=== PATIENT | female | born 1950 | race Caucasian/White ===

== ENCOUNTER 2016-09-16 13:07 | Emergency (ER) | payer MEDICARE, MEDICAID ==
--- NOTE | 2016-09-16 13:31 | EDM.PDOC ---
ED HISTORY OF PRESENT ILLNESS - General Chief Complaint: Respiratory Problem Stated Complaint: SOB Time Seen by Provider: 09/16/16 13:30 Source of Information: Reports: Patient History Limitations: Reports: No limitations - History of Present Illness INITIAL COMMENTS - FREE TEXT/NARRATIVE: Patient is a 66-year-old female with a extensive cardiac history. Patient states first myocardial infarction was silent with some similar symptoms as she is experiencing today. States she recently moved into a new place and has been experiencing shortness of breath with exertion, general malaise, fatigue, intermittent dizziness/nausea. She denies any chest pain, pre-/syncopal episodes, any upper respiratory infection symptoms or any additional complaints. States she has low energy and has gained approximately 20 pounds in the last 8 months 2nd to increased dietary intake. Denies chest pain, shortness of breath at rest, edema to lower extremities, orthopnea, PND, syncopal episode, sinus congestion, sore throat, coughing, diarrhea, or fever. Timing/Duration: Reports: Constant Location, General: Reports: generalized Improves with: Reports: Rest Worsens with: Reports: Other (Exertion) Context, General: Denies: Sick contact Associated Symptoms (General): Reports: loss of appetite, malaise, nausea/ vomiting (Nausea), shortness of breath (with exertion). Denies: chest pain, cough, cough w sputum, diaphoresis, fever/chills, syncope Treatments COUNSELING DEPARTMENT CHAIR: Reports: Other (see below) (None stated) - Related Data Allergies/ADRs: Allergies Allergy/AdvReac Type Severity Reaction Status Date / Time nitrofurantoin AdvReac Nausea and Verified 09/16/16 13:17 macrocrystalline Vomiting [From Macrodantin] Sulfa (Sulfonamide AdvReac Nausea and Verified 09/16/16 13:17 Antibiotics) Vomiting sulfamethoxazole AdvReac Nausea and Verified 09/16/16 13:17 [From Bactrim] Vomiting trimethoprim [From Bactrim] AdvReac Nausea and Verified 09/16/16 13:17 Vomiting Home Meds: Home Meds Isosorbide Mononitrate 60 mg PO DAILY 12/10/13 [History] Metoprolol Succinate 12.5 mg PO DAILY 12/10/13 [History] traMADol [Ultram] 50 mg PO Q6H PRN 12/10/13 [History] Aspirin [Gabriel Chewable Aspirin] 81 mg PO DAILY 12/19/13 [History] Glucagon,Human Recombinant [Glucagen] 1 mg .XX ONETIME PRN 12/19/13 [History] Nitroglycerin [Nitrostat] 0.4 mg SL ASDIRECTED PRN 12/19/13 [History] Clopidogrel Bisulfate [Plavix] 75 mg PO DAILY #10 tablet 09/03/15 [Rx] Esomeprazole [NexIUM] 1 tab PO DAILY 09/03/15 [History] rOPINIRole [Requip] 1 mg PO BEDTIME 02/21/16 [History] Cholecalciferol (Vitamin D3) [Vitamin D3] 400 units PO DAILY 02/22/16 [History] Lisinopril 10 mg PO DAILY 02/22/16 [History] Sodium Bicarbonate 325 mg PO BID 02/22/16 [History] Levothyroxine [Synthroid] 100 mcg PO DAILY@0700 #30 tablet 02/27/16 [Rx] Simvastatin [Zocor] 20 mg PO BEDTIME 30 Days 02/27/16 [Rx] Ciprofloxacin HCl [Cipro] 500 mg PO QAM #10 tablet 09/16/16 [Rx] HCTZ/Triamterene [Maxzide 25-37.5 MG] 12.5 mg PO DAILY 09/16/16 [History] Insulin Aspart [Novolog] unit SQ TID 09/16/16 [History] Insulin Detemir [Levemir] 26 unit SUBCUT DAILY 09/16/16 [History] Past Medical History HEENT History: Reports: Macular degeneration Other HEENT History: ears are constantly ringing Cardiovascular History: Reports: Hypertension, [place] Other Cardiovascular History: 2003 Respiratory History: Reports: Pneumonia, recurrent Gastrointestinal History: Reports: PUD, Other (see below) Other Gastrointestinal History: was told has "twisted colon." Genitourinary History: Reports: Pyelonephritis Other Genitourinary History: Stage two kidney disease [employer] History: Reports: Musculoskeletal History: Reports: Back pain, chronic, Fracture, Other (see below ) Other Musculoskeletal History: spinal stenosis, fx'd spine (back), L) arm surgery. Neurological History: Reports: Migraines Psychiatric History: Reports: Depression Endocrine/Metabolic History: Reports: Diabetes, type I, Hypothyroidism, IDDM Hematologic History: Reports: Blood transfusion(s) Immunologic History: Reports: None Oncologic (Cancer) History: Reports: None Dermatologic History: Reports: None - Infectious Disease History Infectious Disease History: Reports: Chicken pox - Past Surgical History Head Surgeries/Procedures: Reports: None HEENT Surgical History: Reports: Cataract surgery Cardiovascular Surgical History: Reports: Coronary artery bypass Other Cardiovascular Surgeries/Procedures: 2003, 4 vessels. GI Surgical History: Reports: Appendectomy Social & Family History - Family History Family Medical History: Noncontributory - Tobacco Use Smoking Status *Q: Former Smoker Years of Tobacco use: 50 Packs/Tins Daily: 1 Second Hand Smoke Exposure: No - Alcohol Use Days Per Week of Alcohol Use: 0 Number of Drinks Per Day: 0 Total Drinks Per Week: 0 - Recreational Drug Use Recreational Drug Use: No Drug Use in Last 12 Months: No ED ROS GENERAL - Review of Systems Review Of Systems: See Below Constitutional: Reports: malaise, fatigue, decreased appetite. Denies: fever, chills HEENT: Reports: No symptoms Respiratory: Reports: shortness of breath. Denies: cough, sputum Cardiovascular: Reports: Dyspnea on exertion, Lightheadedness (Intermittent). Denies: Chest pain, Edema, Orthopnea, Palpitations, PND, Syncope GI/Abdominal: Reports: Nausea (Intermittent). Denies: Abdominal pain, Black stool, Bloody stool, Diarrhea, Hematemesis, Vomiting : Denies: dysuria, frequency, hematuria, urgency Musculoskeletal: Denies: back pain Neurological: Reports: dizziness (Intermittent). Denies: confusion, headache, numbness, syncope, tingling, difficulty walking, weakness Psychiatric: Reports: Anxiety (History of) ED EXAM, GENERAL - Physical Exam Exam: See Below Exam Limited By: No limitations General Appearance: alert, WD/WN, no apparent distress Eye Exam: bilateral eye: EOMI, PERRL Ears: hearing grossly normal Nose: normal inspection Throat/Mouth: Normal voice, No airway compromise, Other (Dry oromucosa) Neck: normal inspection, supple, non-tender, full range of motion. No: carotid bruit, lymphadenopathy (L), lymphadenopathy (R) Respiratory/Chest: no respiratory distress, lungs clear, normal breath sounds, no accessory muscle use, chest non-tender Cardiovascular: normal peripheral pulses, regular rate, rhythm, no edema, no JVD , no murmur Peripheral Pulses: 3+: radial (L) GI/Abdominal: normal bowel sounds, soft, non tender, no organomegaly, no distention Back Exam: normal inspection Extremities: normal inspection, non-tender, no pedal edema, normal capillary refill Neurological: alert, oriented, CN II-XII intact, normal cognition, no motor/ sensory deficits Psychiatric: normal affect, normal mood Skin Exam: Warm, Dry, Intact, Normal color Course - Vital Signs Last Recorded V/S: Last Vital Signs Temp 97.1 F 09/16/16 13:35 Pulse 82 09/16/16 13:35 Resp 16 09/16/16 13:35 BP 133/66 09/16/16 13:35 Pulse Ox 97 09/16/16 13:35 - Orders/Labs/Meds Orders: Active Orders 24 hr Category Date Time Status EKG Documentation Completion [RC] STAT Care 09/16/16 13:43 Active Orthostatic Vital Signs [RC] ASDIRECTED Care 09/16/16 13:46 Active Peripheral IV Care [RC] . DIRECTED Care 09/16/16 13:44 Active CULTURE URINE [RM] Stat Lab 09/16/16 17:54 Ordered Peripheral IV Insertion Adult [OM.PC] Stat Oth 09/16/16 13:43 Ordered Labs: Laboratory Tests 09/16/16 09/16/16 09/16/16 Range/Units 13:50 13:50 13:50 WBC 6.14 (3.98-10.04) K/mm3 RBC 4.33 (3.98-5.22) M/mm3 Hgb 9.8 L (11.2-15.7) gm/L Hct 33.3 L (34.1-44.9) % MCV 76.9 L (79.4-94.8) fl MCH 22.6 L (25.6-32.2) pg MCHC 29.4 L (32.2-35.5) g/dl RDW Std Deviation 44.8 (36.4-46.3) fL Plt Count 316 (182-369) K/mm3 MPV 12.5 H (9.4-12.3) fl Neut % (Auto) 54.5 (34.0-71.1) % Lymph % (Auto) 29.3 (19.3-51.7) % [place] % (Auto) 8.5 (4.7-12.5) % Eos % (Auto) 6.5 H (0.7-5.8) Baso % (Auto) 1.0 (0.1-1.2) % Neut # 3.35 (1.56-6.13) K/mm3 Lymph # 1.80 (1.18-3.74) K/mm3 [place] # 0.52 H (0.24-0.36) K/mm3 Eos # 0.40 H (0.04-0.36) K/mm3 Baso # 0.06 (0.01-0.08) K/mm3 Manual Slide Review Abnormal smear PT 10.4 (8.0-13.0) SECONDS INR 0.96 APTT 24 (22-36) SECONDS Sodium 138 (136-145) mEq/L Potassium 4.3 (3.5-5.1) mEq/L Chloride 102 (98-107) mEq/L Carbon Dioxide 25 (21-32) mEq/L Anion Gap 15.3 H (5-15) BUN 38 H (7-18) mg/dL Creatinine 1.7 H (0.55-1.02) mg/dL Est Cr Clr Drug Dosing TNP Estimated GFR (MDRD) 30 (>60) mL/min BUN/Creatinine Ratio 22.4 H (14-18) Glucose 283 H (80-115) mg/dL Calcium 9.3 (8.5-10.1) mg/dL Total Bilirubin 0.2 (0.2-1.0) mg/dL AST 15 (15-37) U/L ALT 17 (14-59) U/L Alkaline Phosphatase 110 (46-116) U/L Troponin I < 0.017 (0.00-0.056) ng/mL C-Reactive Protein 3.6 H* (<1.0) mg/dL B-Natriuretic Peptide (0-100) pg/mL Total Protein 7.1 (6.4-8.2) g/dl Albumin 3.3 L (3.4-5.0) g/dl Globulin 3.8 gm/dL Albumin/Globulin Ratio 0.9 L (1-2) TSH 3rd Generation 1.153 (0.358-3.74) uIU/mL Urine Color (Yellow) Urine Appearance (Clear) Urine pH (5.0-8.0) Ur Specific [place] (1.005-1.030) Urine Protein (Negative) Urine Glucose (UA) (Negative) Urine Ketones (Negative) Urine Occult Blood (Negative) Urine Nitrite (Negative) Urine Bilirubin (Negative) Urine Urobilinogen (0.2-1.0) Ur Leukocyte Esterase (Negative) Urine RBC (0-5) /hpf Urine WBC (0-5) /hpf Ur Epithelial Cells (0-5) /hpf Urine Bacteria (FEW) /hpf Urine Mucus (FEW) /hpf 09/16/16 09/16/16 09/16/16 Range/Units 13:50 15:34 15:55 WBC (3.98-10.04) K/mm3 RBC (3.98-5.22) M/mm3 Hgb (11.2-15.7) gm/L Hct (34.1-44.9) % MCV (79.4-94.8) fl MCH (25.6-32.2) pg MCHC (32.2-35.5) g/dl RDW Std Deviation (36.4-46.3) fL Plt Count (182-369) K/mm3 MPV (9.4-12.3) fl Neut % (Auto) (34.0-71.1) % Lymph % (Auto) (19.3-51.7) % [place] % (Auto) (4.7-12.5) % Eos % (Auto) (0.7-5.8) Baso % (Auto) (0.1-1.2) % Neut # (1.56-6.13) K/mm3 Lymph # (1.18-3.74) K/mm3 [place] # (0.24-0.36) K/mm3 Eos # (0.04-0.36) K/mm3 Baso # (0.01-0.08) K/mm3 Manual Slide Review PT (8.0-13.0) SECONDS INR APTT (22-36) SECONDS Sodium (136-145) mEq/L Potassium (3.5-5.1) mEq/L Chloride (98-107) mEq/L Carbon Dioxide (21-32) mEq/L Anion Gap (5-15) BUN (7-18) mg/dL Creatinine (0.55-1.02) mg/dL Est Cr Clr Drug Dosing Estimated GFR (MDRD) (>60) mL/min BUN/Creatinine Ratio (14-18) Glucose (80-115) mg/dL Calcium (8.5-10.1) mg/dL Total Bilirubin (0.2-1.0) mg/dL AST (15-37) U/L ALT (14-59) U/L Alkaline Phosphatase (46-116) U/L Troponin I < 0.017 (0.00-0.056) ng/mL C-Reactive Protein (<1.0) mg/dL B-Natriuretic Peptide 68 (0-100) pg/mL Total Protein (6.4-8.2) g/dl Albumin (3.4-5.0) g/dl Globulin gm/dL Albumin/Globulin Ratio (1-2) TSH 3rd Generation (0.358-3.74) uIU/mL Urine Color Yellow (Yellow) Urine Appearance Clear (Clear) Urine pH 5.5 (5.0-8.0) Ur Specific [place] 1.020 (1.005-1.030) Urine Protein Negative (Negative) Urine Glucose (UA) 2+ H (Negative) Urine Ketones Negative (Negative) Urine Occult Blood Negative (Negative) Urine Nitrite Negative (Negative) Urine Bilirubin Negative (Negative) Urine Urobilinogen 0.2 (0.2-1.0) Ur Leukocyte Esterase 1+ H (Negative) Urine RBC 0-5 (0-5) /hpf Urine WBC 5-10 H (0-5) /hpf Ur Epithelial Cells 5-10 H (0-5) /hpf Urine Bacteria Moderate H (FEW) /hpf Urine Mucus Few (FEW) /hpf Meds: Medications Discontinued Medications Generic Name Dose Route Start Last Admin Trade Name Freq PRN Reason Stop Dose Admin Aspirin 243 mg 09/16/16 14:57 09/16/16 15:18 Aspirin PO 09/16/16 14:58 243 mg ONETIME ONE Administration Ceftriaxone Sodium 1 gm/ 0 gm 09/16/16 18:00 09/16/16 18:22 Lidocaine HCl 2.1 ml IM 2.1 inj Q24H LYLA Administration Sodium Chloride 1,000 mls @ 50 mls/hr 09/16/16 14:00 09/16/16 14:04 Normal Saline IV 50 mls/hr ASDIRECTED LYLA Administration Ondansetron HCl 4 mg 09/16/16 13:46 09/16/16 14:03 Zofran IVPUSH 09/16/16 13:47 4 mg ONETIME ONE Administration Sodium Chloride 10 ml 09/16/16 13:43 09/16/16 13:58 Saline Flush FLUSH 10 ml ASDIRECTED PRN Administration Keep Vein Open - Re-Assessments/Exams Free Text/Narrative Re-Assessment/Exam: Labs reviewed: White blood cell count 6.14, hemoglobin is 9.8, coags are within normal limits, sodium 138, creatinine 1.7 baseline of 0.8, glucose 283, troponin less than 0.017, CRP is elevated at 2.6, TSH 1.3, BMP is 58. Chest x-ray revealed nothing acute seen on 2 view chest. D-Dimer ordered in error. 2nd Troponin ordered to be obtained 2 hours after initial draw. Patient denies history of PE/DVT, unilateral lower leg swelling, hemoptysis, exogenous estrogen, recent surgery/trauma, or hospitalization. 09/16/16 17:09 Seconds troponin was negative. 1 liter of fluid has been administered. UA revealed UTI. Culture obtained. Ordered rocephin 1 gram IV. Discussed with Dr Jackson, suggests cipro 500 once a day dosing per renal status. Holding lisinopril and HCTZ tomorrow, restarting Tuesday and taking every other day after that until evaluated by PCP. Discussed patient with Dr. López, he does not believe patient meets admission status. Patient does not want to be admitted anyways. Will discharge the patient home with instructions to followup with primary care provider first part of next week. Additional instructions on discharge is documented. Departure - Departure Time of Disposition: 17:35 Disposition: Home, Self-Care 01 Condition: good Clinical Impression: Elevated serum creatinine, Malaise and fatigue UTI (urinary tract infection) Qualifiers: Urinary tract infection type: acute cystitis Hematuria presence: without hematuria Qualified Code(s): N30.00 - Acute cystitis without hematuria Prescriptions: Ciprofloxacin HCl [Cipro] 500 mg PO QAM #10 tablet Instructions: Urinary Tract Infection, Adult, Basic Metabolic Panel Referrals: Kike Henry MD [Primary Care Provider] - Forms: ED Department Discharge Additional Instructions: As discussed your creatinine was elevated in comparison to previous studies today. This is suggesting that you are dehydrated. Decreased in liquid intake with combination with diuretics and lisinopril can cause worsening kidney function. Increase fluid intake. UA was positive for UTI. Take cipro 500mg everyday for 10 days. Hold lisinopril and HCTZ tomorrow restarting Tuesday then taking on a every other day basis until evaluated by PCP first part of next week. Return to the E.D. as needed for any new or worsening symptoms as discussed. - My Orders Last 24 Hours: My Active Orders 09/16/16 13:43 EKG Documentation Completion [RC] STAT Peripheral IV Insertion Adult [OM.PC] Stat 09/16/16 13:44 Peripheral IV Care [RC] . DIRECTED 09/16/16 13:46 Orthostatic Vital Signs [RC] ASDIRECTED 09/16/16 17:54 CULTURE URINE [RM] Stat - Assessment/Plan Last 24 Hours: My Active Orders 09/16/16 13:43 EKG Documentation Completion [RC] STAT Peripheral IV Insertion Adult [OM.PC] Stat 09/16/16 13:44 Peripheral IV Care [RC] . DIRECTED 09/16/16 13:46 Orthostatic Vital Signs [RC] ASDIRECTED 09/16/16 17:54 CULTURE URINE [RM] Stat
[2016-09-16] MEDS ORDERED: Sodium Chloride 0.9% 10 ML Syringe FLUSH PRN (13:43)
[2016-09-16 13:44] VITALS: BP 133/66
[2016-09-16] MEDS ORDERED: Ondansetron 4 MG/2 ML SDV IVPUSH ONE (13:46)
[2016-09-16] MEDS ORDERED: Sodium Chloride 0.9% 1,000 ML IV SCH (14:00)
[2016-09-16] MEDS ORDERED: Aspirin 81 MG Tab.Chew PO ONE (14:57)
--- NOTE | 2016-09-16 15:12 | CR ---
Chest: Two views of the chest were obtained. Comparison: Previous chest x-ray of 02/25/16. Heart size at the upper limits of normal. Tortuous thoracic aorta is seen. Sternotomy for CABG is seen. Minimal apical pleural thickening is seen. Lungs are clear with no acute infiltrates. Bony structures appear within normal limits for the patient's age. Impression: 1. Incidental findings. Nothing acute is seen on two-view chest x-ray. Diagnostic code #2
[2016-09-16] MEDS ORDERED: cefTRIAXone 1 GM, Lidocaine 1% 2.1 ML IM SCH ×2 (18:00)
== END 2016-09-16 18:38 | disposition home or self-care (01) ==
LOC: JD.ED 13:07
DX: N39.0 Urinary tract infection, site not specified (principal); R79.89 Other specified abnormal findings of blood chemistry; R53.81 Other malaise; Z88.2 Allergy status to sulfonamides; Z88.8 Allergy status to other drugs, medicaments and biological substances; Z79.82 Long term (current) use of aspirin; Z79.4 Long term (current) use of insulin; Z79.899 Other long term (current) drug therapy; H35.30 Unspecified macular degeneration; I25.2 Old myocardial infarction; I10 Essential (primary) hypertension; G89.29 Other chronic pain; M54.9 Dorsalgia, unspecified; F32.9 Major depressive disorder, single episode, unspecified; E10.9 Type 1 diabetes mellitus without complications; E03.9 Hypothyroidism, unspecified; Z87.891 Personal history of nicotine dependence
CPT/HCPCS: 36415; 71020; 80053; 81001; 83880; 84443; 84484; 85025; 85610; 85730; 86140; 93005; 96361; 96372; 96374; 99285; A9270; J0696; J2405; J7040; J7050; 87086; 87088; 87186

== ENCOUNTER 2017-09-05 22:34 | Emergency (ER) | payer OTHER ==
--- NOTE | 2017-09-05 22:58 | EDM.PDOC ---
ED HPI GENERAL MEDICAL PROBLEM - General Chief Complaint: Respiratory Problem Stated Complaint: SOB Time Seen by Provider: 09/05/17 22:41 Source of Information: Reports: Patient, Family (Daughter) History Limitations: Reports: No Limitations - History of Present Illness INITIAL COMMENTS - FREE TEXT/NARRATIVE: The patient states "I can't breathe" since this morning, when she woke up. She states that she is able to lie down for at least a while. She believes that she has been wheezing. She reports that she has had a dry cough for a few months. No recent fever. She denies having chest pain or palpitations. She denies lower extremity edema. She denies prior similar symptoms. She does not have any underlying lung disease. Upon arrival to the ED, the patient's SpO2 was 68% on room air. She was placed on 2 L per nasal cannula, without improvement. She was placed on a nonrebreather mask, raising her SpO2 to 90%. The patient states that she saw her Channel Opener, Dr. Franks, today. She mentioned her shortness of breath, but states that he did not do anything about it. The patient states that he wants her to have an echocardiogram. The patient's PCP is Dr. Sofia, a [facility] doctor. - Related Data Allergies Allergy/AdvReac Type Severity Reaction Status Date / Time triazolam Allergy Cannot Verified 09/05/17 22:45 Remember zolpidem Allergy Cannot Verified 09/05/17 22:45 Remember nitrofurantoin AdvReac Nausea and Verified 09/05/17 22:37 macrocrystalline Vomiting [From Macrodantin] Sulfa (Sulfonamide AdvReac Nausea and Verified 09/05/17 22:37 Antibiotics) Vomiting sulfamethoxazole AdvReac Nausea and Verified 09/05/17 22:37 [From Bactrim] Vomiting trimethoprim [From Bactrim] AdvReac Nausea and Verified 09/05/17 22:37 Vomiting Home Meds: Home Meds Isosorbide Mononitrate 60 mg PO DAILY 12/10/13 [History] traMADol [Ultram] 50 mg PO Q6H 12/10/13 [History] Aspirin [Gabriel Chewable Aspirin] 81 mg PO DAILY 12/19/13 [History] Glucagon,Human Recombinant [Glucagen] 1 mg .XX ONETIME PRN 12/19/13 [History] Nitroglycerin [Nitrostat] 0.4 mg SL ASDIRECTED PRN 12/19/13 [History] Esomeprazole [NexIUM] 1 tab PO DAILY 09/03/15 [History] Lisinopril 2.5 mg PO DAILY 02/22/16 [History] Sodium Bicarbonate 325 mg PO BID 02/22/16 [History] Insulin Aspart [Novolog] 4 unit SQ ACLUNCH 09/16/16 [History] Ascorbic Acid [Vitamin C] 250 mg PO BID 09/05/17 [History] Bisoprolol [Zebeta] 2.5 mg PO DAILY 09/05/17 [History] Calcium Carbonate/Vitamin D3 [Calcium 600 + Vit D 400 Softgl] 1 tab PO BID 09/05 [History] Citalopram Hydrobromide [Celexa] 40 mg PO DAILY 09/05/17 [History] Dextrose [Glucose] 1 applic PO DAILY PRN 09/05/17 [History] Dextrose [Glucose] 4 gm PO DAILY PRN 09/05/17 [History] Ferrous Sulfate [Iron] 325 mg PO BID 09/05/17 [History] Gabapentin [Neurontin] 100 mg PO TID 09/05/17 [History] Insulin Aspart [Novolog Flexpen] 1 - 4 units SQ TID 09/05/17 [History] Insulin Aspart [Novolog Flexpen] 3 units SQ ACDINNER 09/05/17 [History] Insulin Aspart [Novolog Flexpen] 6 units SQ ACBREAKFAST 09/05/17 [History] Levothyroxine [Synthroid] 0.112 mg PO DAILY@1200 09/05/17 [History] Menthol/Colloidal Oatmeal [Eucerin Calm Itch-Relief] 1 applic TOP BID PRN [History] Rosuvastatin [Crestor] 10 mg PO BEDTIME 09/05/17 [History] Tresiba. 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: Musculoskeletal History: Reports: Back Pain, Chronic (spinal stenosis), Fracture Psychiatric History: Reports: Other (See Below) (Restless leg syndrome) Endocrine/Metabolic History: Reports: Diabetes, Type II, Hypothyroidism Hematologic History: Reports: Anemia, Blood Transfusion(s), Iron Deficiency - Infectious Disease History Infectious Disease History: Reports: Chicken Pox - Past Surgical History HEENT Surgical History: Reports: Cataract Surgery Cardiovascular Surgical History: Reports: Coronary Artery Bypass (x 4 vessel, 2003) GI Surgical History: Reports: Appendectomy Musculoskeletal Surgical History: Reports: ORIF (left wrist) Social & Family History - Family History Family Medical History: Noncontributory - Tobacco Use Smoking Status *Q: Current Every Day Smoker Years of Tobacco use: 52 Packs/Tins Daily: 0.1 Packs/Tins Daily Comment: Down from 1.5 ppd Used Tobacco, but Quit: No - Caffeine Use Caffeine Use: Reports: Coffee - Alcohol Use Alcohol Use History: No Days Per Week of Alcohol Use: 0 Number of Drinks Per Day: 0 Total Drinks Per Week: 0 - Recreational Drug Use Recreational Drug Use: No - Living Situation & Occupation Living situation: Reports: (), Alone Occupation: Retired ED ROS GENERAL - Review of Systems Review Of Systems: ROS reveals no pertinent complaints other than HPI. ED EXAM, GENERAL - Physical Exam Exam: See Below Exam Limited By: No Limitations General Appearance: Alert, WD/WN, Mild Distress (able to hold a conversation) Eye Exam: Bilateral Eye: Normal Inspection Ears: Normal External Exam, Hearing Grossly Normal Nose: Normal Inspection, No Blood Throat/Mouth: Normal Inspection, Normal Lips, Normal Voice, No Airway Compromise Head: Atraumatic, Normocephalic Neck: Normal Inspection, Full Range of Motion Respiratory/Chest: No Accessory Muscle Use, Respiratory Distress (mild), Decreased Breath Sounds (Bibasilar. No dullness to percussion.), Rhonchi (loud, Rt > Lt). No: Crackles, Wheezing Cardiovascular: Normal Peripheral Pulses, Regular Rate, Rhythm, No Edema, No Gallop, No JVD, No Murmur, No Rub Peripheral Pulses: 4+: Radial (L), Radial (R) GI/Abdominal: Normal Bowel Sounds, Soft, Non-Tender, No Organomegaly, No Distention, No Abnormal Bruit, No Mass (Female) Exam: Deferred Rectal (Female) Exam: Deferred Back Exam: Normal Inspection, Full Range of Motion, NT Extremities: Normal Inspection, Normal Range of Motion, No Pedal Edema, Normal Capillary Refill Neurological: Alert, Oriented, Normal Cognition, No Motor/Sensory Deficits Psychiatric: Normal Affect Skin Exam: Warm, Dry, Intact, Normal Color, No Rash ED RESPIRATORY PROCEDURES - Endotracheal Intubation Time of Intubation: 01:12 ET Intubation Indication: Respiratory Failure Preparation: Suction, Balloon Tested, BVM Set Up, Difficult Airway Equip Pre-Oxygenation: Assisted with BVM, 100% FiO2 Anesthesia Meds: Propofol Placement: Orotracheal, Cuffed, Uncomplicated Placement Cords Visualized: Yes, Grade 1 ETT Size In mm: 8.0 Number of Attempts: 1 Confirmed By: CO2 Indicator, Bilateral Breath Sounds, Chest Xray Tube Secured By: By RT EKG INTERPRETATION EKG Date: 09/05/17 Time: 23:08 Rhythm: NSR Rate (Beats/Min): 78 [place]: Normal P-Wave: Present QRS: RBBB (incompllete) ST-T: Normal QT: Prolonged (QTc 541 ms) Comparison: No Change (09/16/2016) Course - Vital Signs Last Recorded V/S: Last Vital Signs Temp 36.2 C 09/05/17 22:38 Pulse 71 09/06/17 03:36 Resp 17 09/06/17 03:36 BP 134/53 L 09/06/17 03:36 Pulse Ox 96 09/06/17 03:36 - Orders/Labs/Meds Orders: Active Orders 24 hr Category Date Time Status EKG Documentation Completion [RC] STAT Care 09/05/17 22:52 Active Ventilator Assessment, ED [RT Ventilator ED, Adult] [RC Care 09/06/17 02:04 Active ] ASDIRECTED Ventilator Assessment, ED [RT Ventilator ED, Adult] [ Care 09/06/17 02:42 Active ] ASDIRECTED Ang Chest [CT] Routine Exams 09/06/17 Ordered Chest 2V [CR] Stat Exams 09/05/17 22:52 Taken PICC Line Placement NC [CR] Stat Exams 09/06/17 01:53 Taken CULTURE BLOOD [BC] Stat Lab 09/05/17 22:35 Received CULTURE BLOOD [BC] Stat Lab 09/05/17 23:45 Received CULTURE SPUTUM + SMEAR [RM] Stat Lab 09/06/17 02:23 Results Norepinephrine [Levophed] 4 mg Med 09/06/17 02:15 Active Dextrose 5% in Water 246 ml IV TITRATE Propofol [Diprivan 100 ML] 100 ml Med 09/06/17 01:10 Active IV TITRATE Sodium Chloride 0.9% [Normal Saline] 1,000 ml Med 09/05/17 23:45 Active IV ASDIRECTED Vancomycin 1 gm Med 09/06/17 02:52 Active Sodium Chloride 0.9% [Normal Saline] 250 ml IV ONETIME Vancomycin [Vancocin] 1 gm Med 09/06/17 03:07 Active Sodium Chloride 0.9% [Normal Saline] 250 ml IV ONETIME Blood Culture x2 Reflex Set [OM.PC] Stat Oth 09/05/17 22:52 Ordered Desired Level of Sedation (RASS) [AST] Click To Edit Oth 09/06/17 02:29 Ordered Medication Orders Sodium Chloride (Normal Saline) 1,000 mls @ 100 mls/hr IV ASDIRECTED LYLA Last Admin: 09/05/17 23:59 Dose: 100 mls/hr Norepinephrine Bitartrate 4 mg (/ Dextrose/Water) 250 mls @ 18.75 mls/hr IV TITRATE LYLA; 5 MCG/MIN PRN Reason: Protocol Last Titration: 09/06/17 03:37 Dose: 3 mcg/min, 11.25 mls/hr Admin: 09/06/17 02:23 Dose: 5 mcg/min, 18.75 mls/hr Propofol (Diprivan 100 Ml) 100 mls @ 20.412 mls/hr IV TITRATE LYLA; 50 MCG/KG/ MIN PRN Reason: Protocol Last Titration: 09/06/17 02:15 Dose: 75 mcg/kg/min, 30.618 mls/hr Titration: 09/06/17 02:01 Dose: 50 mcg/kg/min, 20.412 mls/hr Titration: 09/06/17 01:20 Dose: 75 mcg/kg/min, 30.618 mls/hr Admin: 09/06/17 01:14 Dose: 50 mcg/kg/min, 20.412 mls/hr Vancomycin HCl 1 gm/ Sodium (Chloride) 250 mls @ 250 mls/hr IV ONETIME ONE Stop: 09/06/17 03:51 Last Admin: 09/06/17 03:15 Dose: Not Given Vancomycin HCl 1 gm/ Sodium (Chloride) 250 mls @ 250 mls/hr IV ONETIME ONE Stop: 09/06/17 04:06 Last Admin: 09/06/17 03:08 Dose: 250 mls/hr Labs: Laboratory Tests 09/05/17 09/05/17 09/05/17 Range/Units 22:35 22:48 22:48 WBC 20.32 H (3.98-10.04) K/mm3 RBC 4.86 (3.98-5.22) M/mm3 Hgb 12.2 (11.2-15.7) gm/L Hct 41.0 (34.1-44.9) % MCV 84.4 (79.4-94.8) fl MCH 25.1 L (25.6-32.2) pg MCHC 29.8 L (32.2-35.5) g/dl RDW Std Deviation 55.1 H (36.4-46.3) fL Plt Count 284 (182-369) K/mm3 MPV 12.8 H (9.4-12.3) fl Neutrophils % (Manual) 80 H (40-60) % Band Neutrophils % 4 (0-10) % Lymphocytes % (Manual) 11 L (20-40) % Atypical Lymphs % 0 % Monocytes % (Manual) 5 (2-10) % Eosinophils % (Manual) 0 L (0.7-5.8) % Basophils % (Manual) 0 L (0.1-1.2) Platelet Estimate Adequate Plt Morphology Comment Normal Anisocytosis 1+ slight RBC Morph Comment Abnormal PT 11.3 (8.0-13.0) SECONDS INR 1.06 APTT 27 (22-36) SECONDS D-Dimer, Quantitative 1.02 H (0.19-0.59) mg/L Puncture Site ABG pH (7.35-7.45) ABG pCO2 (35.0-45.0) mmHg ABG pO2 (80.0-100.0) mmHg ABG HCO3 (22.0-26.0) meq/L ABG O2 Saturation (96.0-97.0) % ABG Base Excess (-2-2.0) Will Test A-a Gradient mmHg O2 Delivery Device Oxygen Flow Rate FiO2 (21.00-100.00) % Tidal Volume cc PEEP cmH20 Sodium (136-145) mEq/L Potassium (3.5-5.1) mEq/L Chloride (98-107) mEq/L Carbon Dioxide (21-32) mEq/L Anion Gap (5-15) BUN (7-18) mg/dL Creatinine (0.55-1.02) mg/dL Est Cr Clr Drug Dosing mL/min Estimated GFR (MDRD) (>60) mL/min BUN/Creatinine Ratio (14-18) Glucose (80-115) mg/dL Lactic Acid 1.1 (0.4-2.0) mmol/L Calcium (8.5-10.1) mg/dL Total Bilirubin (0.2-1.0) mg/dL AST (15-37) U/L ALT (14-59) U/L Alkaline Phosphatase (46-116) U/L Troponin I (0.00-0.056) ng/mL NT-Pro-B Natriuret Pep (0-125) pg/mL Total Protein (6.4-8.2) g/dl Albumin (3.4-5.0) g/dl Globulin gm/dL Albumin/Globulin Ratio (1-2) 09/05/17 09/05/17 09/05/17 Range/Units 22:48 22:48 23:50 WBC (3.98-10.04) K/mm3 RBC (3.98-5.22) M/mm3 Hgb (11.2-15.7) gm/L Hct (34.1-44.9) % MCV (79.4-94.8) fl MCH (25.6-32.2) pg MCHC (32.2-35.5) g/dl RDW Std Deviation (36.4-46.3) fL Plt Count (182-369) K/mm3 MPV (9.4-12.3) fl Neutrophils % (Manual) (40-60) % Band Neutrophils % (0-10) % Lymphocytes % (Manual) (20-40) % Atypical Lymphs % % Monocytes % (Manual) (2-10) % Eosinophils % (Manual) (0.7-5.8) % Basophils % (Manual) (0.1-1.2) Platelet Estimate Plt Morphology Comment Anisocytosis RBC Morph Comment PT (8.0-13.0) SECONDS INR APTT (22-36) SECONDS D-Dimer, Quantitative (0.19-0.59) mg/L Puncture Site Lt radial ABG pH 7.33 L (7.35-7.45) ABG pCO2 53.5 H (35.0-45.0) mmHg ABG pO2 82.0 (80.0-100.0) mmHg ABG HCO3 27.1 H (22.0-26.0) meq/L ABG O2 Saturation 95.0 L (96.0-97.0) % ABG Base Excess 0.9 (-2-2.0) Will Test Positive A-a Gradient 491 mmHg O2 Delivery Device Nrb Oxygen Flow Rate 15.0 FiO2 0.00 L (21.00-100.00) % Tidal Volume cc PEEP cmH20 Sodium 139 (136-145) mEq/L Potassium 4.3 (3.5-5.1) mEq/L Chloride 99 (98-107) mEq/L Carbon Dioxide 27 (21-32) mEq/L Anion Gap 17.3 H (5-15) BUN 28 H (7-18) mg/dL Creatinine 1.1 H (0.55-1.02) mg/dL Est Cr Clr Drug Dosing 42.27 mL/min Estimated GFR (MDRD) 49 (>60) mL/min BUN/Creatinine Ratio 25.5 H (14-18) Glucose 199 H (80-115) mg/dL Lactic Acid (0.4-2.0) mmol/L Calcium 9.9 (8.5-10.1) mg/dL Total Bilirubin 0.3 (0.2-1.0) mg/dL AST 84 H (15-37) U/L ALT 97 H (14-59) U/L Alkaline Phosphatase 475 H (46-116) U/L Troponin I < 0.017 (0.00-0.056) ng/mL NT-Pro-B Natriuret Pep 4606 H (0-125) pg/mL Total Protein 8.0 (6.4-8.2) g/dl Albumin 3.2 L (3.4-5.0) g/dl Globulin 4.8 gm/dL Albumin/Globulin Ratio 0.7 L (1-2) 09/06/17 Range/Units 02:20 WBC (3.98-10.04) K/mm3 RBC (3.98-5.22) M/mm3 Hgb (11.2-15.7) gm/L Hct (34.1-44.9) % MCV (79.4-94.8) fl MCH (25.6-32.2) pg MCHC (32.2-35.5) g/dl RDW Std Deviation (36.4-46.3) fL Plt Count (182-369) K/mm3 MPV (9.4-12.3) fl Neutrophils % (Manual) (40-60) % Band Neutrophils % (0-10) % Lymphocytes % (Manual) (20-40) % Atypical Lymphs % % Monocytes % (Manual) (2-10) % Eosinophils % (Manual) (0.7-5.8) % Basophils % (Manual) (0.1-1.2) Platelet Estimate Plt Morphology Comment Anisocytosis RBC Morph Comment PT (8.0-13.0) SECONDS INR APTT (22-36) SECONDS D-Dimer, Quantitative (0.19-0.59) mg/L Puncture Site Rt radial ABG pH 7.29 L (7.35-7.45) ABG pCO2 53.2 H (35.0-45.0) mmHg ABG pO2 58.0 L (80.0-100.0) mmHg ABG HCO3 24.9 (22.0-26.0) meq/L ABG O2 Saturation 87.0 L (96.0-97.0) % ABG Base Excess -1.5 (-2-2.0) Will Test Positive A-a Gradient 195 mmHg O2 Delivery Device Ventilator Oxygen Flow Rate FiO2 0.50 L (21.00-100.00) % Tidal Volume 400.0 cc PEEP 8.0 cmH20 Sodium (136-145) mEq/L Potassium (3.5-5.1) mEq/L Chloride (98-107) mEq/L Carbon Dioxide (21-32) mEq/L Anion Gap (5-15) BUN (7-18) mg/dL Creatinine (0.55-1.02) mg/dL Est Cr Clr Drug Dosing mL/min Estimated GFR (MDRD) (>60) mL/min BUN/Creatinine Ratio (14-18) Glucose (80-115) mg/dL Lactic Acid (0.4-2.0) mmol/L Calcium (8.5-10.1) mg/dL Total Bilirubin (0.2-1.0) mg/dL AST (15-37) U/L ALT (14-59) U/L Alkaline Phosphatase (46-116) U/L Troponin I (0.00-0.056) ng/mL NT-Pro-B Natriuret Pep (0-125) pg/mL Total Protein (6.4-8.2) g/dl Albumin (3.4-5.0) g/dl Globulin gm/dL Albumin/Globulin Ratio (1-2) Meds: Medications Generic Name Dose Route Start Last Admin Trade Name Freq PRN Reason Stop Dose Admin Sodium Chloride 1,000 mls @ 100 mls/hr 09/05/17 23:45 09/05/17 23:59 Normal Saline IV 100 mls/hr ASDIRECTED LYLA Administration Norepinephrine Bitartrate 4 mg 250 mls @ 18.75 mls/hr 09/06/17 02:15 03:37 / Dextrose/Water IV 3 mcg/min TITRATE LYLA 11.25 mls/hr Protocol Titration 5 MCG/MIN Propofol 100 mls @ 20.412 mls/hr 09/06/17 01:10 09/06/17 02:15 Diprivan 100 Ml IV 75 mcg/kg/min TITRATE LYLA 30.618 mls/hr Protocol Titration 50 MCG/KG/MIN Vancomycin HCl 1 gm/ Sodium 250 mls @ 250 mls/hr 09/06/17 02:52 09/06/17 03: 15 Chloride IV 09/06/17 03:51 Not Given ONETIME ONE Vancomycin HCl 1 gm/ Sodium 250 mls @ 250 mls/hr 09/06/17 03:07 09/06/17 03: 08 Chloride IV 09/06/17 04:06 250 mls/hr ONETIME ONE Administration Discontinued Medications Generic Name Dose Route Start Last Admin Trade Name Freq PRN Reason Stop Dose Admin Acetaminophen 650 mg 09/06/17 00:43 09/06/17 01:56 Tylenol PO 09/06/17 00:44 Not Given ONETIME STA Propofol Confirm 09/06/17 01:12 09/06/17 02:38 Diprivan 100 Ml Administered 09/06/17 01:13 Not Given Dose 100 mls @ as directed .ROUTE .STK-MED ONE Ceftriaxone Sodium 1 gm/ 100 mls @ 200 mls/hr 09/06/17 01:38 09/06/17 01:56 Sodium Chloride IV 09/06/17 02:07 200 mls/hr ONETIME STA Administration Sodium Chloride Confirm 09/06/17 03:10 09/06/17 03:15 Normal Saline Administered 09/06/17 03:11 Not Given Dose 250 mls @ as directed .ROUTE .STK-MED ONE Metoclopramide HCl 10 mg 09/06/17 00:42 09/06/17 00:52 Reglan IVPUSH 09/06/17 00:43 10 mg ONETIME STA Administration Propofol 40 mg 09/06/17 01:10 09/06/17 01:12 Diprivan 20 Ml IVPUSH 09/06/17 01:11 40 mg ONETIME ONE Administration Propofol 40 mg 09/06/17 01:20 09/06/17 01:20 Diprivan 20 Ml IVPUSH 09/06/17 01:21 40 mg ONETIME ONE Administration Vancomycin HCl Confirm 09/06/17 03:09 09/06/17 03:15 Vancocin Administered 09/06/17 03:10 Not Given Dose 1 gm .ROUTE .STK-MED ONE - Re-Assessments/Exams Free Text/Narrative Re-Assessment/Exam: 09/05/17 23:44 Two-view chest radiograph appears to be grossly normal. Cardiac silhouette is within normal limits. No pulmonary vascular congestion. No pleural effusions. Likely infiltrate either middle lobe or right lower lobe. No pneumothorax. Formal read per the Radiologist pending. 09/06/17 00:43 Notified by Katie CASTELLANOS that the patient is feeling nauseated and has a headache. Because the patient's QTc on her ECG is significantly elevated at 541, Zofran is not a good choice as an antiemetic. I have ordered 10 mg Reglan, along with 650 mg oral Tylenol for the headache. 09/06/17 01:04 The patient has become agitated and somewhat confused. She does not want to keep her oxygen on. She will not be able to lie flat or still for the CT angiogram. After discussion with the patient and her daughter, the decision has been made to intubate the patient. 09/06/17 01:21 Following anesthesia with 40 mg propofol The patient was successfully intubated with one attempt by FRANCIS Christianson, with me standing at his side. The tube was secured at 22 cm at the lip. Initial vent settings was A/C 14/.400/5/0.60. An OG tube was placed. Post-intubation portal chest radiograph appears to demonstrate the tip of the ET tube approximately 3 cm above the augie. The NG tube tip is in the stomach, via the esophagus. The right lung field is now nearly completely opacified, significant change from the earlier chest radiograph. The patient's oxygen saturation was inadequate with an FiO2 of 0.60. Her FiO2 was increased to 0.90, however, it was still inadequate, therefore the respiratory therapist is bagging the patient with 100% oxygen. The patient will go to CT scan in this condition, and we will retry the vent when she returns. 09/06/17 01:40 While we do not have the CT results back yet, because of the significant opacity in the patient's right lung field, I will treat empirically for pneumonia. Because of the patient's prolonged QTc, Levaquin is not a good choice. I have ordered Rocephin 1 g. 09/06/17 02:12 The patient's blood pressure dropped immediately after intubation, as expected, however, it had risen to normal levels by the time the patient had returned from CT scan. It has again dropped to 97/54, with a heart rate of 78. I will start Levophed. 09/06/17 02:14 CT angiogram of the chest is read by [facility] as: No evidence for pulmonary emboli Large right lung infiltrate consistent with right lower lobe pneumonia 09/06/17 02:21 The respiratory therapist was able to suction some thick secretions via the ET tube under sterile conditions. I have ordered a sputum culture. The patient's oxygenation improved after suctioning. 09/06/17 02:36 ABG obtained about 30 minutes after the patient was returned to the ventilator with setting A/C 14/.400/8/.5 reads 7.29/53.2/58/24.9/87% I have asked the respiratory therapist to change the vent setting to A/C 16/.460 /5/.5 09/06/17 02:38 [facility] contacted at 02:28. We are informed that their ICU is full. [facility] Call contacted at 02:34. We are informed that their ICU is full, as well. 09/06/17 02:56 Because the patient's pneumonia is severe enough to require intubation, this increases the likelihood that she has MRSA, even though she does not have any identifiable risk factors for MRSA. Current guidelines recommend treatment not only with an anti-pneumococcal beta-lactam, but also an anti-MRSA antibiotic as well as a macrolide. I have added vancomycin, however, azithromycin also prolongs QT, therefore I will withhold that at this time. 09/06/17 03:05 Case discussed with [facility] Call at 02:47. Case discussed with Dr. Hughes, Electronics Lead [facility], at 03:01. He accepts the patient for transfer. We will transfer the patient I fixed wing. Departure - Departure Time of Disposition: 03:05 Disposition: DC/Tfer to [facility] 02 Condition: Serious Clinical Impression: Right lower lobe pneumonia, Respiratory failure - Discharge Information Referrals: PCP,Unknown [Primary Care Provider] - - My Orders Last 24 Hours: My Active Orders 09/05/17 22:35 CULTURE BLOOD [BC] Stat 09/05/17 22:52 EKG Documentation Completion [RC] STAT Chest 2V [CR] Stat Blood Culture x2 Reflex Set [OM.PC] Stat 09/05/17 23:45 CULTURE BLOOD [BC] Stat Sodium Chloride 0.9% [Normal Saline] 1,000 ml IV ASDIRECTED 09/06/17 Ang Chest [CT] Routine 09/06/17 01:10 Propofol [Diprivan 100 ML] 100 ml IV TITRATE 09/06/17 01:53 PICC Line Placement NC [CR] Stat 09/06/17 02:04 Ventilator Assessment, ED [RT Ventilator ED, Adult] [RC] ASDIRECTED 09/06/17 02:15 Norepinephrine [Levophed] 4 mg Dextrose 5% in Water 246 ml IV TITRATE 09/06/17 02:23 CULTURE SPUTUM + SMEAR [RM] Stat 09/06/17 02:29 Desired Level of Sedation (RASS) [AST] Click To Edit 09/06/17 02:42 Ventilator Assessment, ED [RT Ventilator ED, Adult] [RC] ASDIRECTED 09/06/17 02:52 Vancomycin 1 gm Sodium Chloride 0.9% [Normal Saline] 250 ml IV ONETIME 09/06/17 03:07 Vancomycin [Vancocin] 1 gm Sodium Chloride 0.9% [Normal Saline] 250 ml IV ONETIME - Assessment/Plan Last 24 Hours: My Active Orders 09/05/17 22:35 CULTURE BLOOD [BC] Stat 09/05/17 22:52 EKG Documentation Completion [RC] STAT Chest 2V [CR] Stat Blood Culture x2 Reflex Set [OM.PC] Stat 09/05/17 23:45 CULTURE BLOOD [BC] Stat Sodium Chloride 0.9% [Normal Saline] 1,000 ml IV ASDIRECTED 09/06/17 Ang Chest [CT] Routine 09/06/17 01:10 Propofol [Diprivan 100 ML] 100 ml IV TITRATE 09/06/17 01:53 PICC Line Placement NC [CR] Stat 09/06/17 02:04 Ventilator Assessment, ED [RT Ventilator ED, Adult] [RC] ASDIRECTED 09/06/17 02:15 Norepinephrine [Levophed] 4 mg Dextrose 5% in Water 246 ml IV TITRATE 09/06/17 02:23 CULTURE SPUTUM + SMEAR [RM] Stat 09/06/17 02:29 Desired Level of Sedation (RASS) [AST] Click To Edit 09/06/17 02:42 Ventilator Assessment, ED [RT Ventilator ED, Adult] [RC] ASDIRECTED 09/06/17 02:52 Vancomycin 1 gm Sodium Chloride 0.9% [Normal Saline] 250 ml IV ONETIME 09/06/17 03:07 Vancomycin [Vancocin] 1 gm Sodium Chloride 0.9% [Normal Saline] 250 ml IV ONETIME
[2017-09-05] MEDS ORDERED: Sodium Chloride 0.9% 1,000 ML IV SCH (23:45)
[2017-09-06] MEDS ORDERED: Metoclopramide 10 MG/2 ML SDV IVPUSH STA (00:42)
[2017-09-06] MEDS ORDERED: Acetaminophen Soln 650 MG/20.3 ML UD Cup PO STA (00:43)
[2017-09-06] MEDS ORDERED: Propofol 200 MG/20 ML SDV IVPUSH ONE ×2 (01:10→01:20)
[2017-09-06] MEDS ORDERED: cefTRIAXone 1 GM in Sodium Chloride 0.9% 100 ML IV STA (01:38)
[2017-09-06] MEDS ORDERED: Norepinephrine 4 MG in Dextrose 5% in Water 246 ML IV SCH ×2 (02:15)
[2017-09-06] MEDS ORDERED: Vancomycin 1 GM AdvVial ONE (03:09)
[2017-09-06] MEDS ORDERED: Sodium Chloride 0.9% 250 ML ONE (03:10)
[2017-09-06 04:45] VITALS: BP 129/55
--- NOTE | 2017-09-06 07:05 | CR ---
Chest: Two views of the chest were obtained. Comparison: Prior chest x-ray of 09/16/16. Minimal atelectasis is noted within the left base. More parenchymal density is noted within the right base. These findings are an interval change from prior study. Upper lungs are clear. Old healed upper right rib fracture is noted. 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 Heart size and mediastinum are normal. Impression: 1. Parenchymal density within the right lung base with differential including change from aspiration as well as pneumonia. 2. Mild atelectasis within the left lung base is seen. 3. Other incidental findings. Diagnostic code #3
--- NOTE | 2017-09-06 07:22 | CR ---
Chest: Portable view of the chest is obtained. Comparison: Prior chest x-ray of 09/05/17. Increasing density within the right chest is seen. Endotracheal tube is not identified. Tip lies at the lower level of the clavicles. Nasogastric tube is also seen with tip lying within the stomach. Slight atelectasis is noted off the left cardiac apex. 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 Impression: 1. Increasing density within the right chest from prior exam which may represent worsening pneumonia due to hydration versus more atelectasis. 2. Satisfactory position of endotracheal tube and nasogastric tube. 3. Other incidental findings. Diagnostic code #3
--- NOTE | 2017-09-06 12:39 | CT ---
CT chest Technique: Multiple axial sections through the chest were obtained. Intravenous contrast was utilized. Study was performed as a pulmonary angiogram protocol. Findings: Pulmonary arteries are well-opacified. No filling defects are seen to indicate pulmonary embolism. Increased density is noted within the right lung base and right middle lobe. Left lung shows minimal density within the lingula. Lungs otherwise are clear. Endotracheal tube is seen with tip lying above the augie. Nasogastric tube is seen with tip lying within the stomach. Small portion of the visualized upper abdominal structures are within normal limits. Mediastinum and hilar regions show no adenopathy or mass. Atherosclerotic calcification is seen within the thoracic aorta. Bone window settings were reviewed which show a compression deformity within the lower thoracic spine which is felt to be old. Impression: 1. No findings of pulmonary embolism. 2. Parenchymal density within the right lower lung and right middle lobe with findings most likely representing pneumonia. 3. Slight density within the lingula either due to additional infectious change or atelectasis. 4. Satisfactory position of nasogastric tube and endotracheal tube. Diagnostic code #3 Agree with preliminary report issued by [facility] ([facility] preliminary report dictated on 09/06/17, 3:11 AM Central Time) [facility]
== END 2017-09-06 05:00 ==
LOC: JD.ED 22:34
DX: J18.9 Pneumonia, unspecified organism (principal); J96.90 Respiratory failure, unspecified, unspecified whether with hypoxia or hypercapnia; E78.00 Pure hypercholesterolemia, unspecified; I25.2 Old myocardial infarction; E03.9 Hypothyroidism, unspecified; E11.22 Type 2 diabetes mellitus with diabetic chronic kidney disease; I12.9 Hypertensive chronic kidney disease with stage 1 through stage 4 chronic kidney disease, or unspecified chronic kidney disease; N18.9 Chronic kidney disease, unspecified; F17.210 Nicotine dependence, cigarettes, uncomplicated; Z88.8 Allergy status to other drugs, medicaments and biological substances; Z79.899 Other long term (current) drug therapy; Z79.82 Long term (current) use of aspirin; Z79.4 Long term (current) use of insulin; Z88.2 Allergy status to sulfonamides
CPT/HCPCS: 31500; 36415; 36600; 51702; 71046; 71275; 80053; 82803; 82962; 83605; 83880; 84484; 85025; 85379; 85610; 85730; 87040; 87070; 87205; 93005; 96365; 96366; 96368; 96375; 99285; J0696; J2765; J3370; J7030; J7040; J7050; J7060; 87077; 87181; 87184; 93010; J2704; J3490

== ENCOUNTER 2017-11-15 14:11 | Emergency (ER) | payer OTHER ==
[2017-11-15 14:29] VITALS: BP 155/81
--- NOTE | 2017-11-15 15:00 | EDM.PDOC ---
ED HPI GENERAL MEDICAL PROBLEM - General Chief Complaint: Tube Replacement Stated Complaint: SENT BY [facility] Time Seen by Provider: 11/15/17 14:31 Source of Information: Reports: Patient History Limitations: Reports: No Limitations - History of Present Illness INITIAL COMMENTS - FREE TEXT/NARRATIVE: 67 y/o F with chief complaint of dislodged PEG tube. She was at the group home and during a transfer this afternoon the tube fell out. She's had it for about 2 months. It was placed while she was hospitalized in [place] for a severe pneumonia. She was intubated and ultimately required tracheostomy and PEG tube. She recovered and has been at the group home for inpatient rehab. She takes liquids, solids, and pills by mouth with no difficulty. States she gets additional feeds through the PEG tube for nutrition. - Related Data Allergies Allergy/AdvReac Type Severity Reaction Status Date / Time triazolam Allergy Cannot Verified 11/15/17 14:30 Remember zolpidem Allergy Cannot Verified 11/15/17 14:30 Remember nitrofurantoin AdvReac Nausea and Verified 11/15/17 14:30 macrocrystalline Vomiting [From Macrodantin] Sulfa (Sulfonamide AdvReac Nausea and Verified 11/15/17 14:30 Antibiotics) Vomiting sulfamethoxazole AdvReac Nausea and Verified 11/15/17 14:30 [From Bactrim] Vomiting trimethoprim [From Bactrim] AdvReac Nausea and Verified 11/15/17 14:30 Vomiting Home Meds: Home Meds traMADol [Ultram] 50 mg PO Q6H 12/10/13 [History] Citalopram Hydrobromide [Celexa] 40 mg PO DAILY 09/05/17 [History] Ferrous Sulfate [Iron] 325 mg PO BID 09/05/17 [History] Insulin Aspart [Novolog Flexpen] 1 - 4 units SQ TID 09/05/17 [History] Levothyroxine [Synthroid] 50 mcg PO DAILY@1200 09/05/17 [History] Rosuvastatin [Crestor] 10 mg PO BEDTIME 09/05/17 [History] Acetaminophen 325 mg PO BID 11/15/17 [History] Bisacodyl 10 mg RC DAILY 11/15/17 [History] Budesonide [Pulmicort] 1 applic INH BID 11/15/17 [History] Ferrous Sulfate [Iron] 1 tab PO DAILY 11/15/17 [History] Insulin Detemir [Levemir Flextouch] 0 units SQ ASDIRECTED 11/15/17 [History] Ipratropium/Albuterol Sulfate [Iprat-Albut 0.5-3(2.5) mg/3 ml] 1 applic INH DAILY 11/15/17 [History] Melatonin 3 mg PO DAILY 11/15/17 [History] Metoclopramide [Reglan] 10 mg PO DAILY 11/15/17 [History] Multivitamin with Minerals [Multiple Vitamin] 1 tab PO DAILY 11/15/17 [History] Pantoprazole Sodium [Protonix] 40 mg PO DAILY 11/15/17 [History] Polyethylene Glycol 3350 [MiraLAX] 17 gm PO DAILY 11/15/17 [History] Sennosides [Senna] 1 tab PO DAILY 11/15/17 [History] Trolamine Salicylate/Aloe Vera [Aspercreme 10%] 1 appful TOP DAILY 11/15/17 [ History] busPIRone [Buspar] 10 mg PO DAILY 11/15/17 [History] hydrOXYzine HCl [Atarax] 25 mg PO DAILY 11/15/17 [History] rOPINIRole [Requip] 1 mg PO DAILY 11/15/17 [History] Past Medical History HEENT History: Reports: Macular Degeneration Other HEENT History: ears are constantly ringing Cardiovascular History: Reports: CAD, High Cholesterol, Hypertension, MS Other Cardiovascular History: 2003 Respiratory History: Reports: COPD, Sleep Apnea Gastrointestinal History: Reports: PUD, Other (See Below) Other Gastrointestinal History: was told has "twisted colon." Genitourinary History: Reports: Chronic Renal Insuffiency Other Genitourinary History: Stage two kidney disease [employer] History: Reports: Musculoskeletal History: Reports: Back Pain, Chronic, Fracture Other Musculoskeletal History: spinal stenosis, fx'd spine (back), L) arm surgery. Neurological History: Reports: Migraines Psychiatric History: Reports: Other (See Below) Endocrine/Metabolic History: Reports: Diabetes, Type II, Hypothyroidism Hematologic History: Reports: Anemia, Blood Transfusion(s), Iron Deficiency Immunologic History: Reports: None Oncologic (Cancer) History: Reports: None Dermatologic History: Reports: None - Infectious Disease History Infectious Disease History: Reports: Chicken Pox - Past Surgical History Head Surgeries/Procedures: Reports: None HEENT Surgical History: Reports: Cataract Surgery Cardiovascular Surgical History: Reports: Coronary Artery Bypass Respiratory Surgical History: Reports: Tracheostomy GI Surgical History: Reports: Appendectomy Other GI Surgeries/Procedures: peg tube Musculoskeletal Surgical History: Reports: ORIF Social & Family History - Family History Family Medical History: Noncontributory - Tobacco Use Smoking Status *Q: Former Smoker Used Tobacco, but Quit: No - Caffeine Use Caffeine Use: Reports: None - Recreational Drug Use Recreational Drug Use: No - Living Situation & Occupation Living situation: Reports: (), Alone Occupation: Retired ED ROS GENERAL - Review of Systems Review Of Systems: See Below Constitutional: Denies: Fever HEENT: Reports: No Symptoms Respiratory: Denies: Shortness of Breath Cardiovascular: Denies: Chest Pain GI/Abdominal: Denies: Abdominal Pain ED EXAM, GENERAL - Physical Exam Exam: See Below Exam Limited By: No Limitations General Appearance: Alert, WD/WN, No Apparent Distress Eye Exam: Bilateral Eye: Normal Inspection Ears: Normal External Exam Nose: Normal Inspection Throat/Mouth: Normal Inspection, Normal Oropharynx, Normal Voice Head: Atraumatic, Normocephalic Neck: Normal Inspection, Supple, Non-Tender, Full Range of Motion Respiratory/Chest: No Respiratory Distress, Lungs Clear, Normal Breath Sounds, Chest Non-Tender Cardiovascular: Normal Peripheral Pulses, Regular Rate, Rhythm, No Murmur GI/Abdominal: Soft, Non-Tender, No Distention, Other (PEG tube site wound in LUQ is clean and dry. ) Extremities: Normal Inspection Neurological: Alert, Oriented, Normal Cognition, No Motor/Sensory Deficits Psychiatric: Normal Affect, Normal Mood Skin Exam: Warm, Dry, Intact, Normal Color, No Rash Course - Vital Signs Last Recorded V/S: Last Vital Signs Temp 36.7 C 11/15/17 14:26 Pulse 89 11/15/17 14:26 Resp 18 11/15/17 14:26 BP 155/81 H 11/15/17 14:26 Pulse Ox 91 L 11/15/17 14:26 - Re-Assessments/Exams Free Text/Narrative Re-Assessment/Exam: 11/16/17 07:[address] Henry. He states patient may no longer need tube, but it's unclear and they would like to monitor calorie counts for a few days. We placed a bolton catheter in the feeding tube tract to stent it open until a decision re : necessity is made. Departure - Departure Time of Disposition: 15:27 Disposition: Home, Self-Care 01 Clinical Impression: PEG tube malfunction - Discharge Information Instructions: How to Care for a Feeding Tube, [id number] Referrals: Kike Henry MD [Primary Care Provider] - Forms: ED Department Discharge Additional Instructions: 1. Keep feeding tube site clean and dry. A bolton catheter was inserted into the feeding tube site to keep the tract open in case a replacement feeding tube is needed. 2. All nutrition should be by mouth for now. 3. Keep calorie counts for the next few days. Follow up with Dr. Henry to decide whether replacement tube is needed or not. 4. Return to the ED for any new concerning problems.
== END 2017-11-15 16:07 | disposition home or self-care (01) ==
LOC: JD.ED 14:11
DX: K94.23 Gastrostomy malfunction (principal); I25.810 Atherosclerosis of coronary artery bypass graft(s) without angina pectoris; E11.9 Type 2 diabetes mellitus without complications; E03.9 Hypothyroidism, unspecified; E78.00 Pure hypercholesterolemia, unspecified; I12.9 Hypertensive chronic kidney disease with stage 1 through stage 4 chronic kidney disease, or unspecified chronic kidney disease; I25.2 Old myocardial infarction; J44.9 Chronic obstructive pulmonary disease, unspecified; Z87.891 Personal history of nicotine dependence; Z79.899 Other long term (current) drug therapy; Z79.4 Long term (current) use of insulin; N18.2 Chronic kidney disease, stage 2 (mild)
CPT/HCPCS: 43760; 99283; 99283-25

== ENCOUNTER 2017-12-03 07:19 | Inpatient (IN) | payer OTHER, MEDICARE, MEDICAID ==
[2017-12-03] MEDS ORDERED: Sodium Chloride 0.9% 10 ML Syringe FLUSH PRN (07:29)
[2017-12-03] MEDS ORDERED: Furosemide 40 MG/4 ML VIAL IVPUSH ONE (07:30)
--- NOTE | 2017-12-03 08:36 | EDM.PDOC ---
ED HPI GENERAL MEDICAL PROBLEM - General Chief Complaint: Respiratory Problem Stated Complaint: [facility] Time Seen by Provider: 12/03/17 07:24 Source of Information: Reports: Patient, EMS, Correction Records History Limitations: Reports: Altered Mental Status - History of Present Illness INITIAL COMMENTS - FREE TEXT/NARRATIVE: The patient presents by [facility] for shortness of breath. The has a history of COPD. [facility]. Her they had to turn her oxygen up because her oxygen saturations were in the mid 80s on 2Ls. EMS gave her a treatment of albuterol on the way in and put her on a simple mask. She denies coughing and she has no documented fever. She has no chest pain, abdominal pain, nausea or vomiting. She was intubated over a month ago and sent to [place]. According to [facility] records. She is DNR/DNI. Onset: Gradual Duration: Day(s): Severity: Moderate Improves with: Reports: None Worsens with: Reports: None Associated Symptoms: Reports: Shortness of Breath. Denies: Chest Pain, Cough, Fever/Chills, Headaches, Nausea/Vomiting - Related Data Allergies Allergy/AdvReac Type Severity Reaction Status Date / Time triazolam Allergy Cannot Verified 12/03/17 07:31 Remember zolpidem Allergy Cannot Verified 12/03/17 07:31 Remember nitrofurantoin AdvReac Nausea and Verified 12/03/17 07:31 macrocrystalline Vomiting [From Macrodantin] Sulfa (Sulfonamide AdvReac Nausea and Verified 12/03/17 07:31 Antibiotics) Vomiting sulfamethoxazole AdvReac Nausea and Verified 12/03/17 07:31 [From Bactrim] Vomiting trimethoprim [From Bactrim] AdvReac Nausea and Verified 12/03/17 07:31 Vomiting Home Meds: Home Meds traMADol [Ultram] 50 mg PO Q6H 12/10/13 [History] Citalopram Hydrobromide [Celexa] 40 mg PO DAILY 09/05/17 [History] Ferrous Sulfate [Iron] 325 mg PO BID 09/05/17 [History] Insulin Aspart [Novolog Flexpen] 1 - 4 units SQ TID 09/05/17 [History] Levothyroxine [Synthroid] 50 mcg PO DAILY@1200 09/05/17 [History] Rosuvastatin [Crestor] 10 mg PO BEDTIME 09/05/17 [History] Acetaminophen 325 mg PO BID 11/15/17 [History] Bisacodyl 10 mg RC DAILY 11/15/17 [History] Budesonide [Pulmicort] 1 applic INH BID 11/15/17 [History] Ferrous Sulfate [Iron] 1 tab PO DAILY 11/15/17 [History] Insulin Detemir [Levemir Flextouch] 0 units SQ ASDIRECTED 11/15/17 [History] Ipratropium/Albuterol Sulfate [Iprat-Albut 0.5-3(2.5) mg/3 ml] 1 applic INH DAILY 11/15/17 [History] Melatonin 3 mg PO DAILY 11/15/17 [History] Metoclopramide [Reglan] 10 mg PO DAILY 11/15/17 [History] Multivitamin with Minerals [Multiple Vitamin] 1 tab PO DAILY 11/15/17 [History] Pantoprazole Sodium [Protonix] 40 mg PO DAILY 11/15/17 [History] Polyethylene Glycol 3350 [MiraLAX] 17 gm PO DAILY 11/15/17 [History] Sennosides [Senna] 1 tab PO DAILY 11/15/17 [History] Trolamine Salicylate/Aloe Vera [Aspercreme 10%] 1 appful TOP DAILY 11/15/17 [ History] busPIRone [Buspar] 10 mg PO DAILY 11/15/17 [History] hydrOXYzine HCl [Atarax] 25 mg PO DAILY 11/15/17 [History] rOPINIRole [Requip] 1 mg PO DAILY 11/15/17 [History] Past Medical History HEENT History: Reports: Macular Degeneration Other HEENT History: ears are constantly ringing Cardiovascular History: Reports: CAD, High Cholesterol, Hypertension, [place] Other Cardiovascular History: 2003 Respiratory History: Reports: COPD, Sleep Apnea Gastrointestinal History: Reports: PUD, Other (See Below) Other Gastrointestinal History: was told has "twisted colon." Genitourinary History: Reports: Chronic Renal Insuffiency Other Genitourinary History: Stage two kidney disease 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 Neurological History: Reports: Migraines Psychiatric History: Reports: Depression Endocrine/Metabolic History: Reports: Diabetes, Type II, Hypothyroidism Hematologic History: Reports: Anemia, Blood Transfusion(s), Iron Deficiency Immunologic History: Reports: None Oncologic (Cancer) History: Reports: None Dermatologic History: Reports: None - Infectious Disease History Infectious Disease History: Reports: Chicken Pox - Past Surgical History Head Surgeries/Procedures: Reports: None HEENT Surgical History: Reports: Cataract Surgery Cardiovascular Surgical History: Reports: Coronary Artery Bypass Respiratory Surgical History: Reports: Tracheostomy GI Surgical History: Reports: Appendectomy Other GI Surgeries/Procedures: peg tube Musculoskeletal Surgical History: Reports: ORIF Social & Family History - Family History Family Medical History: Noncontributory - Tobacco Use Smoking Status *Q: Former Smoker Used Tobacco, but Quit: Yes Month/Year Tobacco Last Used: 2016 - Caffeine Use Caffeine Use: Reports: None - Recreational Drug Use Recreational Drug Use: No - Living Situation & Occupation Living situation: Reports: (), Alone Occupation: Retired ED ROS GENERAL - Review of Systems Review Of Systems: See Below Constitutional: Reports: No Symptoms HEENT: Reports: No Symptoms Respiratory: Reports: Shortness of Breath. Denies: Cough Cardiovascular: Reports: Edema. Denies: Chest Pain Endocrine: Reports: No Symptoms GI/Abdominal: Reports: No Symptoms : Reports: No Symptoms Musculoskeletal: Reports: Other (Edema in her legs) Skin: Reports: No Symptoms ED EXAM, GENERAL - Physical Exam Exam: See Below Exam Limited By: Altered Mental Status (She seems slightly confused) General Appearance: Alert, Moderate Distress Ears: Normal External Exam Nose: Normal Inspection Head: Atraumatic, Normocephalic Neck: Normal Inspection Respiratory/Chest: Respiratory Distress (Moderate), Rales Cardiovascular: Regular Rate, Rhythm, No Murmur, Other (Moderate edema to both legs) GI/Abdominal: Soft, Non-Tender, No Organomegaly, No Mass Back Exam: Normal Inspection Extremities: Other (Bilateral leg edema) Neurological: Alert, No Motor/Sensory Deficits, Other (confused) EKG INTERPRETATION EKG Date: 12/03/17 Time: 07:50 Rhythm: NSR Rate (Beats/Min): 119 Armour: LAD-Left Armour Deviation P-Wave: Present QRS: Normal ST-T: Normal QT: Normal EKG Interpretation Comments: LVH with anterior Q waves Course - Vital Signs Last Recorded V/S: Last Vital Signs Temp 98.5 F 12/03/17 07:26 Pulse 100 12/03/17 07:26 Resp 22 H 12/03/17 07:26 BP 160/78 H 12/03/17 07:26 Pulse Ox 88 L 12/03/17 07:26 - Orders/Labs/Meds Orders: Active Orders 24 hr Category Date Time Status Cardiac Monitoring [RC] . DIRECTED Care 12/03/17 07:29 Active EKG Documentation Completion [RC] STAT Care 12/03/17 07:29 Active Oxygen Therapy [RC] PRN Care 12/03/17 07:29 Active Peripheral IV Care [RC] . DIRECTED Care 12/03/17 07:29 Active Chest 1V Frontal [CR] Stat Exams 12/03/17 07:30 Taken INFLUENZA A+B AG SCREEN [RM] Stat Lab 12/03/17 09:50 Ordered RESPIRATORY PANEL BY PCR [MREF] Stat Lab 12/03/17 09:50 Ordered UA W/MICROSCOPIC [URIN] Stat Lab 12/03/17 08:30 Ordered Sodium Chloride 0.9% [Saline Flush] Med 12/03/17 07:29 Active 10 ml FLUSH ASDIRECTED PRN BiPAP [RESPCARE] Routine Oth 12/03/17 08:26 Active Peripheral IV Insertion Adult [OM.PC] Stat Oth 12/03/17 07:29 Ordered Medication Orders Sodium Chloride (Saline Flush) 10 ml FLUSH ASDIRECTED PRN PRN Reason: Keep Vein Open Last Admin: 12/03/17 07:55 Dose: 10 ml Labs: Laboratory Tests 12/03/17 12/03/17 12/03/17 Range/Units 07:47 07:47 07:47 WBC 10.91 H (3.98-10.04) K/mm3 RBC 4.01 (3.98-5.22) M/mm3 Hgb 11.9 (11.2-15.7) gm/L Hct 39.2 (34.1-44.9) % MCV 97.8 H (79.4-94.8) fl MCH 29.7 (25.6-32.2) pg MCHC 30.4 L (32.2-35.5) g/dl RDW Std Deviation 54.0 H (36.4-46.3) fL Plt Count 288 (182-369) K/mm3 MPV 11.0 (9.4-12.3) fl Neut % (Auto) 89.8 H (34.0-71.1) % Lymph % (Auto) 4.8 L (19.3-51.7) % Wilkin % (Auto) 4.2 L (4.7-12.5) % Eos % (Auto) 0.7 (0.7-5.8) Baso % (Auto) 0.2 (0.1-1.2) % Neut # (Auto) 9.80 H (1.56-6.13) K/mm3 Lymph # (Auto) 0.52 L (1.18-3.74) K/mm3 Wilkin # (Auto) 0.46 H (0.24-0.36) K/mm3 Eos # (Auto) 0.08 (0.04-0.36) K/mm3 Baso # (Auto) 0.02 (0.01-0.08) K/mm3 Manual Slide Review Abnormal smear Puncture Site ABG pH (7.35-7.45) ABG pCO2 (35.0-45.0) mmHg ABG pO2 (80.0-100.0) mmHg ABG HCO3 (22.0-26.0) meq/L ABG O2 Saturation (96.0-97.0) % ABG Base Excess (-2-2.0) Will Test A-a Gradient mmHg O2 Delivery Device FiO2 (21.00-100.00) % PEEP cmH20 Sodium 129 L (136-145) mEq/L Potassium 5.9 H (3.5-5.1) mEq/L Chloride 90 L (98-107) mEq/L Carbon Dioxide 37 H (21-32) mEq/L Anion Gap 7.9 (5-15) BUN 37 H (7-18) mg/dL Creatinine 1.0 (0.55-1.02) mg/dL Est Cr Clr Drug Dosing 42.59 mL/min Estimated GFR (MDRD) 55 (>60) mL/min BUN/Creatinine Ratio 37.0 H (14-18) Glucose 511 H (80-115) mg/dL Calcium 9.9 (8.5-10.1) mg/dL Total Bilirubin 0.2 (0.2-1.0) mg/dL AST 25 (15-37) U/L ALT 28 (14-59) U/L Alkaline Phosphatase 170 H (46-116) U/L Troponin I 0.032 (0.00-0.056) ng/mL NT-Pro-B Natriuret Pep 517 H (0-125) pg/mL Total Protein 7.4 (6.4-8.2) g/dl Albumin 2.9 L (3.4-5.0) g/dl Globulin 4.5 gm/dL Albumin/Globulin Ratio 0.6 L (1-2) Urine Color (Yellow) Urine Appearance (Clear) Urine pH (5.0-8.0) Ur Specific [place] (1.005-1.030) Urine Protein (Negative) Urine Glucose (UA) (Negative) Urine Ketones (Negative) Urine Occult Blood (Negative) Urine Nitrite (Negative) Urine Bilirubin (Negative) Urine Urobilinogen (0.2-1.0) Ur Leukocyte Esterase (Negative) Urine RBC (0-5) /hpf Urine WBC (0-5) /hpf Ur Epithelial Cells (0-5) /hpf Urine Bacteria (FEW) /hpf Urine Mucus (FEW) /hpf Mycoplasma pneumon IgM (NEGATIVE) 12/03/17 12/03/17 12/03/17 Range/Units 07:47 08:30 09:46 WBC (3.98-10.04) K/mm3 RBC (3.98-5.22) M/mm3 Hgb (11.2-15.7) gm/L Hct (34.1-44.9) % MCV (79.4-94.8) fl MCH (25.6-32.2) pg MCHC (32.2-35.5) g/dl RDW Std Deviation (36.4-46.3) fL Plt Count (182-369) K/mm3 MPV (9.4-12.3) fl Neut % (Auto) (34.0-71.1) % Lymph % (Auto) (19.3-51.7) % Wilkin % (Auto) (4.7-12.5) % Eos % (Auto) (0.7-5.8) Baso % (Auto) (0.1-1.2) % Neut # (Auto) (1.56-6.13) K/mm3 Lymph # (Auto) (1.18-3.74) K/mm3 Wilkin # (Auto) (0.24-0.36) K/mm3 Eos # (Auto) (0.04-0.36) K/mm3 Baso # (Auto) (0.01-0.08) K/mm3 Manual Slide Review Puncture Site Rt radial ABG pH 7.33 L (7.35-7.45) ABG pCO2 80.8 H* (35.0-45.0) mmHg ABG pO2 189.0 H* (80.0-100.0) mmHg ABG HCO3 41.2 H (22.0-26.0) meq/L ABG O2 Saturation 99.3 H (96.0-97.0) % ABG Base Excess 12.5 H (-2-2.0) Will Test Positive A-a Gradient 350 mmHg O2 Delivery Device Bipap FiO2 0.00 L (21.00-100.00) % PEEP 5.0 cmH20 Sodium (136-145) mEq/L Potassium (3.5-5.1) mEq/L Chloride (98-107) mEq/L Carbon Dioxide (21-32) mEq/L Anion Gap (5-15) BUN (7-18) mg/dL Creatinine (0.55-1.02) mg/dL Est Cr Clr Drug Dosing mL/min Estimated GFR (MDRD) (>60) mL/min BUN/Creatinine Ratio (14-18) Glucose (80-115) mg/dL Calcium (8.5-10.1) mg/dL Total Bilirubin (0.2-1.0) mg/dL AST (15-37) U/L ALT (14-59) U/L Alkaline Phosphatase (46-116) U/L Troponin I (0.00-0.056) ng/mL NT-Pro-B Natriuret Pep (0-125) pg/mL Total Protein (6.4-8.2) g/dl Albumin (3.4-5.0) g/dl Globulin gm/dL Albumin/Globulin Ratio (1-2) Urine Color Light yellow (Yellow) Urine Appearance Clear (Clear) Urine pH 7.0 (5.0-8.0) Ur Specific [place] 1.020 (1.005-1.030) Urine Protein Negative (Negative) Urine Glucose (UA) 2+ H (Negative) Urine Ketones Negative (Negative) Urine Occult Blood Negative (Negative) Urine Nitrite Negative (Negative) Urine Bilirubin Negative (Negative) Urine Urobilinogen 0.2 (0.2-1.0) Ur Leukocyte Esterase Negative (Negative) Urine RBC 0-5 (0-5) /hpf Urine WBC 0-5 (0-5) /hpf Ur Epithelial Cells 0-5 (0-5) /hpf Urine Bacteria Few (FEW) /hpf Urine Mucus Few (FEW) /hpf Mycoplasma pneumon IgM Negative (NEGATIVE) 12/03/17 Range/Units 11:31 WBC (3.98-10.04) K/mm3 RBC (3.98-5.22) M/mm3 Hgb (11.2-15.7) gm/L Hct (34.1-44.9) % MCV (79.4-94.8) fl MCH (25.6-32.2) pg MCHC (32.2-35.5) g/dl RDW Std Deviation (36.4-46.3) fL Plt Count (182-369) K/mm3 MPV (9.4-12.3) fl Neut % (Auto) (34.0-71.1) % Lymph % (Auto) (19.3-51.7) % Wilkin % (Auto) (4.7-12.5) % Eos % (Auto) (0.7-5.8) Baso % (Auto) (0.1-1.2) % Neut # (Auto) (1.56-6.13) K/mm3 Lymph # (Auto) (1.18-3.74) K/mm3 Wilkin # (Auto) (0.24-0.36) K/mm3 Eos # (Auto) (0.04-0.36) K/mm3 Baso # (Auto) (0.01-0.08) K/mm3 Manual Slide Review Puncture Site Rt radial ABG pH 7.34 L (7.35-7.45) ABG pCO2 78.1 H* (35.0-45.0) mmHg ABG pO2 83.0 (80.0-100.0) mmHg ABG HCO3 41.3 H (22.0-26.0) meq/L ABG O2 Saturation 95.8 L (96.0-97.0) % ABG Base Excess 12.9 H (-2-2.0) Will Test Positive A-a Gradient 139 mmHg O2 Delivery Device Bipap FiO2 0.00 L (21.00-100.00) % PEEP 5.0 cmH20 Sodium (136-145) mEq/L Potassium (3.5-5.1) mEq/L Chloride (98-107) mEq/L Carbon Dioxide (21-32) mEq/L Anion Gap (5-15) BUN (7-18) mg/dL Creatinine (0.55-1.02) mg/dL Est Cr Clr Drug Dosing mL/min Estimated GFR (MDRD) (>60) mL/min BUN/Creatinine Ratio (14-18) Glucose (80-115) mg/dL Calcium (8.5-10.1) mg/dL Total Bilirubin (0.2-1.0) mg/dL AST (15-37) U/L ALT (14-59) U/L Alkaline Phosphatase (46-116) U/L Troponin I (0.00-0.056) ng/mL NT-Pro-B Natriuret Pep (0-125) pg/mL Total Protein (6.4-8.2) g/dl Albumin (3.4-5.0) g/dl Globulin gm/dL Albumin/Globulin Ratio (1-2) Urine Color (Yellow) Urine Appearance (Clear) Urine pH (5.0-8.0) Ur Specific [place] (1.005-1.030) Urine Protein (Negative) Urine Glucose (UA) (Negative) Urine Ketones (Negative) Urine Occult Blood (Negative) Urine Nitrite (Negative) Urine Bilirubin (Negative) Urine Urobilinogen (0.2-1.0) Ur Leukocyte Esterase (Negative) Urine RBC (0-5) /hpf Urine WBC (0-5) /hpf Ur Epithelial Cells (0-5) /hpf Urine Bacteria (FEW) /hpf Urine Mucus (FEW) /hpf Mycoplasma pneumon IgM (NEGATIVE) Meds: Medications Generic Name Dose Route Start Last Admin Trade Name Freq PRN Reason Stop Dose Admin Sodium Chloride 10 ml 12/03/17 07:29 12/03/17 07:55 Saline Flush FLUSH 10 ml ASDIRECTED PRN Administration Keep Vein Open Discontinued Medications Generic Name Dose Route Start Last Admin Trade Name Angel Luis PRN Reason Stop Dose Admin Furosemide 40 mg 12/03/17 07:30 12/03/17 07:47 Lasix IVPUSH 12/03/17 07:31 40 mg NOW ONE Administration - Re-Assessments/Exams Free Text/Narrative Re-Assessment/Exam: 12/03/17 08:39 I ordered oxygen, IV saline lock, lasix 40mg IV, labs, EKG, and CXR. Her EKG shows a NSR with no acute changes. We were able to get her on a nasal cannula and she was maintaining her oxygen saturations for awhile. They went down in to the 70s and I ordered BiPAP. Her saturations quickly came up. Her CXR shows cardiomegaly with congestive changes. 12/03/17 11:03 Her WBC was elevated at 10.91. Her pH was low at 7.33. Her pCO2 was elevated at 80.8. Her pO2 was 189. I had our RT make some changes to the BiPAP machine. Her Na was low at 129. Her K was elevated at 5.9. Her CO2 was elevated at 37. Her glucose was 511. Her Alk Phos was elevated at 170. Her troponin was negative. Her BNP was elevated at 517. Her UA shows no UTI. Her mycoplasma and influenza are negative. 12/03/17 11:[address] Peter about admitting her and she is checking with the floor to see if she can be admitted with the BiPAP. Departure - Departure Time of Disposition: 12:00 Disposition: Admitted As Inpatient 65 Condition: Serious Clinical Impression: Hyperglycemia, Hypoxia, COPD exacerbation Diabetes mellitus Qualifiers: Diabetes mellitus type: type 2 Diabetes mellitus shelter insulin use: with terminal operator use Diabetes mellitus complication status: without complication Qualified Code(s): E11.9 - Type 2 diabetes mellitus without complications; Z79.4 - intermediate (current) use of insulin CHF (congestive heart failure) Qualifiers: Heart failure type: diastolic Heart failure chronicity: acute Qualified Code(s) : I50.31 - Acute diastolic (congestive) heart failure - Discharge Information Referrals: Kike Henry MD [Primary Care Provider] - Forms: ED Department Discharge - My Orders Last 24 Hours: My Active Orders 12/03/17 07:29 Cardiac Monitoring [RC] . DIRECTED EKG Documentation Completion [RC] STAT Oxygen Therapy [RC] PRN Peripheral IV Care [RC] . DIRECTED Sodium Chloride 0.9% [Saline Flush] 10 ml FLUSH ASDIRECTED PRN Peripheral IV Insertion Adult [OM.PC] Stat 12/03/17 07:30 Chest 1V Frontal [CR] Stat 12/03/17 08:26 BiPAP [RESPCARE] Routine 12/03/17 08:30 UA W/MICROSCOPIC [URIN] Stat 12/03/17 09:50 INFLUENZA A+B AG SCREEN [RM] Stat RESPIRATORY PANEL BY PCR [MREF] Stat - Assessment/Plan Last 24 Hours: My Active Orders 12/03/17 07:29 Cardiac Monitoring [RC] . DIRECTED EKG Documentation Completion [RC] STAT Oxygen Therapy [RC] PRN Peripheral IV Care [RC] . DIRECTED Sodium Chloride 0.9% [Saline Flush] 10 ml FLUSH ASDIRECTED PRN Peripheral IV Insertion Adult [OM.PC] Stat 12/03/17 07:30 Chest 1V Frontal [CR] Stat 12/03/17 08:26 BiPAP [RESPCARE] Routine 12/03/17 08:30 UA W/MICROSCOPIC [URIN] Stat 12/03/17 09:50 INFLUENZA A+B AG SCREEN [RM] Stat RESPIRATORY PANEL BY PCR [MREF] Stat
[2017-12-03] MEDS ORDERED: 50% Dextrose in Water 50 ML Syringe IVPUSH PRN (15:00)
[2017-12-03] MEDS ORDERED: Ondansetron 4 MG/2 ML SDV IVPUSH PRN (15:01)
--- NOTE | 2017-12-03 15:04 | PCM.HP ---
H&P History of Present Illness - General Date of Service: 12/03/17 Admit Problem/Dx: Admission Diagnosis/Problem Admission Diagnosis/Problem Hypoxia Source of Information: Family, Provider History Limitations: Reports: No Limitations - History of Present Illness Initial Comments - Free Text/Narative: 67 year old female recently discharged from [place], [place] where she had a prolonged intubation for pneumonia. The patient had a tracheostomy and PEG tube placement. At discharge, she went to [facility] and subsequently went to a SNF in [place]. On the day of admission, the patient had been having episodes of SOB. She has required home O2 since her discharge. The patient was hypoxic, and could not maintain her saturation on her baseline of 2/min. EMS treatment of neb albuterol improved her oxygenation, she arrived in the ED on a simple mask. The patient has required BIPAP for improved air exchange, she will be admitted to [facility] with a presumptive diagnosis of PNA. Code status has been clarified, she is DNR/DNI. The patient had been seen earlier in the month for dislodgement of her PEG tube, clarification on its use will be made during her hospitalization. Onset of Symptoms: Reports: Sudden Symptom Onset Date: 12/03/17 Duration of Symptoms: Reports: Hour(s):, Getting Worse Location: Reports: Chest Quality: Reports: Same as Previous Episode Severity: Moderate Improves with: Reports: Medication Worsens with: Reports: None Associated Symptoms: Reports: Confusion, Malaise, Shortness of Breath, Weakness Back Pain Score (Numeric/FACES): 6 - Related Data Allergies/Adverse Reactions: Allergies Allergy/AdvReac Type Severity Reaction Status Date / Time triazolam Allergy Cannot Verified 12/03/17 16:58 Remember zolpidem Allergy Cannot Verified 12/03/17 16:58 Remember nitrofurantoin AdvReac Nausea and Verified 12/03/17 16:58 macrocrystalline Vomiting [From Macrodantin] Sulfa (Sulfonamide AdvReac Nausea and Verified 12/03/17 16:58 Antibiotics) Vomiting sulfamethoxazole AdvReac Nausea and Verified 12/03/17 16:58 [From Bactrim] Vomiting trimethoprim [From Bactrim] AdvReac Nausea and Verified 12/03/17 16:58 Vomiting Home Medications: Home Meds traMADol [Ultram] 50 mg PO TID PRN 12/10/13 [History] Citalopram Hydrobromide [Celexa] 40 mg PO DAILY 09/05/17 [History] Ferrous Sulfate [Iron] 325 mg PO DAILY 09/05/17 [History] Insulin Aspart [Novolog Flexpen] 3 - 18 units SQ QIDACANDBED 09/05/17 [History] Levothyroxine [Synthroid] 50 mcg PO ACBREAKFAST 09/05/17 [History] Rosuvastatin [Crestor] 10 mg PO BEDTIME 09/05/17 [History] Acetaminophen 650 mg PO Q6HR PRN 11/15/17 [History] Bisacodyl 10 mg RECTAL DAILY PRN 11/15/17 [History] Budesonide [Pulmicort] 1 vial INH BID 11/15/17 [History] Insulin Detemir [Levemir Flextouch] 25 units SQ DAILY 11/15/17 [History] Ipratropium/Albuterol Sulfate [Iprat-Albut 0.5-3(2.5) mg/3 ml] 1 applic INH BID PRN 11/15/17 [History] Melatonin 3 mg PO BEDTIME 11/15/17 [History] Multivitamin with Minerals [Multiple Vitamin] 1 tab PO DAILY 11/15/17 [History] Pantoprazole Sodium [Protonix] 40 mg PO DAILY 11/15/17 [History] rOPINIRole [Requip] 1 mg PO BID 11/15/17 [History] Acetaminophen [Tylenol] 650 mg PO TID 12/03/17 [History] Aspirin [Gabriel Chewable Aspirin] 81 mg PO DAILY 12/03/17 [History] Furosemide 20 mg PO DAILY 12/03/17 [History] Insulin Detemir [Levemir Flextouch] 10 units SQ BEDTIME 12/03/17 [History] Magnesium Citrate [Citrate of Magnesia] 1 bottle PO Q5D PRN 12/03/17 [History] Methyl Salicylate/Menthol [Salonpas Patch] 1 patch TOP DAILY 12/03/17 [History] Metoclopramide HCl 10 mg PO QID 12/03/17 [History] Polyethylene Glycol 3350 [MiraLAX] 17 gram PO DAILY 12/03/17 [History] Sennosides/Docusate Sodium [Senna Plus Tablet] 2 tab PO BID 12/03/17 [History] buPROPion HCl [Wellbutrin Xl] 150 mg PO DAILY 12/03/17 [History] Past Medical History HEENT History: Reports: Macular Degeneration Other HEENT History: ears are constantly ringing Cardiovascular History: Reports: CAD, High Cholesterol, Hypertension, MD Other Cardiovascular History: 2003 Respiratory History: Reports: COPD, Sleep Apnea Gastrointestinal History: Reports: PUD, Other (See Below) Other Gastrointestinal History: was told has "twisted colon." Genitourinary History: Reports: Chronic Renal Insuffiency Other Genitourinary History: Stage two kidney disease [employer]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 Neurological History: Reports: Migraines Psychiatric History: Reports: Depression Endocrine/Metabolic History: Reports: Diabetes, Type II, Hypothyroidism Hematologic History: Reports: Anemia, Blood Transfusion(s), Iron Deficiency Immunologic History: Reports: None Oncologic (Cancer) History: Reports: None Dermatologic History: Reports: None - Infectious Disease History Infectious Disease History: Reports: Chicken Pox - Past Surgical History Head Surgeries/Procedures: Reports: None HEENT Surgical History: Reports: Cataract Surgery Cardiovascular Surgical History: Reports: Coronary Artery Bypass Respiratory Surgical History: Reports: Tracheostomy GI Surgical History: Reports: Appendectomy Other GI Surgeries/Procedures: peg tube Musculoskeletal Surgical History: Reports: ORIF Social & Family History - Family History Family Medical History: Noncontributory - Tobacco Use Smoking Status *Q: Former Smoker Used Tobacco, but Quit: Yes Month/Year Tobacco Last Used: 2016 - Caffeine Use Caffeine Use: Reports: None - Recreational Drug Use Recreational Drug Use: No - Living Situation & Occupation Living situation: Reports: (), Alone Occupation: Retired H&P Review of Systems - Review of Systems: Review Of Systems: See Below General: Reports: Weakness, Fatigue HEENT: Reports: No Symptoms Pulmonary: Reports: Shortness of Breath Cardiovascular: Reports: No Symptoms Gastrointestinal: Reports: No Symptoms Genitourinary: Reports: No Symptoms Musculoskeletal: Reports: No Symptoms Skin: Reports: No Symptoms Psychiatric: Reports: No Symptoms Neurological: Reports: No Symptoms Hematologic/Lymphatic: Reports: No Symptoms Immunologic: Reports: No Symptoms Exam - Exam Exam: See Below - Vital Signs Vital Signs: Last Vital Signs Temp 36.9 C 12/03/17 07:26 Pulse 100 12/03/17 07:26 Resp 22 H 12/03/17 07:26 BP 160/78 H 12/03/17 07:26 Pulse Ox 88 L 12/03/17 07:26 Weight: 68.946 kg - Exam Quality Assessment: Supplemental Oxygen, DVT Prophylaxis General: Alert, Oriented, Mild Distress HEENT: Nares Patent, Pupils Equal, Pupils Reactive, PERRLA Neck: Trachea Midline Lungs: Normal Respiratory Effort, Decreased Breath Sounds, Rales, Rhonchi Cardiovascular: Regular Rate, Regular Rhythm GI/Abdominal Exam: Normal Bowel Sounds, Soft, Non-Tender, No Organomegaly, No Distention (Female) Exam: Deferred Rectal (Female) Exam: Deferred Back Exam: Normal Inspection Extremities: Non-Tender, Pedal Edema, Slow Capillary Refill Skin: Warm Neurological: Cranial Nerves Intact, Normal Speech Neuro Extensive - Mental Status: Alert, Oriented x3 (2-3) Neuro Extensive - Motor, Sensory, Reflexes: CN II-XII Intact Psychiatric: Alert - Patient Data Lab Results Last 24 hrs: Laboratory Results - last 24 hr 12/03/17 12/03/17 12/03/17 Range/Units 07:47 07:47 07:47 WBC 10.91 H (3.98-10.04) K/mm3 RBC 4.01 (3.98-5.22) M/mm3 Hgb 11.9 (11.2-15.7) gm/L Hct 39.2 (34.1-44.9) % MCV 97.8 H (79.4-94.8) fl MCH 29.7 (25.6-32.2) pg MCHC 30.4 L (32.2-35.5) g/dl RDW Std Deviation 54.0 H (36.4-46.3) fL Plt Count 288 (182-369) K/mm3 MPV 11.0 (9.4-12.3) fl Neut % (Auto) 89.8 H (34.0-71.1) % Lymph % (Auto) 4.8 L (19.3-51.7) % Swain % (Auto) 4.2 L (4.7-12.5) % Eos % (Auto) 0.7 (0.7-5.8) Baso % (Auto) 0.2 (0.1-1.2) % Neut # (Auto) 9.80 H (1.56-6.13) K/mm3 Lymph # (Auto) 0.52 L (1.18-3.74) K/mm3 Swain # (Auto) 0.46 H (0.24-0.36) K/mm3 Eos # (Auto) 0.08 (0.04-0.36) K/mm3 Baso # (Auto) 0.02 (0.01-0.08) K/mm3 Manual Slide Review Abnormal smear Puncture Site ABG pH (7.35-7.45) ABG pCO2 (35.0-45.0) mmHg ABG pO2 (80.0-100.0) mmHg ABG HCO3 (22.0-26.0) meq/L ABG O2 Saturation (96.0-97.0) % ABG Base Excess (-2-2.0) Will Test A-a Gradient mmHg O2 Delivery Device FiO2 (21.00-100.00) % PEEP cmH20 Sodium 129 L (136-145) mEq/L Potassium 5.9 H (3.5-5.1) mEq/L Chloride 90 L (98-107) mEq/L Carbon Dioxide 37 H (21-32) mEq/L Anion Gap 7.9 (5-15) BUN 37 H (7-18) mg/dL Creatinine 1.0 (0.55-1.02) mg/dL Est Cr Clr Drug Dosing 42.59 mL/min Estimated GFR (MDRD) 55 (>60) mL/min BUN/Creatinine Ratio 37.0 H (14-18) Glucose 511 H (80-115) mg/dL Calcium 9.9 (8.5-10.1) mg/dL Total Bilirubin 0.2 (0.2-1.0) mg/dL AST 25 (15-37) U/L ALT 28 (14-59) U/L Alkaline Phosphatase 170 H (46-116) U/L Troponin I 0.032 (0.00-0.056) ng/mL NT-Pro-B Natriuret Pep 517 H (0-125) pg/mL Total Protein 7.4 (6.4-8.2) g/dl Albumin 2.9 L (3.4-5.0) g/dl Globulin 4.5 gm/dL Albumin/Globulin Ratio 0.6 L (1-2) Urine Color (Yellow) Urine Appearance (Clear) Urine pH (5.0-8.0) Ur Specific [place] (1.005-1.030) Urine Protein (Negative) Urine Glucose (UA) (Negative) Urine Ketones (Negative) Urine Occult Blood (Negative) Urine Nitrite (Negative) Urine Bilirubin (Negative) Urine Urobilinogen (0.2-1.0) Ur Leukocyte Esterase (Negative) Urine RBC (0-5) /hpf Urine WBC (0-5) /hpf Ur Epithelial Cells (0-5) /hpf Urine Bacteria (FEW) /hpf Urine Mucus (FEW) /hpf Mycoplasma pneumon IgM (NEGATIVE) 12/03/17 12/03/17 12/03/17 Range/Units 07:47 08:30 09:46 WBC (3.98-10.04) K/mm3 RBC (3.98-5.22) M/mm3 Hgb (11.2-15.7) gm/L Hct (34.1-44.9) % MCV (79.4-94.8) fl MCH (25.6-32.2) pg MCHC (32.2-35.5) g/dl RDW Std Deviation (36.4-46.3) fL Plt Count (182-369) K/mm3 MPV (9.4-12.3) fl Neut % (Auto) (34.0-71.1) % Lymph % (Auto) (19.3-51.7) % Swain % (Auto) (4.7-12.5) % Eos % (Auto) (0.7-5.8) Baso % (Auto) (0.1-1.2) % Neut # (Auto) (1.56-6.13) K/mm3 Lymph # (Auto) (1.18-3.74) K/mm3 Swain # (Auto) (0.24-0.36) K/mm3 Eos # (Auto) (0.04-0.36) K/mm3 Baso # (Auto) (0.01-0.08) K/mm3 Manual Slide Review Puncture Site Rt radial ABG pH 7.33 L (7.35-7.45) ABG pCO2 80.8 H* (35.0-45.0) mmHg ABG pO2 189.0 H* (80.0-100.0) mmHg ABG HCO3 41.2 H (22.0-26.0) meq/L ABG O2 Saturation 99.3 H (96.0-97.0) % ABG Base Excess 12.5 H (-2-2.0) Will Test Positive A-a Gradient 350 mmHg O2 Delivery Device Bipap FiO2 0.00 L (21.00-100.00) % PEEP 5.0 cmH20 Sodium (136-145) mEq/L Potassium (3.5-5.1) mEq/L Chloride (98-107) mEq/L Carbon Dioxide (21-32) mEq/L Anion Gap (5-15) BUN (7-18) mg/dL Creatinine (0.55-1.02) mg/dL Est Cr Clr Drug Dosing mL/min Estimated GFR (MDRD) (>60) mL/min BUN/Creatinine Ratio (14-18) Glucose (80-115) mg/dL Calcium (8.5-10.1) mg/dL Total Bilirubin (0.2-1.0) mg/dL AST (15-37) U/L ALT (14-59) U/L Alkaline Phosphatase (46-116) U/L Troponin I (0.00-0.056) ng/mL NT-Pro-B Natriuret Pep (0-125) pg/mL Total Protein (6.4-8.2) g/dl Albumin (3.4-5.0) g/dl Globulin gm/dL Albumin/Globulin Ratio (1-2) Urine Color Light yellow (Yellow) Urine Appearance Clear (Clear) Urine pH 7.0 (5.0-8.0) Ur Specific [place] 1.020 (1.005-1.030) Urine Protein Negative (Negative) Urine Glucose (UA) 2+ H (Negative) Urine Ketones Negative (Negative) Urine Occult Blood Negative (Negative) Urine Nitrite Negative (Negative) Urine Bilirubin Negative (Negative) Urine Urobilinogen 0.2 (0.2-1.0) Ur Leukocyte Esterase Negative (Negative) Urine RBC 0-5 (0-5) /hpf Urine WBC 0-5 (0-5) /hpf Ur Epithelial Cells 0-5 (0-5) /hpf Urine Bacteria Few (FEW) /hpf Urine Mucus Few (FEW) /hpf Mycoplasma pneumon IgM Negative (NEGATIVE) 12/03/17 Range/Units 11:31 WBC (3.98-10.04) K/mm3 RBC (3.98-5.22) M/mm3 Hgb (11.2-15.7) gm/L Hct (34.1-44.9) % MCV (79.4-94.8) fl MCH (25.6-32.2) pg MCHC (32.2-35.5) g/dl RDW Std Deviation (36.4-46.3) fL Plt Count (182-369) K/mm3 MPV (9.4-12.3) fl Neut % (Auto) (34.0-71.1) % Lymph % (Auto) (19.3-51.7) % Swain % (Auto) (4.7-12.5) % Eos % (Auto) (0.7-5.8) Baso % (Auto) (0.1-1.2) % Neut # (Auto) (1.56-6.13) K/mm3 Lymph # (Auto) (1.18-3.74) K/mm3 Swain # (Auto) (0.24-0.36) K/mm3 Eos # (Auto) (0.04-0.36) K/mm3 Baso # (Auto) (0.01-0.08) K/mm3 Manual Slide Review Puncture Site Rt radial ABG pH 7.34 L (7.35-7.45) ABG pCO2 78.1 H* (35.0-45.0) mmHg ABG pO2 83.0 (80.0-100.0) mmHg ABG HCO3 41.3 H (22.0-26.0) meq/L ABG O2 Saturation 95.8 L (96.0-97.0) % ABG Base Excess 12.9 H (-2-2.0) Will Test Positive A-a Gradient 139 mmHg O2 Delivery Device Bipap FiO2 0.00 L (21.00-100.00) % PEEP 5.0 cmH20 Sodium (136-145) mEq/L Potassium (3.5-5.1) mEq/L Chloride (98-107) mEq/L Carbon Dioxide (21-32) mEq/L Anion Gap (5-15) BUN (7-18) mg/dL Creatinine (0.55-1.02) mg/dL Est Cr Clr Drug Dosing mL/min Estimated GFR (MDRD) (>60) mL/min BUN/Creatinine Ratio (14-18) Glucose (80-115) mg/dL Calcium (8.5-10.1) mg/dL Total Bilirubin (0.2-1.0) mg/dL AST (15-37) U/L ALT (14-59) U/L Alkaline Phosphatase (46-116) U/L Troponin I (0.00-0.056) ng/mL NT-Pro-B Natriuret Pep (0-125) pg/mL Total Protein (6.4-8.2) g/dl Albumin (3.4-5.0) g/dl Globulin gm/dL Albumin/Globulin Ratio (1-2) Urine Color (Yellow) Urine Appearance (Clear) Urine pH (5.0-8.0) Ur Specific [place] (1.005-1.030) Urine Protein (Negative) Urine Glucose (UA) (Negative) Urine Ketones (Negative) Urine Occult Blood (Negative) Urine Nitrite (Negative) Urine Bilirubin (Negative) Urine Urobilinogen (0.2-1.0) Ur Leukocyte Esterase (Negative) Urine RBC (0-5) /hpf Urine WBC (0-5) /hpf Ur Epithelial Cells (0-5) /hpf Urine Bacteria (FEW) /hpf Urine Mucus (FEW) /hpf Mycoplasma pneumon IgM (NEGATIVE) Result Diagrams: 12/11/17 10:58 12/11/17 20:15 Jan Results Last 24 hrs: Microbiology 12/03/17 09:50 Influenza Type A Antigen Screen - Final Nasopharyngeal Swab NEGATIVE INFLUENZA A VIRUS AG Influenza Type B Antigen Screen - Final NEGATIVE INFLUENZA B VIRUS AG - Problem List (1) CHF (congestive heart failure) SNOMED Code(s): 66603727 ICD Code: I50.9 - HEART FAILURE, UNSPECIFIED Status: Acute Current Visit : Yes Qualifiers: Heart failure type: diastolic Heart failure chronicity: acute Qualified Code(s): I50.31 - Acute diastolic (congestive) heart failure (2) COPD exacerbation SNOMED Code(s): 258420438 ICD Code: J44.1 - CHRONIC OBSTRUCTIVE PULMONARY DISEASE W (ACUTE) EXACERBATION Status: Acute Current Visit: Yes (3) Hyperglycemia SNOMED Code(s): 67718936 ICD Code: R73.9 - HYPERGLYCEMIA, UNSPECIFIED Status: Acute Current Visit : Yes (4) Hypoxia SNOMED Code(s): 504072111 ICD Code: R09.02 - HYPOXEMIA Status: Acute Current Visit: Yes (5) Diabetes mellitus SNOMED Code(s): 93027357 ICD Code: E11.9 - TYPE 2 DIABETES MELLITUS WITHOUT COMPLICATIONS Status: Chronic Current Visit: Yes Qualifiers: Diabetes mellitus type: type 2 Diabetes mellitus detention insulin use: with intermediate frame tender use Diabetes mellitus complication status: without complication Qualified Code(s): E11.9 - Type 2 diabetes mellitus without complications; Z79.4 - nursing home (current) use of insulin (6) Respiratory failure SNOMED Code(s): 549696214 ICD Code: J96.90 - RESPIRATORY FAILURE, UNSP, UNSP W HYPOXIA OR HYPERCAPNIA Status: Acute Current Visit: No Problem List Initiated/Reviewed/Updated: Yes Orders Last 24hrs: Active Orders 24 hr Category Date Time Status Patient Status [ADT] Routine ADT 12/03/17 14:14 Active Activity as Tolerated [RC] .Routine Care 12/03/17 14:47 Ordered Cardiac Monitoring [RC] . DIRECTED Care 12/03/17 07:29 Active Oxygen Therapy [RC] PRN Care 12/03/17 07:29 Active RT Aerosol Therapy [RC] ASDIRECTED Care 12/03/17 14:57 Ordered Vital Signs [RC] PER UNIT ROUTINE Care 12/03/17 14:47 Ordered Clear Liquid Diet [DIET] Diet 12/03/17 Dinner Ordered CXR [Chest 2V] [CR] Routine Exams 12/04/17 15:00 Ordered Chest 1V Frontal [CR] Stat Exams 12/03/17 07:30 Taken BMP [BASIC METABOLIC PANEL,BMP] [CHEM] DAILY Lab 12/04/17 05:00 Ordered BMP [BASIC METABOLIC PANEL,BMP] [CHEM] DAILY Lab 12/05/17 05:00 Ordered BMP [BASIC METABOLIC PANEL,BMP] [CHEM] DAILY Lab 12/06/17 05:00 Ordered BMP [BASIC METABOLIC PANEL,BMP] [CHEM] DAILY Lab 12/07/17 05:00 Ordered BMP [BASIC METABOLIC PANEL,BMP] [CHEM] DAILY Lab 12/08/17 05:00 Ordered BMP [BASIC METABOLIC PANEL,BMP] [CHEM] DAILY Lab 12/09/17 05:00 Ordered BMP [BASIC METABOLIC PANEL,BMP] [CHEM] Routine Lab 12/03/17 18:00 Ordered CRP [C-REACTIVE PROTEIN] [CHEM] DAILY Lab 12/04/17 05:00 Ordered CRP [C-REACTIVE PROTEIN] [CHEM] DAILY Lab 12/05/17 05:00 Ordered CRP [C-REACTIVE PROTEIN] [CHEM] DAILY Lab 12/06/17 05:00 Ordered CRP [C-REACTIVE PROTEIN] [CHEM] DAILY Lab 12/07/17 05:00 Ordered CRP [C-REACTIVE PROTEIN] [CHEM] DAILY Lab 12/08/17 05:00 Ordered CRP [C-REACTIVE PROTEIN] [CHEM] DAILY Lab 12/09/17 05:00 Ordered D Dimer [D-DIMER QUANTITATIVE] [COAG] Routine Lab 12/03/17 18:00 Ordered GLYCOSYLATED HEMOGLOBIN,HGBA1C [CHEM] Routine Lab 12/04/17 05:00 Ordered INFLUENZA A+B AG SCREEN [RM] Stat Lab 12/03/17 09:50 Ordered LACTIC ACID [CHEM] Routine Lab 12/03/17 18:00 Ordered LACTIC ACID [CHEM] Routine Lab 12/04/17 05:00 Ordered MAGNESIUM [CHEM] DAILY Lab 12/04/17 05:00 Ordered MAGNESIUM [CHEM] DAILY Lab 12/05/17 05:00 Ordered MAGNESIUM [CHEM] DAILY Lab 12/06/17 05:00 Ordered MAGNESIUM [CHEM] DAILY Lab 12/07/17 05:00 Ordered MAGNESIUM [CHEM] DAILY Lab 12/08/17 05:00 Ordered MAGNESIUM [CHEM] DAILY Lab 12/09/17 05:00 Ordered PRO B-TYPE NATRIUR PEPT,BNPPRO [CHEM] Routine Lab 12/04/17 05:00 Ordered RESPIRATORY PANEL BY PCR [MREF] Stat Lab 12/03/17 09:50 Ordered TROPONIN I [CHEM] Routine Lab 12/03/17 18:00 Ordered TROPONIN I [CHEM] Routine Lab 12/04/17 05:00 Ordered UA W/MICROSCOPIC [URIN] Stat Lab 12/03/17 08:30 Ordered VANCOMYCIN TROUGH [CHEM] Routine Lab 12/06/17 14:30 Ordered Acetaminophen [Tylenol] Med 12/03/17 15:02 Ordered 650 mg PO Q6H PRN Albuterol [Proventil Neb Soln] Med 12/03/17 14:56 Ordered 2.5 mg NEB Q4HRRT PRN Albuterol/Ipratropium [DuoNeb 3.0-0.5 MG/3 ML] Med 12/03/17 17:00 Ordered 3 ml NEB QID Dextrose 50% in Water Med 12/03/17 15:00 Ordered 50 ml IVPUSH ASDIRECTED PRN Enoxaparin [Lovenox] Med 12/03/17 15:15 Ordered 40 mg SUBCUT Q24H Insulin Aspart [NovoLOG] Med 12/03/17 17:00 Ordered See Protocol SUBCUT QIDACANDBED Ondansetron [Zofran] Med 12/03/17 15:01 Ordered 4 mg IVPUSH Q8H PRN Piperacillin/Tazobactam [Zosyn] 4.5 gm Med 12/03/17 16:00 Active Sodium Chloride 0.9% [Normal Saline] 100 ml IV ONETIME Piperacillin/Tazobactam [Zosyn] 4.5 gm Med 12/03/17 15:00 Ordered Sodium Chloride 0.9% [Normal Saline] 100 ml IV Q8H Sodium Chloride 0.9% @ 150 MLS/HR (1000ml Bag) Med 12/03/17 15:00 Ordered Sodium Chloride 0.9% [Normal Saline] 1,000 ml IV ASDIRECTED Sodium Chloride 0.9% [Saline Flush] Med 12/03/17 07:29 Active 10 ml FLUSH ASDIRECTED PRN Vancomycin Pharmacy to Dose [Pharmacy to Dose - Med 12/03/17 15:00 Ordered Vancomycin] 1 dose .XX ASDIRECTED Vancomycin [Vancocin] 1 gm Med 12/03/17 14:50 Ordered Sodium Chloride 0.9% [Normal Saline] 250 ml IV ONETIME BiPAP [RESPCARE] Routine Oth 12/03/17 08:26 Active Peripheral IV Insertion Adult [OM.PC] Stat Oth 12/03/17 07:29 Ordered Code Status [Resuscitation Status] Routine Resus Stat 12/03/17 15:03 Ordered Medication Orders Albuterol (Proventil Neb Soln) 2.5 mg NEB Q4HRRT PRN PRN Reason: Shortness of Breath Albuterol/Ipratropium (Duoneb 3.0-0.5 Mg/3 Ml) 3 ml NEB QID LYLA Dextrose/Water (Dextrose 50% In Water) 50 ml IVPUSH ASDIRECTED PRN PRN Reason: Hypoglycemia Piperacillin Sod/Tazobactam (Sod 4.5 gm/ Sodium Chloride) 100 mls @ 25 mls/hr IV Q8H LYLA Vancomycin HCl 1 gm/ Sodium (Chloride) 250 mls @ 250 mls/hr IV Q24H LYLA Piperacillin Sod/Tazobactam (Sod 4.5 gm/ Sodium Chloride) 100 mls @ 400 mls/hr IV ONETIME ONE Stop: 12/03/17 16:14 Sodium Chloride (Normal Saline) 1,000 mls @ 150 mls/hr IV ASDIRECTED LYLA Insulin Aspart (Novolog) 0 unit SUBCUT QIDACANDBED LYLA; Protocol Ondansetron HCl (Zofran) 4 mg IVPUSH Q8H PRN PRN Reason: Nausea/Vomiting Sodium Chloride (Saline Flush) 10 ml FLUSH ASDIRECTED PRN PRN Reason: Keep Vein Open Last Admin: 12/03/17 07:55 Dose: 10 ml Vancomycin HCl (Pharmacy To Dose - Vancomycin) 1 dose .XX ASDIRECTED [facility] Assessment/Plan Comment:: Impression: Acute respiratory distress, hypercapnia Hx of prolong intubation, s/p tracheostomy Coverage for hospital acquired PNA Hx of COPD Hx of CKD, II-III Hyponatremia Hyperkalemia Borderline elevated BNP Diabetes mellitus with reported poor control Chronic Fe deficiency PUD Hypothyroid HTN HLD Macular degeneration CAD/MD s/p CABG Plan: Correct electrolytes IV ATBs for HCAP coverage Resp infection work up w/isolation MRSA screen Nebs scheduled/prn Titrate O2 sat>92%; CO2<65 as tolerated Adjust BiPAP as needed for above Maintain IVF for UO ADA diet advance as tolerated Clarify tube feeds is calorie input is inadequate PT/OT for deconditioning MS tele room near ICU DVT/GI prophylaxis
[2017-12-03] MEDS: Albuterol 0.083% 2.5 MG/3 ML Neb Soln NEB PRN (15:23)
[2017-12-03] MEDS: Enoxaparin 40 MG/0.4 ML Syringe SUBCUT SCH (15:29)
[2017-12-03] MEDS ORDERED: Piperacillin/Tazobactam 4.5 GM in Sodium Chloride 0.9% 100 ML IV ONE (16:00)
[2017-12-03] MEDS ORDERED: Bisacodyl 10 MG Supp RECTAL PRN (16:37)
[2017-12-03] MEDS: Sodium Chloride 0.9% 1,000 ML IV SCH ×3 (16:41→21:45)
[2017-12-03] MEDS ORDERED: Insulin Aspart 100 Units/ML 3 ML Pen SUBCUT SCH (17:00)
[2017-12-03] MEDS: Albuterol/Ipratropium 3.0-0.5 MG/3 ML Neb Soln NEB SCH ×2 (17:37→20:17)
[2017-12-03] MEDS: Insulin Aspart 100 Units/ML 3 ML Pen SUBCUT SCH (18:41)
[2017-12-03] MEDS: Metoclopramide 10 MG Tab PO SCH ×2 (18:42→21:36)
[2017-12-03] MEDS: Budesonide 0.25 MG/2 ML Neb Susp NEB SCH (20:17)
[2017-12-03] MEDS: rOPINIRole 1 MG Tab PO SCH (21:36)
[2017-12-03] MEDS: Rosuvastatin 10 MG Tab PO SCH (21:36)
[2017-12-04] MEDS: Insulin Aspart 100 Units/ML 3 ML Pen SUBCUT SCH ×4 (00:22→18:43)
[2017-12-04] MEDS: Piperacillin/Tazobactam 4.5 GM in Sodium Chloride 0.9% 100 ML IV SCH ×3 (00:22→15:55)
[2017-12-04] MEDS: Budesonide 0.25 MG/2 ML Neb Susp NEB SCH ×2 (05:17→20:27)
[2017-12-04] MEDS: Levothyroxine 100 MCG Tab PO SCH (06:28)
[2017-12-04] MEDS: Pantoprazole 40 MG Tab.CR PO SCH (06:29)
[2017-12-04] MEDS: Albuterol/Ipratropium 3.0-0.5 MG/3 ML Neb Soln NEB SCH ×4 (08:28→20:27)
[2017-12-04] MEDS: Multivitamins,Therapeutic Tab PO SCH (08:49)
[2017-12-04] MEDS: buPROPion 150 MG Tab.ER PO SCH (08:50)
[2017-12-04] MEDS: Ferrous Sulfate 325 MG Tab PO SCH (08:50)
[2017-12-04] MEDS: Aspirin 81 MG Tab.Chew PO SCH (08:51)
[2017-12-04] MEDS: Metoclopramide 10 MG Tab PO SCH ×4 (08:51→20:20)
[2017-12-04] MEDS: rOPINIRole 1 MG Tab PO SCH ×2 (08:52→20:20)
[2017-12-04] MEDS: Polyethylene Glycol 3350 Powder 17 GM Packet PO SCH (08:52)
[2017-12-04] MEDS: Citalopram 20 MG Tab PO SCH (09:18)
[2017-12-04] MEDS ORDERED: Magnesium Sulfate/Water 2 GM in Premix Bag 1 BAG IV ONE (09:47)
--- NOTE | 2017-12-04 09:47 | PCM.PN ---
- General Info Date of Service: 12/04/17 Functional Status: Reports: Tolerating Diet (minimal appetite) - Review of Systems General: Reports: Weakness HEENT: Reports: No Symptoms Pulmonary: Reports: Shortness of Breath Cardiovascular: Reports: No Symptoms Gastrointestinal: Reports: Decreased Appetite Genitourinary: Reports: No Symptoms Musculoskeletal: Reports: No Symptoms Skin: Reports: No Symptoms Neurological: Reports: No Symptoms Psychiatric: Reports: No Symptoms - Patient Data Vitals - Most Recent: Last Vital Signs Temp 36.7 C 12/04/17 04:28 Pulse 87 12/04/17 08:43 Resp 18 12/04/17 08:43 BP 151/64 H 12/04/17 08:43 Pulse Ox 100 12/04/17 08:43 Weight - Most Recent: 70.443 kg I&O - Last 24 Hours: Intake & Output 12/03/17 12/04/17 12/04/17 22:59 06:59 14:59 Intake Total 1476 Output Total 650 Balance 826 Lab Results Last 24 Hours: Laboratory Results - last 24 hr 12/03/17 12/03/17 12/03/17 Range/Units 07:47 08:30 09:46 D-Dimer, Quantitative (0.19-0.50) mg/L Puncture Site Rt radial ABG pH 7.33 L (7.35-7.45) ABG pCO2 80.8 H* (35.0-45.0) mmHg ABG pO2 189.0 H* (80.0-100.0) mmHg ABG HCO3 41.2 H (22.0-26.0) meq/L ABG O2 Saturation 99.3 H (96.0-97.0) % ABG Base Excess 12.5 H (-2-2.0) Will Test Positive A-a Gradient 350 mmHg O2 Delivery Device Bipap FiO2 0.00 L (21.00-100.00) % PEEP 5.0 cmH20 Pressure Support cmH2O Sodium (136-145) mEq/L Potassium (3.5-5.1) mEq/L Chloride (98-107) mEq/L Carbon Dioxide (21-32) mEq/L Anion Gap (5-15) BUN (7-18) mg/dL Creatinine (0.55-1.02) mg/dL Est Cr Clr Drug Dosing mL/min Estimated GFR (MDRD) (>60) mL/min BUN/Creatinine Ratio (14-18) Glucose (80-115) mg/dL POC Glucose (80-115) mg/dL Hemoglobin A1c (4.50-6.20) % Lactic Acid (0.4-2.0) mmol/L Calcium (8.5-10.1) mg/dL Magnesium (1.8-2.4) mg/dl Troponin I (0.00-0.056) ng/mL C-Reactive Protein (<1.0) mg/dL NT-Pro-B Natriuret Pep (0-125) pg/mL Hyaline Casts 0-5 (0-5) /lpf Urine Yeast (Budding) Few H (NOT SEEN) Mycoplasma pneumon IgM Negative (NEGATIVE) MRSA (PCR) 12/03/17 12/03/17 12/03/17 Range/Units 11:31 16:00 16:11 D-Dimer, Quantitative (0.19-0.50) mg/L Puncture Site Rt radial Rt radial ABG pH 7.34 L 7.37 (7.35-7.45) ABG pCO2 78.1 H* 70.0 H (35.0-45.0) mmHg ABG pO2 83.0 56.0 L (80.0-100.0) mmHg ABG HCO3 41.3 H 39.4 H (22.0-26.0) meq/L ABG O2 Saturation 95.8 L 87.3 L (96.0-97.0) % ABG Base Excess 12.9 H 12.1 H (-2-2.0) Will Test Positive Positive A-a Gradient 139 177 mmHg O2 Delivery Device Bipap Bipap FiO2 0.00 L 0.00 L (21.00-100.00) % PEEP 5.0 5.0 cmH20 Pressure Support 12.0 cmH2O Sodium (136-145) mEq/L Potassium (3.5-5.1) mEq/L Chloride (98-107) mEq/L Carbon Dioxide (21-32) mEq/L Anion Gap (5-15) BUN (7-18) mg/dL Creatinine (0.55-1.02) mg/dL Est Cr Clr Drug Dosing mL/min Estimated GFR (MDRD) (>60) mL/min BUN/Creatinine Ratio (18) Glucose 461 H (80-115) mg/dL POC Glucose (80-115) mg/dL Hemoglobin A1c (4.50-6.20) % Lactic Acid (0.4-2.0) mmol/L Calcium (8.5-10.1) mg/dL Magnesium (1.8-2.4) mg/dl Troponin I (0.00-0.056) ng/mL C-Reactive Protein (<1.0) mg/dL NT-Pro-B Natriuret Pep (0-125) pg/mL Hyaline Casts (0-5) /lpf Urine Yeast (Budding) (NOT SEEN) Mycoplasma pneumon IgM (NEGATIVE) MRSA (PCR) 12/03/17 12/03/17 12/03/17 Range/Units 17:45 17:54 17:54 D-Dimer, Quantitative (0.19-0.50) mg/L Puncture Site ABG pH (7.35-7.45) ABG pCO2 (35.0-45.0) mmHg ABG pO2 (80.0-100.0) mmHg ABG HCO3 (22.0-26.0) meq/L ABG O2 Saturation (96.0-97.0) % ABG Base Excess (-2-2.0) Will Test A-a Gradient mmHg O2 Delivery Device FiO2 (21.00-100.00) % PEEP cmH20 Pressure Support cmH2O Sodium 133 L (136-145) mEq/L Potassium 4.6 (3.5-5.1) mEq/L Chloride 93 L (98-107) mEq/L Carbon Dioxide 39 H (21-32) mEq/L Anion Gap 5.6 (5-15) BUN 39 H (7-18) mg/dL Creatinine 1.0 (0.55-1.02) mg/dL Est Cr Clr Drug Dosing 42.59 mL/min Estimated GFR (MDRD) 55 (>60) mL/min BUN/Creatinine Ratio 39.0 H (14-18) Glucose 409 H (80-115) mg/dL POC Glucose (80-115) mg/dL Hemoglobin A1c (4.50-6.20) % Lactic Acid 0.8 (0.4-2.0) mmol/L Calcium 9.6 (8.5-10.1) mg/dL Magnesium (1.8-2.4) mg/dl Troponin I 0.128 H* (0.00-0.056) ng/mL C-Reactive Protein (<1.0) mg/dL NT-Pro-B Natriuret Pep (0-125) pg/mL Hyaline Casts (0-5) /lpf Urine Yeast (Budding) (NOT SEEN) Mycoplasma pneumon IgM (NEGATIVE) MRSA (PCR) Negative 12/03/17 12/03/17 12/03/17 Range/Units 17:54 18:02 20:34 D-Dimer, Quantitative 0.25 (0.19-0.50) mg/L Puncture Site Rt radial Rt radial ABG pH 7.34 L 7.37 (7.35-7.45) ABG pCO2 75.4 H* 68.7 H (35.0-45.0) mmHg ABG pO2 92.0 52.0 L (80.0-100.0) mmHg ABG HCO3 39.8 H 38.5 H (22.0-26.0) meq/L ABG O2 Saturation 97.0 85.0 L (96.0-97.0) % ABG Base Excess 11.8 H 11.1 H (-2-2.0) Will Test Positive Positive A-a Gradient 198 246 mmHg O2 Delivery Device Bipap Bipap FiO2 0.00 L 60.00 (21.00-100.00) % PEEP 7.0 7.0 cmH20 Pressure Support 14.0 14.0 cmH2O Sodium (136-145) mEq/L Potassium (3.5-5.1) mEq/L Chloride (98-107) mEq/L Carbon Dioxide (21-32) mEq/L Anion Gap (5-15) BUN (7-18) mg/dL Creatinine (0.55-1.02) mg/dL Est Cr Clr Drug Dosing mL/min Estimated GFR (MDRD) (>60) mL/min BUN/Creatinine Ratio (14-18) Glucose (80-115) mg/dL POC Glucose (80-115) mg/dL Hemoglobin A1c (4.50-6.20) % Lactic Acid (0.4-2.0) mmol/L Calcium (8.5-10.1) mg/dL Magnesium (1.8-2.4) mg/dl Troponin I (0.00-0.056) ng/mL C-Reactive Protein (<1.0) mg/dL NT-Pro-B Natriuret Pep (0-125) pg/mL Hyaline Casts (0-5) /lpf Urine Yeast (Budding) (NOT SEEN) Mycoplasma pneumon IgM (NEGATIVE) MRSA (PCR) 12/03/17 12/04/17 12/04/17 Range/Units 23:01 00:16 05:51 D-Dimer, Quantitative (0.19-0.50) mg/L Puncture Site Rt radial ABG pH 7.38 (7.35-7.45) ABG pCO2 67.6 H (35.0-45.0) mmHg ABG pO2 67.0 L (80.0-100.0) mmHg ABG HCO3 39.1 H (22.0-26.0) meq/L ABG O2 Saturation 93.1 L (96.0-97.0) % ABG Base Excess 12.0 H (-2-2.0) Will Test Positive A-a Gradient 296 mmHg O2 Delivery Device Bipap FiO2 70.00 (21.00-100.00) % PEEP 7.0 cmH20 Pressure Support 14.0 cmH2O Sodium 138 (136-145) mEq/L Potassium 4.5 (3.5-5.1) mEq/L Chloride 98 (98-107) mEq/L Carbon Dioxide 37 H (21-32) mEq/L Anion Gap 7.5 (5-15) BUN 32 H (7-18) mg/dL Creatinine 0.9 (0.55-1.02) mg/dL Est Cr Clr Drug Dosing 47.32 mL/min Estimated GFR (MDRD) > 60 (>60) mL/min BUN/Creatinine Ratio 35.6 H (14-18) Glucose 269 H (80-115) mg/dL POC Glucose 255 H (80-115) mg/dL Hemoglobin A1c (4.50-6.20) % Lactic Acid (0.4-2.0) mmol/L Calcium 9.6 (8.5-10.1) mg/dL Magnesium 1.8 (1.8-2.4) mg/dl Troponin I 0.074 H* (0.00-0.056) ng/mL C-Reactive Protein 3.6 H* (<1.0) mg/dL NT-Pro-B Natriuret Pep (0-125) pg/mL Hyaline Casts (0-5) /lpf Urine Yeast (Budding) (NOT SEEN) Mycoplasma pneumon IgM (NEGATIVE) MRSA (PCR) 12/04/17 12/04/17 12/04/17 Range/Units 05:51 05:51 05:51 D-Dimer, Quantitative (0.19-0.50) mg/L Puncture Site ABG pH (7.35-7.45) ABG pCO2 (35.0-45.0) mmHg ABG pO2 (80.0-100.0) mmHg ABG HCO3 (22.0-26.0) meq/L ABG O2 Saturation (96.0-97.0) % ABG Base Excess (-2-2.0) Will Test A-a Gradient mmHg O2 Delivery Device FiO2 (21.00-100.00) % PEEP cmH20 Pressure Support cmH2O Sodium (136-145) mEq/L Potassium (3.5-5.1) mEq/L Chloride (98-107) mEq/L Carbon Dioxide (21-32) mEq/L Anion Gap (5-15) BUN (7-18) mg/dL Creatinine (0.55-1.02) mg/dL Est Cr Clr Drug Dosing mL/min Estimated GFR (MDRD) (>60) mL/min BUN/Creatinine Ratio (14-18) Glucose (80-115) mg/dL POC Glucose (80-115) mg/dL Hemoglobin A1c 7.20 H (4.50-6.20) % Lactic Acid 0.8 (0.4-2.0) mmol/L Calcium (8.5-10.1) mg/dL Magnesium (1.8-2.4) mg/dl Troponin I (0.00-0.056) ng/mL C-Reactive Protein (<1.0) mg/dL NT-Pro-B Natriuret Pep 1012 H (0-125) pg/mL Hyaline Casts (0-5) /lpf Urine Yeast (Budding) (NOT SEEN) Mycoplasma pneumon IgM (NEGATIVE) MRSA (PCR) 12/04/17 Range/Units 06:27 D-Dimer, Quantitative (0.19-0.50) mg/L Puncture Site ABG pH (7.35-7.45) ABG pCO2 (35.0-45.0) mmHg ABG pO2 (80.0-100.0) mmHg ABG HCO3 (22.0-26.0) meq/L ABG O2 Saturation (96.0-97.0) % ABG Base Excess (-2-2.0) Will Test A-a Gradient mmHg O2 Delivery Device FiO2 (21.00-100.00) % PEEP cmH20 Pressure Support cmH2O Sodium (136-145) mEq/L Potassium (3.5-5.1) mEq/L Chloride (98-107) mEq/L Carbon Dioxide (21-32) mEq/L Anion Gap (5-15) BUN (7-18) mg/dL Creatinine (0.55-1.02) mg/dL Est Cr Clr Drug Dosing mL/min Estimated GFR (MDRD) (>60) mL/min BUN/Creatinine Ratio (14-18) Glucose (80-115) mg/dL POC Glucose 295 H (80-115) mg/dL Hemoglobin A1c (4.50-6.20) % Lactic Acid (0.4-2.0) mmol/L Calcium (8.5-10.1) mg/dL Magnesium (1.8-2.4) mg/dl Troponin I (0.00-0.056) ng/mL C-Reactive Protein (<1.0) mg/dL NT-Pro-B Natriuret Pep (0-125) pg/mL Hyaline Casts (0-5) /lpf Urine Yeast (Budding) (NOT SEEN) Mycoplasma pneumon IgM (NEGATIVE) MRSA (PCR) Jan Results Last 24 Hours: Microbiology 12/03/17 09:50 Influenza Type A Antigen Screen - Final Nasopharyngeal Swab NEGATIVE INFLUENZA A VIRUS AG Influenza Type B Antigen Screen - Final NEGATIVE INFLUENZA B VIRUS AG Med Orders - Current: Current Medications Acetaminophen (Tylenol) 650 mg PO Q6H PRN PRN Reason: Pain/Fever Albuterol (Proventil Neb Soln) 2.5 mg NEB Q4HRRT PRN PRN Reason: Shortness of Breath Last Admin: 12/03/17 15:23 Dose: 2.5 mg Albuterol/Ipratropium (Duoneb 3.0-0.5 Mg/3 Ml) 3 ml NEB QID LYLA Last Admin: 12/04/17 08:28 Dose: 3 ml Aspirin (Aspirin) 81 mg PO DAILY [facility] Last Admin: 12/04/17 08:51 Dose: 81 mg Bisacodyl (Dulcolax) 10 mg RECTAL DAILY PRN PRN Reason: Constipation Budesonide (Pulmicort) 0.25 mg NEB BIDRT [facility] Last Admin: 12/04/17 05:17 Dose: 0.25 mg Bupropion HCl (Wellbutrin Xl) 150 mg PO DAILY [facility] Last Admin: 12/04/17 08:50 Dose: 150 mg Citalopram Hydrobromide (Celexa) 40 mg PO DAILY [facility] Last Admin: 12/04/17 09:18 Dose: 40 mg Dextrose/Water (Dextrose 50% In Water) 50 ml IVPUSH ASDIRECTED PRN PRN Reason: Hypoglycemia Enoxaparin Sodium (Lovenox) 40 mg SUBCUT Q24H [facility] Last Admin: 12/03/17 15:29 Dose: 40 mg Ferrous Sulfate (Ferrous Sulfate) 325 mg PO DAILY [facility] Last Admin: 12/04/17 08:50 Dose: 325 mg Piperacillin Sod/Tazobactam (Sod 4.5 gm/ Sodium Chloride) 100 mls @ 25 mls/hr IV Q8H [facility] Last Admin: 12/04/17 08:54 Dose: 25 mls/hr Sodium Chloride (Normal Saline) 1,000 mls @ 50 mls/hr IV ASDIRECTED [facility] Last Admin: 12/03/17 21:45 Dose: 50 mls/hr Vancomycin HCl 1 gm/ Sodium (Chloride) 250 mls @ 250 mls/hr IV Q12H [facility] Insulin Aspart (Novolog) 0 unit SUBCUT Q6H [facility]; Protocol Last Admin: 12/04/17 06:28 Dose: 3 units Levothyroxine Sodium (Synthroid) 50 mcg PO ACBREAKFAST [facility] Last Admin: 12/04/17 06:28 Dose: 50 mcg Metoclopramide HCl (Reglan) 10 mg PO QID [facility] Last Admin: 12/04/17 08:51 Dose: 10 mg Morphine Sulfate (Morphine) 0.5 mg IVPUSH Q4H PRN PRN Reason: Shortness of Breath Multivitamins (Thera) 1 each PO DAILY [facility] Last Admin: 12/04/17 08:49 Dose: 1 each Ondansetron HCl (Zofran) 4 mg IVPUSH Q8H PRN PRN Reason: Nausea/Vomiting Pantoprazole Sodium (Protonix) 40 mg PO DAILY@0700 [facility] Last Admin: 12/04/17 06:29 Dose: 40 mg Polyethylene Glycol (Miralax) 17 gm PO DAILY [facility] Last Admin: 12/04/17 08:52 Dose: 17 gm Ropinirole HCl (Requip) 1 mg PO BID [facility] Last Admin: 12/04/17 08:52 Dose: 1 mg Rosuvastatin Calcium (Crestor) 10 mg PO BEDTIME [facility] Last Admin: 12/03/17 21:36 Dose: 10 mg Senna/Docusate Sodium (Senna Plus) 2 tab PO BID [facility] Last Admin: 12/04/17 08:51 Dose: 2 tab Sodium Chloride (Saline Flush) 10 ml FLUSH ASDIRECTED PRN PRN Reason: Keep Vein Open Last Admin: 12/03/17 07:55 Dose: 10 ml Tramadol HCl (Ultram) 50 mg PO TID PRN PRN Reason: Pain (moderate 4-6) Vancomycin HCl (Pharmacy To Dose - Vancomycin) 0 dose .XX ASDIRECTED PRN PRN Reason: RX TO DOSE VANCOMYCIN Discontinued Medications Furosemide (Lasix) 40 mg IVPUSH NOW ONE Stop: 12/03/17 07:31 Last Admin: 12/03/17 07:47 Dose: 40 mg Vancomycin HCl 1 gm/ Sodium (Chloride) 250 mls @ 250 mls/hr IV Q24H [facility] Last Admin: 12/03/17 15:29 Dose: 250 mls/hr Piperacillin Sod/Tazobactam (Sod 4.5 gm/ Sodium Chloride) 100 mls @ 400 mls/hr IV ONETIME ONE Stop: 12/03/17 16:14 Last Admin: 12/03/17 16:41 Dose: 400 mls/hr Sodium Chloride (Normal Saline) 1,000 mls @ 50 mls/hr IV ASDIRECTED [facility] Last Infusion: 12/03/17 21:30 Dose: Infused Insulin Aspart (Novolog) 0 unit SUBCUT QIDACANDBED [facility]; Protocol Last Admin: 12/03/17 19:06 Dose: Not Given - Exam Quality Assessment: Supplemental Oxygen, Urine Catheter, DVT Prophylaxis General: Alert, Oriented, Cooperative, No Acute Distress HEENT: Pupils Equal, Pupils Reactive, EOMI Neck: Trachea Midline, No JVD Lungs: Normal Respiratory Effort, Decreased Breath Sounds, Rhonchi Cardiovascular: Regular Rate, Regular Rhythm GI/Abdominal Exam: Normal Bowel Sounds, Soft, Non-Tender, No Organomegaly, No Distention (Female) Exam: Deferred Back Exam: Normal Inspection Extremities: Normal Inspection, Slow Capillary Refill Skin: Warm Neurological: No New Focal Deficit, Normal Speech Psy/Mental Status: Alert, Depressed - Problem List Review Problem List Initiated/Reviewed/Updated: Yes - My Orders Last 24 Hours: My Active Orders 12/03/17 14:47 Vital Signs [RC] Q4HR 12/03/17 14:56 Albuterol [Proventil Neb Soln] 2.5 mg NEB Q4HRRT PRN 12/03/17 14:57 RT Aerosol Therapy [RC] ASDIRECTED 12/03/17 15:00 Dextrose 50% in Water 50 ml IVPUSH ASDIRECTED PRN Vancomycin Pharmacy to Dose [Pharmacy to Dose - Vancomycin] 0 dose .XX ASDIRECTED PRN 12/03/17 15:01 Ondansetron [Zofran] 4 mg IVPUSH Q8H PRN 12/03/17 15:02 Acetaminophen [Tylenol] 650 mg PO Q6H PRN 12/03/17 15:03 Code Status [Resuscitation Status] Routine 12/03/17 16:00 Enoxaparin [Lovenox] 40 mg SUBCUT Q24H 12/03/17 16:37 Bisacodyl [Dulcolax] 10 mg RECTAL DAILY PRN traMADol [Ultram] 50 mg PO TID PRN 12/03/17 17:00 Albuterol/Ipratropium [DuoNeb 3.0-0.5 MG/3 ML] 3 ml NEB QID Metoclopramide [Reglan] 10 mg PO QID 12/03/17 17:23 Urinary Catheter Assessment [RC] 10,12/03/17 17:30 Insert Desai Catheter [Insert Urinary Catheter] [OM.PC] Q24H 12/03/17 17:45 METH-RESIST S.AUR,MRSA BY PCR [MOLEC] Routine 12/03/17 18:00 Blood Glucose Check, Bedside [RC] Q6HR Insulin Aspart [NovoLOG] See Protocol SUBCUT Q6H 12/03/17 19:30 CXR [Chest 1V Frontal] [CR] Routine 12/03/17 20:34 ABG [BLOOD GAS ARTERIAL] [BG] Urgent 12/03/17 20:57 Morphine 0.5 mg IVPUSH Q4H PRN 12/03/17 21:00 Budesonide [Pulmicort] 0.25 mg NEB BIDRT Docusate Sodium/Sennosides [Senna Plus] 2 tab PO BID Rosuvastatin [Crestor] 10 mg PO BEDTIME rOPINIRole [Requip] 1 mg PO BID 12/03/17 21:45 Sodium Chloride 0.9% [Normal Saline] 1,000 ml IV ASDIRECTED 12/03/17 23:00 RT Arterial Blood Gases, ABG [RC] Click to Edit 12/03/17 23:01 ABG [BLOOD GAS ARTERIAL] [BG] Urgent 12/03/17 Dinner Clear Liquid Diet [DIET] 12/04/17 00:00 Piperacillin/Tazobactam [Zosyn] 4.5 gm Sodium Chloride 0.9% [Normal Saline] 100 ml IV Q8H 12/04/17 06:00 Levothyroxine [Synthroid] 50 mcg PO ACBREAKFAST 12/04/17 07:00 Pantoprazole [ProTONIX] 40 mg PO DAILY@0700 12/04/17 09:00 Aspirin 81 mg PO DAILY Citalopram [Celexa] 40 mg PO DAILY Ferrous Sulfate 325 mg PO DAILY Multivitamins,Therapeutic [Thera] 1 each PO DAILY Polyethylene Glycol 3350 [MiraLAX] 17 gm PO DAILY buPROPion [Wellbutrin XL] 150 mg PO DAILY 12/04/17 12:00 Vancomycin [Vancocin] 1 gm Sodium Chloride 0.9% [Normal Saline] 250 ml IV Q12H 12/04/17 15:00 CXR [Chest 2V] [CR] Routine 12/05/17 05:00 BMP [BASIC METABOLIC PANEL,BMP] [CHEM] DAILY CRP [C-REACTIVE PROTEIN] [CHEM] DAILY MAGNESIUM [CHEM] DAILY 12/05/17 11:30 VANCOMYCIN TROUGH [CHEM] Timed 12/06/17 05:00 BMP [BASIC METABOLIC PANEL,BMP] [CHEM] DAILY CRP [C-REACTIVE PROTEIN] [CHEM] DAILY MAGNESIUM [CHEM] DAILY 12/06/17 09:45 Consult to Physical Therapy [PT Evaluation and Treatment] [CONS] Routine 12/06/17 09:46 Consult to Occupational Therapy [OT Evaluation and Treatment] [CONS] Routine 12/07/17 05:00 BMP [BASIC METABOLIC PANEL,BMP] [CHEM] DAILY CRP [C-REACTIVE PROTEIN] [CHEM] DAILY MAGNESIUM [CHEM] DAILY 12/08/17 05:00 BMP [BASIC METABOLIC PANEL,BMP] [CHEM] DAILY CRP [C-REACTIVE PROTEIN] [CHEM] DAILY MAGNESIUM [CHEM] DAILY 12/09/17 05:00 BMP [BASIC METABOLIC PANEL,BMP] [CHEM] DAILY CRP [C-REACTIVE PROTEIN] [CHEM] DAILY MAGNESIUM [CHEM] DAILY - Plan Plan:: mpression: Acute respiratory distress, hypercapnia Hx of prolong intubation, s/p tracheostomy Zosyn/Vanco; BIPAP adjust settings with improved Vt Hx of COPD Hx of CKD, II-III Hyponatremia--corrected Hyperkalemia--corrected Borderline elevated BNP Diabetes mellitus with reported poor control Chronic Fe deficiency PUD Hypothyroid HTN HLD Macular degeneration CAD/CT s/p CABG Plan: Correct electrolytes IV ATBs for HCAP coverage Resp infection work up w/isolation MRSA screen Nebs scheduled/prn Titrate O2 sat>92%; CO2<65 as tolerated Adjust BiPAP as needed for above Maintain IVF for UO ADA diet advance as tolerated Clarify tube feeds is calorie input is inadequate PT/OT for deconditioning MS tele room near ICU DVT/GI prophylaxis
[2017-12-04] MEDS: Sodium Chloride 0.9% 1,000 ML IV SCH (12:53)
[2017-12-04] MEDS: Enoxaparin 40 MG/0.4 ML Syringe SUBCUT SCH (15:59)
[2017-12-04] MEDS ORDERED: Furosemide 40 MG/4 ML VIAL IVPUSH ONE (18:21)
[2017-12-04] MEDS: Megestrol 40 MG Tab PO SCH (20:20)
[2017-12-04] MEDS: Rosuvastatin 10 MG Tab PO SCH (20:20)
[2017-12-04] MEDS: traMADol 50 MG Tab PO PRN (20:30)
[2017-12-05] MEDS: Piperacillin/Tazobactam 4.5 GM in Sodium Chloride 0.9% 100 ML IV SCH ×4 (00:33→23:08)
[2017-12-05] MEDS: Insulin Aspart 100 Units/ML 3 ML Pen SUBCUT SCH ×5 (02:00→17:33)
[2017-12-05] MEDS: Budesonide 0.25 MG/2 ML Neb Susp NEB SCH ×2 (05:12→20:21)
[2017-12-05] MEDS: Pantoprazole 40 MG Tab.CR PO SCH (06:30)
[2017-12-05] MEDS: Levothyroxine 100 MCG Tab PO SCH (06:30)
[2017-12-05] MEDS ORDERED: Furosemide 20 MG/2 ML VIAL IVPUSH ONE (08:00)
[2017-12-05] MEDS: Albuterol/Ipratropium 3.0-0.5 MG/3 ML Neb Soln NEB SCH ×4 (08:23→20:21)
--- NOTE | 2017-12-05 08:35 | CR ---
Chest: Portable view of the chest was obtained. Comparison: Prior chest x-ray of 12/03/17. Slight increased density within both lung bases is seen most likely representing minimal atelectasis. Slight chronic change is again seen within the right lung base. Lungs otherwise are clear. Heart size is normal. Tortuous thoracic aorta is noted. Previous CABG is noted. Old healed right upper rib fracture is noted. Impression: 1. Incidental findings. Nothing acute is suspected. No significant change from previous study. Diagnostic code #2 I mostly agree with preliminary report issued by [facility] ([facility] preliminary report dictated on 12/03/17, 8:56 PM Central Time)
--- NOTE | 2017-12-05 08:35 | CR ---
Chest: Portable view of the chest was obtained. Comparison: Prior chest x-ray of 12/03/17. Increasing density within the right lung base from prior study is seen either due to atelectasis, pneumonia or change from aspiration. Minimal atelectasis remains stable within the left base. Heart size is stable. Previous sternotomy for CABG. Impression: 1. Increased density within the right base as an interval change from prior exam. Differential as noted above. 2. Other incidental findings. Diagnostic code #3 Agree with preliminary report issued by [facility] ([facility] preliminary report dictated on 12/04/17, 4:31 PM Central Time)
--- NOTE | 2017-12-05 08:35 | CR ---
Chest: Portable view of the chest was obtained. Comparison: Prior chest x-ray of 12/04/17. Mild increasing atelectasis within the right lung base is seen from prior study. Stable atelectasis is seen within the left base. Heart size is unchanged. Tortuous thoracic aorta is seen. Previous CABG is seen. Impression: 1. Increasing atelectasis within the right lung base. Questionable pneumonia versus change from aspiration within the right lung base which is stable. 2. Other incidental findings. Diagnostic code #3
--- NOTE | 2017-12-05 08:35 | CR ---
Chest: Portable view of the chest was obtained. Comparison: Previous chest CT of 09/06/17 and chest x-ray also of 09/06/17. Heart is slightly enlarged. Tortuous thoracic aorta is noted. Mild increased density within the right lung base is seen most likely representing slight atelectasis and chronic change. Minimal atelectasis is noted within the left base. Impression: 1. Probable atelectasis within both lung bases as well as probable chronic change within the right lung base. 2. Nothing acute is definitely suspected. Diagnostic code #2
[2017-12-05] MEDS: Metoclopramide 10 MG Tab PO SCH ×4 (08:54→20:43)
[2017-12-05] MEDS: Saccharomyces Boulardii (Probiotic) 250 MG Cap PO SCH (08:54)
[2017-12-05] MEDS: rOPINIRole 1 MG Tab PO SCH ×2 (08:54→20:42)
[2017-12-05] MEDS: buPROPion 150 MG Tab.ER PO SCH (08:54)
[2017-12-05] MEDS: Aspirin 81 MG Tab.Chew PO SCH (08:55)
[2017-12-05] MEDS: Polyethylene Glycol 3350 Powder 17 GM Packet PO SCH (08:55)
[2017-12-05] MEDS: Ferrous Sulfate 325 MG Tab PO SCH (08:55)
[2017-12-05] MEDS: Citalopram 20 MG Tab PO SCH (08:55)
[2017-12-05] MEDS: Multivitamins,Therapeutic Tab PO SCH (08:55)
[2017-12-05] MEDS: Sodium Chloride 0.9% 1,000 ML IV SCH (09:00)
[2017-12-05] MEDS ORDERED: Fluconazole 150 MG Tab PO ONE (09:00)
[2017-12-05] MEDS: Megestrol Susp 40 MG/ML 10 ML UD Cup PO SCH ×2 (11:48→20:43)
[2017-12-05] MEDS: traMADol 50 MG Tab PO PRN ×2 (11:55→20:42)
[2017-12-05] MEDS: Megestrol 40 MG Tab PO SCH (12:23)
[2017-12-05] MEDS ORDERED: Magnesium Sulfate/Water 2 GM in Premix Bag 1 BAG IV ONE (13:25)
--- NOTE | 2017-12-05 13:28 | PCM.PN ---
- General Info Date of Service: 12/05/17 Functional Status: Reports: Pain Controlled, Tolerating Diet (marginal improvement; elevated BS from food choices), Ambulating, Urinating (bolton) - Review of Systems General: Reports: Weakness HEENT: Reports: No Symptoms Pulmonary: Reports: Shortness of Breath Cardiovascular: Reports: No Symptoms Gastrointestinal: Reports: No Symptoms Genitourinary: Reports: No Symptoms Musculoskeletal: Reports: No Symptoms Skin: Reports: No Symptoms Neurological: Reports: No Symptoms Psychiatric: Reports: No Symptoms - Patient Data Vitals - Most Recent: Last Vital Signs Temp 36.9 C 12/05/17 12:31 Pulse 72 12/05/17 12:31 Resp 20 12/05/17 12:31 BP 103/71 12/05/17 12:31 Pulse Ox 99 12/05/17 13:26 Weight - Most Recent: 71.078 kg I&O - Last 24 Hours: Intake & Output 12/04/17 12/05/17 12/05/17 22:59 06:59 14:59 Intake Total 1650 1900 Output Total 1050 1205 505 Balance 600 695 -505 Lab Results Last 24 Hours: Laboratory Results - last 24 hr 12/03/17 12/03/17 12/04/17 Range/Units 20:34 23:01 17:43 WBC (3.98-10.04) K/mm3 RBC (3.98-5.22) M/mm3 Hgb (11.2-15.7) gm/L Hct (34.1-44.9) % MCV (79.4-94.8) fl MCH (25.6-32.2) pg MCHC (32.2-35.5) g/dl RDW Std Deviation (36.4-46.3) fL Plt Count (182-369) K/mm3 MPV (9.4-12.3) fl Neut % (Auto) (34.0-71.1) % Lymph % (Auto) (19.3-51.7) % [place] % (Auto) (4.7-12.5) % Eos % (Auto) (0.7-5.8) Baso % (Auto) (0.1-1.2) % Neut # (Auto) (1.56-6.13) K/mm3 Lymph # (Auto) (1.18-3.74) K/mm3 [place] # (Auto) (0.24-0.36) K/mm3 Eos # (Auto) (0.04-0.36) K/mm3 Baso # (Auto) (0.01-0.08) K/mm3 Manual Slide Review Oxygen Flow Rate Not Reportable Not Reportable Sodium (136-145) mEq/L Potassium (3.5-5.1) mEq/L Chloride (98-107) mEq/L Carbon Dioxide (21-32) mEq/L Anion Gap (5-15) BUN (7-18) mg/dL Creatinine (0.55-1.02) mg/dL Est Cr Clr Drug Dosing mL/min Estimated GFR (MDRD) (>60) mL/min BUN/Creatinine Ratio (14-18) Glucose 401 H (80-115) mg/dL POC Glucose (80-115) mg/dL Calcium (8.5-10.1) mg/dL Magnesium (1.8-2.4) mg/dl Troponin I (0.00-0.056) ng/mL C-Reactive Protein (<1.0) mg/dL NT-Pro-B Natriuret Pep (0-125) pg/mL Urine Color (Yellow) Urine Appearance (Clear) Urine pH (5.0-8.0) Ur Specific [place] (1.005-1.030) Urine Protein (Negative) Urine Glucose (UA) (Negative) Urine Ketones (Negative) Urine Occult Blood (Negative) Urine Nitrite (Negative) Urine Bilirubin (Negative) Urine Urobilinogen (0.2-1.0) Ur Leukocyte Esterase (Negative) Urine RBC (0-5) /hpf Urine WBC (0-5) /hpf Urine WBC Clumps (NOT SEEN) /hpf Ur Epithelial Cells (0-5) /hpf Urine Bacteria (FEW) /hpf Urine Mucus (FEW) /hpf Urine Yeast (Budding) (NOT SEEN) Vancomycin Trough (10.0-20.0) 12/04/17 12/05/17 12/05/17 Range/Units 20:45 01:00 03:42 WBC (3.98-10.04) K/mm3 RBC (3.98-5.22) M/mm3 Hgb (11.2-15.7) gm/L Hct (34.1-44.9) % MCV (79.4-94.8) fl MCH (25.6-32.2) pg MCHC (32.2-35.5) g/dl RDW Std Deviation (36.4-46.3) fL Plt Count (182-369) K/mm3 MPV (9.4-12.3) fl Neut % (Auto) (34.0-71.1) % Lymph % (Auto) (19.3-51.7) % [place] % (Auto) (4.7-12.5) % Eos % (Auto) (0.7-5.8) Baso % (Auto) (0.1-1.2) % Neut # (Auto) (1.56-6.13) K/mm3 Lymph # (Auto) (1.18-3.74) K/mm3 [place] # (Auto) (0.24-0.36) K/mm3 Eos # (Auto) (0.04-0.36) K/mm3 Baso # (Auto) (0.01-0.08) K/mm3 Manual Slide Review Oxygen Flow Rate Sodium 136 (136-145) mEq/L Potassium 3.4 L (3.5-5.1) mEq/L Chloride 95 L (98-107) mEq/L Carbon Dioxide 33 H (21-32) mEq/L Anion Gap 11.4 (5-15) BUN 38 H (7-18) mg/dL Creatinine 1.2 H (0.55-1.02) mg/dL Est Cr Clr Drug Dosing 35.49 mL/min Estimated GFR (MDRD) 45 (>60) mL/min BUN/Creatinine Ratio 31.7 H (14-18) Glucose 518 H 449 H (80-115) mg/dL POC Glucose (80-115) mg/dL Calcium 9.2 (8.5-10.1) mg/dL Magnesium 1.8 (1.8-2.4) mg/dl Troponin I < 0.017 (0.00-0.056) ng/mL C-Reactive Protein 19.1 H* (<1.0) mg/dL NT-Pro-B Natriuret Pep (0-125) pg/mL Urine Color Light yellow (Yellow) Urine Appearance Clear (Clear) Urine pH 5.0 (5.0-8.0) Ur Specific [place] 1.010 (1.005-1.030) Urine Protein Negative (Negative) Urine Glucose (UA) 2+ H (Negative) Urine Ketones Negative (Negative) Urine Occult Blood Trace-intact H (Negative) Urine Nitrite Negative (Negative) Urine Bilirubin Negative (Negative) Urine Urobilinogen 0.2 (0.2-1.0) Ur Leukocyte Esterase 1+ H (Negative) Urine RBC 0-5 (0-5) /hpf Urine WBC 20-30 H (0-5) /hpf Urine WBC Clumps Few (NOT SEEN) /hpf Ur Epithelial Cells 0-5 (0-5) /hpf Urine Bacteria Few (FEW) /hpf Urine Mucus Not seen (FEW) /hpf Urine Yeast (Budding) Moderate H (NOT SEEN) Vancomycin Trough (10.0-20.0) 12/05/17 12/05/17 12/05/17 Range/Units 03:42 03:42 06:30 WBC 14.20 H (3.98-10.04) K/mm3 RBC 3.34 L (3.98-5.22) M/mm3 Hgb 10.0 L (11.2-15.7) gm/L Hct 32.8 L (34.1-44.9) % MCV 98.2 H (79.4-94.8) fl MCH 29.9 (25.6-32.2) pg MCHC 30.5 L (32.2-35.5) g/dl RDW Std Deviation 54.3 H (36.4-46.3) fL Plt Count 263 (182-369) K/mm3 MPV 11.6 (9.4-12.3) fl Neut % (Auto) 84.2 H (34.0-71.1) % Lymph % (Auto) 8.7 L (19.3-51.7) % [place] % (Auto) 6.7 (4.7-12.5) % Eos % (Auto) 0 L (0.7-5.8) Baso % (Auto) 0.3 (0.1-1.2) % Neut # (Auto) 11.96 H (1.56-6.13) K/mm3 Lymph # (Auto) 1.23 (1.18-3.74) K/mm3 [place] # (Auto) 0.95 H (0.24-0.36) K/mm3 Eos # (Auto) 0.00 L (0.04-0.36) K/mm3 Baso # (Auto) 0.04 (0.01-0.08) K/mm3 Manual Slide Review Abnormal smear Oxygen Flow Rate Sodium (136-145) mEq/L Potassium (3.5-5.1) mEq/L Chloride (98-107) mEq/L Carbon Dioxide (21-32) mEq/L Anion Gap (5-15) BUN (7-18) mg/dL Creatinine (0.55-1.02) mg/dL Est Cr Clr Drug Dosing mL/min Estimated GFR (MDRD) (>60) mL/min BUN/Creatinine Ratio (14-18) Glucose (80-115) mg/dL POC Glucose 360 H (80-115) mg/dL Calcium (8.5-10.1) mg/dL Magnesium (1.8-2.4) mg/dl Troponin I (0.00-0.056) ng/mL C-Reactive Protein (<1.0) mg/dL NT-Pro-B Natriuret Pep 731 H (0-125) pg/mL Urine Color (Yellow) Urine Appearance (Clear) Urine pH (5.0-8.0) Ur Specific [place] (1.005-1.030) Urine Protein (Negative) Urine Glucose (UA) (Negative) Urine Ketones (Negative) Urine Occult Blood (Negative) Urine Nitrite (Negative) Urine Bilirubin (Negative) Urine Urobilinogen (0.2-1.0) Ur Leukocyte Esterase (Negative) Urine RBC (0-5) /hpf Urine WBC (0-5) /hpf Urine WBC Clumps (NOT SEEN) /hpf Ur Epithelial Cells (0-5) /hpf Urine Bacteria (FEW) /hpf Urine Mucus (FEW) /hpf Urine Yeast (Budding) (NOT SEEN) Vancomycin Trough (10.0-20.0) 12/05/17 12/05/17 Range/Units 11:45 11:45 WBC (3.98-10.04) K/mm3 RBC (3.98-5.22) M/mm3 Hgb (11.2-15.7) gm/L Hct (34.1-44.9) % MCV (79.4-94.8) fl MCH (25.6-32.2) pg MCHC (32.2-35.5) g/dl RDW Std Deviation (36.4-46.3) fL Plt Count (182-369) K/mm3 MPV (9.4-12.3) fl Neut % (Auto) (34.0-71.1) % Lymph % (Auto) (19.3-51.7) % [place] % (Auto) (4.7-12.5) % Eos % (Auto) (0.7-5.8) Baso % (Auto) (0.1-1.2) % Neut # (Auto) (1.56-6.13) K/mm3 Lymph # (Auto) (1.18-3.74) K/mm3 [place] # (Auto) (0.24-0.36) K/mm3 Eos # (Auto) (0.04-0.36) K/mm3 Baso # (Auto) (0.01-0.08) K/mm3 Manual Slide Review Oxygen Flow Rate Sodium (136-145) mEq/L Potassium (3.5-5.1) mEq/L Chloride (98-107) mEq/L Carbon Dioxide (21-32) mEq/L Anion Gap (5-15) BUN (7-18) mg/dL Creatinine (0.55-1.02) mg/dL Est Cr Clr Drug Dosing mL/min Estimated GFR (MDRD) (>60) mL/min BUN/Creatinine Ratio (14-18) Glucose (80-115) mg/dL POC Glucose 267 H (80-115) mg/dL Calcium (8.5-10.1) mg/dL Magnesium (1.8-2.4) mg/dl Troponin I (0.00-0.056) ng/mL C-Reactive Protein (<1.0) mg/dL NT-Pro-B Natriuret Pep (0-125) pg/mL Urine Color (Yellow) Urine Appearance (Clear) Urine pH (5.0-8.0) Ur Specific [place] (1.005-1.030) Urine Protein (Negative) Urine Glucose (UA) (Negative) Urine Ketones (Negative) Urine Occult Blood (Negative) Urine Nitrite (Negative) Urine Bilirubin (Negative) Urine Urobilinogen (0.2-1.0) Ur Leukocyte Esterase (Negative) Urine RBC (0-5) /hpf Urine WBC (0-5) /hpf Urine WBC Clumps (NOT SEEN) /hpf Ur Epithelial Cells (0-5) /hpf Urine Bacteria (FEW) /hpf Urine Mucus (FEW) /hpf Urine Yeast (Budding) (NOT SEEN) Vancomycin Trough 21.5 H (10.0-20.0) Med Orders - Current: Current Medications Acetaminophen (Tylenol) 650 mg PO Q6H PRN PRN Reason: Pain/Fever Albuterol (Proventil Neb Soln) 2.5 mg NEB Q4HRRT PRN PRN Reason: Shortness of Breath Last Admin: 12/03/17 15:23 Dose: 2.5 mg Albuterol/Ipratropium (Duoneb 3.0-0.5 Mg/3 Ml) 3 ml NEB QID [facility] Last Admin: 12/05/17 13:25 Dose: 3 ml Aspirin (Aspirin) 81 mg PO DAILY [facility] Last Admin: 12/05/17 08:55 Dose: 81 mg Bisacodyl (Dulcolax) 10 mg RECTAL DAILY PRN PRN Reason: Constipation Budesonide (Pulmicort) 0.25 mg NEB BIDRT [facility] Last Admin: 12/05/17 05:12 Dose: 0.25 mg Bupropion HCl (Wellbutrin Xl) 150 mg PO DAILY [facility] Last Admin: 12/05/17 08:54 Dose: 150 mg Citalopram Hydrobromide (Celexa) 40 mg PO DAILY [facility] Last Admin: 12/05/17 08:55 Dose: 40 mg Dextrose/Water (Dextrose 50% In Water) 50 ml IVPUSH ASDIRECTED PRN PRN Reason: Hypoglycemia Enoxaparin Sodium (Lovenox) 40 mg SUBCUT Q24H [facility] Last Admin: 12/04/17 15:59 Dose: 40 mg Ferrous Sulfate (Ferrous Sulfate) 325 mg PO DAILY [facility] Last Admin: 12/05/17 08:55 Dose: 325 mg Piperacillin Sod/Tazobactam (Sod 4.5 gm/ Sodium Chloride) 100 mls @ 25 mls/hr IV Q8H [facility] Last Admin: 12/05/17 08:54 Dose: 25 mls/hr Sodium Chloride (Normal Saline) 1,000 mls @ 75 mls/hr IV ASDIRECTED [facility] Last Admin: 12/05/17 09:00 Dose: 50 mls/hr Vancomycin HCl 1 gm/ Sodium (Chloride) 250 mls @ 250 mls/hr IV Q18H [facility] Insulin Aspart (Novolog) 0 unit SUBCUT Q6HR [facility]; Protocol Last Admin: 12/05/17 11:56 Dose: 6 units Levothyroxine Sodium (Synthroid) 50 mcg PO ACBREAKFAST [facility] Last Admin: 12/05/17 06:30 Dose: 50 mcg Megestrol Acetate (Megace 40 Mg/Ml Susp) 400 mg PO BID [facility] Last Admin: 12/05/17 11:48 Dose: 400 mg Metoclopramide HCl (Reglan) 10 mg PO QID [facility] Last Admin: 12/05/17 08:54 Dose: 10 mg Morphine Sulfate (Morphine) 0.5 mg IVPUSH Q4H PRN PRN Reason: Shortness of Breath Multivitamins (Thera) 1 each PO DAILY [facility] Last Admin: 12/05/17 08:55 Dose: 1 each Ondansetron HCl (Zofran) 4 mg IVPUSH Q8H PRN PRN Reason: Nausea/Vomiting Pantoprazole Sodium (Protonix) 40 mg PO DAILY@0700 [facility] Last Admin: 12/05/17 06:30 Dose: 40 mg Polyethylene Glycol (Miralax) 17 gm PO DAILY [facility] Last Admin: 12/05/17 08:55 Dose: 17 gm Ropinirole HCl (Requip) 1 mg PO BID [facility] Last Admin: 12/05/17 08:54 Dose: 1 mg Rosuvastatin Calcium (Crestor) 10 mg PO BEDTIME [facility] Last Admin: 12/04/17 20:20 Dose: 10 mg Saccharomyces Boulardii (Florastor) 500 mg PO DAILY [facility] Last Admin: 12/05/17 08:54 Dose: 500 mg Senna/Docusate Sodium (Senna Plus) 2 tab PO BID [facility] Last Admin: 12/05/17 08:55 Dose: 2 tab Sodium Chloride (Saline Flush) 10 ml FLUSH ASDIRECTED PRN PRN Reason: Keep Vein Open Last Admin: 12/03/17 07:55 Dose: 10 ml Tramadol HCl (Ultram) 50 mg PO TID PRN PRN Reason: Pain (moderate 4-6) Last Admin: 12/05/17 11:55 Dose: 50 mg Vancomycin HCl (Pharmacy To Dose - Vancomycin) 0 dose .XX ASDIRECTED PRN PRN Reason: RX TO DOSE VANCOMYCIN Discontinued Medications Fluconazole (Diflucan) 150 mg PO ONETIME ONE Stop: 12/05/17 09:01 Last Admin: 12/05/17 08:55 Dose: 150 mg Furosemide (Lasix) 40 mg IVPUSH NOW ONE Stop: 12/03/17 07:31 Last Admin: 12/03/17 07:47 Dose: 40 mg Furosemide (Lasix) 40 mg IVPUSH NOW ONE Stop: 12/04/17 18:22 Last Admin: 12/04/17 18:26 Dose: 40 mg Furosemide (Lasix) 40 mg IVPUSH ONETIME ONE Stop: 12/05/17 08:01 Last Admin: 12/05/17 08:54 Dose: 40 mg Vancomycin HCl 1 gm/ Sodium (Chloride) 250 mls @ 250 mls/hr IV Q24H [facility] Last Admin: 12/03/17 15:29 Dose: 250 mls/hr Piperacillin Sod/Tazobactam (Sod 4.5 gm/ Sodium Chloride) 100 mls @ 400 mls/hr IV ONETIME ONE Stop: 12/03/17 16:14 Last Admin: 12/03/17 16:41 Dose: 400 mls/hr Sodium Chloride (Normal Saline) 1,000 mls @ 50 mls/hr IV ASDIRECTED [facility] Last Infusion: 12/03/17 21:30 Dose: Infused Vancomycin HCl 1 gm/ Sodium (Chloride) 250 mls @ 250 mls/hr IV Q12H [facility] Last Admin: 12/05/17 11:48 Dose: 250 mls/hr Magnesium Sulfate 2 gm/ Premix 50 mls @ 25 mls/hr IV ONETIME ONE Stop: 12/04/17 11:46 Last Admin: 12/04/17 10:39 Dose: 25 mls/hr Insulin Aspart (Novolog) 0 unit SUBCUT QIDACANDBED [facility]; Protocol Last Admin: 12/03/17 19:06 Dose: Not Given Insulin Aspart (Novolog) 0 unit SUBCUT Q6H [facility]; Protocol Last Admin: 12/05/17 02:00 Dose: 7 units Megestrol Acetate (Megace) 40 mg PO BID [facility] Last Admin: 12/05/17 12:23 Dose: Not Given - Exam Quality Assessment: Supplemental Oxygen, Urine Catheter, DVT Prophylaxis General: Alert, Oriented, Cooperative, No Acute Distress HEENT: Pupils Equal, Pupils Reactive, EOMI Neck: Trachea Midline, No JVD Lungs: Normal Respiratory Effort, Decreased Breath Sounds, Rales, Rhonchi Cardiovascular: Regular Rate, Regular Rhythm GI/Abdominal Exam: Normal Bowel Sounds, Soft, Non-Tender, No Organomegaly, No Distention (Female) Exam: Deferred Back Exam: Normal Inspection Extremities: Normal Inspection, Normal Range of Motion, Normal Capillary Refill Skin: Warm Neurological: No New Focal Deficit, Normal Gait, Normal Speech Psy/Mental Status: Alert, Depressed - Problem List Review Problem List Initiated/Reviewed/Updated: Yes - My Orders Last 24 Hours: My Active Orders 12/04/17 20:00 STREP PNEUMONIAE ANTIGEN [MREF] Routine 12/04/17 20:45 CULTURE URINE [RM] Routine 12/05/17 06:00 Insulin Aspart [NovoLOG] See Protocol SUBCUT Q6HR 12/05/17 09:00 Saccharomyces Boulardii [Florastor] 500 mg PO DAILY 12/05/17 10:00 Megestrol [Megace 40 MG/ML Susp] 400 mg PO BID 12/05/17 13:25 Magnesium Sulfate/Water [Magnesium Sulfate 2 GM in Water 50 ML] 2 gm Premix Bag 1 bag IV ONETIME 12/05/17 13:30 Potassium Chloride [Klor-Con M20] 40 meq PO BID 12/05/17 16:00 Vancomycin [Vancocin] 1 gm Sodium Chloride 0.9% [Normal Saline] 250 ml IV Q18H 12/06/17 05:00 BMP [BASIC METABOLIC PANEL,BMP] [CHEM] DAILY CBC WITH AUTO DIFF [HEME] DAILY CRP [C-REACTIVE PROTEIN] [CHEM] DAILY MAGNESIUM [CHEM] DAILY 12/06/17 09:45 Consult to Physical Therapy [PT Evaluation and Treatment] [CONS] Routine 12/06/17 09:46 Consult to Occupational Therapy [OT Evaluation and Treatment] [CONS] Routine 12/07/17 05:00 BMP [BASIC METABOLIC PANEL,BMP] [CHEM] DAILY CBC WITH AUTO DIFF [HEME] DAILY CRP [C-REACTIVE PROTEIN] [CHEM] DAILY MAGNESIUM [CHEM] DAILY 12/08/17 05:00 BMP [BASIC METABOLIC PANEL,BMP] [CHEM] DAILY CBC WITH AUTO DIFF [HEME] DAILY CRP [C-REACTIVE PROTEIN] [CHEM] DAILY MAGNESIUM [CHEM] DAILY 12/09/17 05:00 BMP [BASIC METABOLIC PANEL,BMP] [CHEM] DAILY CBC WITH AUTO DIFF [HEME] DAILY CRP [C-REACTIVE PROTEIN] [CHEM] DAILY MAGNESIUM [CHEM] DAILY - Plan Plan:: Impression: Acute respiratory distress, hypercapnia Hx of prolong intubation, s/p tracheostomy Zosyn/Vanco; BIPAP adjust settings with improved Vt Hx of COPD Hx of CKD, II Hyponatremia--corrected Hyperkalemia--corrected Borderline elevated BNP Diabetes mellitus, uncontrolled; adjust SS, add maintenance Deconditioned--refusing PT/OT today Chronic Fe deficiency PUD Hypothyroid HTN HLD Macular degeneration 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
[2017-12-05] MEDS: Potassium Chloride 20 MEQ Tab.ER PO SCH ×2 (13:51→20:43)
[2017-12-05] MEDS: Enoxaparin 40 MG/0.4 ML Syringe SUBCUT SCH (15:55)
[2017-12-05] MEDS: Rosuvastatin 10 MG Tab PO SCH (20:43)
[2017-12-06] MEDS: Insulin Aspart 100 Units/ML 3 ML Pen SUBCUT SCH ×5 (00:18→21:47)
[2017-12-06] MEDS: Sodium Chloride 0.9% 1,000 ML IV SCH ×2 (02:00→22:15)
[2017-12-06] MEDS: Budesonide 0.25 MG/2 ML Neb Susp NEB SCH ×2 (05:09→20:15)
[2017-12-06] MEDS: Levothyroxine 100 MCG Tab PO SCH (06:16)
[2017-12-06] MEDS: Pantoprazole 40 MG Tab.CR PO SCH (06:16)
[2017-12-06] MEDS: Albuterol/Ipratropium 3.0-0.5 MG/3 ML Neb Soln NEB SCH ×4 (08:49→20:15)
[2017-12-06] MEDS: Polyethylene Glycol 3350 Powder 17 GM Packet PO SCH (08:55)
[2017-12-06] MEDS: rOPINIRole 1 MG Tab PO SCH ×2 (08:55→21:36)
[2017-12-06] MEDS: Saccharomyces Boulardii (Probiotic) 250 MG Cap PO SCH (08:55)
[2017-12-06] MEDS: Piperacillin/Tazobactam 4.5 GM in Sodium Chloride 0.9% 100 ML IV SCH ×2 (08:55→15:55)
[2017-12-06] MEDS: Fluconazole 100 MG Tab PO SCH (08:55)
[2017-12-06] MEDS: Ferrous Sulfate 325 MG Tab PO SCH (08:55)
[2017-12-06] MEDS: Multivitamins,Therapeutic Tab PO SCH (08:56)
[2017-12-06] MEDS: buPROPion 150 MG Tab.ER PO SCH (08:56)
[2017-12-06] MEDS: Citalopram 20 MG Tab PO SCH (08:56)
[2017-12-06] MEDS: Metoclopramide 10 MG Tab PO SCH ×4 (08:56→21:38)
[2017-12-06] MEDS: Megestrol Susp 40 MG/ML 10 ML UD Cup PO SCH ×2 (08:56→21:40)
[2017-12-06] MEDS: Aspirin 81 MG Tab.Chew PO SCH (08:56)
[2017-12-06] MEDS: Potassium Chloride 20 MEQ Tab.ER PO SCH (08:56)
--- NOTE | 2017-12-06 13:35 | PCM.PN ---
- General Info Date of Service: 12/06/17 Functional Status: Reports: Tolerating Diet (improved intake with Megace, dose adjusted), Ambulating, Urinating - Review of Systems General: Reports: Weakness HEENT: Reports: No Symptoms Pulmonary: Reports: Shortness of Breath Cardiovascular: Reports: No Symptoms Gastrointestinal: Reports: No Symptoms Genitourinary: Reports: No Symptoms Musculoskeletal: Reports: No Symptoms Skin: Reports: No Symptoms Neurological: Reports: No Symptoms Psychiatric: Reports: No Symptoms - Patient Data Vitals - Most Recent: Last Vital Signs Temp 37.2 C 12/06/17 12:01 Pulse 91 12/06/17 12:01 Resp 20 12/06/17 12:01 BP 130/60 12/06/17 12:01 Pulse Ox 100 12/06/17 12:01 Weight - Most Recent: 71.894 kg I&O - Last 24 Hours: Intake & Output 12/05/17 12/06/17 12/06/17 22:59 06:59 14:59 Intake Total 1958 1050 Output Total 465 525 273 Balance 1493 525 -273 Lab Results Last 24 Hours: Laboratory Results - last 24 hr 12/05/17 12/05/17 12/05/17 Range/Units 16:37 17:32 18:42 WBC (3.98-10.04) K/mm3 RBC (3.98-5.22) M/mm3 Hgb (11.2-15.7) gm/L Hct (34.1-44.9) % MCV (79.4-94.8) fl MCH (25.6-32.2) pg MCHC (32.2-35.5) g/dl RDW Std Deviation (36.4-46.3) fL Plt Count (182-369) K/mm3 MPV (9.4-12.3) fl Neut % (Auto) (34.0-71.1) % Lymph % (Auto) (19.3-51.7) % [place] % (Auto) (4.7-12.5) % Eos % (Auto) (0.7-5.8) Baso % (Auto) (0.1-1.2) % Neut # (Auto) (1.56-6.13) K/mm3 Lymph # (Auto) (1.18-3.74) K/mm3 [place] # (Auto) (0.24-0.36) K/mm3 Eos # (Auto) (0.04-0.36) K/mm3 Baso # (Auto) (0.01-0.08) K/mm3 Manual Slide Review Sodium (136-145) mEq/L Potassium (3.5-5.1) mEq/L Chloride (98-107) mEq/L Carbon Dioxide (21-32) mEq/L Anion Gap (5-15) BUN (7-18) mg/dL Creatinine (0.55-1.02) mg/dL Est Cr Clr Drug Dosing mL/min Estimated GFR (MDRD) (>60) mL/min BUN/Creatinine Ratio (14-18) Glucose (80-115) mg/dL POC Glucose 246 H 305 H 254 H (80-115) mg/dL Calcium (8.5-10.1) mg/dL Magnesium (1.8-2.4) mg/dl C-Reactive Protein (<1.0) mg/dL 12/06/17 12/06/17 12/06/17 Range/Units 00:05 05:10 05:10 WBC 12.85 H (3.98-10.04) K/mm3 RBC 3.20 L (3.98-5.22) M/mm3 Hgb 9.7 L (11.2-15.7) gm/L Hct 32.0 L (34.1-44.9) % MCV 100.0 H (79.4-94.8) fl MCH 30.3 (25.6-32.2) pg MCHC 30.3 L (32.2-35.5) g/dl RDW Std Deviation 55.9 H (36.4-46.3) fL Plt Count 243 (182-369) K/mm3 MPV 12.3 (9.4-12.3) fl Neut % (Auto) 86.0 H (34.0-71.1) % Lymph % (Auto) 7.1 L (19.3-51.7) % [place] % (Auto) 6.5 (4.7-12.5) % Eos % (Auto) 0.2 L (0.7-5.8) Baso % (Auto) 0.2 (0.1-1.2) % Neut # (Auto) 11.04 H (1.56-6.13) K/mm3 Lymph # (Auto) 0.91 L (1.18-3.74) K/mm3 [place] # (Auto) 0.84 H (0.24-0.36) K/mm3 Eos # (Auto) 0.03 L (0.04-0.36) K/mm3 Baso # (Auto) 0.03 (0.01-0.08) K/mm3 Manual Slide Review Abnormal smear Sodium 139 (136-145) mEq/L Potassium 4.5 (3.5-5.1) mEq/L Chloride 102 (98-107) mEq/L Carbon Dioxide 31 (21-32) mEq/L Anion Gap 10.5 (5-15) BUN 31 H (7-18) mg/dL Creatinine 0.9 (0.55-1.02) mg/dL Est Cr Clr Drug Dosing 47.32 mL/min Estimated GFR (MDRD) > 60 (>60) mL/min BUN/Creatinine Ratio 34.4 H (14-18) Glucose 256 H (80-115) mg/dL POC Glucose 311 H (80-115) mg/dL Calcium 9.2 (8.5-10.1) mg/dL Magnesium 2.1 (1.8-2.4) mg/dl C-Reactive Protein 25.5 H* (<1.0) mg/dL 12/06/17 12/06/17 Range/Units 06:12 10:48 WBC (3.98-10.04) K/mm3 RBC (3.98-5.22) M/mm3 Hgb (11.2-15.7) gm/L Hct (34.1-44.9) % MCV (79.4-94.8) fl MCH (25.6-32.2) pg MCHC (32.2-35.5) g/dl RDW Std Deviation (36.4-46.3) fL Plt Count (182-369) K/mm3 MPV (9.4-12.3) fl Neut % (Auto) (34.0-71.1) % Lymph % (Auto) (19.3-51.7) % [place] % (Auto) (4.7-12.5) % Eos % (Auto) (0.7-5.8) Baso % (Auto) (0.1-1.2) % Neut # (Auto) (1.56-6.13) K/mm3 Lymph # (Auto) (1.18-3.74) K/mm3 [place] # (Auto) (0.24-0.36) K/mm3 Eos # (Auto) (0.04-0.36) K/mm3 Baso # (Auto) (0.01-0.08) K/mm3 Manual Slide Review Sodium (136-145) mEq/L Potassium (3.5-5.1) mEq/L Chloride (98-107) mEq/L Carbon Dioxide (21-32) mEq/L Anion Gap (5-15) BUN (7-18) mg/dL Creatinine (0.55-1.02) mg/dL Est Cr Clr Drug Dosing mL/min Estimated GFR (MDRD) (>60) mL/min BUN/Creatinine Ratio (14-18) Glucose (80-115) mg/dL POC Glucose 306 H 368 H (80-115) mg/dL Calcium (8.5-10.1) mg/dL Magnesium (1.8-2.4) mg/dl C-Reactive Protein (<1.0) mg/dL Jan Results Last 24 Hours: Microbiology 12/04/17 20:45 Urine Culture - Preliminary Urine, Catheterized YEAST Med Orders - Current: Current Medications Acetaminophen (Tylenol) 650 mg PO Q6H PRN PRN Reason: Pain/Fever Albuterol (Proventil Neb Soln) 2.5 mg NEB Q4HRRT PRN PRN Reason: Shortness of Breath Last Admin: 12/03/17 15:23 Dose: 2.5 mg Albuterol/Ipratropium (Duoneb 3.0-0.5 Mg/3 Ml) 3 ml NEB QID [facility] Last Admin: 12/06/17 12:26 Dose: 3 ml Aspirin (Aspirin) 81 mg PO DAILY [facility] Last Admin: 12/06/17 08:56 Dose: 81 mg Bisacodyl (Dulcolax) 10 mg RECTAL DAILY PRN PRN Reason: Constipation Budesonide (Pulmicort) 0.25 mg NEB BIDRT [facility] Last Admin: 12/06/17 05:09 Dose: 0.25 mg Bupropion HCl (Wellbutrin Xl) 150 mg PO DAILY [facility] Last Admin: 12/06/17 08:56 Dose: 150 mg Citalopram Hydrobromide (Celexa) 40 mg PO DAILY [facility] Last Admin: 12/06/17 08:56 Dose: 40 mg Dextrose/Water (Dextrose 50% In Water) 50 ml IVPUSH ASDIRECTED PRN PRN Reason: Hypoglycemia Enoxaparin Sodium (Lovenox) 40 mg SUBCUT Q24H [facility] Last Admin: 12/05/17 15:55 Dose: 40 mg Ferrous Sulfate (Ferrous Sulfate) 325 mg PO DAILY [facility] Last Admin: 12/06/17 08:55 Dose: 325 mg Fluconazole (Diflucan) 100 mg PO DAILY [facility] Last Admin: 12/06/17 08:55 Dose: 100 mg Piperacillin Sod/Tazobactam (Sod 4.5 gm/ Sodium Chloride) 100 mls @ 25 mls/hr IV Q8H [facility] Last Admin: 12/06/17 08:55 Dose: 25 mls/hr Sodium Chloride (Normal Saline) 1,000 mls @ 75 mls/hr IV ASDIRECTED [facility] Last Admin: 12/06/17 02:00 Dose: 50 mls/hr Vancomycin HCl 1 gm/ Sodium (Chloride) 250 mls @ 250 mls/hr IV Q18H [facility] Last Admin: 12/06/17 10:58 Dose: 250 mls/hr Sodium Chloride (Normal Saline) 1,000 mls @ 50 mls/hr IV ASDIRECTED [facility] Insulin Aspart (Novolog) 0 unit SUBCUT Q6HR [facility]; Protocol Last Admin: 12/06/17 06:15 Dose: 8 units Levothyroxine Sodium (Synthroid) 50 mcg PO ACBREAKFAST [facility] Last Admin: 12/06/17 06:16 Dose: 50 mcg Megestrol Acetate (Megace 40 Mg/Ml Susp) 400 mg PO BID [facility] Last Admin: 12/06/17 08:56 Dose: 400 mg Metoclopramide HCl (Reglan) 10 mg PO QID [facility] Last Admin: 12/06/17 08:56 Dose: 10 mg Morphine Sulfate (Morphine) 0.5 mg IVPUSH Q4H PRN PRN Reason: Shortness of Breath Multivitamins (Thera) 1 each PO DAILY [facility] Last Admin: 12/06/17 08:56 Dose: 1 each Ondansetron HCl (Zofran) 4 mg IVPUSH Q8H PRN PRN Reason: Nausea/Vomiting Pantoprazole Sodium (Protonix) 40 mg PO DAILY@0700 [facility] Last Admin: 12/06/17 06:16 Dose: 40 mg Polyethylene Glycol (Miralax) 17 gm PO DAILY [facility] Last Admin: 12/06/17 08:55 Dose: 17 gm Ropinirole HCl (Requip) 1 mg PO BID [facility] Last Admin: 12/06/17 08:55 Dose: 1 mg Rosuvastatin Calcium (Crestor) 10 mg PO BEDTIME [facility] Last Admin: 12/05/17 20:43 Dose: 10 mg Saccharomyces Boulardii (Florastor) 500 mg PO DAILY [facility] Last Admin: 12/06/17 08:55 Dose: 500 mg Senna/Docusate Sodium (Senna Plus) 2 tab PO BID [facility] Last Admin: 12/06/17 08:55 Dose: 2 tab Sodium Chloride (Saline Flush) 10 ml FLUSH ASDIRECTED PRN PRN Reason: Keep Vein Open Last Admin: 12/03/17 07:55 Dose: 10 ml Tramadol HCl (Ultram) 50 mg PO TID PRN PRN Reason: Pain (moderate 4-6) Last Admin: 12/05/17 20:42 Dose: 50 mg Vancomycin HCl (Pharmacy To Dose - Vancomycin) 0 dose .XX ASDIRECTED PRN PRN Reason: RX TO DOSE VANCOMYCIN Discontinued Medications Fluconazole (Diflucan) 150 mg PO ONETIME ONE Stop: 12/05/17 09:01 Last Admin: 12/05/17 08:55 Dose: 150 mg Furosemide (Lasix) 40 mg IVPUSH NOW ONE Stop: 12/03/17 07:31 Last Admin: 12/03/17 07:47 Dose: 40 mg Furosemide (Lasix) 40 mg IVPUSH NOW ONE Stop: 12/04/17 18:22 Last Admin: 12/04/17 18:26 Dose: 40 mg Furosemide (Lasix) 40 mg IVPUSH ONETIME ONE Stop: 12/05/17 08:01 Last Admin: 12/05/17 08:54 Dose: 40 mg Vancomycin HCl 1 gm/ Sodium (Chloride) 250 mls @ 250 mls/hr IV Q24H [facility] Last Admin: 12/03/17 15:29 Dose: 250 mls/hr Piperacillin Sod/Tazobactam (Sod 4.5 gm/ Sodium Chloride) 100 mls @ 400 mls/hr IV ONETIME ONE Stop: 12/03/17 16:14 Last Admin: 12/03/17 16:41 Dose: 400 mls/hr Sodium Chloride (Normal Saline) 1,000 mls @ 50 mls/hr IV ASDIRECTED [facility] Last Infusion: 12/03/17 21:30 Dose: Infused Vancomycin HCl 1 gm/ Sodium (Chloride) 250 mls @ 250 mls/hr IV Q12H [facility] Last Admin: 12/05/17 11:48 Dose: 250 mls/hr Magnesium Sulfate 2 gm/ Premix 50 mls @ 25 mls/hr IV ONETIME ONE Stop: 12/04/17 11:46 Last Admin: 12/04/17 10:39 Dose: 25 mls/hr Magnesium Sulfate 2 gm/ Premix 50 mls @ 25 mls/hr IV ONETIME ONE Stop: 12/05/17 15:24 Last Admin: 12/05/17 13:46 Dose: 25 mls/hr Insulin Aspart (Novolog) 0 unit SUBCUT QIDACANDBED [facility]; Protocol Last Admin: 12/03/17 19:06 Dose: Not Given Insulin Aspart (Novolog) 0 unit SUBCUT Q6H [facility]; Protocol Last Admin: 12/05/17 02:00 Dose: 7 units Megestrol Acetate (Megace) 40 mg PO BID [facility] Last Admin: 12/05/17 12:23 Dose: Not Given Potassium Chloride (Klor-Con M20) 40 meq PO BID [facility] Stop: 12/06/17 09:01 Last Admin: 12/06/17 08:56 Dose: 40 meq - Exam Quality Assessment: Supplemental Oxygen, Urine Catheter, DVT Prophylaxis General: Alert, Oriented, Cooperative, No Acute Distress HEENT: Pupils Equal, Pupils Reactive, EOMI Neck: Trachea Midline, No JVD Lungs: Normal Respiratory Effort, Decreased Breath Sounds Cardiovascular: Regular Rate, Regular Rhythm GI/Abdominal Exam: Normal Bowel Sounds, Soft, Non-Tender, No Organomegaly, No Distention (Female) Exam: Deferred Back Exam: Normal Inspection Extremities: Normal Inspection, Non-Tender, Pedal Edema (UE bilaterally) Skin: Warm Neurological: No New Focal Deficit, Normal Speech Psy/Mental Status: Alert, Depressed - Problem List Review Problem List Initiated/Reviewed/Updated: Yes - My Orders Last 24 Hours: My Active Orders 12/05/17 16:00 Vancomycin [Vancocin] 1 gm Sodium Chloride 0.9% [Normal Saline] 250 ml IV Q18H 12/06/17 04:45 Sodium Chloride 0.9% [Normal Saline] 1,000 ml IV ASDIRECTED 12/06/17 09:00 Fluconazole [Diflucan] 100 mg PO DAILY 12/06/17 09:45 Consult to Physical Therapy [PT Evaluation and Treatment] [CONS] Routine 12/06/17 09:46 Consult to Occupational Therapy [OT Evaluation and Treatment] [CONS] Routine 12/06/17 Lunch Soft Diet [DIET] 12/07/17 05:00 BMP [BASIC METABOLIC PANEL,BMP] [CHEM] DAILY CBC WITH AUTO DIFF [HEME] DAILY CRP [C-REACTIVE PROTEIN] [CHEM] DAILY MAGNESIUM [CHEM] DAILY 12/07/17 21:30 VANCOMYCIN TROUGH [CHEM] Timed 12/08/17 05:00 BMP [BASIC METABOLIC PANEL,BMP] [CHEM] DAILY CBC WITH AUTO DIFF [HEME] DAILY CRP [C-REACTIVE PROTEIN] [CHEM] DAILY MAGNESIUM [CHEM] DAILY 12/09/17 05:00 BMP [BASIC METABOLIC PANEL,BMP] [CHEM] DAILY CBC WITH AUTO DIFF [HEME] DAILY CRP [C-REACTIVE PROTEIN] [CHEM] DAILY MAGNESIUM [CHEM] DAILY - Plan Plan:: Impression: Acute respiratory distress, hypercapnia Hx of prolong intubation, s/p tracheostomy Zosyn/Vanco; BIPAP adjust settings with improved Vt Hx of COPD Hx of CKD, II Hyponatremia--corrected Hyperkalemia--corrected Diabetes mellitus, uncontrolled; adjust SS, add maintenance Deconditioned-- PT/OT today Depression--continue Celexa, Wellbutrin Chronic Fe deficiency PUD Hypothyroid HTN HLD Macular degeneration CAD/ID s/p CABG Plan: Correct electrolytes IV ATBs for HCAP coverage, DC after 5 days on 12/07; negative PETERSEN for PNA increase time as tolerated on NC Resp infection work up w/isolation MRSA screen Nebs scheduled/prn Titrate O2 sat>92%; CO2<65 as tolerated; increase use of NC if tolerated follow ABG; pulse ox Increase activity level-->up three time daily Adjust BiPAP as needed for above Maintain IVF for UO ADA diet advance as tolerated Clarify tube feeds is calorie input is inadequate PT/OT for deconditioning MS tele room near ICU DVT/GI prophylaxis LOS>96 hours, very slow response to treatment
[2017-12-06] MEDS: Enoxaparin 40 MG/0.4 ML Syringe SUBCUT SCH (15:56)
[2017-12-06] MEDS: Rosuvastatin 10 MG Tab PO SCH (21:36)
[2017-12-07] MEDS: Piperacillin/Tazobactam 4.5 GM in Sodium Chloride 0.9% 100 ML IV SCH ×2 (00:13→08:05)
[2017-12-07] MEDS: Budesonide 0.25 MG/2 ML Neb Susp NEB SCH ×2 (05:42→20:32)
[2017-12-07] MEDS: Albuterol/Ipratropium 3.0-0.5 MG/3 ML Neb Soln NEB SCH ×4 (05:42→20:32)
[2017-12-07] MEDS: Pantoprazole 40 MG Tab.CR PO SCH (07:56)
[2017-12-07] MEDS: Levothyroxine 100 MCG Tab PO SCH (07:56)
[2017-12-07] MEDS: buPROPion 150 MG Tab.ER PO SCH (09:01)
[2017-12-07] MEDS: Ferrous Sulfate 325 MG Tab PO SCH (09:01)
[2017-12-07] MEDS: Metoclopramide 10 MG Tab PO SCH ×4 (09:01→21:43)
[2017-12-07] MEDS: Fluconazole 100 MG Tab PO SCH (09:01)
[2017-12-07] MEDS: Aspirin 81 MG Tab.Chew PO SCH (09:01)
[2017-12-07] MEDS: Polyethylene Glycol 3350 Powder 17 GM Packet PO SCH (09:01)
[2017-12-07] MEDS: Megestrol Susp 40 MG/ML 10 ML UD Cup PO SCH ×2 (09:01→21:46)
[2017-12-07] MEDS: Citalopram 20 MG Tab PO SCH (09:01)
[2017-12-07] MEDS: Multivitamins,Therapeutic Tab PO SCH (09:01)
[2017-12-07] MEDS: rOPINIRole 1 MG Tab PO SCH ×2 (09:01→21:43)
[2017-12-07] MEDS: Saccharomyces Boulardii (Probiotic) 250 MG Cap PO SCH (09:01)
[2017-12-07] MEDS: Insulin Aspart 100 Units/ML 3 ML Pen SUBCUT SCH ×4 (09:02→21:47)
[2017-12-07] MEDS ORDERED: Magnesium Sulfate/Water 2 GM in Premix Bag 1 BAG IV ONE ×2 (09:53→12:00)
[2017-12-07] MEDS: traMADol 50 MG Tab PO PRN (10:39)
--- NOTE | 2017-12-07 14:31 | PCM.PN ---
- General Info Date of Service: 12/07/17 Subjective Update: Desai cath DCd, increase activity as tolerated. Functional Status: Reports: Pain Controlled, Tolerating Diet, Ambulating ( minimal), Urinating - Review of Systems General: Reports: Weakness HEENT: Reports: No Symptoms Pulmonary: Reports: Shortness of Breath Cardiovascular: Reports: No Symptoms Gastrointestinal: Reports: No Symptoms Genitourinary: Reports: No Symptoms Musculoskeletal: Reports: No Symptoms Skin: Reports: No Symptoms Neurological: Reports: No Symptoms Psychiatric: Reports: No Symptoms - Patient Data Vitals - Most Recent: Last Vital Signs Temp 36.8 C 12/07/17 09:17 Pulse 87 12/07/17 09:17 Resp 18 12/07/17 09:17 BP 147/63 H 12/07/17 10:35 Pulse Ox 92 L 12/07/17 09:40 Weight - Most Recent: 73.936 kg I&O - Last 24 Hours: Intake & Output 12/06/17 12/07/17 12/07/17 22:59 06:59 14:59 Intake Total 1920 1542 360 Output Total 515 258 490 Balance 1405 1284 -130 Lab Results Last 24 Hours: Laboratory Results - last 24 hr 12/06/17 12/06/17 12/07/17 Range/Units 18:26 21:18 06:04 WBC (3.98-10.04) K/mm3 RBC (3.98-5.22) M/mm3 Hgb (11.2-15.7) gm/L Hct (34.1-44.9) % MCV (79.4-94.8) fl MCH (25.6-32.2) pg MCHC (32.2-35.5) g/dl RDW Std Deviation (36.4-46.3) fL Plt Count (182-369) K/mm3 MPV (9.4-12.3) fl Neut % (Auto) (34.0-71.1) % Lymph % (Auto) (19.3-51.7) % [place] % (Auto) (4.7-12.5) % Eos % (Auto) (0.7-5.8) Baso % (Auto) (0.1-1.2) % Neut # (Auto) (1.56-6.13) K/mm3 Lymph # (Auto) (1.18-3.74) K/mm3 [place] # (Auto) (0.24-0.36) K/mm3 Eos # (Auto) (0.04-0.36) K/mm3 Baso # (Auto) (0.01-0.08) K/mm3 Manual Slide Review Sodium 140 (136-145) mEq/L Potassium 4.8 (3.5-5.1) mEq/L Chloride 104 (98-107) mEq/L Carbon Dioxide 30 (21-32) mEq/L Anion Gap 10.8 (5-15) BUN 23 H (7-18) mg/dL Creatinine 0.9 (0.55-1.02) mg/dL Est Cr Clr Drug Dosing 47.32 mL/min Estimated GFR (MDRD) > 60 (>60) mL/min BUN/Creatinine Ratio 25.6 H (14-18) Glucose 322 H (80-115) mg/dL POC Glucose 353 H 279 H (80-115) mg/dL Calcium 8.9 (8.5-10.1) mg/dL Magnesium 1.9 (1.8-2.4) mg/dl C-Reactive Protein 20.8 H* (<1.0) mg/dL 12/07/17 12/07/17 12/07/17 Range/Units 06:04 06:51 10:24 WBC 9.13 (3.98-10.04) K/mm3 RBC 2.97 L (3.98-5.22) M/mm3 Hgb 8.9 L 10.0 L (11.2-15.7) gm/L Hct 30.6 L (34.1-44.9) % MCV 103.0 H (79.4-94.8) fl MCH 30.0 (25.6-32.2) pg MCHC 29.1 L (32.2-35.5) g/dl RDW Std Deviation 58.7 H (36.4-46.3) fL Plt Count 236 (182-369) K/mm3 MPV 12.5 H (9.4-12.3) fl Neut % (Auto) 79.9 H (34.0-71.1) % Lymph % (Auto) 11.3 L (19.3-51.7) % [place] % (Auto) 7.8 (4.7-12.5) % Eos % (Auto) 0.3 L (0.7-5.8) Baso % (Auto) 0.2 (0.1-1.2) % Neut # (Auto) 7.29 H (1.56-6.13) K/mm3 Lymph # (Auto) 1.03 L (1.18-3.74) K/mm3 [place] # (Auto) 0.71 H (0.24-0.36) K/mm3 Eos # (Auto) 0.03 L (0.04-0.36) K/mm3 Baso # (Auto) 0.02 (0.01-0.08) K/mm3 Manual Slide Review Abnormal smear Sodium (136-145) mEq/L Potassium (3.5-5.1) mEq/L Chloride (98-107) mEq/L Carbon Dioxide (21-32) mEq/L Anion Gap (5-15) BUN (7-18) mg/dL Creatinine (0.55-1.02) mg/dL Est Cr Clr Drug Dosing mL/min Estimated GFR (MDRD) (>60) mL/min BUN/Creatinine Ratio (14-18) Glucose (80-115) mg/dL POC Glucose 344 H (80-115) mg/dL Calcium (8.5-10.1) mg/dL Magnesium (1.8-2.4) mg/dl C-Reactive Protein (<1.0) mg/dL 12/07/17 Range/Units 11:53 WBC (3.98-10.04) K/mm3 RBC (3.98-5.22) M/mm3 Hgb (11.2-15.7) gm/L Hct (34.1-44.9) % MCV (79.4-94.8) fl MCH (25.6-32.2) pg MCHC (32.2-35.5) g/dl RDW Std Deviation (36.4-46.3) fL Plt Count (182-369) K/mm3 MPV (9.4-12.3) fl Neut % (Auto) (34.0-71.1) % Lymph % (Auto) (19.3-51.7) % [place] % (Auto) (4.7-12.5) % Eos % (Auto) (0.7-5.8) Baso % (Auto) (0.1-1.2) % Neut # (Auto) (1.56-6.13) K/mm3 Lymph # (Auto) (1.18-3.74) K/mm3 [place] # (Auto) (0.24-0.36) K/mm3 Eos # (Auto) (0.04-0.36) K/mm3 Baso # (Auto) (0.01-0.08) K/mm3 Manual Slide Review Sodium (136-145) mEq/L Potassium (3.5-5.1) mEq/L Chloride (98-107) mEq/L Carbon Dioxide (21-32) mEq/L Anion Gap (5-15) BUN (7-18) mg/dL Creatinine (0.55-1.02) mg/dL Est Cr Clr Drug Dosing mL/min Estimated GFR (MDRD) (>60) mL/min BUN/Creatinine Ratio (14-18) Glucose (80-115) mg/dL POC Glucose 397 H (80-115) mg/dL Calcium (8.5-10.1) mg/dL Magnesium (1.8-2.4) mg/dl C-Reactive Protein (<1.0) mg/dL Jan Results Last 24 Hours: Microbiology 12/04/17 20:00 Streptococcus pneumoniae Antigen (M - Final Urine 12/03/17 09:50 Respiratory Virus Panel (PCR) - Final Nasopharyngeal Swab 12/04/17 20:45 Urine Culture - Preliminary Urine, Catheterized YEAST Med Orders - Current: Current Medications Acetaminophen (Tylenol) 650 mg PO Q6H PRN PRN Reason: Pain/Fever Albuterol (Proventil Neb Soln) 2.5 mg NEB Q4HRRT PRN PRN Reason: Shortness of Breath Last Admin: 12/03/17 15:23 Dose: 2.5 mg Albuterol/Ipratropium (Duoneb 3.0-0.5 Mg/3 Ml) 3 ml NEB QIDRT [facility] Last Admin: 12/07/17 09:40 Dose: 3 ml Aspirin (Aspirin) 81 mg PO DAILY [facility] Last Admin: 12/07/17 09:01 Dose: 81 mg Bisacodyl (Dulcolax) 10 mg RECTAL DAILY PRN PRN Reason: Constipation Budesonide (Pulmicort) 0.25 mg NEB BIDRT [facility] Last Admin: 12/07/17 05:42 Dose: 0.25 mg Bupropion HCl (Wellbutrin Xl) 150 mg PO DAILY [facility] Last Admin: 12/07/17 09:01 Dose: 150 mg Citalopram Hydrobromide (Celexa) 40 mg PO DAILY [facility] Last Admin: 12/07/17 09:01 Dose: 40 mg Dextrose/Water (Dextrose 50% In Water) 50 ml IVPUSH ASDIRECTED PRN PRN Reason: Hypoglycemia Enoxaparin Sodium (Lovenox) 40 mg SUBCUT Q24H [facility] Last Admin: 12/06/17 15:56 Dose: 40 mg Ferrous Sulfate (Ferrous Sulfate) 325 mg PO DAILY [facility] Last Admin: 12/07/17 09:01 Dose: 325 mg Fluconazole (Diflucan) 100 mg PO DAILY [facility] Last Admin: 12/07/17 09:01 Dose: 100 mg Sodium Chloride (Normal Saline) 1,000 mls @ 50 mls/hr IV ASDIRECTED [facility] Last Admin: 12/06/17 22:15 Dose: 50 mls/hr Insulin Aspart (Novolog) 0 unit SUBCUT QIDACANDBED [facility]; Protocol Last Admin: 12/07/17 12:18 Dose: 10 units Levothyroxine Sodium (Synthroid) 50 mcg PO ACBREAKFAST [facility] Last Admin: 12/07/17 07:56 Dose: 50 mcg Megestrol Acetate (Megace 40 Mg/Ml Susp) 400 mg PO BID [facility] Last Admin: 12/07/17 09:01 Dose: 400 mg Metoclopramide HCl (Reglan) 10 mg PO QID [facility] Last Admin: 12/07/17 14:16 Dose: 10 mg Morphine Sulfate (Morphine) 0.5 mg IVPUSH Q4H PRN PRN Reason: Shortness of Breath Multivitamins (Thera) 1 each PO DAILY [facility] Last Admin: 12/07/17 09:01 Dose: 1 each Ondansetron HCl (Zofran) 4 mg IVPUSH Q8H PRN PRN Reason: Nausea/Vomiting Pantoprazole Sodium (Protonix) 40 mg PO DAILY@0700 [facility] Last Admin: 12/07/17 07:56 Dose: 40 mg Polyethylene Glycol (Miralax) 17 gm PO DAILY [facility] Last Admin: 12/07/17 09:01 Dose: 17 gm Ropinirole HCl (Requip) 1 mg PO BID [facility] Last Admin: 12/07/17 09:01 Dose: 1 mg Rosuvastatin Calcium (Crestor) 10 mg PO BEDTIME [facility] Last Admin: 12/06/17 21:36 Dose: 10 mg Saccharomyces Boulardii (Florastor) 500 mg PO DAILY [facility] Last Admin: 12/07/17 09:01 Dose: 500 mg Senna/Docusate Sodium (Senna Plus) 2 tab PO BID [facility] Last Admin: 12/07/17 09:01 Dose: 2 tab Sodium Chloride (Saline Flush) 10 ml FLUSH ASDIRECTED PRN PRN Reason: Keep Vein Open Last Admin: 12/03/17 07:55 Dose: 10 ml Tramadol HCl (Ultram) 50 mg PO TID PRN PRN Reason: Pain (moderate 4-6) Last Admin: 12/07/17 10:39 Dose: 50 mg Discontinued Medications Albuterol/Ipratropium (Duoneb 3.0-0.5 Mg/3 Ml) 3 ml NEB QID [facility] Last Admin: 12/06/17 20:15 Dose: 3 ml Fluconazole (Diflucan) 150 mg PO ONETIME ONE Stop: 12/05/17 09:01 Last Admin: 12/05/17 08:55 Dose: 150 mg Furosemide (Lasix) 40 mg IVPUSH NOW ONE Stop: 12/03/17 07:31 Last Admin: 12/03/17 07:47 Dose: 40 mg Furosemide (Lasix) 40 mg IVPUSH NOW ONE Stop: 12/04/17 18:22 Last Admin: 12/04/17 18:26 Dose: 40 mg Furosemide (Lasix) 40 mg IVPUSH ONETIME ONE Stop: 12/05/17 08:01 Last Admin: 12/05/17 08:54 Dose: 40 mg Piperacillin Sod/Tazobactam (Sod 4.5 gm/ Sodium Chloride) 100 mls @ 25 mls/hr IV Q8H [facility] Last Admin: 12/07/17 08:05 Dose: 25 mls/hr Vancomycin HCl 1 gm/ Sodium (Chloride) 250 mls @ 250 mls/hr IV Q24H [facility] Last Admin: 12/03/17 15:29 Dose: 250 mls/hr Piperacillin Sod/Tazobactam (Sod 4.5 gm/ Sodium Chloride) 100 mls @ 400 mls/hr IV ONETIME ONE Stop: 12/03/17 16:14 Last Admin: 12/03/17 16:41 Dose: 400 mls/hr Sodium Chloride (Normal Saline) 1,000 mls @ 50 mls/hr IV ASDIRECTED [facility] Last Infusion: 12/03/17 21:30 Dose: Infused Sodium Chloride (Normal Saline) 1,000 mls @ 75 mls/hr IV ASDIRECTED [facility] Last Admin: 12/06/17 02:00 Dose: 50 mls/hr Vancomycin HCl 1 gm/ Sodium (Chloride) 250 mls @ 250 mls/hr IV Q12H [facility] Last Admin: 12/05/17 11:48 Dose: 250 mls/hr Magnesium Sulfate 2 gm/ Premix 50 mls @ 25 mls/hr IV ONETIME ONE Stop: 12/04/17 11:46 Last Admin: 12/04/17 10:39 Dose: 25 mls/hr Vancomycin HCl 1 gm/ Sodium (Chloride) 250 mls @ 250 mls/hr IV Q18H [facility] Last Admin: 12/07/17 04:10 Dose: 250 mls/hr Magnesium Sulfate 2 gm/ Premix 50 mls @ 25 mls/hr IV ONETIME ONE Stop: 12/05/17 15:24 Last Admin: 12/05/17 13:46 Dose: 25 mls/hr Magnesium Sulfate 2 gm/ Premix 50 mls @ 25 mls/hr IV ONETIME ONE Stop: 12/07/17 11:52 Last Admin: 12/07/17 11:12 Dose: Not Given Magnesium Sulfate 2 gm/ Premix 50 mls @ 25 mls/hr IV ONETIME ONE Stop: 12/07/17 13:59 Last Admin: 12/07/17 12:18 Dose: 25 mls/hr Insulin Aspart (Novolog) 0 unit SUBCUT QIDACANDBED [facility]; Protocol Last Admin: 12/03/17 19:06 Dose: Not Given Insulin Aspart (Novolog) 0 unit SUBCUT Q6H [facility]; Protocol Last Admin: 12/05/17 02:00 Dose: 7 units Insulin Aspart (Novolog) 0 unit SUBCUT Q6HR [facility]; Protocol Last Admin: 12/06/17 18:28 Dose: 10 units Megestrol Acetate (Megace) 40 mg PO BID [facility] Last Admin: 12/05/17 12:23 Dose: Not Given Potassium Chloride (Klor-Con M20) 40 meq PO BID [facility] Stop: 12/06/17 09:01 Last Admin: 12/06/17 08:56 Dose: 40 meq Vancomycin HCl (Pharmacy To Dose - Vancomycin) 0 dose .XX ASDIRECTED PRN PRN Reason: RX TO DOSE VANCOMYCIN - Exam Quality Assessment: Supplemental Oxygen, DVT Prophylaxis General: Alert, Oriented, Cooperative, No Acute Distress HEENT: Pupils Equal, Pupils Reactive, EOMI Neck: Trachea Midline, No JVD Lungs: Normal Respiratory Effort, Decreased Breath Sounds, Rhonchi Cardiovascular: Regular Rate, Regular Rhythm GI/Abdominal Exam: Normal Bowel Sounds, Soft, Non-Tender, No Organomegaly, No Distention (Female) Exam: Deferred Back Exam: Normal Inspection Extremities: Normal Inspection, Non-Tender, Normal Capillary Refill Skin: Warm Neurological: No New Focal Deficit, Normal Speech Psy/Mental Status: Alert, Depressed - Problem List Review Problem List Initiated/Reviewed/Updated: Yes - My Orders Last 24 Hours: My Active Orders 12/06/17 18:41 Activity as Tolerated [RC] BID 12/06/17 21:39 Blood Glucose Check, Bedside [RC] QIDACANDBED 12/06/17 21:40 Blood Glucose Check, Bedside [RC] QIDACANDBED 12/06/17 22:00 Insulin Aspart [NovoLOG] See Protocol SUBCUT QIDACANDBED 12/07/17 06:00 Albuterol/Ipratropium [DuoNeb 3.0-0.5 MG/3 ML] 3 ml NEB QIDRT 12/07/17 11:07 Remove Desai Catheter [Urinary Catheter Removal] [RC] Per Unit Routine 12/07/17 13:52 RT Chest Physiotherapy [RC] ASDIRECTED 12/08/17 05:00 BMP [BASIC METABOLIC PANEL,BMP] [CHEM] DAILY CBC WITH AUTO DIFF [HEME] DAILY CRP [C-REACTIVE PROTEIN] [CHEM] DAILY MAGNESIUM [CHEM] DAILY 12/09/17 05:00 BMP [BASIC METABOLIC PANEL,BMP] [CHEM] DAILY CBC WITH AUTO DIFF [HEME] DAILY CRP [C-REACTIVE PROTEIN] [CHEM] DAILY MAGNESIUM [CHEM] DAILY - Plan Plan:: Impression: Acute respiratory distress, hypercapnia Hx of prolong intubation, s/p tracheostomy Zosyn/Vanco; BIPAP adjust settings with improved Vt Hx of COPD Hx of CKD, II Hyponatremia--corrected Hyperkalemia--corrected Diabetes mellitus, uncontrolled; adjust SS, add maintenance Deconditioned-- PT/OT today Depression--continue Celexa, Wellbutrin Chronic Fe deficiency PUD Hypothyroid HTN HLD Macular degeneration CAD/UT s/p CABG Plan: Correct electrolytes IV ATBs for HCAP coverage, DC; negative PETERSEN for PNA increase time as tolerated on NC Resp infection work up w/isolation MRSA screen Nebs scheduled/prn Titrate O2 sat>92%; CO2<65 as tolerated; increase use of NC if tolerated follow ABG; pulse ox Increase activity level-->up three time daily Adjust BiPAP as needed for above Maintain IVF for UO ADA diet advance as tolerated Clarify tube feeds is calorie input is inadequate PT/OT for deconditioning MS tele room near ICU DVT/GI prophylaxis LOS>96 hours, very slow response to treatment
[2017-12-07] MEDS: Enoxaparin 40 MG/0.4 ML Syringe SUBCUT SCH (17:14)
[2017-12-07] MEDS: Sodium Chloride 0.9% 1,000 ML IV SCH (17:14)
[2017-12-07] MEDS: Rosuvastatin 10 MG Tab PO SCH (21:43)
[2017-12-08] MEDS: Budesonide 0.25 MG/2 ML Neb Susp NEB SCH ×2 (06:12→20:42)
[2017-12-08] MEDS: Albuterol/Ipratropium 3.0-0.5 MG/3 ML Neb Soln NEB SCH ×4 (06:12→20:42)
[2017-12-08] MEDS: Levothyroxine 100 MCG Tab PO SCH (06:43)
[2017-12-08] MEDS: Pantoprazole 40 MG Tab.CR PO SCH (06:44)
[2017-12-08] MEDS: Citalopram 20 MG Tab PO SCH (08:16)
[2017-12-08] MEDS: Saccharomyces Boulardii (Probiotic) 250 MG Cap PO SCH (08:16)
[2017-12-08] MEDS: Polyethylene Glycol 3350 Powder 17 GM Packet PO SCH (08:16)
[2017-12-08] MEDS: rOPINIRole 1 MG Tab PO SCH ×2 (08:16→21:10)
[2017-12-08] MEDS: Megestrol Susp 40 MG/ML 10 ML UD Cup PO SCH ×2 (08:16→21:10)
[2017-12-08] MEDS: Multivitamins,Therapeutic Tab PO SCH (08:16)
[2017-12-08] MEDS: Metoclopramide 10 MG Tab PO SCH ×4 (08:17→21:10)
[2017-12-08] MEDS: Ferrous Sulfate 325 MG Tab PO SCH (08:17)
[2017-12-08] MEDS: Fluconazole 100 MG Tab PO SCH (08:17)
[2017-12-08] MEDS: buPROPion 150 MG Tab.ER PO SCH (08:17)
[2017-12-08] MEDS: Aspirin 81 MG Tab.Chew PO SCH (08:17)
[2017-12-08] MEDS: Insulin Aspart 100 Units/ML 3 ML Pen SUBCUT SCH ×5 (09:22→23:45)
--- NOTE | 2017-12-08 10:18 | CR ---
Chest: Two views of the chest were obtained. Comparison: Prior chest x-ray 12/05/17. Increased central lung markings are seen as an interval change from prior exam most likely representing pulmonary vascular congestion. Mild right basilar atelectasis is seen. Heart is enlarged. Prior sternotomy and CABG is seen. Bony structures are osteopenic. Compression deformity is noted at the thoracolumbar junction which appears stable. Impression: 1. Increasing lung markings from prior study raising the possibility of pulmonary vascular congestion. 2. Mild right basilar atelectasis and other incidental findings. Diagnostic code #3
[2017-12-08] MEDS ORDERED: Furosemide 20 MG/2 ML VIAL IVPUSH ONE ×2 (11:01→15:38)
[2017-12-08] MEDS: Sodium Chloride 0.9% 1,000 ML IV SCH (15:00)
[2017-12-08] MEDS ORDERED: Sodium Bicarbonate 8.4% 50 MEQ/50 ML Syringe ONE (15:10)
[2017-12-08] MEDS: Sodium Bicarbonate 8.4% 50 MEQ/50 ML Syringe IVPUSH ONE ×2 (15:36→16:09)
[2017-12-08] MEDS ORDERED: Sodium Bicarbonate 150 MEQ in Dextrose 5% in Water 1,000 ML IV ONE ×2 (15:39)
--- NOTE | 2017-12-08 15:42 | CT ---
Head CT Technique: Multiple axial sections through the brain were obtained. Intravenous contrast was not utilized. Comparison: Prior head CT exam of 09/03/15. Findings: Ventricles along with basal cisterns and sulci over the convexities are mildly prominent. Very minimal diminished density is noted within the periventricular white matter which is felt compatible with slight small vessel ischemic demyelination change. No other abnormal parenchymal densities are seen. No evidence of intracranial hemorrhage. No midline shift or mass effect is seen. Atherosclerotic calcification is seen within the vertebral vessels and carotid siphon. No acute calvarial abnormality is seen. Visualized sinuses are clear. Impression: 1. Mild senescent change as noted above. 2. No acute intracranial abnormality is identified. No significant change is seen from prior head CT exam. Diagnostic code #2
--- NOTE | 2017-12-08 15:48 | PCM.PN ---
- General Info Date of Service: 12/08/17 Subjective Update: had bout of increased activity before becoming hypercapnic; change is status and transfer to the ICU Functional Status: Reports: Tolerating Diet, Ambulating, Urinating - Review of Systems General: Reports: Weakness HEENT: Reports: No Symptoms Pulmonary: Reports: Shortness of Breath Cardiovascular: Reports: Palpitations Gastrointestinal: Reports: No Symptoms Genitourinary: Reports: No Symptoms Musculoskeletal: Reports: No Symptoms Skin: Reports: No Symptoms Neurological: Reports: No Symptoms Psychiatric: Reports: No Symptoms - Patient Data Vitals - Most Recent: Last Vital Signs Temp 36.8 C 12/08/17 04:47 Pulse 102 H 12/08/17 09:22 Resp 18 12/08/17 08:21 BP 155/72 H 12/08/17 09:00 Pulse Ox 100 12/08/17 15:40 Weight - Most Recent: 74.797 kg I&O - Last 24 Hours: Intake & Output 12/08/17 12/08/17 12/08/17 06:59 14:59 22:59 Intake Total 509 330 Balance 509 330 Lab Results Last 24 Hours: Laboratory Results - last 24 hr 12/07/17 12/07/17 12/08/17 Range/Units 17:22 21:39 05:36 WBC (3.98-10.04) K/mm3 RBC (3.98-5.22) M/mm3 Hgb (11.2-15.7) gm/L Hct (34.1-44.9) % MCV (79.4-94.8) fl MCH (25.6-32.2) pg MCHC (32.2-35.5) g/dl RDW Std Deviation (36.4-46.3) fL Plt Count (182-369) K/mm3 MPV (9.4-12.3) fl Neut % (Auto) (34.0-71.1) % Lymph % (Auto) (19.3-51.7) % [place] % (Auto) (4.7-12.5) % Eos % (Auto) (0.7-5.8) Baso % (Auto) (0.1-1.2) % Neut # (Auto) (1.56-6.13) K/mm3 Lymph # (Auto) (1.18-3.74) K/mm3 [place] # (Auto) (0.24-0.36) K/mm3 Eos # (Auto) (0.04-0.36) K/mm3 Baso # (Auto) (0.01-0.08) K/mm3 Manual Slide Review Puncture Site ABG pH (7.35-7.45) ABG pCO2 (35.0-45.0) mmHg ABG pO2 (80.0-100.0) mmHg ABG HCO3 (22.0-26.0) meq/L ABG O2 Saturation (96.0-97.0) % ABG Base Excess (-2-2.0) Will Test A-a Gradient mmHg O2 Delivery Device Oxygen Flow Rate FiO2 (21.00-100.00) % Sodium 142 (136-145) mEq/L Potassium 4.7 (3.5-5.1) mEq/L Chloride 105 (98-107) mEq/L Carbon Dioxide 32 (21-32) mEq/L Anion Gap 9.7 (5-15) BUN 18 (7-18) mg/dL Creatinine 0.9 (0.55-1.02) mg/dL Est Cr Clr Drug Dosing 47.32 mL/min Estimated GFR (MDRD) > 60 (>60) mL/min BUN/Creatinine Ratio 20.0 H (14-18) Glucose 338 H (80-115) mg/dL POC Glucose 374 H 297 H (80-115) mg/dL Calcium 9.4 (8.5-10.1) mg/dL Magnesium 2.1 (1.8-2.4) mg/dl Troponin I (0.00-0.056) ng/mL C-Reactive Protein 15.8 H* (<1.0) mg/dL 12/08/17 12/08/17 12/08/17 Range/Units 05:36 08:00 09:58 WBC 7.53 (3.98-10.04) K/mm3 RBC 3.07 L (3.98-5.22) M/mm3 Hgb 9.2 L (11.2-15.7) gm/L Hct 31.9 L (34.1-44.9) % MCV 103.9 H (79.4-94.8) fl MCH 30.0 (25.6-32.2) pg MCHC 28.8 L (32.2-35.5) g/dl RDW Std Deviation 59.1 H (36.4-46.3) fL Plt Count 267 (182-369) K/mm3 MPV 12.3 (9.4-12.3) fl Neut % (Auto) 76.8 H (34.0-71.1) % Lymph % (Auto) 14.9 L (19.3-51.7) % [place] % (Auto) 6.8 (4.7-12.5) % Eos % (Auto) 0.4 L (0.7-5.8) Baso % (Auto) 0.4 (0.1-1.2) % Neut # (Auto) 5.79 (1.56-6.13) K/mm3 Lymph # (Auto) 1.12 L (1.18-3.74) K/mm3 [place] # (Auto) 0.51 H (0.24-0.36) K/mm3 Eos # (Auto) 0.03 L (0.04-0.36) K/mm3 Baso # (Auto) 0.03 (0.01-0.08) K/mm3 Manual Slide Review Abnormal smear Puncture Site Lt radial ABG pH 7.23 L (7.35-7.45) ABG pCO2 67.9 H (35.0-45.0) mmHg ABG pO2 73.0 L (80.0-100.0) mmHg ABG HCO3 27.6 H (22.0-26.0) meq/L ABG O2 Saturation 96.2 (96.0-97.0) % ABG Base Excess -0.3 (-2-2.0) Will Test Positive A-a Gradient 47 mmHg O2 Delivery Device Nasal cannula Oxygen Flow Rate 3.0 FiO2 32.00 (21.00-100.00) % Sodium (136-145) mEq/L Potassium (3.5-5.1) mEq/L Chloride (98-107) mEq/L Carbon Dioxide (21-32) mEq/L Anion Gap (5-15) BUN (7-18) mg/dL Creatinine (0.55-1.02) mg/dL Est Cr Clr Drug Dosing mL/min Estimated GFR (MDRD) (>60) mL/min BUN/Creatinine Ratio (14-18) Glucose 369 H (80-115) mg/dL POC Glucose (80-115) mg/dL Calcium (8.5-10.1) mg/dL Magnesium (1.8-2.4) mg/dl Troponin I (0.00-0.056) ng/mL C-Reactive Protein (<1.0) mg/dL 12/08/17 12/08/17 12/08/17 Range/Units 12:24 15:06 15:10 WBC (3.98-10.04) K/mm3 RBC (3.98-5.22) M/mm3 Hgb (11.2-15.7) gm/L Hct (34.1-44.9) % MCV (79.4-94.8) fl MCH (25.6-32.2) pg MCHC (32.2-35.5) g/dl RDW Std Deviation (36.4-46.3) fL Plt Count (182-369) K/mm3 MPV (9.4-12.3) fl Neut % (Auto) (34.0-71.1) % Lymph % (Auto) (19.3-51.7) % [place] % (Auto) (4.7-12.5) % Eos % (Auto) (0.7-5.8) Baso % (Auto) (0.1-1.2) % Neut # (Auto) (1.56-6.13) K/mm3 Lymph # (Auto) (1.18-3.74) K/mm3 [place] # (Auto) (0.24-0.36) K/mm3 Eos # (Auto) (0.04-0.36) K/mm3 Baso # (Auto) (0.01-0.08) K/mm3 Manual Slide Review Puncture Site Lt radial ABG pH 7.07 L* (7.35-7.45) ABG pCO2 133.7 H* (35.0-45.0) mmHg ABG pO2 68.0 L (80.0-100.0) mmHg ABG HCO3 37.2 H (22.0-26.0) meq/L ABG O2 Saturation 88.5 L (96.0-97.0) % ABG Base Excess 3.8 H (-2-2.0) Will Test A-a Gradient 404 mmHg O2 Delivery Device Bipap Oxygen Flow Rate FiO2 100.00 (21.00-100.00) % Sodium 144 (136-145) mEq/L Potassium 4.2 (3.5-5.1) mEq/L Chloride 105 (98-107) mEq/L Carbon Dioxide 35 H (21-32) mEq/L Anion Gap 8.2 (5-15) BUN 18 (7-18) mg/dL Creatinine 1.2 H (0.55-1.02) mg/dL Est Cr Clr Drug Dosing 35.49 mL/min Estimated GFR (MDRD) 45 (>60) mL/min BUN/Creatinine Ratio 15.0 (14-18) Glucose 323 H (80-115) mg/dL POC Glucose 388 H (80-115) mg/dL Calcium 9.7 (8.5-10.1) mg/dL Magnesium (1.8-2.4) mg/dl Troponin I < 0.017 (0.00-0.056) ng/mL C-Reactive Protein (<1.0) mg/dL Jan Results Last 24 Hours: Microbiology 12/04/17 20:45 Urine Culture - Final Urine, Catheterized Heather [facility] Med Orders - Current: Current Medications Acetaminophen (Tylenol) 650 mg PO Q6H PRN PRN Reason: Pain/Fever Albuterol (Proventil Neb Soln) 2.5 mg NEB Q4HRRT PRN PRN Reason: Shortness of Breath Last Admin: 12/03/17 15:23 Dose: 2.5 mg Albuterol/Ipratropium (Duoneb 3.0-0.5 Mg/3 Ml) 3 ml NEB QIDRT COUNT INCLUDES THE [facility] Last Admin: 12/08/17 15:40 Dose: 3 ml Aspirin (Aspirin) 81 mg PO DAILY COUNT INCLUDES THE [facility] Last Admin: 12/08/17 08:17 Dose: 81 mg Bisacodyl (Dulcolax) 10 mg RECTAL DAILY PRN PRN Reason: Constipation Budesonide (Pulmicort) 0.25 mg NEB BIDRT COUNT INCLUDES THE [facility] Last Admin: 12/08/17 06:12 Dose: 0.25 mg Bupropion HCl (Wellbutrin Xl) 150 mg PO DAILY COUNT INCLUDES THE [facility] Last Admin: 12/08/17 08:17 Dose: 150 mg Citalopram Hydrobromide (Celexa) 40 mg PO DAILY COUNT INCLUDES THE [facility] Last Admin: 12/08/17 08:16 Dose: 40 mg Dextrose/Water (Dextrose 50% In Water) 50 ml IVPUSH ASDIRECTED PRN PRN Reason: Hypoglycemia Enoxaparin Sodium (Lovenox) 40 mg SUBCUT Q24H COUNT INCLUDES THE [facility] Last Admin: 12/07/17 17:14 Dose: 40 mg Ferrous Sulfate (Ferrous Sulfate) 325 mg PO DAILY COUNT INCLUDES THE [facility] Last Admin: 12/08/17 08:17 Dose: 325 mg Fluconazole (Diflucan) 100 mg PO DAILY COUNT INCLUDES THE [facility] Last Admin: 12/08/17 08:17 Dose: 100 mg Sodium Chloride (Normal Saline) 1,000 mls @ 50 mls/hr IV ASDIRECTED COUNT INCLUDES THE [facility] Last Admin: 12/07/17 17:14 Dose: 50 mls/hr Sodium Bicarbonate 150 meq/ (Dextrose/Water) 1,150 mls @ 100 mls/hr IV ONETIME ONE Stop: 12/09/17 03:08 Insulin Aspart (Novolog) 0 unit SUBCUT QIDACANDBED COUNT INCLUDES THE [facility]; Protocol Last Admin: 12/08/17 13:04 Dose: 10 units Levothyroxine Sodium (Synthroid) 50 mcg PO ACBREAKFAST COUNT INCLUDES THE [facility] Last Admin: 12/08/17 06:43 Dose: 50 mcg Megestrol Acetate (Megace 40 Mg/Ml Susp) 400 mg PO BID COUNT INCLUDES THE [facility] Last Admin: 12/08/17 08:16 Dose: 400 mg Metoclopramide HCl (Reglan) 10 mg PO QID COUNT INCLUDES THE [facility] Last Admin: 12/08/17 14:09 Dose: Not Given Morphine Sulfate (Morphine) 0.5 mg IVPUSH Q4H PRN PRN Reason: Shortness of Breath Multivitamins (Thera) 1 each PO DAILY COUNT INCLUDES THE [facility] Last Admin: 12/08/17 08:16 Dose: 1 each Ondansetron HCl (Zofran) 4 mg IVPUSH Q8H PRN PRN Reason: Nausea/Vomiting Pantoprazole Sodium (Protonix) 40 mg PO DAILY@0700 COUNT INCLUDES THE [facility] Last Admin: 12/08/17 06:44 Dose: 40 mg Polyethylene Glycol (Miralax) 17 gm PO DAILY COUNT INCLUDES THE [facility] Last Admin: 12/08/17 08:16 Dose: 17 gm Ropinirole HCl (Requip) 1 mg PO BID COUNT INCLUDES THE [facility] Last Admin: 12/08/17 08:16 Dose: 1 mg Rosuvastatin Calcium (Crestor) 10 mg PO BEDTIME COUNT INCLUDES THE [facility] Last Admin: 12/07/17 21:43 Dose: 10 mg Saccharomyces Boulardii (Florastor) 500 mg PO DAILY COUNT INCLUDES THE [facility] Last Admin: 12/08/17 08:16 Dose: 500 mg Senna/Docusate Sodium (Senna Plus) 2 tab PO BID COUNT INCLUDES THE [facility] Last Admin: 12/08/17 08:17 Dose: 2 tab Sodium Chloride (Saline Flush) 10 ml FLUSH ASDIRECTED PRN PRN Reason: Keep Vein Open Last Admin: 12/03/17 07:55 Dose: 10 ml Tramadol HCl (Ultram) 50 mg PO TID PRN PRN Reason: Pain (moderate 4-6) Last Admin: 12/07/17 10:39 Dose: 50 mg Discontinued Medications Albuterol/Ipratropium (Duoneb 3.0-0.5 Mg/3 Ml) 3 ml NEB QID COUNT INCLUDES THE [facility] Last Admin: 12/06/17 20:15 Dose: 3 ml Fluconazole (Diflucan) 150 mg PO ONETIME ONE Stop: 12/05/17 09:01 Last Admin: 12/05/17 08:55 Dose: 150 mg Furosemide (Lasix) 40 mg IVPUSH NOW ONE Stop: 12/03/17 07:31 Last Admin: 12/03/17 07:47 Dose: 40 mg Furosemide (Lasix) 40 mg IVPUSH NOW ONE Stop: 12/04/17 18:22 Last Admin: 12/04/17 18:26 Dose: 40 mg Furosemide (Lasix) 40 mg IVPUSH ONETIME ONE Stop: 12/05/17 08:01 Last Admin: 12/05/17 08:54 Dose: 40 mg Furosemide (Lasix) 20 mg IVPUSH NOW ONE Stop: 12/08/17 11:02 Last Admin: 12/08/17 11:41 Dose: 20 mg Furosemide (Lasix) 20 mg IVPUSH ONETIME ONE Stop: 12/08/17 15:39 Piperacillin Sod/Tazobactam (Sod 4.5 gm/ Sodium Chloride) 100 mls @ 25 mls/hr IV Q8H COUNT INCLUDES THE [facility] Last Admin: 12/07/17 08:05 Dose: 25 mls/hr Vancomycin HCl 1 gm/ Sodium (Chloride) 250 mls @ 250 mls/hr IV Q24H COUNT INCLUDES THE [facility] Last Admin: 12/03/17 15:29 Dose: 250 mls/hr Piperacillin Sod/Tazobactam (Sod 4.5 gm/ Sodium Chloride) 100 mls @ 400 mls/hr IV ONETIME ONE Stop: 12/03/17 16:14 Last Admin: 12/03/17 16:41 Dose: 400 mls/hr Sodium Chloride (Normal Saline) 1,000 mls @ 50 mls/hr IV ASDIRECTED COUNT INCLUDES THE [facility] Last Infusion: 12/03/17 21:30 Dose: Infused Sodium Chloride (Normal Saline) 1,000 mls @ 75 mls/hr IV ASDIRECTED COUNT INCLUDES THE [facility] Last Admin: 12/06/17 02:00 Dose: 50 mls/hr Vancomycin HCl 1 gm/ Sodium (Chloride) 250 mls @ 250 mls/hr IV Q12H COUNT INCLUDES THE [facility] Last Admin: 12/05/17 11:48 Dose: 250 mls/hr Magnesium Sulfate 2 gm/ Premix 50 mls @ 25 mls/hr IV ONETIME ONE Stop: 12/04/17 11:46 Last Admin: 12/04/17 10:39 Dose: 25 mls/hr Vancomycin HCl 1 gm/ Sodium (Chloride) 250 mls @ 250 mls/hr IV Q18H COUNT INCLUDES THE [facility] Last Admin: 12/07/17 04:10 Dose: 250 mls/hr Magnesium Sulfate 2 gm/ Premix 50 mls @ 25 mls/hr IV ONETIME ONE Stop: 12/05/17 15:24 Last Admin: 12/05/17 13:46 Dose: 25 mls/hr Magnesium Sulfate 2 gm/ Premix 50 mls @ 25 mls/hr IV ONETIME ONE Stop: 12/07/17 11:52 Last Admin: 12/07/17 11:12 Dose: Not Given Magnesium Sulfate 2 gm/ Premix 50 mls @ 25 mls/hr IV ONETIME ONE Stop: 12/07/17 13:59 Last Admin: 12/07/17 12:18 Dose: 25 mls/hr Insulin Aspart (Novolog) 0 unit SUBCUT QIDACANDBED COUNT INCLUDES THE [facility]; Protocol Last Admin: 12/03/17 19:06 Dose: Not Given Insulin Aspart (Novolog) 0 unit SUBCUT Q6H COUNT INCLUDES THE [facility]; Protocol Last Admin: 12/05/17 02:00 Dose: 7 units Insulin Aspart (Novolog) 0 unit SUBCUT Q6HR COUNT INCLUDES THE [facility]; Protocol Last Admin: 12/06/17 18:28 Dose: 10 units Megestrol Acetate (Megace) 40 mg PO BID LYLA Last Admin: 12/05/17 12:23 Dose: Not Given Potassium Chloride (Klor-Con M20) 40 meq PO BID LYLA Stop: 12/06/17 09:01 Last Admin: 12/06/17 08:56 Dose: 40 meq Sodium Bicarbonate (Sodium Bicarbonate 8.4%) Confirm Administered Dose 100 meq .ROUTE .STK-MED ONE Stop: 12/08/17 15:11 Last Admin: 12/08/17 15:10 Dose: 100 meq Sodium Bicarbonate (Sodium Bicarbonate 8.4%) 100 meq IVPUSH ONETIME ONE Stop: 12/08/17 15:17 Vancomycin HCl (Pharmacy To Dose - Vancomycin) 0 dose .XX ASDIRECTED PRN PRN Reason: RX TO DOSE VANCOMYCIN Comments:: Had a repeat 2 view CXR which was unchanged without infectious process noted. - Exam Quality Assessment: Supplemental Oxygen, Urine Catheter (Resumed after transfer to the ICU), DVT Prophylaxis General: Obtunded (after increase in CO2 prior in the am, was alert, O x3) HEENT: Pupils Equal, Pupils Reactive Neck: Trachea Midline, No JVD Lungs: Normal Respiratory Effort, Decreased Breath Sounds Cardiovascular: Regular Rate, Irregular Rhythm GI/Abdominal Exam: Normal Bowel Sounds, Soft, Non-Tender, No Organomegaly, No Distention (Female) Exam: Deferred Back Exam: Normal Inspection Extremities: Normal Inspection, Slow Capillary Refill Skin: Warm Neurological: Other (see above: change in mental status after elevated CO2) Psy/Mental Status: Other (obtunded) - Problem List Review Problem List Initiated/Reviewed/Updated: Yes - My Orders Last 24 Hours: My Active Orders 12/07/17 20:17 Consult to Dietary [Consult to Third Hand] [CONS] Routine 12/08/17 11:01 Consult to Diabetic Nurse Specialist [CONS] Routine 12/08/17 14:07 Consult to Speech Language Pathology [[facility]URNACEM[facility] Evaluation and Treatment] [CONS] Routine 12/08/17 15:39 Sodium Bicarbonate [Sodium Bicarbonate 8.4%] 150 meq Dextrose 5% in Water 1, 000 ml IV ONETIME 12/08/17 16:30 ABG [BLOOD GAS ARTERIAL] [BG] Urgent 12/08/17 Dinner Tube Feeding Adult Diet [DIET] 12/08/17 Lunch NPO Now [Nothing per Oral Now Diet] [DIET] 12/09/17 05:00 BMP [BASIC METABOLIC PANEL,BMP] [CHEM] DAILY CBC WITH AUTO DIFF [HEME] DAILY CRP [C-REACTIVE PROTEIN] [CHEM] DAILY MAGNESIUM [CHEM] DAILY - Plan Plan:: Impression: Acute respiratory distress, hypercapnia-->NEW occurence after 4 hours on NC S/P Rapid response Hx of prolong intubation, s/p tracheostomy BIPAP adjust settings with improved VT; solumedrol Hypercapnic Decrease responsiveness--ruled out CVA Paroxysmal A fib--<30 minutes in the time frrame of Rapid response Hx of COPD Hx of CKD, II Hyponatremia--corrected Hyperkalemia--corrected Diabetes mellitus, profound hyperglycemia; adjust SS, add maintenance Deconditioned-- PT/OT today Depression--continue Celexa, Wellbutrin Chronic Fe deficiency PUD Hypothyroid HTN HLD Macular degeneration CAD/NC s/p CABG Plan: Insulin gtt if unable to manage on SS. Correct electrolytes IV steroids added, continue Pulmicort; negative PETERSEN for PNA Increase time as tolerated on NC-->failed challenge; resume BIPAP Resp infection work up w/isolation MRSA screen Nebs scheduled/prn Titrate O2 sat>92%; CO2<65 as tolerated; increase use of NC if tolerated follow ABG; pulse ox Increase activity level-->up three time daily Adjust BiPAP as needed for above Maintain IVF for UO, lasix prn with IVF suport ADA diet advance as tolerated Clarify tube feeds is calorie input is inadequate PT/OT for deconditioning on hold after Rapid Response MS tele room near ICU DVT/GI prophylaxis LOS>96 hours, very slow response to treatment
[2017-12-08] MEDS: Enoxaparin 40 MG/0.4 ML Syringe SUBCUT SCH (17:09)
[2017-12-08] MEDS ORDERED: methylPREDNISolone Sodium Succinate 40 MG/1 ML SDV IVPUSH SCH (18:00)
[2017-12-08] MEDS: Rosuvastatin 10 MG Tab PO SCH (21:10)
[2017-12-08] MEDS: hydrALAZINE 20 MG/ML SDV IVPUSH PRN (23:19)
[2017-12-09] MEDS: Albuterol 0.083% 2.5 MG/3 ML Neb Soln NEB PRN (02:58)
[2017-12-09] MEDS: Morphine 2 MG/ML Syringe IVPUSH PRN ×2 (03:03→14:20)
[2017-12-09] MEDS: Budesonide 0.25 MG/2 ML Neb Susp NEB SCH ×2 (06:07→21:11)
[2017-12-09] MEDS: Albuterol/Ipratropium 3.0-0.5 MG/3 ML Neb Soln NEB SCH ×4 (06:07→21:11)
[2017-12-09] MEDS: Insulin Aspart 100 Units/ML 3 ML Pen SUBCUT SCH ×10 (06:16→22:21)
[2017-12-09] MEDS: Levothyroxine 100 MCG Tab PO SCH ×2 (06:17→13:15)
[2017-12-09] MEDS: Pantoprazole 40 MG Tab.CR PO SCH ×2 (06:17→13:15)
[2017-12-09] MEDS: Sodium Chloride 0.9% 1,000 ML IV SCH (11:08)
[2017-12-09] MEDS: Polyethylene Glycol 3350 Powder 17 GM Packet PO SCH (13:07)
[2017-12-09] MEDS: Saccharomyces Boulardii (Probiotic) 250 MG Cap PO SCH (13:08)
[2017-12-09] MEDS: Multivitamins,Therapeutic Tab PO SCH (13:08)
[2017-12-09] MEDS: Ferrous Sulfate 325 MG Tab PO SCH (13:08)
[2017-12-09] MEDS: buPROPion 150 MG Tab.ER PO SCH (13:09)
[2017-12-09] MEDS: Fluconazole 100 MG Tab PO SCH (13:10)
[2017-12-09] MEDS: Citalopram 20 MG Tab PO SCH (13:10)
[2017-12-09] MEDS: Metoclopramide 10 MG Tab PO SCH ×4 (13:10→21:18)
[2017-12-09] MEDS: Aspirin 81 MG Tab.Chew PO SCH (13:10)
[2017-12-09] MEDS: rOPINIRole 1 MG Tab PO SCH ×2 (13:24→21:18)
[2017-12-09] MEDS: Megestrol Susp 40 MG/ML 10 ML UD Cup PO SCH ×2 (13:25→21:18)
--- NOTE | 2017-12-09 14:53 | PCM.PN ---
- General Info Date of Service: 12/09/17 Functional Status: Reports: Pain Controlled, Tolerating Diet (minimal intake), Urinating - Review of Systems General: Reports: Weakness HEENT: Reports: No Symptoms Pulmonary: Reports: Shortness of Breath (afraid to have BIPAP removed) Cardiovascular: Reports: No Symptoms Gastrointestinal: Reports: No Symptoms Genitourinary: Reports: No Symptoms Musculoskeletal: Reports: No Symptoms Skin: Reports: No Symptoms Neurological: Reports: No Symptoms Psychiatric: Reports: No Symptoms - Patient Data Vitals - Most Recent: Last Vital Signs Temp 37.5 C 12/09/17 12:00 Pulse 94 12/09/17 09:00 Resp 19 12/09/17 12:00 BP 139/58 L 12/09/17 12:00 Pulse Ox 100 12/09/17 12:00 Weight - Most Recent: 75.296 kg I&O - Last 24 Hours: Intake & Output 12/08/17 12/09/17 12/09/17 22:59 06:59 14:59 Intake Total 1321 493 855 Output Total 650 265 510 Balance 671 228 345 Lab Results Last 24 Hours: Laboratory Results - last 24 hr 12/08/17 12/08/17 12/08/17 Range/Units 15:06 15:10 15:10 WBC (3.98-10.04) K/mm3 RBC (3.98-5.22) M/mm3 Hgb (11.2-15.7) gm/L Hct (34.1-44.9) % MCV (79.4-94.8) fl MCH (25.6-32.2) pg MCHC (32.2-35.5) g/dl RDW Std Deviation (36.4-46.3) fL Plt Count (182-369) K/mm3 MPV (9.4-12.3) fl Neut % (Auto) (34.0-71.1) % Lymph % (Auto) (19.3-51.7) % [place] % (Auto) (4.7-12.5) % Eos % (Auto) (0.7-5.8) Baso % (Auto) (0.1-1.2) % Neut # (Auto) (1.56-6.13) K/mm3 Lymph # (Auto) (1.18-3.74) K/mm3 [place] # (Auto) (0.24-0.36) K/mm3 Eos # (Auto) (0.04-0.36) K/mm3 Baso # (Auto) (0.01-0.08) K/mm3 Manual Slide Review D-Dimer, Quantitative 0.49 (0.19-0.50) mg/L Puncture Site Lt radial ABG pH 7.07 L* (7.35-7.45) ABG pCO2 133.7 H* (35.0-45.0) mmHg ABG pO2 68.0 L (80.0-100.0) mmHg ABG HCO3 37.2 H (22.0-26.0) meq/L ABG O2 Saturation 88.5 L (96.0-97.0) % ABG Base Excess 3.8 H (-2-2.0) Will Test A-a Gradient 404 mmHg O2 Delivery Device Bipap Oxygen Flow Rate FiO2 100.00 (21.00-100.00) % Blood Gas Comments Sodium 144 (136-145) mEq/L Potassium 4.2 (3.5-5.1) mEq/L Chloride 105 (98-107) mEq/L Carbon Dioxide 35 H (21-32) mEq/L Anion Gap 8.2 (5-15) BUN 18 (7-18) mg/dL Creatinine 1.2 H (0.55-1.02) mg/dL Est Cr Clr Drug Dosing 35.49 mL/min Estimated GFR (MDRD) 45 (>60) mL/min BUN/Creatinine Ratio 15.0 (14-18) Glucose 323 H (80-115) mg/dL POC Glucose (80-115) mg/dL Calcium 9.7 (8.5-10.1) mg/dL Magnesium (1.8-2.4) mg/dl Troponin I < 0.017 (0.00-0.056) ng/mL C-Reactive Protein (<1.0) mg/dL 12/08/17 12/08/17 12/08/17 Range/Units 16:33 17:17 18:22 WBC (3.98-10.04) K/mm3 RBC (3.98-5.22) M/mm3 Hgb (11.2-15.7) gm/L Hct (34.1-44.9) % MCV (79.4-94.8) fl MCH (25.6-32.2) pg MCHC (32.2-35.5) g/dl RDW Std Deviation (36.4-46.3) fL Plt Count (182-369) K/mm3 MPV (9.4-12.3) fl Neut % (Auto) (34.0-71.1) % Lymph % (Auto) (19.3-51.7) % [place] % (Auto) (4.7-12.5) % Eos % (Auto) (0.7-5.8) Baso % (Auto) (0.1-1.2) % Neut # (Auto) (1.56-6.13) K/mm3 Lymph # (Auto) (1.18-3.74) K/mm3 [place] # (Auto) (0.24-0.36) K/mm3 Eos # (Auto) (0.04-0.36) K/mm3 Baso # (Auto) (0.01-0.08) K/mm3 Manual Slide Review D-Dimer, Quantitative (0.19-0.50) mg/L Puncture Site Lt radial Lt radial ABG pH 7.31 L 7.36 (7.35-7.45) ABG pCO2 85.3 H* 78.4 H* (35.0-45.0) mmHg ABG pO2 277.0 H* 126.0 H (80.0-100.0) mmHg ABG HCO3 41.9 H 42.7 H (22.0-26.0) meq/L ABG O2 Saturation 99.9 H 99.1 H (96.0-97.0) % ABG Base Excess 13.6 H 15.0 H (-2-2.0) Will Test Positive Positive A-a Gradient 256 160 mmHg O2 Delivery Device Bipap 16/8 Bipap 16/8 Oxygen Flow Rate FiO2 100.00 60.00 (21.00-100.00) % Blood Gas Comments Sodium (136-145) mEq/L Potassium (3.5-5.1) mEq/L Chloride (98-107) mEq/L Carbon Dioxide (21-32) mEq/L Anion Gap (5-15) BUN (7-18) mg/dL Creatinine (0.55-1.02) mg/dL Est Cr Clr Drug Dosing mL/min Estimated GFR (MDRD) (>60) mL/min BUN/Creatinine Ratio (14-18) Glucose (80-115) mg/dL POC Glucose 398 H (80-115) mg/dL Calcium (8.5-10.1) mg/dL Magnesium (1.8-2.4) mg/dl Troponin I (0.00-0.056) ng/mL C-Reactive Protein (<1.0) mg/dL 12/08/17 12/08/17 12/08/17 Range/Units 19:56 22:45 23:37 WBC (3.98-10.04) K/mm3 RBC (3.98-5.22) M/mm3 Hgb (11.2-15.7) gm/L Hct (34.1-44.9) % MCV (79.4-94.8) fl MCH (25.6-32.2) pg MCHC (32.2-35.5) g/dl RDW Std Deviation (36.4-46.3) fL Plt Count (182-369) K/mm3 MPV (9.4-12.3) fl Neut % (Auto) (34.0-71.1) % Lymph % (Auto) (19.3-51.7) % [place] % (Auto) (4.7-12.5) % Eos % (Auto) (0.7-5.8) Baso % (Auto) (0.1-1.2) % Neut # (Auto) (1.56-6.13) K/mm3 Lymph # (Auto) (1.18-3.74) K/mm3 [place] # (Auto) (0.24-0.36) K/mm3 Eos # (Auto) (0.04-0.36) K/mm3 Baso # (Auto) (0.01-0.08) K/mm3 Manual Slide Review D-Dimer, Quantitative (0.19-0.50) mg/L Puncture Site Lt radial ABG pH 7.42 (7.35-7.45) ABG pCO2 72.3 H* (35.0-45.0) mmHg ABG pO2 99.0 (80.0-100.0) mmHg ABG HCO3 45.8 H (22.0-26.0) meq/L ABG O2 Saturation 98.6 H (96.0-97.0) % ABG Base Excess 18.7 H (-2-2.0) Will Test A-a Gradient 130 mmHg O2 Delivery Device Bpap Oxygen Flow Rate FiO2 50.00 (21.00-100.00) % Blood Gas Comments Bipap 16/8 Sodium (136-145) mEq/L Potassium (3.5-5.1) mEq/L Chloride (98-107) mEq/L Carbon Dioxide (21-32) mEq/L Anion Gap (5-15) BUN (7-18) mg/dL Creatinine (0.55-1.02) mg/dL Est Cr Clr Drug Dosing mL/min Estimated GFR (MDRD) (>60) mL/min BUN/Creatinine Ratio (14-18) Glucose (80-115) mg/dL POC Glucose 353 H 357 H (80-115) mg/dL Calcium (8.5-10.1) mg/dL Magnesium (1.8-2.4) mg/dl Troponin I (0.00-0.056) ng/mL C-Reactive Protein (<1.0) mg/dL 12/09/1718 12/09/17 Range/Units 05:31 05:31 06:07 WBC 6.57 (3.98-10.04) K/mm3 RBC 3.12 L (3.98-5.22) M/mm3 Hgb 9.2 L (11.2-15.7) gm/L Hct 32.5 L (34.1-44.9) % MCV 104.2 H (79.4-94.8) fl MCH 29.5 (25.6-32.2) pg MCHC 28.3 L (32.2-35.5) g/dl RDW Std Deviation 57.9 H (36.4-46.3) fL Plt Count 284 (182-369) K/mm3 MPV 12.5 H (9.4-12.3) fl Neut % (Auto) 88.9 H (34.0-71.1) % Lymph % (Auto) 8.5 L (19.3-51.7) % [place] % (Auto) 1.8 L (4.7-12.5) % Eos % (Auto) 0 L (0.7-5.8) Baso % (Auto) 0.2 (0.1-1.2) % Neut # (Auto) 5.84 (1.56-6.13) K/mm3 Lymph # (Auto) 0.56 L (1.18-3.74) K/mm3 [place] # (Auto) 0.12 L (0.24-0.36) K/mm3 Eos # (Auto) 0.00 L (0.04-0.36) K/mm3 Baso # (Auto) 0.01 (0.01-0.08) K/mm3 Manual Slide Review Abnormal smear D-Dimer, Quantitative (0.19-0.50) mg/L Puncture Site ABG pH (7.35-7.45) ABG pCO2 (35.0-45.0) mmHg ABG pO2 (80.0-100.0) mmHg ABG HCO3 (22.0-26.0) meq/L ABG O2 Saturation (96.0-97.0) % ABG Base Excess (-2-2.0) Will Test A-a Gradient mmHg O2 Delivery Device Oxygen Flow Rate FiO2 (21.00-100.00) % Blood Gas Comments Sodium 147 H (136-145) mEq/L Potassium 3.9 (3.5-5.1) mEq/L Chloride 103 (98-107) mEq/L Carbon Dioxide 36 H (21-32) mEq/L Anion Gap 11.9 (5-15) BUN 14 (7-18) mg/dL Creatinine 0.8 (0.55-1.02) mg/dL Est Cr Clr Drug Dosing 53.23 mL/min Estimated GFR (MDRD) > 60 (>60) mL/min BUN/Creatinine Ratio 17.5 (14-18) Glucose 313 H (80-115) mg/dL POC Glucose 350 H (80-115) mg/dL Calcium 9.2 (8.5-10.1) mg/dL Magnesium 1.5 L (1.8-2.4) mg/dl Troponin I (0.00-0.056) ng/mL C-Reactive Protein 9.9 H* (<1.0) mg/dL 12/09/17 12/09/17 12/09/17 Range/Units 06:15 12:06 13:36 WBC (3.98-10.04) K/mm3 RBC (3.98-5.22) M/mm3 Hgb (11.2-15.7) gm/L Hct (34.1-44.9) % MCV (79.4-94.8) fl MCH (25.6-32.2) pg MCHC (32.2-35.5) g/dl RDW Std Deviation (36.4-46.3) fL Plt Count (182-369) K/mm3 MPV (9.4-12.3) fl Neut % (Auto) (34.0-71.1) % Lymph % (Auto) (19.3-51.7) % [place] % (Auto) (4.7-12.5) % Eos % (Auto) (0.7-5.8) Baso % (Auto) (0.1-1.2) % Neut # (Auto) (1.56-6.13) K/mm3 Lymph # (Auto) (1.18-3.74) K/mm3 [place] # (Auto) (0.24-0.36) K/mm3 Eos # (Auto) (0.04-0.36) K/mm3 Baso # (Auto) (0.01-0.08) K/mm3 Manual Slide Review D-Dimer, Quantitative (0.19-0.50) mg/L Puncture Site Lt radial Rt radial ABG pH 7.41 7.31 L (7.35-7.45) ABG pCO2 60.7 H 70.8 H* (35.0-45.0) mmHg ABG pO2 89.0 53.0 L (80.0-100.0) mmHg ABG HCO3 37.9 H 34.9 H (22.0-26.0) meq/L ABG O2 Saturation 97.6 H 85.4 L (96.0-97.0) % ABG Base Excess 11.8 H 7.4 H (-2-2.0) Will Test Positive A-a Gradient 91 38 mmHg O2 Delivery Device Bipap Nasal cannula Oxygen Flow Rate 2.0 FiO2 40.00 28.00 (21.00-100.00) % Blood Gas Comments Bipap 16/8 Sodium (136-145) mEq/L Potassium (3.5-5.1) mEq/L Chloride (98-107) mEq/L Carbon Dioxide (21-32) mEq/L Anion Gap (5-15) BUN (7-18) mg/dL Creatinine (0.55-1.02) mg/dL Est Cr Clr Drug Dosing mL/min Estimated GFR (MDRD) (>60) mL/min BUN/Creatinine Ratio (14-18) Glucose (80-115) mg/dL POC Glucose 367 H (80-115) mg/dL Calcium (8.5-10.1) mg/dL Magnesium (1.8-2.4) mg/dl Troponin I (0.00-0.056) ng/mL C-Reactive Protein (<1.0) mg/dL Jan Results Last 24 Hours: Microbiology 12/04/17 20:45 Urine Culture - Final Urine, Catheterized Heather [facility] Med Orders - Current: Current Medications Acetaminophen (Tylenol) 650 mg PO Q6H PRN PRN Reason: Pain/Fever Albuterol (Proventil Neb Soln) 2.5 mg NEB Q4HRRT PRN PRN Reason: Shortness of Breath Last Admin: 12/09/17 02:58 Dose: 2.5 mg Albuterol/Ipratropium (Duoneb 3.0-0.5 Mg/3 Ml) 3 ml NEB QIDRT [facility] Last Admin: 12/09/17 09:25 Dose: 3 ml Aspirin (Aspirin) 81 mg PO DAILY [facility] Last Admin: 12/09/17 13:10 Dose: 81 mg Bisacodyl (Dulcolax) 10 mg RECTAL DAILY PRN PRN Reason: Constipation Budesonide (Pulmicort) 0.25 mg NEB BIDRT [facility] Last Admin: 12/09/17 06:07 Dose: 0.25 mg Bupropion HCl (Wellbutrin Xl) 150 mg PO DAILY [facility] Last Admin: 12/09/17 13:09 Dose: 150 mg Citalopram Hydrobromide (Celexa) 40 mg PO DAILY [facility] Last Admin: 12/09/17 13:10 Dose: 40 mg Dextrose/Water (Dextrose 50% In Water) 50 ml IVPUSH ASDIRECTED PRN PRN Reason: Hypoglycemia Enoxaparin Sodium (Lovenox) 40 mg SUBCUT Q24H [facility] Last Admin: 12/08/17 17:09 Dose: 40 mg Ferrous Sulfate (Ferrous Sulfate) 325 mg PO DAILY [facility] Last Admin: 12/09/17 13:08 Dose: 325 mg Fluconazole (Diflucan) 100 mg PO DAILY [facility] Last Admin: 12/09/17 13:10 Dose: 100 mg Hydralazine HCl (Apresoline) 20 mg IVPUSH Q6H PRN PRN Reason: Hypertension Last Admin: 12/08/17 23:19 Dose: 20 mg Sodium Chloride (Normal Saline) 1,000 mls @ 50 mls/hr IV ASDIRECTED [facility] Last Admin: 12/09/17 11:08 Dose: 50 mls/hr Insulin Aspart (Novolog) 0 unit SUBCUT Q6HR [facility]; Protocol Last Admin: 12/09/17 12:07 Dose: 10 units Levothyroxine Sodium (Synthroid) 50 mcg PO ACBREAKFAST [facility] Last Admin: 12/09/17 13:15 Dose: 50 mcg Megestrol Acetate (Megace 40 Mg/Ml Susp) 400 mg PO BID [facility] Last Admin: 12/09/17 13:25 Dose: 400 mg Methylprednisolone Sodium Succinate (Solu-Medrol) 80 mg IVPUSH DAILY@1800 [facility] Last Admin: 12/08/17 18:19 Dose: 80 mg Metoclopramide HCl (Reglan) 10 mg PO QID [facility] Last Admin: 12/09/17 14:26 Dose: Not Given Metoprolol Tartrate (Lopressor) 5 mg IVPUSH Q4H PRN PRN Reason: Tachycardia Morphine Sulfate (Morphine) 0.5 mg IVPUSH Q4H PRN PRN Reason: Shortness of Breath Last Admin: 12/09/17 14:20 Dose: 0.5 mg Multivitamins (Thera) 1 each PO DAILY [facility] Last Admin: 12/09/17 13:08 Dose: 1 each Ondansetron HCl (Zofran) 4 mg IVPUSH Q8H PRN PRN Reason: Nausea/Vomiting Pantoprazole Sodium (Protonix) 40 mg PO DAILY@0700 [facility] Last Admin: 12/09/17 13:15 Dose: 40 mg Polyethylene Glycol (Miralax) 17 gm PO DAILY [facility] Last Admin: 12/09/17 13:07 Dose: 17 gm Ropinirole HCl (Requip) 1 mg PO BID [facility] Last Admin: 12/09/17 13:24 Dose: 1 mg Rosuvastatin Calcium (Crestor) 10 mg PO BEDTIME [facility] Last Admin: 12/08/17 21:10 Dose: Not Given Saccharomyces Boulardii (Florastor) 500 mg PO DAILY [facility] Last Admin: 12/09/17 13:08 Dose: 500 mg Senna/Docusate Sodium (Senna Plus) 2 tab PO BID [facility] Last Admin: 12/09/17 13:25 Dose: 2 tab Sodium Chloride (Saline Flush) 10 ml FLUSH ASDIRECTED PRN PRN Reason: Keep Vein Open Last Admin: 12/03/17 07:55 Dose: 10 ml Tramadol HCl (Ultram) 50 mg PO TID PRN PRN Reason: Pain (moderate 4-6) Last Admin: 12/07/17 10:39 Dose: 50 mg Discontinued Medications Albuterol/Ipratropium (Duoneb 3.0-0.5 Mg/3 Ml) 3 ml NEB QID [facility] Last Admin: 12/06/17 20:15 Dose: 3 ml Fluconazole (Diflucan) 150 mg PO ONETIME ONE Stop: 12/05/17 09:01 Last Admin: 12/05/17 08:55 Dose: 150 mg Furosemide (Lasix) 40 mg IVPUSH NOW ONE Stop: 12/03/17 07:31 Last Admin: 12/03/17 07:47 Dose: 40 mg Furosemide (Lasix) 40 mg IVPUSH NOW ONE Stop: 12/04/17 18:22 Last Admin: 12/04/17 18:26 Dose: 40 mg Furosemide (Lasix) 40 mg IVPUSH ONETIME ONE Stop: 12/05/17 08:01 Last Admin: 12/05/17 08:54 Dose: 40 mg Furosemide (Lasix) 20 mg IVPUSH NOW ONE Stop: 12/08/17 11:02 Last Admin: 12/08/17 11:41 Dose: 20 mg Furosemide (Lasix) 20 mg IVPUSH ONETIME ONE Stop: 12/08/17 15:39 Last Admin: 12/08/17 15:55 Dose: 20 mg Piperacillin Sod/Tazobactam (Sod 4.5 gm/ Sodium Chloride) 100 mls @ 25 mls/hr IV Q8H [facility] Last Admin: 12/07/17 08:05 Dose: 25 mls/hr Vancomycin HCl 1 gm/ Sodium (Chloride) 250 mls @ 250 mls/hr IV Q24H [facility] Last Admin: 12/03/17 15:29 Dose: 250 mls/hr Piperacillin Sod/Tazobactam (Sod 4.5 gm/ Sodium Chloride) 100 mls @ 400 mls/hr IV ONETIME ONE Stop: 12/03/17 16:14 Last Admin: 12/03/17 16:41 Dose: 400 mls/hr Sodium Chloride (Normal Saline) 1,000 mls @ 50 mls/hr IV ASDIRECTED [facility] Last Infusion: 12/03/17 21:30 Dose: Infused Sodium Chloride (Normal Saline) 1,000 mls @ 75 mls/hr IV ASDIRECTED [facility] Last Admin: 12/06/17 02:00 Dose: 50 mls/hr Vancomycin HCl 1 gm/ Sodium (Chloride) 250 mls @ 250 mls/hr IV Q12H [facility] Last Admin: 12/05/17 11:48 Dose: 250 mls/hr Magnesium Sulfate 2 gm/ Premix 50 mls @ 25 mls/hr IV ONETIME ONE Stop: 12/04/17 11:46 Last Admin: 12/04/17 10:39 Dose: 25 mls/hr Vancomycin HCl 1 gm/ Sodium (Chloride) 250 mls @ 250 mls/hr IV Q18H [facility] Last Admin: 12/07/17 04:10 Dose: 250 mls/hr Magnesium Sulfate 2 gm/ Premix 50 mls @ 25 mls/hr IV ONETIME ONE Stop: 12/05/17 15:24 Last Admin: 12/05/17 13:46 Dose: 25 mls/hr Magnesium Sulfate 2 gm/ Premix 50 mls @ 25 mls/hr IV ONETIME ONE Stop: 12/07/17 11:52 Last Admin: 12/07/17 11:12 Dose: Not Given Magnesium Sulfate 2 gm/ Premix 50 mls @ 25 mls/hr IV ONETIME ONE Stop: 12/07/17 13:59 Last Admin: 12/07/17 12:18 Dose: 25 mls/hr Sodium Bicarbonate 150 meq/ (Dextrose/Water) 1,150 mls @ 100 mls/hr IV ONETIME ONE Stop: 12/09/17 03:08 Last Admin: 12/08/17 15:48 Dose: 100 mls/hr Insulin Aspart (Novolog) 0 unit SUBCUT QIDACANDBED [facility]; Protocol Last Admin: 12/03/17 19:06 Dose: Not Given Insulin Aspart (Novolog) 0 unit SUBCUT Q6H [facility]; Protocol Last Admin: 12/05/17 02:00 Dose: 7 units Insulin Aspart (Novolog) 0 unit SUBCUT Q6HR [facility]; Protocol Last Admin: 12/06/17 18:28 Dose: 10 units Insulin Aspart (Novolog) 0 unit SUBCUT QIDACANDBED [facility]; Protocol Last Admin: 12/09/17 14:41 Dose: Not Given Insulin Aspart (Novolog) 0 unit SUBCUT Q6H [facility]; Protocol Last Admin: 12/09/17 14:40 Dose: Not Given Megestrol Acetate (Megace) 40 mg PO BID [facility] Last Admin: 12/05/17 12:23 Dose: Not Given Potassium Chloride (Klor-Con M20) 40 meq PO BID [facility] Stop: 12/06/17 09:01 Last Admin: 12/06/17 08:56 Dose: 40 meq Sodium Bicarbonate (Sodium Bicarbonate 8.4%) Confirm Administered Dose 100 meq .ROUTE .STK-MED ONE Stop: 12/08/17 15:11 Last Admin: 12/08/17 15:10 Dose: 100 meq Sodium Bicarbonate (Sodium Bicarbonate 8.4%) 100 meq IVPUSH ONETIME ONE Stop: 12/08/17 15:17 Last Admin: 12/08/17 16:09 Dose: Not Given Vancomycin HCl (Pharmacy To Dose - Vancomycin) 0 dose .XX ASDIRECTED PRN PRN Reason: RX TO DOSE VANCOMYCIN - Exam Quality Assessment: Supplemental Oxygen, Urine Catheter, DVT Prophylaxis General: Alert, Oriented, Cooperative, No Acute Distress HEENT: Pupils Equal, Pupils Reactive, EOMI Neck: Trachea Midline, No JVD Lungs: Normal Respiratory Effort, Decreased Breath Sounds, Rhonchi Cardiovascular: Regular Rate, Regular Rhythm GI/Abdominal Exam: Normal Bowel Sounds, Soft, Non-Tender, No Organomegaly, No Distention (Female) Exam: Deferred Back Exam: Normal Inspection Extremities: Normal Inspection, Non-Tender, Pedal Edema (UE>LE) Skin: Warm Neurological: No New Focal Deficit, Normal Speech Psy/Mental Status: Alert, Depressed - Problem List Review Problem List Initiated/Reviewed/Updated: Yes - My Orders Last 24 Hours: My Active Orders 12/08/17 14:07 Consult to Speech Language Pathology [EMT I/85 Evaluation and Treatment] [CONS] Routine 12/08/17 15:47 EKG 12 Lead [EK] Routine 12/08/17 15:59 Urinary Catheter Assessment [RC] Q4HR 12/08/17 16:00 Desai Catheter Insertion [Insert Urinary Catheter] [OM.PC] Q24H 12/08/17 18:00 methylPREDNISolone Sod Succ [Solu-MEDROL] 80 mg IVPUSH DAILY@1800 12/08/17 23:02 hydrALAZINE [Apresoline] 20 mg IVPUSH Q6H PRN 12/08/17 23:04 Metoprolol Tartrate [Lopressor] 5 mg IVPUSH Q4H PRN 12/08/17 23:06 Blood Glucose Check, Bedside [RC] Q6HR 12/08/17 Dinner Tube Feeding Adult Diet [DIET] 12/09/17 01:11 Patient Status [ADT] Routine 12/09/17 06:00 Insulin Aspart [NovoLOG] See Protocol SUBCUT Q6HR 12/09/17 13:14 RT Arterial Blood Gases, ABG [RC] Click to Edit 12/09/17 Dinner National Dysphagia Diet [DIET] - Plan Plan:: Impression: Acute respiratory distress, hypercapnia-->NEW occurence after 4 hours on NC S/P Rapid response--received 2 amps of NaHCO3 during response and subsequently was started on sod bicarb gtt. Hx of prolong intubation, s/p tracheostomy BIPAP adjust settings with improved VT; solumedrol Hypercapnic-->received NaHCO3 gtt with good results Decrease responsiveness--ruled out CVA Paroxysmal A fib--<30 minutes in the time frrame of Rapid response Hx of COPD Hx of CKD, II Hyponatremia--corrected Hyperkalemia--corrected Diabetes mellitus, profound hyperglycemia; adjust SS, add maintenance Deconditioned-- PT/OT today Depression--continue Celexa, Wellbutrin Chronic Fe deficiency PUD Hypothyroid HTN HLD Macular degeneration CAD/ME s/p CABG Plan: Insulin gtt if unable to manage on SS. Correct electrolytes IV steroids added, continue Pulmicort; negative PETERSEN for PNA Increase time as tolerated on NC-->failed challenge; resume BIPAP Resp infection work up w/isolation MRSA screen Nebs scheduled/prn Titrate O2 sat>92%; CO2<65 as tolerated; increase use of NC if tolerated follow ABG; pulse ox Increase activity level-->up three time daily Adjust BiPAP as needed for above Maintain IVF for UO, lasix prn with IVF suport ADA diet advance as tolerated Clarify tube feeds is calorie input is inadequate PT/OT for deconditioning on hold after Rapid Response MS tele room near ICU DVT/GI prophylaxis LOS>96 hours, very slow response to treatment
[2017-12-09] MEDS: Enoxaparin 40 MG/0.4 ML Syringe SUBCUT SCH (15:45)
[2017-12-09] MEDS: methylPREDNISolone Sodium Succinate 125 MG/2 ML SDV IVPUSH SCH (15:45)
[2017-12-09] MEDS: Insulin Detemir 100 Units/ML 3 ML Pen SUBCUT SCH (21:18)
[2017-12-09] MEDS: Rosuvastatin 10 MG Tab PO SCH (21:18)
[2017-12-09] MEDS: hydrALAZINE 20 MG/ML SDV IVPUSH PRN (21:41)
[2017-12-10] MEDS: methylPREDNISolone Sodium Succinate 125 MG/2 ML SDV IVPUSH SCH ×4 (00:02→23:00)
[2017-12-10] MEDS: Insulin Aspart 100 Units/ML 3 ML Pen SUBCUT SCH ×5 (00:54→23:04)
[2017-12-10] MEDS: Levothyroxine 100 MCG Tab PO SCH (06:10)
[2017-12-10] MEDS: Pantoprazole 40 MG Tab.CR PO SCH (06:11)
[2017-12-10] MEDS: Budesonide 0.25 MG/2 ML Neb Susp NEB SCH ×2 (06:27→20:48)
[2017-12-10] MEDS: Albuterol/Ipratropium 3.0-0.5 MG/3 ML Neb Soln NEB SCH ×4 (06:27→20:48)
[2017-12-10] MEDS: rOPINIRole 1 MG Tab PO SCH ×2 (09:09→20:12)
[2017-12-10] MEDS: Citalopram 20 MG Tab PO SCH (09:09)
[2017-12-10] MEDS: Fluconazole 100 MG Tab PO SCH (09:09)
[2017-12-10] MEDS: Multivitamins,Therapeutic Tab PO SCH (09:09)
[2017-12-10] MEDS: buPROPion 150 MG Tab.ER PO SCH (09:09)
[2017-12-10] MEDS: Polyethylene Glycol 3350 Powder 17 GM Packet PO SCH (09:09)
[2017-12-10] MEDS: Aspirin 81 MG Tab.Chew PO SCH (09:10)
[2017-12-10] MEDS: Megestrol Susp 40 MG/ML 10 ML UD Cup PO SCH ×2 (09:10→20:12)
[2017-12-10] MEDS: Saccharomyces Boulardii (Probiotic) 250 MG Cap PO SCH (09:10)
[2017-12-10] MEDS: Ferrous Sulfate 325 MG Tab PO SCH (09:10)
[2017-12-10] MEDS: Metoclopramide 10 MG Tab PO SCH ×4 (09:10→20:12)
[2017-12-10] MEDS: Insulin Detemir 100 Units/ML 3 ML Pen SUBCUT SCH ×2 (09:12→20:20)
[2017-12-10] MEDS: hydrALAZINE 20 MG/ML SDV IVPUSH PRN ×3 (10:00→23:14)
--- NOTE | 2017-12-10 13:11 | PCM.PN ---
- General Info Date of Service: 12/10/17 Functional Status: Reports: Other (poor BS control, titrating long acting insulin) - Review of Systems General: Reports: Weakness HEENT: Reports: No Symptoms Pulmonary: Reports: Shortness of Breath Cardiovascular: Reports: No Symptoms Gastrointestinal: Reports: No Symptoms Genitourinary: Reports: No Symptoms Musculoskeletal: Reports: No Symptoms Skin: Reports: No Symptoms Neurological: Reports: No Symptoms Psychiatric: Reports: Depression - Patient Data Vitals - Most Recent: Last Vital Signs Temp 37.6 C 12/10/17 12:00 Pulse 106 H 12/10/17 12:00 Resp 22 H 12/10/17 12:00 BP 186/83 H 12/10/17 12:00 Pulse Ox 98 12/10/17 12:00 Weight - Most Recent: 75.705 kg I&O - Last 24 Hours: Intake & Output 12/09/17 12/10/17 12/10/17 22:59 06:59 14:59 Intake Total 320 955 Output Total 180 310 710 Balance 140 645 -710 Lab Results Last 24 Hours: Laboratory Results - last 24 hr 12/09/17 12/09/17 12/09/17 Range/Units 13:36 17:24 21:17 WBC (3.98-10.04) K/mm3 RBC (3.98-5.22) M/mm3 Hgb (11.2-15.7) gm/L Hct (34.1-44.9) % MCV (79.4-94.8) fl MCH (25.6-32.2) pg MCHC (32.2-35.5) g/dl RDW Std Deviation (36.4-46.3) fL Plt Count (182-369) K/mm3 MPV (9.4-12.3) fl Neut % (Auto) (34.0-71.1) % Lymph % (Auto) (19.3-51.7) % Mellette % (Auto) (4.7-12.5) % Eos % (Auto) (0.7-5.8) Baso % (Auto) (0.1-1.2) % Neut # (Auto) (1.56-6.13) K/mm3 Lymph # (Auto) (1.18-3.74) K/mm3 Mellette # (Auto) (0.24-0.36) K/mm3 Eos # (Auto) (0.04-0.36) K/mm3 Baso # (Auto) (0.01-0.08) K/mm3 Puncture Site Rt radial ABG pH 7.31 L (7.35-7.45) ABG pCO2 70.8 H* (35.0-45.0) mmHg ABG pO2 53.0 L (80.0-100.0) mmHg ABG HCO3 34.9 H (22.0-26.0) meq/L ABG O2 Saturation 85.4 L (96.0-97.0) % ABG Base Excess 7.4 H (-2-2.0) Will Test Positive A-a Gradient 38 mmHg O2 Delivery Device Nasal cannula Oxygen Flow Rate 2.0 FiO2 28.00 (21.00-100.00) % Glucose 430 H (80-115) mg/dL POC Glucose 363 H (80-115) mg/dL 12/10/17 12/10/17 12/10/17 Range/Units 00:54 06:09 12:50 WBC 8.44 (3.98-10.04) K/mm3 RBC 3.35 L (3.98-5.22) M/mm3 Hgb 9.9 L (11.2-15.7) gm/L Hct 35.1 (34.1-44.9) % MCV 104.8 H (79.4-94.8) fl MCH 29.6 (25.6-32.2) pg MCHC 28.2 L (32.2-35.5) g/dl RDW Std Deviation 61.1 H (36.4-46.3) fL Plt Count 329 (182-369) K/mm3 MPV 11.4 (9.4-12.3) fl Neut % (Auto) 91.8 H (34.0-71.1) % Lymph % (Auto) 6.0 L (19.3-51.7) % Mellette % (Auto) 0.9 L (4.7-12.5) % Eos % (Auto) 0 L (0.7-5.8) Baso % (Auto) 0.2 (0.1-1.2) % Neut # (Auto) 7.74 H (1.56-6.13) K/mm3 Lymph # (Auto) 0.51 L (1.18-3.74) K/mm3 Mellette # (Auto) 0.08 L (0.24-0.36) K/mm3 Eos # (Auto) 0.00 L (0.04-0.36) K/mm3 Baso # (Auto) 0.02 (0.01-0.08) K/mm3 Puncture Site ABG pH (7.35-7.45) ABG pCO2 (35.0-45.0) mmHg ABG pO2 (80.0-100.0) mmHg ABG HCO3 (22.0-26.0) meq/L ABG O2 Saturation (96.0-97.0) % ABG Base Excess (-2-2.0) Will Test A-a Gradient mmHg O2 Delivery Device Oxygen Flow Rate FiO2 (21.00-100.00) % Glucose (80-115) mg/dL POC Glucose 400 H 351 H (80-115) mg/dL Med Orders - Current: Current Medications Acetaminophen (Tylenol) 650 mg PO Q6H PRN PRN Reason: Pain/Fever Albuterol (Proventil Neb Soln) 2.5 mg NEB Q4HRRT PRN PRN Reason: Shortness of Breath Last Admin: 12/09/17 02:58 Dose: 2.5 mg Albuterol/Ipratropium (Duoneb 3.0-0.5 Mg/3 Ml) 3 ml NEB QIDRT [facility] Last Admin: 12/10/17 09:23 Dose: 3 ml Aspirin (Aspirin) 81 mg PO DAILY [facility] Last Admin: 12/10/17 09:10 Dose: 81 mg Bisacodyl (Dulcolax) 10 mg RECTAL DAILY PRN PRN Reason: Constipation Budesonide (Pulmicort) 0.25 mg NEB BIDRT [facility] Last Admin: 12/10/17 06:27 Dose: 0.25 mg Bupropion HCl (Wellbutrin Xl) 150 mg PO DAILY [facility] Last Admin: 12/10/17 09:09 Dose: 150 mg Citalopram Hydrobromide (Celexa) 40 mg PO DAILY [facility] Last Admin: 12/10/17 09:09 Dose: 40 mg Dextrose/Water (Dextrose 50% In Water) 50 ml IVPUSH ASDIRECTED PRN PRN Reason: Hypoglycemia Enoxaparin Sodium (Lovenox) 40 mg SUBCUT Q24H [facility] Last Admin: 12/09/17 15:45 Dose: 40 mg Ferrous Sulfate (Ferrous Sulfate) 325 mg PO DAILY [facility] Last Admin: 12/10/17 09:10 Dose: 325 mg Fluconazole (Diflucan) 100 mg PO DAILY [facility] Last Admin: 12/10/17 09:09 Dose: 100 mg Hydralazine HCl (Apresoline) 20 mg IVPUSH Q6H PRN PRN Reason: Hypertension Last Admin: 12/10/17 10:00 Dose: 20 mg Sodium Chloride (Normal Saline) 1,000 mls @ 50 mls/hr IV ASDIRECTED [facility] Last Admin: 12/09/17 11:08 Dose: 50 mls/hr Insulin Aspart (Novolog) 0 unit SUBCUT Q6HR [facility]; Protocol Last Admin: 12/10/17 12:35 Dose: 12 units Insulin Detemir (Levemir) 5 unit SUBCUT BID [facility] Last Admin: 12/10/17 09:12 Dose: 5 units Levothyroxine Sodium (Synthroid) 50 mcg PO ACBREAKFAST [facility] Last Admin: 12/10/17 06:10 Dose: 50 mcg Megestrol Acetate (Megace 40 Mg/Ml Susp) 400 mg PO BID [facility] Last Admin: 12/10/17 09:10 Dose: 400 mg Methylprednisolone Sodium Succinate (Solu-Medrol) 125 mg IVPUSH Q8H [facility] Last Admin: 12/10/17 06:11 Dose: 125 mg Metoclopramide HCl (Reglan) 10 mg PO QID [facility] Last Admin: 12/10/17 09:10 Dose: 10 mg Metoprolol Tartrate (Lopressor) 5 mg IVPUSH Q4H PRN PRN Reason: Tachycardia Morphine Sulfate (Morphine) 0.5 mg IVPUSH Q4H PRN PRN Reason: Shortness of Breath Last Admin: 12/09/17 14:20 Dose: 0.5 mg Multivitamins (Thera) 1 each PO DAILY [facility] Last Admin: 12/10/17 09:09 Dose: 1 each Ondansetron HCl (Zofran) 4 mg IVPUSH Q8H PRN PRN Reason: Nausea/Vomiting Pantoprazole Sodium (Protonix) 40 mg PO DAILY@0700 [facility] Last Admin: 12/10/17 06:11 Dose: 40 mg Polyethylene Glycol (Miralax) 17 gm PO DAILY [facility] Last Admin: 12/10/17 09:09 Dose: 17 gm Ropinirole HCl (Requip) 1 mg PO BID [facility] Last Admin: 12/10/17 09:09 Dose: 1 mg Rosuvastatin Calcium (Crestor) 10 mg PO BEDTIME [facility] Last Admin: 12/09/17 21:18 Dose: 10 mg Saccharomyces Boulardii (Florastor) 500 mg PO DAILY [facility] Last Admin: 12/10/17 09:10 Dose: 500 mg Senna/Docusate Sodium (Senna Plus) 2 tab PO BID [facility] Last Admin: 12/10/17 09:09 Dose: 2 tab Sodium Chloride (Saline Flush) 10 ml FLUSH ASDIRECTED PRN PRN Reason: Keep Vein Open Last Admin: 12/03/17 07:55 Dose: 10 ml Tramadol HCl (Ultram) 50 mg PO TID PRN PRN Reason: Pain (moderate 4-6) Last Admin: 12/07/17 10:39 Dose: 50 mg Discontinued Medications Albuterol/Ipratropium (Duoneb 3.0-0.5 Mg/3 Ml) 3 ml NEB QID [facility] Last Admin: 12/06/17 20:15 Dose: 3 ml Fluconazole (Diflucan) 150 mg PO ONETIME ONE Stop: 12/05/17 09:01 Last Admin: 12/05/17 08:55 Dose: 150 mg Furosemide (Lasix) 40 mg IVPUSH NOW ONE Stop: 12/03/17 07:31 Last Admin: 12/03/17 07:47 Dose: 40 mg Furosemide (Lasix) 40 mg IVPUSH NOW ONE Stop: 12/04/17 18:22 Last Admin: 12/04/17 18:26 Dose: 40 mg Furosemide (Lasix) 40 mg IVPUSH ONETIME ONE Stop: 12/05/17 08:01 Last Admin: 12/05/17 08:54 Dose: 40 mg Furosemide (Lasix) 20 mg IVPUSH NOW ONE Stop: 12/08/17 11:02 Last Admin: 12/08/17 11:41 Dose: 20 mg Furosemide (Lasix) 20 mg IVPUSH ONETIME ONE Stop: 12/08/17 15:39 Last Admin: 12/08/17 15:55 Dose: 20 mg Piperacillin Sod/Tazobactam (Sod 4.5 gm/ Sodium Chloride) 100 mls @ 25 mls/hr IV Q8H [facility] Last Admin: 12/07/17 08:05 Dose: 25 mls/hr Vancomycin HCl 1 gm/ Sodium (Chloride) 250 mls @ 250 mls/hr IV Q24H [facility] Last Admin: 12/03/17 15:29 Dose: 250 mls/hr Piperacillin Sod/Tazobactam (Sod 4.5 gm/ Sodium Chloride) 100 mls @ 400 mls/hr IV ONETIME ONE Stop: 12/03/17 16:14 Last Admin: 12/03/17 16:41 Dose: 400 mls/hr Sodium Chloride (Normal Saline) 1,000 mls @ 50 mls/hr IV ASDIRECTED [facility] Last Infusion: 12/03/17 21:30 Dose: Infused Sodium Chloride (Normal Saline) 1,000 mls @ 75 mls/hr IV ASDIRECTED [facility] Last Admin: 12/06/17 02:00 Dose: 50 mls/hr Vancomycin HCl 1 gm/ Sodium (Chloride) 250 mls @ 250 mls/hr IV Q12H [facility] Last Admin: 12/05/17 11:48 Dose: 250 mls/hr Magnesium Sulfate 2 gm/ Premix 50 mls @ 25 mls/hr IV ONETIME ONE Stop: 12/04/17 11:46 Last Admin: 12/04/17 10:39 Dose: 25 mls/hr Vancomycin HCl 1 gm/ Sodium (Chloride) 250 mls @ 250 mls/hr IV Q18H [facility] Last Admin: 12/07/17 04:10 Dose: 250 mls/hr Magnesium Sulfate 2 gm/ Premix 50 mls @ 25 mls/hr IV ONETIME ONE Stop: 12/05/17 15:24 Last Admin: 12/05/17 13:46 Dose: 25 mls/hr Magnesium Sulfate 2 gm/ Premix 50 mls @ 25 mls/hr IV ONETIME ONE Stop: 12/07/17 11:52 Last Admin: 12/07/17 11:12 Dose: Not Given Magnesium Sulfate 2 gm/ Premix 50 mls @ 25 mls/hr IV ONETIME ONE Stop: 12/07/17 13:59 Last Admin: 05/30/18 12:18 Dose: 25 mls/hr Sodium Bicarbonate 150 meq/ (Dextrose/Water) 1,150 mls @ 100 mls/hr IV ONETIME ONE Stop: 12/09/17 03:08 Last Admin: 12/08/17 15:48 Dose: 100 mls/hr Insulin Aspart (Novolog) 0 unit SUBCUT QIDACANDBED [facility]; Protocol Last Admin: 12/03/17 19:06 Dose: Not Given Insulin Aspart (Novolog) 0 unit SUBCUT Q6H [facility]; Protocol Last Admin: 12/05/17 02:00 Dose: 7 units Insulin Aspart (Novolog) 0 unit SUBCUT Q6HR [facility]; Protocol Last Admin: 12/06/17 18:28 Dose: 10 units Insulin Aspart (Novolog) 0 unit SUBCUT QIDACANDBED [facility]; Protocol Last Admin: 12/09/17 22:21 Dose: Not Given Insulin Aspart (Novolog) 0 unit SUBCUT Q6H [facility]; Protocol Last Admin: 12/09/17 20:09 Dose: Not Given Megestrol Acetate (Megace) 40 mg PO BID [facility] Last Admin: 12/05/17 12:23 Dose: Not Given Methylprednisolone Sodium Succinate (Solu-Medrol) 80 mg IVPUSH DAILY@1800 [facility] Last Admin: 12/08/17 18:19 Dose: 80 mg Potassium Chloride (Klor-Con M20) 40 meq PO BID [facility] Stop: 12/06/17 09:01 Last Admin: 12/06/17 08:56 Dose: 40 meq Sodium Bicarbonate (Sodium Bicarbonate 8.4%) Confirm Administered Dose 100 meq .ROUTE .STK-MED ONE Stop: 12/08/17 15:11 Last Admin: 12/08/17 15:10 Dose: 100 meq Sodium Bicarbonate (Sodium Bicarbonate 8.4%) 100 meq IVPUSH ONETIME ONE Stop: 12/08/17 15:17 Last Admin: 12/08/17 16:09 Dose: Not Given Vancomycin HCl (Pharmacy To Dose - Vancomycin) 0 dose .XX ASDIRECTED PRN PRN Reason: RX TO DOSE VANCOMYCIN - Exam Quality Assessment: Supplemental Oxygen, Urine Catheter, DVT Prophylaxis General: Alert, Oriented, Cooperative, No Acute Distress HEENT: Pupils Equal, Pupils Reactive, EOMI Neck: Trachea Midline, No JVD Lungs: Normal Respiratory Effort, Decreased Breath Sounds, Rhonchi Cardiovascular: Regular Rate, Regular Rhythm GI/Abdominal Exam: Normal Bowel Sounds, Soft, Non-Tender, No Organomegaly, No Distention (Female) Exam: Deferred Back Exam: Normal Inspection Extremities: Normal Inspection, Normal Capillary Refill Skin: Warm Neurological: No New Focal Deficit, Normal Speech Psy/Mental Status: Alert, Depressed - Problem List Review Problem List Initiated/Reviewed/Updated: Yes - My Orders Last 24 Hours: My Active Orders 12/09/17 15:00 methylPREDNISolone Sod Succ [Solu-MEDROL] 125 mg IVPUSH Q8H 12/09/17 21:00 Insulin Detemir [Levemir] 5 unit SUBCUT BID 12/09/17 [employer]inner [employer] Dysphagia Diet [DIET] 12/10/17 12:50 BMP [BASIC METABOLIC PANEL,BMP] [CHEM] Routine CBC WITH AUTO DIFF [HEME] Routine GLUCOSE RANDOM [CHEM] Routine MAGNESIUM [CHEM] Routine - Plan Plan:: Impression: Acute respiratory distress, hypercapnia-->NEW occurence after 4 hours on NC S/P Rapid response--received 2 amps of NaHCO3 during response and subsequently was started on sod bicarb gtt. Hx of prolong intubation, s/p tracheostomy BIPAP adjust settings with improved VT; solumedrol Hypercapnic-->received NaHCO3 gtt with good results Decrease responsiveness--ruled out CVA Paroxysmal A fib--<30 minutes in the time frrame of Rapid response Hx of COPD Hx of CKD, II Hyponatremia--corrected Hyperkalemia--corrected Diabetes mellitus, profound hyperglycemia; insulin gtt started per protocol Deconditioned-- PT/OT today Depression--continue Celexa, Wellbutrin Chronic Fe deficiency PUD Hypothyroid HTN HLD Macular degeneration CAD/WI s/p CABG Plan: Insulin gtt started for improved BS management; SS as needed. Correct electrolytes IV steroids added, continue Pulmicort; negative PETERSEN for PNA Increase time as tolerated on NC-->failed challenge; resume BIPAP Resp infection work up w/isolation MRSA screen Nebs scheduled/prn Titrate O2 sat>92%; CO2<65 as tolerated; increase use of NC if tolerated follow ABG; pulse ox Increase activity level-->up three time daily Adjust BiPAP as needed for above Maintain IVF for UO, lasix prn with IVF suport ADA diet advance as tolerated Clarify tube feeds is calorie input is inadequate PT/OT for deconditioning on hold after Rapid Response MS tele room near ICU DVT/GI prophylaxis LOS>96 hours, very slow response to treatment Family meeting 40 minutes; critical care 20 minutes
[2017-12-10] MEDS ORDERED: Magnesium Sulfate/Water 2 GM in Premix Bag 1 BAG IV ONE (14:07)
[2017-12-10] MEDS: Enoxaparin 40 MG/0.4 ML Syringe SUBCUT SCH (15:33)
[2017-12-10] MEDS: Morphine 2 MG/ML Syringe IVPUSH PRN (15:59)
[2017-12-10] MEDS ORDERED: Insulin Detemir 100 Units/ML 3 ML Pen SUBCUT ONE (17:53)
[2017-12-10] MEDS: Losartan 25 MG Tab PO SCH (18:07)
[2017-12-10] MEDS: Rosuvastatin 10 MG Tab PO SCH (20:12)
[2017-12-11] MEDS: methylPREDNISolone Sodium Succinate 125 MG/2 ML SDV IVPUSH SCH ×3 (06:06→23:50)
[2017-12-11] MEDS: Levothyroxine 100 MCG Tab PO SCH (06:08)
[2017-12-11] MEDS: Pantoprazole 40 MG Tab.CR PO SCH (06:08)
[2017-12-11] MEDS: Insulin Aspart 100 Units/ML 3 ML Pen SUBCUT SCH ×3 (06:09→23:55)
[2017-12-11] MEDS: Budesonide 0.25 MG/2 ML Neb Susp NEB SCH (06:26)
[2017-12-11] MEDS: Albuterol/Ipratropium 3.0-0.5 MG/3 ML Neb Soln NEB SCH ×4 (06:26→20:59)
[2017-12-11] MEDS: Saccharomyces Boulardii (Probiotic) 250 MG Cap PO SCH (08:41)
[2017-12-11] MEDS: Citalopram 20 MG Tab PO SCH (08:42)
[2017-12-11] MEDS: rOPINIRole 1 MG Tab PO SCH ×2 (08:42→20:51)
[2017-12-11] MEDS: Fluconazole 100 MG Tab PO SCH (08:43)
[2017-12-11] MEDS: Metoclopramide 10 MG Tab PO SCH ×4 (08:43→20:51)
[2017-12-11] MEDS: buPROPion 150 MG Tab.ER PO SCH (08:43)
[2017-12-11] MEDS: Losartan 25 MG Tab PO SCH (08:43)
[2017-12-11] MEDS: Multivitamins,Therapeutic Tab PO SCH (08:44)
[2017-12-11] MEDS: Aspirin 81 MG Tab.Chew PO SCH (08:44)
[2017-12-11] MEDS: Ferrous Sulfate 325 MG Tab PO SCH (08:44)
[2017-12-11] MEDS: Megestrol Susp 40 MG/ML 10 ML UD Cup PO SCH ×2 (08:44→20:51)
[2017-12-11] MEDS: Insulin Detemir 100 Units/ML 3 ML Pen SUBCUT SCH (08:45)
[2017-12-11] MEDS: Polyethylene Glycol 3350 Powder 17 GM Packet PO SCH (08:53)
[2017-12-11] MEDS ORDERED: Sodium Bicarbonate 150 MEQ in Dextrose 5% in Water 1,000 ML IV ONE ×2 (11:38)
[2017-12-11] MEDS ORDERED: Sodium Bicarbonate 8.4% 50 MEQ/50 ML Syringe ONE (12:22)
[2017-12-11] MEDS ORDERED: Dextrose 5% in Water 1,000 ML ONE (12:22)
--- NOTE | 2017-12-11 13:50 | PCM.PN ---
- General Info Date of Service: 12/11/17 Functional Status: Reports: Tolerating Diet, Urinating - Review of Systems General: Reports: Weakness HEENT: Reports: No Symptoms Pulmonary: Reports: No Symptoms Cardiovascular: Reports: No Symptoms Gastrointestinal: Reports: No Symptoms Genitourinary: Reports: No Symptoms Musculoskeletal: Reports: No Symptoms Skin: Reports: No Symptoms Neurological: Reports: No Symptoms Psychiatric: Reports: No Symptoms - Patient Data Vitals - Most Recent: Last Vital Signs Temp 37.2 C 12/11/17 12:00 Pulse 97 12/11/17 12:00 Resp 24 H 12/11/17 12:00 BP 164/83 H 12/11/17 12:00 Pulse Ox 95 12/11/17 12:00 Weight - Most Recent: 75.024 kg I&O - Last 24 Hours: Intake & Output 12/10/17 12/11/17 12/11/17 22:59 06:59 14:59 Intake Total 600 330 485 Output Total 1125 420 165 Balance -525 -90 320 Lab Results Last 24 Hours: Laboratory Results - last 24 hr 12/10/17 12/10/17 12/10/17 Range/Units 17:05 18:15 22:35 WBC (3.98-10.04) K/mm3 RBC (3.98-5.22) M/mm3 Hgb (11.2-15.7) gm/L Hct (34.1-44.9) % MCV (79.4-94.8) fl MCH (25.6-32.2) pg MCHC (32.2-35.5) g/dl RDW Std Deviation (36.4-46.3) fL Plt Count (182-369) K/mm3 MPV (9.4-12.3) fl Neut % (Auto) (34.0-71.1) % Lymph % (Auto) (19.3-51.7) % [place] % (Auto) (4.7-12.5) % Eos % (Auto) (0.7-5.8) Baso % (Auto) (0.1-1.2) % Neut # (Auto) (1.56-6.13) K/mm3 Lymph # (Auto) (1.18-3.74) K/mm3 [place] # (Auto) (0.24-0.36) K/mm3 Eos # (Auto) (0.04-0.36) K/mm3 Baso # (Auto) (0.01-0.08) K/mm3 Manual Slide Review Puncture Site Rt radial ABG pH 7.31 L (7.35-7.45) ABG pCO2 84.3 H* (35.0-45.0) mmHg ABG pO2 62.0 L (80.0-100.0) mmHg ABG HCO3 41.0 H (22.0-26.0) meq/L ABG O2 Saturation 88.9 L (96.0-97.0) % ABG Base Excess 12.3 H (-2-2.0) Will Test Positive A-a Gradient 12 mmHg O2 Delivery Device Nasal cannula Oxygen Flow Rate 2.0 FiO2 28.00 (21.00-100.00) % Sodium (136-145) mEq/L Potassium (3.5-5.1) mEq/L Chloride (98-107) mEq/L Carbon Dioxide (21-32) mEq/L Anion Gap (5-15) BUN (7-18) mg/dL Creatinine (0.55-1.02) mg/dL Est Cr Clr Drug Dosing mL/min Estimated GFR (MDRD) (>60) mL/min BUN/Creatinine Ratio (14-18) Glucose 411 H 484 H (80-115) mg/dL POC Glucose (80-115) mg/dL Calcium (8.5-10.1) mg/dL Magnesium (1.8-2.4) mg/dl NT-Pro-B Natriuret Pep (0-125) pg/mL 12/11/17 12/11/17 12/11/17 Range/Units 06:04 10:58 10:58 WBC 8.56 (3.98-10.04) K/mm3 RBC 3.40 L (3.98-5.22) M/mm3 Hgb 10.2 L (11.2-15.7) gm/L Hct 35.1 (34.1-44.9) % MCV 103.2 H (79.4-94.8) fl MCH 30.0 (25.6-32.2) pg MCHC 29.1 L (32.2-35.5) g/dl RDW Std Deviation 58.9 H (36.4-46.3) fL Plt Count 423 H (182-369) K/mm3 MPV 11.4 (9.4-12.3) fl Neut % (Auto) 90.2 H (34.0-71.1) % Lymph % (Auto) 5.1 L (19.3-51.7) % [place] % (Auto) 3.9 L (4.7-12.5) % Eos % (Auto) 0 L (0.7-5.8) Baso % (Auto) 0.1 (0.1-1.2) % Neut # (Auto) 7.72 H (1.56-6.13) K/mm3 Lymph # (Auto) 0.44 L (1.18-3.74) K/mm3 [place] # (Auto) 0.33 (0.24-0.36) K/mm3 Eos # (Auto) 0.00 L (0.04-0.36) K/mm3 Baso # (Auto) 0.01 (0.01-0.08) K/mm3 Manual Slide Review Abnormal smear Puncture Site ABG pH (7.35-7.45) ABG pCO2 (35.0-45.0) mmHg ABG pO2 (80.0-100.0) mmHg ABG HCO3 (22.0-26.0) meq/L ABG O2 Saturation (96.0-97.0) % ABG Base Excess (-2-2.0) Will Test A-a Gradient mmHg O2 Delivery Device Oxygen Flow Rate FiO2 (21.00-100.00) % Sodium 144 (136-145) mEq/L Potassium 4.5 (3.5-5.1) mEq/L Chloride 104 (98-107) mEq/L Carbon Dioxide 43 H* (21-32) mEq/L Anion Gap 1.5 L (5-15) BUN 26 H (7-18) mg/dL Creatinine 1.0 (0.55-1.02) mg/dL Est Cr Clr Drug Dosing 42.59 mL/min Estimated GFR (MDRD) 55 (>60) mL/min BUN/Creatinine Ratio 26.0 H (14-18) Glucose 409 H (80-115) mg/dL POC Glucose 333 H (80-115) mg/dL Calcium 9.7 (8.5-10.1) mg/dL Magnesium 2.2 (1.8-2.4) mg/dl NT-Pro-B Natriuret Pep (0-125) pg/mL 12/11/17 Range/Units 10:58 WBC (3.98-10.04) K/mm3 RBC (3.98-5.22) M/mm3 Hgb (11.2-15.7) gm/L Hct (34.1-44.9) % MCV (79.4-94.8) fl MCH (25.6-32.2) pg MCHC (32.2-35.5) g/dl RDW Std Deviation (36.4-46.3) fL Plt Count (182-369) K/mm3 MPV (9.4-12.3) fl Neut % (Auto) (34.0-71.1) % Lymph % (Auto) (19.3-51.7) % [place] % (Auto) (4.7-12.5) % Eos % (Auto) (0.7-5.8) Baso % (Auto) (0.1-1.2) % Neut # (Auto) (1.56-6.13) K/mm3 Lymph # (Auto) (1.18-3.74) K/mm3 [place] # (Auto) (0.24-0.36) K/mm3 Eos # (Auto) (0.04-0.36) K/mm3 Baso # (Auto) (0.01-0.08) K/mm3 Manual Slide Review Puncture Site ABG pH (7.35-7.45) ABG pCO2 (35.0-45.0) mmHg ABG pO2 (80.0-100.0) mmHg ABG HCO3 (22.0-26.0) meq/L ABG O2 Saturation (96.0-97.0) % ABG Base Excess (-2-2.0) Will Test A-a Gradient mmHg O2 Delivery Device Oxygen Flow Rate FiO2 (21.00-100.00) % Sodium (136-145) mEq/L Potassium (3.5-5.1) mEq/L Chloride (98-107) mEq/L Carbon Dioxide (21-32) mEq/L Anion Gap (5-15) BUN (7-18) mg/dL Creatinine (0.55-1.02) mg/dL Est Cr Clr Drug Dosing mL/min Estimated GFR (MDRD) (>60) mL/min BUN/Creatinine Ratio (14-18) Glucose (80-115) mg/dL POC Glucose (80-115) mg/dL Calcium (8.5-10.1) mg/dL Magnesium (1.8-2.4) mg/dl NT-Pro-B Natriuret Pep 5292 H (0-125) pg/mL Med Orders - Current: Current Medications Acetaminophen (Tylenol) 650 mg PO Q6H PRN PRN Reason: Pain/Fever Albuterol (Proventil Neb Soln) 2.5 mg NEB Q4HRRT PRN PRN Reason: Shortness of Breath Last Admin: 12/09/17 02:58 Dose: 2.5 mg Albuterol/Ipratropium (Duoneb 3.0-0.5 Mg/3 Ml) 3 ml NEB QIDRT [facility] Last Admin: 12/11/17 09:49 Dose: 3 ml Aspirin (Aspirin) 81 mg PO DAILY [facility] Last Admin: 12/11/17 08:44 Dose: 81 mg Bisacodyl (Dulcolax) 10 mg RECTAL DAILY PRN PRN Reason: Constipation Budesonide (Pulmicort) 0.25 mg NEB BIDRT [facility] Last Admin: 12/11/17 06:26 Dose: 0.25 mg Bupropion HCl (Wellbutrin Xl) 150 mg PO DAILY [facility] Last Admin: 12/11/17 08:43 Dose: 150 mg Citalopram Hydrobromide (Celexa) 40 mg PO DAILY [facility] Last Admin: 12/11/17 08:42 Dose: 40 mg Dextrose/Water (Dextrose 50% In Water) 50 ml IVPUSH ASDIRECTED PRN PRN Reason: Hypoglycemia Enoxaparin Sodium (Lovenox) 40 mg SUBCUT Q24H [facility] Last Admin: 12/10/17 15:33 Dose: 40 mg Ferrous Sulfate (Ferrous Sulfate) 325 mg PO DAILY [facility] Last Admin: 12/11/17 08:44 Dose: 325 mg Fluconazole (Diflucan) 100 mg PO DAILY [facility] Last Admin: 12/11/17 08:43 Dose: 100 mg Hydralazine HCl (Apresoline) 20 mg IVPUSH Q6H PRN PRN Reason: Hypertension Last Admin: 12/10/17 23:14 Dose: 20 mg Sodium Bicarbonate 150 meq/ (Dextrose/Water) 1,150 mls @ 100 mls/hr IV ONETIME ONE Stop: 12/11/17 23:07 Last Admin: 12/11/17 12:39 Dose: 100 mls/hr Insulin Aspart (Novolog) 0 unit SUBCUT Q6HR [facility]; Protocol Last Admin: 12/11/17 12:48 Dose: 15 units Insulin Detemir (Levemir) 8 unit SUBCUT BID [facility] Last Admin: 12/11/17 08:45 Dose: 8 units Levothyroxine Sodium (Synthroid) 50 mcg PO ACBREAKFAST [facility] Last Admin: 12/11/17 06:08 Dose: 50 mcg Losartan Potassium (Cozaar) 25 mg PO DAILY [facility] Last Admin: 12/11/17 08:43 Dose: 25 mg Megestrol Acetate (Megace 40 Mg/Ml Susp) 400 mg PO BID [facility] Last Admin: 12/11/17 08:44 Dose: 400 mg Methylprednisolone Sodium Succinate (Solu-Medrol) 125 mg IVPUSH Q8H [facility] Last Admin: 12/11/17 06:06 Dose: 125 mg Metoclopramide HCl (Reglan) 10 mg PO QID [facility] Last Admin: 12/11/17 13:22 Dose: 10 mg Metoprolol Tartrate (Lopressor) 5 mg IVPUSH Q4H PRN PRN Reason: Tachycardia Morphine Sulfate (Morphine) 0.5 mg IVPUSH Q4H PRN PRN Reason: Shortness of Breath Last Admin: 12/10/17 15:59 Dose: 0.5 mg Multivitamins (Thera) 1 each PO DAILY [facility] Last Admin: 12/11/17 08:44 Dose: 1 each Ondansetron HCl (Zofran) 4 mg IVPUSH Q8H PRN PRN Reason: Nausea/Vomiting Pantoprazole Sodium (Protonix) 40 mg PO DAILY@0700 [facility] Last Admin: 12/11/17 06:08 Dose: 40 mg Polyethylene Glycol (Miralax) 17 gm PO DAILY [facility] Last Admin: 12/11/17 08:53 Dose: Not Given Ropinirole HCl (Requip) 1 mg PO BID [facility] Last Admin: 12/11/17 08:42 Dose: 1 mg Rosuvastatin Calcium (Crestor) 10 mg PO BEDTIME [facility] Last Admin: 12/10/17 20:12 Dose: 10 mg Saccharomyces Boulardii (Florastor) 500 mg PO DAILY [facility] Last Admin: 12/11/17 08:41 Dose: 500 mg Senna/Docusate Sodium (Senna Plus) 2 tab PO BID [facility] Last Admin: 12/11/17 08:44 Dose: Not Given Sodium Chloride (Saline Flush) 10 ml FLUSH ASDIRECTED PRN PRN Reason: Keep Vein Open Last Admin: 12/03/17 07:55 Dose: 10 ml Tramadol HCl (Ultram) 50 mg PO TID PRN PRN Reason: Pain (moderate 4-6) Last Admin: 12/07/17 10:39 Dose: 50 mg Discontinued Medications Albuterol/Ipratropium (Duoneb 3.0-0.5 Mg/3 Ml) 3 ml NEB QID [facility] Last Admin: 12/06/17 20:15 Dose: 3 ml Fluconazole (Diflucan) 150 mg PO ONETIME ONE Stop: 12/05/17 09:01 Last Admin: 12/05/17 08:55 Dose: 150 mg Furosemide (Lasix) 40 mg IVPUSH NOW ONE Stop: 12/03/17 07:31 Last Admin: 12/03/17 07:47 Dose: 40 mg Furosemide (Lasix) 40 mg IVPUSH NOW ONE Stop: 12/04/17 18:22 Last Admin: 12/04/17 18:26 Dose: 40 mg Furosemide (Lasix) 40 mg IVPUSH ONETIME ONE Stop: 12/05/17 08:01 Last Admin: 12/05/17 08:54 Dose: 40 mg Furosemide (Lasix) 20 mg IVPUSH NOW ONE Stop: 12/08/17 11:02 Last Admin: 12/08/17 11:41 Dose: 20 mg Furosemide (Lasix) 20 mg IVPUSH ONETIME ONE Stop: 12/08/17 15:39 Last Admin: 12/08/17 15:55 Dose: 20 mg Piperacillin Sod/Tazobactam (Sod 4.5 gm/ Sodium Chloride) 100 mls @ 25 mls/hr IV Q8H [facility] Last Admin: 12/07/17 08:05 Dose: 25 mls/hr Vancomycin HCl 1 gm/ Sodium (Chloride) 250 mls @ 250 mls/hr IV Q24H [facility] Last Admin: 12/03/17 15:29 Dose: 250 mls/hr Piperacillin Sod/Tazobactam (Sod 4.5 gm/ Sodium Chloride) 100 mls @ 400 mls/hr IV ONETIME ONE Stop: 12/03/17 16:14 Last Admin: 12/03/17 16:41 Dose: 400 mls/hr Sodium Chloride (Normal Saline) 1,000 mls @ 50 mls/hr IV ASDIRECTED [facility] Last Infusion: 12/03/17 21:30 Dose: Infused Sodium Chloride (Normal Saline) 1,000 mls @ 75 mls/hr IV ASDIRECTED [facility] Last Admin: 12/06/17 02:00 Dose: 50 mls/hr Vancomycin HCl 1 gm/ Sodium (Chloride) 250 mls @ 250 mls/hr IV Q12H [facility] Last Admin: 12/05/17 11:48 Dose: 250 mls/hr Magnesium Sulfate 2 gm/ Premix 50 mls @ 25 mls/hr IV ONETIME ONE Stop: 12/04/17 11:46 Last Admin: 12/04/17 10:39 Dose: 25 mls/hr Vancomycin HCl 1 gm/ Sodium (Chloride) 250 mls @ 250 mls/hr IV Q18H [facility] Last Admin: 12/07/17 04:10 Dose: 250 mls/hr Magnesium Sulfate 2 gm/ Premix 50 mls @ 25 mls/hr IV ONETIME ONE Stop: 12/05/17 15:24 Last Admin: 12/05/17 13:46 Dose: 25 mls/hr Sodium Chloride (Normal Saline) 1,000 mls @ 50 mls/hr IV ASDIRECTED [facility] Last Admin: 12/09/17 11:08 Dose: 50 mls/hr Magnesium Sulfate 2 gm/ Premix 50 mls @ 25 mls/hr IV ONETIME ONE Stop: 12/07/17 11:52 Last Admin: 12/07/17 11:12 Dose: Not Given Magnesium Sulfate 2 gm/ Premix 50 mls @ 25 mls/hr IV ONETIME ONE Stop: 12/07/17 13:59 Last Admin: 12/07/17 12:18 Dose: 25 mls/hr Sodium Bicarbonate 150 meq/ (Dextrose/Water) 1,150 mls @ 100 mls/hr IV ONETIME ONE Stop: 12/09/17 03:08 Last Admin: 12/08/17 15:48 Dose: 100 mls/hr Magnesium Sulfate 2 gm/ Premix 50 mls @ 25 mls/hr IV ONETIME ONE Stop: 12/10/17 16:06 Last Admin: 12/10/17 14:27 Dose: 25 mls/hr Dextrose/Water (Dextrose 5% In Water) Confirm Administered Dose 1,000 mls @ as directed .ROUTE .STK-MED ONE Stop: 12/11/17 12:23 Last Admin: 12/11/17 12:52 Dose: Not Given Insulin Aspart (Novolog) 0 unit SUBCUT QIDACANDBED [facility]; Protocol Last Admin: 12/03/17 19:06 Dose: Not Given Insulin Aspart (Novolog) 0 unit SUBCUT Q6H [facility]; Protocol Last Admin: 12/05/17 02:00 Dose: 7 units Insulin Aspart (Novolog) 0 unit SUBCUT Q6HR [facility]; Protocol Last Admin: 12/06/17 18:28 Dose: 10 units Insulin Aspart (Novolog) 0 unit SUBCUT QIDACANDBED [facility]; Protocol Last Admin: 12/09/17 22:21 Dose: Not Given Insulin Aspart (Novolog) 0 unit SUBCUT Q6H [facility]; Protocol Last Admin: 12/09/17 20:09 Dose: Not Given Insulin Aspart (Novolog) 0 unit SUBCUT Q6HR [facility]; Protocol Last Admin: 12/10/17 12:35 Dose: 12 units Insulin Detemir (Levemir) 5 unit SUBCUT BID [facility] Last Admin: 12/10/17 09:12 Dose: 5 units Insulin Detemir (Levemir) 8 unit SUBCUT ONETIME ONE Stop: 12/10/17 17:54 Last Admin: 12/10/17 18:07 Dose: 8 units Megestrol Acetate (Megace) 40 mg PO BID [facility] Last Admin: 12/05/17 12:23 Dose: Not Given Methylprednisolone Sodium Succinate (Solu-Medrol) 80 mg IVPUSH DAILY@1800 [facility] Last Admin: 12/08/17 18:19 Dose: 80 mg Potassium Chloride (Klor-Con M20) 40 meq PO BID [facility] Stop: 12/06/17 09:01 Last Admin: 12/06/17 08:56 Dose: 40 meq Sodium Bicarbonate (Sodium Bicarbonate 8.4%) Confirm Administered Dose 100 meq .ROUTE .STK-MED ONE Stop: 12/08/17 15:11 Last Admin: 12/08/17 15:10 Dose: 100 meq Sodium Bicarbonate (Sodium Bicarbonate 8.4%) 100 meq IVPUSH ONETIME ONE Stop: 12/08/17 15:17 Last Admin: 12/08/17 16:09 Dose: Not Given Sodium Bicarbonate (Sodium Bicarbonate 8.4%) Confirm Administered Dose 150 meq .ROUTE .STK-MED ONE Stop: 12/11/17 12:23 Last Admin: 12/11/17 12:52 Dose: Not Given Vancomycin HCl (Pharmacy To Dose - Vancomycin) 0 dose .XX ASDIRECTED PRN PRN Reason: RX TO DOSE VANCOMYCIN - Exam Quality Assessment: Supplemental Oxygen, Urine Catheter, DVT Prophylaxis General: Alert, Oriented, Cooperative, No Acute Distress HEENT: Pupils Equal, Pupils Reactive, EOMI Neck: Trachea Midline, No JVD Lungs: Normal Respiratory Effort, Decreased Breath Sounds, Rhonchi Cardiovascular: Regular Rate, Regular Rhythm GI/Abdominal Exam: Normal Bowel Sounds, Soft, Non-Tender, No Organomegaly, No Distention (Female) Exam: Deferred Back Exam: Normal Inspection Extremities: Normal Inspection, Non-Tender, Normal Capillary Refill, Pedal Edema (UE>LE) Skin: Warm Neurological: No New Focal Deficit Psy/Mental Status: Alert, Depressed - Problem List Review Problem List Initiated/Reviewed/Updated: Yes - My Orders Last 24 Hours: My Active Orders 12/10/17 18:00 Insulin Aspart [NovoLOG] See Protocol SUBCUT Q6HR Losartan [Cozaar] 25 mg PO DAILY 12/10/17 21:00 Insulin Detemir [Levemir] 8 unit SUBCUT BID 12/11/17 11:38 Sodium Bicarbonate [Sodium Bicarbonate 8.4%] 150 meq Dextrose 5% in Water 1, 000 ml IV ONETIME 12/11/17 13:44 GLUCOSE RANDOM [CHEM] Routine 12/11/17 17:00 BMP [BASIC METABOLIC PANEL,BMP] [CHEM] Routine - Plan Plan:: Impression: Acute respiratory distress, hypercapnia-->NEW occurence after 4 hours on NC S/P Rapid response--received 2 amps of NaHCO3 during response and subsequently was started on sod bicarb gtt. Hx of prolong intubation, s/p tracheostomy BIPAP adjust settings with improved VT; solumedrol Hypercapnic-->received NaHCO3 gtt with good results Decrease responsiveness--ruled out CVA Paroxysmal A fib--<30 minutes in the time frrame of Rapid response Hx of COPD Hx of CKD, II Hyponatremia--corrected Hyperkalemia--corrected Diabetes mellitus, profound hyperglycemia; insulin gtt started per protocol Deconditioned-- PT/OT today Depression--continue Celexa, Wellbutrin Chronic Fe deficiency PUD Hypothyroid HTN HLD Macular degeneration CAD/MS s/p CABG Plan: Insulin gtt continue for improved BS management; SS as needed. Correct electrolytes IV steroids added, continue Pulmicort; negative PETERSEN for PNA Increase time as tolerated on NC-->failed challenge; resume BIPAP Resp infection work up w/isolation MRSA screen Nebs scheduled/prn Titrate O2 sat>92%; CO2<65 as tolerated; increase use of NC if tolerated follow ABG; pulse ox Increase activity level-->up three time daily Adjust BiPAP as needed for above Maintain IVF for UO, lasix prn with IVF suport ADA diet advance as tolerated Clarify tube feeds is calorie input is inadequate PT/OT for deconditioning on hold after Rapid Response MS tele room near ICU DVT/GI prophylaxis LOS>96 hours, very slow response to treatment TUBE FEEDS HELD SINCE 12/09/17 PROVIDER REQUESTED--FOCUS OF CARE ACUTE RESP DECLINE; WILL LIKELY START TF ON 12/12/17. Critical care 20 minutes
[2017-12-11] MEDS: hydrALAZINE 20 MG/ML SDV IVPUSH PRN (14:29)
[2017-12-11] MEDS: Albuterol 0.083% 2.5 MG/3 ML Neb Soln NEB PRN (14:53)
[2017-12-11] MEDS: Enoxaparin 40 MG/0.4 ML Syringe SUBCUT SCH (15:48)
[2017-12-11] MEDS ORDERED: Racepinephrine 2.25% 0.5 ML Neb Soln ONE (17:34)
[2017-12-11] MEDS: Budesonide 0.5 MG/2 ML Neb Susp NEB SCH (17:45)
[2017-12-11] MEDS: Racepinephrine 2.25% 0.5 ML Neb Soln NEB SCH (17:45)
[2017-12-11] MEDS: Rosuvastatin 10 MG Tab PO SCH (20:51)
[2017-12-12] MEDS: Racepinephrine 2.25% 0.5 ML Neb Soln NEB SCH ×4 (00:13→18:35)
[2017-12-12] MEDS: Budesonide 0.25 MG/2 ML Neb Susp NEB SCH (00:13)
[2017-12-12] MEDS: Budesonide 0.5 MG/2 ML Neb Susp NEB SCH ×4 (00:17→18:35)
[2017-12-12] MEDS: traMADol 50 MG Tab PO PRN ×2 (02:02→21:50)
[2017-12-12] MEDS: Insulin Aspart 100 Units/ML 3 ML Pen SUBCUT SCH ×4 (05:11→17:24)
[2017-12-12] MEDS: hydrALAZINE 20 MG/ML SDV IVPUSH PRN (05:41)
[2017-12-12] MEDS: Levothyroxine 100 MCG Tab PO SCH (05:58)
[2017-12-12] MEDS: Pantoprazole 40 MG Tab.CR PO SCH (06:00)
[2017-12-12] MEDS: methylPREDNISolone Sodium Succinate 125 MG/2 ML SDV IVPUSH SCH ×3 (06:00→22:10)
[2017-12-12] MEDS: Albuterol/Ipratropium 3.0-0.5 MG/3 ML Neb Soln NEB SCH ×4 (06:04→17:43)
--- NOTE | 2017-12-12 08:23 | CR ---
Chest: Portable view of the chest was obtained. Comparison: Prior chest x-ray of 12/08/17. Mild bibasilar atelectasis is seen with slight pulmonary vascular congestion. Heart is enlarged. Prior sternotomy is noted for CABG. Bony structures are osteopenic. Impression: 1. Fairly stable chest x-ray from previous exam. Diagnostic code #3 I agree with preliminary report from ad, finalized at 12/11/17, 7:24 PM Central Time
[2017-12-12] MEDS: rOPINIRole 1 MG Tab PO SCH ×2 (09:09→21:50)
[2017-12-12] MEDS: Megestrol Susp 40 MG/ML 10 ML UD Cup PO SCH ×2 (09:09→21:50)
[2017-12-12] MEDS: Losartan 25 MG Tab PO SCH (09:09)
[2017-12-12] MEDS: Citalopram 20 MG Tab PO SCH (09:09)
[2017-12-12] MEDS: Ferrous Sulfate 325 MG Tab PO SCH (09:09)
[2017-12-12] MEDS: Fluconazole 100 MG Tab PO SCH (09:09)
[2017-12-12] MEDS: Multivitamins,Therapeutic Tab PO SCH (09:09)
[2017-12-12] MEDS: Aspirin 81 MG Tab.Chew PO SCH (09:11)
[2017-12-12] MEDS: Polyethylene Glycol 3350 Powder 17 GM Packet PO SCH (09:11)
[2017-12-12] MEDS: buPROPion 150 MG Tab.ER PO SCH (09:11)
[2017-12-12] MEDS: Saccharomyces Boulardii (Probiotic) 250 MG Cap PO SCH (09:11)
[2017-12-12] MEDS: Metoclopramide 10 MG Tab PO SCH ×4 (09:11→21:50)
--- NOTE | 2017-12-12 11:10 | CR ---
Chest: Portable view of the chest was obtained. Comparison: Prior chest x-ray of 12/11/17. Increasing density within the right chest is seen from prior exam. Lung markings are mildly increased which appear stable. Heart size is slightly enlarged. Previous sternotomy from prior CABG. Osteopenia is present. Impression: 1. Increasing density within the right lung base from prior study. Differential includes worsening atelectasis versus developing pneumonia. 2. Other findings are stable. Diagnostic code #3
[2017-12-12] MEDS ORDERED: Piperacillin/Tazobactam 4.5 GM in Sodium Chloride 0.9% 100 ML IV SCH (11:15)
[2017-12-12] MEDS ORDERED: Levofloxacin/Dextrose 5%-Water 750 MG in Premix Bag 1 BAG IV SCH (12:00)
[2017-12-12] MEDS: Meropenem 500 MG in Sodium Chloride 0.9% 100 ML IV SCH ×2 (13:26→21:50)
[2017-12-12] MEDS ORDERED: Furosemide 20 MG/2 ML VIAL IVPUSH ONE (14:22)
[2017-12-12] MEDS: Enoxaparin 40 MG/0.4 ML Syringe SUBCUT SCH (15:23)
[2017-12-12] MEDS: Morphine 2 MG/ML Syringe IVPUSH PRN (15:54)
--- NOTE | 2017-12-12 18:14 | PCM.PN ---
- General Info Date of Service: 12/12/17 Functional Status: Reports: Tolerating Diet, Urinating - Review of Systems General: Reports: Weakness HEENT: Reports: No Symptoms Pulmonary: Reports: Shortness of Breath, Cough Cardiovascular: Reports: No Symptoms Gastrointestinal: Reports: No Symptoms Genitourinary: Reports: No Symptoms Musculoskeletal: Reports: No Symptoms Skin: Reports: No Symptoms Neurological: Reports: Confusion (decreased) Psychiatric: Reports: No Symptoms - Patient Data Vitals - Most Recent: Last Vital Signs Temp 37.1 C 12/12/17 16:00 Pulse 97 12/12/17 13:00 Resp 24 H 12/12/17 16:00 BP 153/73 H 12/12/17 16:00 Pulse Ox 97 12/12/17 16:00 Weight - Most Recent: 68.946 kg I&O - Last 24 Hours: Intake & Output 12/12/17 12/12/17 12/12/17 06:59 14:59 22:59 Intake Total 299 480 120 Output Total 350 340 200 Balance -51 140 -80 Lab Results Last 24 Hours: Laboratory Results - last 24 hr 12/11/17 12/11/17 12/11/17 Range/Units 19:27 20:15 21:27 Sodium 147 H (136-145) mEq/L Potassium 4.1 (3.5-5.1) mEq/L Chloride 104 (98-107) mEq/L Carbon Dioxide 45 H* (21-32) mEq/L Anion Gap 2.1 L (5-15) BUN 28 H (7-18) mg/dL Creatinine 1.1 H (0.55-1.02) mg/dL Est Cr Clr Drug Dosing 38.71 mL/min Estimated GFR (MDRD) 49 (>60) mL/min BUN/Creatinine Ratio 25.5 H (14-18) Glucose 355 H (80-115) mg/dL POC Glucose 372 H 293 H (80-115) mg/dL Calcium 9.5 (8.5-10.1) mg/dL 12/11/17 12/11/17 12/12/17 Range/Units 22:25 23:54 05:09 Sodium (136-145) mEq/L Potassium (3.5-5.1) mEq/L Chloride (98-107) mEq/L Carbon Dioxide (21-32) mEq/L Anion Gap (5-15) BUN (7-18) mg/dL Creatinine (0.55-1.02) mg/dL Est Cr Clr Drug Dosing mL/min Estimated GFR (MDRD) (>60) mL/min BUN/Creatinine Ratio () Glucose (80-115) mg/dL POC Glucose 284 H 209 H 178 H (80-115) mg/dL Calcium (8.5-10.1) mg/dL 12/12/17 12/12/17 12/12/17 Range/Units 07:57 11:48 13:14 Sodium (136-145) mEq/L Potassium (3.5-5.1) mEq/L Chloride (98-107) mEq/L Carbon Dioxide (21-32) mEq/L Anion Gap (5-15) BUN (7-18) mg/dL Creatinine (0.55-1.02) mg/dL Est Cr Clr Drug Dosing mL/min Estimated GFR (MDRD) (>60) mL/min BUN/Creatinine Ratio () Glucose 395 H 432 H (80-115) mg/dL POC Glucose 273 H (80-115) mg/dL Calcium (8.5-10.1) mg/dL 12/12/17 12/12/17 12/12/17 Range/Units 14:20 15:30 16:03 Sodium (136-145) mEq/L Potassium (3.5-5.1) mEq/L Chloride (98-107) mEq/L Carbon Dioxide (21-32) mEq/L Anion Gap (5-15) BUN (7-18) mg/dL Creatinine (0.55-1.02) mg/dL Est Cr Clr Drug Dosing mL/min Estimated GFR (MDRD) (>60) mL/min BUN/Creatinine Ratio () Glucose 435 H 411 H (80-115) mg/dL POC Glucose 379 H (80-115) mg/dL Calcium (8.5-10.1) mg/dL 12/12/17 Range/Units 17:05 Sodium (136-145) mEq/L Potassium (3.5-5.1) mEq/L Chloride (98-107) mEq/L Carbon Dioxide (21-32) mEq/L Anion Gap (5-15) BUN (7-18) mg/dL Creatinine (0.55-1.02) mg/dL Est Cr Clr Drug Dosing mL/min Estimated GFR (MDRD) (>60) mL/min BUN/Creatinine Ratio (14-18) Glucose (80-115) mg/dL POC Glucose 358 H (80-115) mg/dL Calcium (8.5-10.1) mg/dL Med Orders - Current: Current Medications Acetaminophen (Tylenol) 650 mg PO Q6H PRN PRN Reason: Pain/Fever Albuterol (Proventil Neb Soln) 2.5 mg NEB Q4HRRT PRN PRN Reason: Shortness of Breath Last Admin: 12/11/17 14:53 Dose: 2.5 mg Albuterol/Ipratropium (Duoneb 3.0-0.5 Mg/3 Ml) 3 ml NEB QIDRT [facility] Last Admin: 12/12/17 17:43 Dose: Not Given Aspirin (Aspirin) 81 mg PO DAILY [facility] Last Admin: 12/12/17 09:11 Dose: 81 mg Bisacodyl (Dulcolax) 10 mg RECTAL DAILY PRN PRN Reason: Constipation Budesonide (Pulmicort) 0.5 mg NEB Q6H [facility] Last Admin: 12/12/17 11:51 Dose: 0.5 mg Bupropion HCl (Wellbutrin Xl) 150 mg PO DAILY [facility] Last Admin: 12/12/17 09:11 Dose: 150 mg Citalopram Hydrobromide (Celexa) 40 mg PO DAILY [facility] Last Admin: 12/12/17 09:09 Dose: 40 mg Dextrose/Water (Dextrose 50% In Water) 50 ml IVPUSH ASDIRECTED PRN PRN Reason: Hypoglycemia Enoxaparin Sodium (Lovenox) 40 mg SUBCUT Q24H [facility] Last Admin: 12/12/17 15:23 Dose: 40 mg Ferrous Sulfate (Ferrous Sulfate) 325 mg PO DAILY [facility] Last Admin: 12/12/17 09:09 Dose: 325 mg Fluconazole (Diflucan) 100 mg PO DAILY [facility] Last Admin: 12/12/17 09:09 Dose: 100 mg Hydralazine HCl (Apresoline) 20 mg IVPUSH Q6H PRN PRN Reason: Hypertension Last Admin: 12/12/17 05:41 Dose: 20 mg Insulin Human Regular 100 unit (/ Sodium Chloride) 100 mls @ 7.5 mls/hr IV TITRATE [facility]; Protocol Last Titration: 12/12/17 17:07 Dose: Infused Meropenem 500 mg/ Sodium (Chloride) 100 mls @ 200 mls/hr IV Q8H [facility] Last Admin: 12/12/17 13:26 Dose: 200 mls/hr Levofloxacin/Dextrose 750 mg/ (Premix) 150 mls @ 100 mls/hr IV Q48H [facility] Last Admin: 12/12/17 11:24 Dose: 100 mls/hr Insulin Aspart (Novolog) 0 unit SUBCUT Q4H [facility]; Protocol Last Admin: 12/12/17 17:24 Dose: Not Given Levothyroxine Sodium (Synthroid) 50 mcg PO ACBREAKFAST [facility] Last Admin: 12/12/17 05:58 Dose: 50 mcg Losartan Potassium (Cozaar) 25 mg PO DAILY [facility] Last Admin: 12/12/17 09:09 Dose: 25 mg Megestrol Acetate (Megace 40 Mg/Ml Susp) 400 mg PO BID [facility] Last Admin: 12/12/17 09:09 Dose: 400 mg Methylprednisolone Sodium Succinate (Solu-Medrol) 125 mg IVPUSH Q8H [facility] Last Admin: 12/12/17 14:29 Dose: 125 mg Metoclopramide HCl (Reglan) 10 mg PO QID [facility] Last Admin: 12/12/17 16:18 Dose: 10 mg Metoprolol Tartrate (Lopressor) 5 mg IVPUSH Q4H PRN PRN Reason: Tachycardia Morphine Sulfate (Morphine) 0.5 mg IVPUSH Q4H PRN PRN Reason: Shortness of Breath Last Admin: 12/12/17 15:54 Dose: 0.5 mg Multivitamins (Thera) 1 each PO DAILY [facility] Last Admin: 12/12/17 09:09 Dose: 1 each Ondansetron HCl (Zofran) 4 mg IVPUSH Q8H PRN PRN Reason: Nausea/Vomiting Pantoprazole Sodium (Protonix) 40 mg PO DAILY@0700 [facility] Last Admin: 12/12/17 06:00 Dose: 40 mg Polyethylene Glycol (Miralax) 17 gm PO DAILY [facility] Last Admin: 12/12/17 09:11 Dose: 17 gm Racepinephrine (S-2 2.25%) 0.5 ml NEB Q6HR [facility] Last Admin: 12/12/17 11:51 Dose: 0.5 ml Ropinirole HCl (Requip) 1 mg PO BID [facility] Last Admin: 12/12/17 09:09 Dose: 1 mg Rosuvastatin Calcium (Crestor) 10 mg PO BEDTIME [facility] Last Admin: 12/11/17 20:51 Dose: 10 mg Saccharomyces Boulardii (Florastor) 500 mg PO DAILY [facility] Last Admin: 12/12/17 09:11 Dose: 500 mg Senna/Docusate Sodium (Senna Plus) 2 tab PO BID [facility] Last Admin: 12/12/17 09:09 Dose: 2 tab Sodium Chloride (Saline Flush) 10 ml FLUSH ASDIRECTED PRN PRN Reason: Keep Vein Open Last Admin: 12/03/17 07:55 Dose: 10 ml Tramadol HCl (Ultram) 50 mg PO TID PRN PRN Reason: Pain (moderate 4-6) Last Admin: 12/12/17 02:02 Dose: 50 mg Discontinued Medications Albuterol/Ipratropium (Duoneb 3.0-0.5 Mg/3 Ml) 3 ml NEB QID [facility] Last Admin: 12/06/17 20:15 Dose: 3 ml Budesonide (Pulmicort) 0.25 mg NEB BIDRT [facility] Last Admin: 12/12/17 00:13 Dose: 0.25 mg Fluconazole (Diflucan) 150 mg PO ONETIME ONE Stop: 12/05/17 09:01 Last Admin: 12/05/17 08:55 Dose: 150 mg Furosemide (Lasix) 40 mg IVPUSH NOW ONE Stop: 12/03/17 07:31 Last Admin: 12/03/17 07:47 Dose: 40 mg Furosemide (Lasix) 40 mg IVPUSH NOW ONE Stop: 12/04/17 18:22 Last Admin: 12/04/17 18:26 Dose: 40 mg Furosemide (Lasix) 40 mg IVPUSH ONETIME ONE Stop: 12/05/17 08:01 Last Admin: 12/05/17 08:54 Dose: 40 mg Furosemide (Lasix) 20 mg IVPUSH NOW ONE Stop: 12/08/17 11:02 Last Admin: 12/08/17 11:41 Dose: 20 mg Furosemide (Lasix) 20 mg IVPUSH ONETIME ONE Stop: 12/08/17 15:39 Last Admin: 12/08/17 15:55 Dose: 20 mg Furosemide (Lasix) 20 mg IVPUSH ONETIME ONE Stop: 12/12/17 14:23 Last Admin: 12/12/17 14:31 Dose: 20 mg Piperacillin Sod/Tazobactam (Sod 4.5 gm/ Sodium Chloride) 100 mls @ 25 mls/hr IV Q8H [facility] Last Admin: 12/07/17 08:05 Dose: 25 mls/hr Vancomycin HCl 1 gm/ Sodium (Chloride) 250 mls @ 250 mls/hr IV Q24H [facility] Last Admin: 12/03/17 15:29 Dose: 250 mls/hr Piperacillin Sod/Tazobactam (Sod 4.5 gm/ Sodium Chloride) 100 mls @ 400 mls/hr IV ONETIME ONE Stop: 12/03/17 16:14 Last Admin: 12/03/17 16:41 Dose: 400 mls/hr Sodium Chloride (Normal Saline) 1,000 mls @ 50 mls/hr IV ASDIRECTED [facility] Last Infusion: 12/03/17 21:30 Dose: Infused Sodium Chloride (Normal Saline) 1,000 mls @ 75 mls/hr IV ASDIRECTED [facility] Last Admin: 12/06/17 02:00 Dose: 50 mls/hr Vancomycin HCl 1 gm/ Sodium (Chloride) 250 mls @ 250 mls/hr IV Q12H [facility] Last Admin: 12/05/17 11:48 Dose: 250 mls/hr Magnesium Sulfate 2 gm/ Premix 50 mls @ 25 mls/hr IV ONETIME ONE Stop: 12/04/17 11:46 Last Admin: 12/04/17 10:39 Dose: 25 mls/hr Vancomycin HCl 1 gm/ Sodium (Chloride) 250 mls @ 250 mls/hr IV Q18H [facility] Last Admin: 12/07/17 04:10 Dose: 250 mls/hr Magnesium Sulfate 2 gm/ Premix 50 mls @ 25 mls/hr IV ONETIME ONE Stop: 12/05/17 15:24 Last Admin: 12/05/17 13:46 Dose: 25 mls/hr Sodium Chloride (Normal Saline) 1,000 mls @ 50 mls/hr IV ASDIRECTED [facility] Last Admin: 12/09/17 11:08 Dose: 50 mls/hr Magnesium Sulfate 2 gm/ Premix 50 mls @ 25 mls/hr IV ONETIME ONE Stop: 12/07/17 11:52 Last Admin: 12/07/17 11:12 Dose: Not Given Magnesium Sulfate 2 gm/ Premix 50 mls @ 25 mls/hr IV ONETIME ONE Stop: 12/07/17 13:59 Last Admin: 12/07/17 12:18 Dose: 25 mls/hr Sodium Bicarbonate 150 meq/ (Dextrose/Water) 1,150 mls @ 100 mls/hr IV ONETIME ONE Stop: 12/09/17 03:08 Last Admin: 12/08/17 15:48 Dose: 100 mls/hr Magnesium Sulfate 2 gm/ Premix 50 mls @ 25 mls/hr IV ONETIME ONE Stop: 12/10/17 16:06 Last Admin: 12/10/17 14:27 Dose: 25 mls/hr Sodium Bicarbonate 150 meq/ (Dextrose/Water) 1,150 mls @ 100 mls/hr IV ONETIME ONE Stop: 12/11/17 23:07 Last Admin: 12/11/17 12:39 Dose: 100 mls/hr Dextrose/Water (Dextrose 5% In Water) Confirm Administered Dose 1,000 mls @ as directed .ROUTE .STK-MED ONE Stop: 12/11/17 12:23 Last Admin: 12/11/17 12:52 Dose: Not Given Piperacillin Sod/Tazobactam (Sod 4.5 gm/ Sodium Chloride) 100 mls @ 25 mls/hr IV Q8H [facility] Last Admin: 12/12/17 11:32 Dose: Not Given Insulin Aspart (Novolog) 0 unit SUBCUT QIDACANDBED [facility]; Protocol Last Admin: 12/03/17 19:06 Dose: Not Given Insulin Aspart (Novolog) 0 unit SUBCUT Q6H [facility]; Protocol Last Admin: 12/05/17 02:00 Dose: 7 units Insulin Aspart (Novolog) 0 unit SUBCUT Q6HR [facility]; Protocol Last Admin: 12/06/17 18:28 Dose: 10 units Insulin Aspart (Novolog) 0 unit SUBCUT QIDACANDBED [facility]; Protocol Last Admin: 12/09/17 22:21 Dose: Not Given Insulin Aspart (Novolog) 0 unit SUBCUT Q6H [facility]; Protocol Last Admin: 12/09/17 20:09 Dose: Not Given Insulin Aspart (Novolog) 0 unit SUBCUT Q6HR [facility]; Protocol Last Admin: 12/10/17 12:35 Dose: 12 units Insulin Aspart (Novolog) 0 unit SUBCUT Q6HR [facility]; Protocol Last Admin: 12/11/17 12:48 Dose: 15 units Insulin Detemir (Levemir) 5 unit SUBCUT BID [facility] Last Admin: 12/10/17 09:12 Dose: 5 units Insulin Detemir (Levemir) 8 unit SUBCUT BID [facility] Last Admin: 12/11/17 08:45 Dose: 8 units Insulin Detemir (Levemir) 8 unit SUBCUT ONETIME ONE Stop: 12/10/17 17:54 Last Admin: 12/10/17 18:07 Dose: 8 units Megestrol Acetate (Megace) 40 mg PO BID [facility] Last Admin: 12/05/17 12:23 Dose: Not Given Methylprednisolone Sodium Succinate (Solu-Medrol) 80 mg IVPUSH DAILY@1800 [facility] Last Admin: 12/08/17 18:19 Dose: 80 mg Potassium Chloride (Klor-Con M20) 40 meq PO BID [facility] Stop: 12/06/17 09:01 Last Admin: 12/06/17 08:56 Dose: 40 meq Racepinephrine (S-2 2.25%) Confirm Administered Dose 0.5 ml .ROUTE .STK-MED ONE Stop: 12/11/17 17:35 Last Admin: 12/11/17 17:42 Dose: Not Given Sodium Bicarbonate (Sodium Bicarbonate 8.4%) Confirm Administered Dose 100 meq .ROUTE .STK-MED ONE Stop: 12/08/17 15:11 Last Admin: 12/08/17 15:10 Dose: 100 meq Sodium Bicarbonate (Sodium Bicarbonate 8.4%) 100 meq IVPUSH ONETIME ONE Stop: 12/08/17 15:17 Last Admin: 12/08/17 16:09 Dose: Not Given Sodium Bicarbonate (Sodium Bicarbonate 8.4%) Confirm Administered Dose 150 meq .ROUTE .STK-MED ONE Stop: 12/11/17 12:23 Last Admin: 12/11/17 12:52 Dose: Not Given Vancomycin HCl (Pharmacy To Dose - Vancomycin) 0 dose .XX ASDIRECTED PRN PRN Reason: RX TO DOSE VANCOMYCIN - Exam Quality Assessment: Supplemental Oxygen, Urine Catheter, DVT Prophylaxis General: Alert, Oriented, Cooperative, No Acute Distress HEENT: Pupils Equal, Pupils Reactive, EOMI Neck: Trachea Midline, No JVD Lungs: Normal Respiratory Effort, Decreased Breath Sounds Cardiovascular: Regular Rate, Regular Rhythm GI/Abdominal Exam: Normal Bowel Sounds, Soft, Non-Tender, No Organomegaly, No Distention (Female) Exam: Deferred Back Exam: Normal Inspection Extremities: Normal Inspection, Normal Capillary Refill, Pedal Edema Skin: Warm Neurological: No New Focal Deficit Psy/Mental Status: Alert, Depressed (MEDS CELEXA/WELLBUTRIN) - Problem List & Annotations (1) CHF (congestive heart failure) SNOMED Code(s): 44237050 Code(s): I50.9 - HEART FAILURE, UNSPECIFIED Status: Acute Current Visit: Yes Qualifiers: Heart failure type: diastolic Heart failure chronicity: acute Qualified Code(s): I50.31 - Acute diastolic (congestive) heart failure (2) COPD exacerbation SNOMED Code(s): 287975872 Code(s): J44.1 - CHRONIC OBSTRUCTIVE PULMONARY DISEASE W (ACUTE) EXACERBATION Status: Acute Current Visit: Yes (3) Hyperglycemia SNOMED Code(s): 13809790 Code(s): R73.9 - HYPERGLYCEMIA, UNSPECIFIED Status: Acute Current Visit: Yes (4) Hypoxia SNOMED Code(s): 338236514 Code(s): R09.02 - HYPOXEMIA Status: Acute Current Visit: Yes (5) Diabetes mellitus SNOMED Code(s): 16852821 Code(s): E11.9 - TYPE 2 DIABETES MELLITUS WITHOUT COMPLICATIONS Status: Chronic Current Visit: Yes Qualifiers: Diabetes mellitus type: type 2 Diabetes mellitus assisted insulin use: with assisted use Diabetes mellitus complication status: without complication Qualified Code(s): E11.9 - Type 2 diabetes mellitus without complications; Z79.4 - long term (current) use of insulin (6) Respiratory failure SNOMED Code(s): 759344351 Code(s): J96.90 - RESPIRATORY FAILURE, UNSP, UNSP W HYPOXIA OR HYPERCAPNIA Status: Acute Current Visit: No - Problem List Review Problem List Initiated/Reviewed/Updated: Yes - My Orders Last 24 Hours: My Active Orders 12/11/17 18:00 Budesonide [Pulmicort] 0.5 mg NEB Q6H Racepinephrine [S-2 2.25%] 0.5 ml NEB Q6HR 12/12/17 00:00 Insulin Aspart [NovoLOG] See Protocol SUBCUT Q4H 12/12/17 12:00 Levofloxacin/Dextrose 5%-Water [Levaquin in D5W 750 MG/150 ML] 750 mg Premix Bag 1 bag IV Q48H 12/12/17 13:30 Meropenem [Merrem] 500 mg Sodium Chloride 0.9% [Normal Saline] 100 ml IV Q8H 12/12/17 16:41 Communication Order [RC] ASDIRECTED 12/13/17 05:00 BMP [BASIC METABOLIC PANEL,BMP] [CHEM] DAILY CBC WITH AUTO DIFF [HEME] DAILY LACTIC ACID [CHEM] DAILY 12/13/17 05:27 MAGNESIUM [CHEM] DAILY 12/14/17 05:00 BMP [BASIC METABOLIC PANEL,BMP] [CHEM] DAILY CBC WITH AUTO DIFF [HEME] DAILY LACTIC ACID [CHEM] DAILY 12/14/17 05:27 MAGNESIUM [CHEM] DAILY 12/15/17 05:00 BMP [BASIC METABOLIC PANEL,BMP] [CHEM] DAILY CBC WITH AUTO DIFF [HEME] DAILY LACTIC ACID [CHEM] DAILY 12/15/17 05:27 MAGNESIUM [CHEM] DAILY 12/16/17 05:00 BMP [BASIC METABOLIC PANEL,BMP] [CHEM] DAILY CBC WITH AUTO DIFF [HEME] DAILY LACTIC ACID [CHEM] DAILY 12/16/17 05:27 MAGNESIUM [CHEM] DAILY 12/17/17 05:00 BMP [BASIC METABOLIC PANEL,BMP] [CHEM] DAILY CBC WITH AUTO DIFF [HEME] DAILY LACTIC ACID [CHEM] DAILY 12/17/17 05:27 MAGNESIUM [CHEM] DAILY - Plan Plan:: Impression: TUBE FEEDS STARTING TODAY-->WILL INCREASE TO SNF DOSE TOLERATED; CONTINUE REGLAN AND RESUME INSULIN GTT Acute respiratory distress, hypercapnia-->NEW occurence after 4 hours on NC S/P Rapid response--received 2 amps of NaHCO3 during response and subsequently was started on sod bicarb gtt. Hx of prolong intubation, s/p tracheostomy BIPAP adjust settings with improved VT; solumedrol/PULMICORT DECREASED FREQUENCY TODAY TO BID, CONT 0.5 MG RACEMIC EPI CONTINUE WOULD TITRATE OFF TOLEARTED. Hypercapnic-->received NaHCO3 gtt with good results Decrease responsiveness--ruled out CVA Paroxysmal A fib--<30 minutes in the time frrame of Rapid response Hx of COPD Hx of CKD, II Hyponatremia--corrected Hyperkalemia--corrected Diabetes mellitus, profound hyperglycemia; insulin gtt started per protocol Deconditioned-- PT/OT today Depression--continue Celexa, Wellbutrin Chronic Fe deficiency PUD Hypothyroid HTN HLD Macular degeneration CAD/AK s/p CABG Plan: Insulin gtt continue for improved BS management; SS as needed. Correct electrolytes IV steroids added, continue Pulmicort; negative PETERSEN for PNA Increase time as tolerated on NC-->failed challenge; resume BIPAP Resp infection work up w/isolation MRSA screen Nebs scheduled/prn Titrate O2 sat>92%; CO2<65 as tolerated; increase use of NC if tolerated follow ABG; pulse ox Increase activity level-->up three time daily Adjust BiPAP as needed for above Maintain IVF for UO, lasix prn with IVF suport ADA diet advance as tolerated Clarify tube feeds is calorie input is inadequate PT/OT for deconditioning on hold after Rapid Response MS tele room near ICU DVT/GI prophylaxis LOS>96 hours, very slow response to treatment Critical care 35 minutes
[2017-12-12] MEDS: Rosuvastatin 10 MG Tab PO SCH (21:50)
[2017-12-13] MEDS: Insulin Aspart 100 Units/ML 3 ML Pen SUBCUT SCH ×6 (00:05→17:39)
[2017-12-13] MEDS: Albuterol/Ipratropium 3.0-0.5 MG/3 ML Neb Soln NEB SCH ×5 (01:29→20:08)
[2017-12-13] MEDS: Budesonide 0.25 MG/2 ML Neb Susp NEB SCH ×3 (01:29→20:08)
[2017-12-13] MEDS: hydrALAZINE 20 MG/ML SDV IVPUSH PRN (04:54)
[2017-12-13] MEDS: methylPREDNISolone Sodium Succinate 125 MG/2 ML SDV IVPUSH SCH (06:16)
[2017-12-13] MEDS: Pantoprazole 40 MG Tab.CR PO SCH (06:16)
[2017-12-13] MEDS: Meropenem 500 MG in Sodium Chloride 0.9% 100 ML IV SCH (06:16)
[2017-12-13] MEDS: Acetaminophen 325 MG Tab PO PRN (06:16)
[2017-12-13] MEDS: Levothyroxine 100 MCG Tab PO SCH (06:16)
[2017-12-13] MEDS ORDERED: acetaZOLAMIDE 250 MG Tab PO ONE (07:12)
[2017-12-13] MEDS: Aspirin 81 MG Tab.Chew PO SCH (08:29)
[2017-12-13] MEDS: Multivitamins,Therapeutic Tab PO SCH (08:30)
[2017-12-13] MEDS: Citalopram 20 MG Tab PO SCH (08:30)
[2017-12-13] MEDS: rOPINIRole 1 MG Tab PO SCH ×2 (08:30→20:34)
[2017-12-13] MEDS: buPROPion 150 MG Tab.ER PO SCH (08:31)
[2017-12-13] MEDS: Ferrous Sulfate 325 MG Tab PO SCH (08:31)
[2017-12-13] MEDS: Metoclopramide 10 MG Tab PO SCH ×4 (08:32→20:33)
[2017-12-13] MEDS: Losartan 25 MG Tab PO SCH (08:32)
[2017-12-13] MEDS: Fluconazole 100 MG Tab PO SCH (08:33)
[2017-12-13] MEDS: Saccharomyces Boulardii (Probiotic) 250 MG Cap PO SCH (08:33)
[2017-12-13] MEDS: Megestrol Susp 40 MG/ML 10 ML UD Cup PO SCH ×2 (08:34→20:33)
[2017-12-13] MEDS: Polyethylene Glycol 3350 Powder 17 GM Packet PO SCH (08:35)
--- NOTE | 2017-12-13 08:41 | CR ---
Chest: Frontal view of the chest was obtained. Comparison: Prior chest x-ray of 12/12/17. Heart size slightly enlarged but accentuated from portable technique. Tortuous thoracic aorta is seen. Mild parenchymal density is seen within the right cardiophrenic angle. This is fairly similar to previous exam. Minimal retrocardiac atelectasis is seen within the left base. Pulmonary vessels are mildly increased which appear stable. Bony structures are osteopenic. Mild scoliosis is present within the spine. 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 Impression: 1. Findings as described above. No significant change from previous study is seen. Diagnostic code #3
--- NOTE | 2017-12-13 08:55 | PCM.PN ---
- General Info Date of Service: 12/13/17 Admission Dx/Problem (Free Text): Admission Diagnosis/Problem Admission Diagnosis/Problem Hypoxia Subjective Update: Follow Up Functional Status: Reports: Pain Controlled, Tolerating Diet, Urinating - Review of Systems General: Reports: Weakness, Fatigue. Denies: Fever, Chills HEENT: Reports: No Symptoms Pulmonary: Reports: Shortness of Breath. Denies: Cough Cardiovascular: Reports: Dyspnea on Exertion. Denies: Chest Pain, Palpitations , Edema, Lightheadedness Gastrointestinal: Reports: Decreased Appetite. Denies: Abdominal Pain, Nausea, Vomiting Genitourinary: Reports: No Symptoms Musculoskeletal: Reports: No Symptoms Skin: Reports: Bruising. Denies: Mottled, Pallor, Diaphoresis Neurological: Reports: Difficulty Walking, Weakness, Gait Disturbance. Denies: Confusion Psychiatric: Denies: Depression, Anxiety, Agitation, Hallucinations Systems Review Comment:: No overnight or acute issues. She is on BIPAP PRN. She is also on two intravenous antibiotics for pneumonia. Her ABG appears to be getting worse. She feels like getting better but not much. She is currently DNR/DNI. Patient was never told she had COPD until she was admitted here according to her. However she has been a smoking for a long time and smokes about 1.5 pack/ day. Her last cigarette was prior to coming in to the hospital. Currently, she is comfortable laying in bed with BIPAP on. - Patient Data Vitals - Most Recent: Last Vital Signs Temp 36.7 C 12/13/17 04:00 Pulse 97 12/12/17 13:00 Resp 21 H 12/13/17 04:00 BP 145/72 H 12/13/17 08:32 Pulse Ox 94 L 12/13/17 06:19 Weight - Most Recent: 75.024 kg I&O - Last 24 Hours: Intake & Output 12/12/17 12/13/17 12/13/17 22:59 06:59 14:59 Intake Total 660 328 Output Total 930 350 Balance -270 -22 Lab Results Last 24 Hours: Laboratory Results - last 24 hr 12/12/17 12/12/17 12/12/17 Range/Units 11:48 13:14 14:20 WBC (3.98-10.04) K/mm3 RBC (3.98-5.22) M/mm3 Hgb (11.2-15.7) gm/L Hct (34.1-44.9) % MCV (79.4-94.8) fl MCH (25.6-32.2) pg MCHC (32.2-35.5) g/dl RDW Std Deviation (36.4-46.3) fL Plt Count (182-369) K/mm3 MPV (9.4-12.3) fl Neut % (Auto) (34.0-71.1) % Lymph % (Auto) (19.3-51.7) % [place] % (Auto) (4.7-12.5) % Eos % (Auto) (0.7-5.8) Baso % (Auto) (0.1-1.2) % Neut # (Auto) (1.56-6.13) K/mm3 Lymph # (Auto) (1.18-3.74) K/mm3 [place] # (Auto) (0.24-0.36) K/mm3 Eos # (Auto) (0.04-0.36) K/mm3 Baso # (Auto) (0.01-0.08) K/mm3 Manual Slide Review Sodium (136-145) mEq/L Potassium (3.5-5.1) mEq/L Chloride (98-107) mEq/L Carbon Dioxide (21-32) mEq/L Anion Gap (5-15) BUN (7-18) mg/dL Creatinine (0.55-1.02) mg/dL Est Cr Clr Drug Dosing mL/min Estimated GFR (MDRD) (>60) mL/min BUN/Creatinine Ratio (14-18) Glucose 395 H 432 H 435 H (80-115) mg/dL POC Glucose (80-115) mg/dL Lactic Acid (0.4-2.0) mmol/L Calcium (8.5-10.1) mg/dL Magnesium (1.8-2.4) mg/dl TSH 3rd Generation (0.358-3.74) uIU/mL 12/12/17 12/12/17 12/12/17 Range/Units 15:30 16:03 17:05 WBC (3.98-10.04) K/mm3 RBC (3.98-5.22) M/mm3 Hgb (11.2-15.7) gm/L Hct (34.1-44.9) % MCV (79.4-94.8) fl MCH (25.6-32.2) pg MCHC (32.2-35.5) g/dl RDW Std Deviation (36.4-46.3) fL Plt Count (182-369) K/mm3 MPV (9.4-12.3) fl Neut % (Auto) (34.0-71.1) % Lymph % (Auto) (19.3-51.7) % [place] % (Auto) (4.7-12.5) % Eos % (Auto) (0.7-5.8) Baso % (Auto) (0.1-1.2) % Neut # (Auto) (1.56-6.13) K/mm3 Lymph # (Auto) (1.18-3.74) K/mm3 [place] # (Auto) (0.24-0.36) K/mm3 Eos # (Auto) (0.04-0.36) K/mm3 Baso # (Auto) (0.01-0.08) K/mm3 Manual Slide Review Sodium (136-145) mEq/L Potassium (3.5-5.1) mEq/L Chloride (98-107) mEq/L Carbon Dioxide (21-32) mEq/L Anion Gap (5-15) BUN (7-18) mg/dL Creatinine (0.55-1.02) mg/dL Est Cr Clr Drug Dosing mL/min Estimated GFR (MDRD) (>60) mL/min BUN/Creatinine Ratio (14-18) Glucose 411 H (80-115) mg/dL POC Glucose 379 H 358 H (80-115) mg/dL Lactic Acid (0.4-2.0) mmol/L Calcium (8.5-10.1) mg/dL Magnesium (1.8-2.4) mg/dl TSH 3rd Generation (0.358-3.74) uIU/mL 12/12/17 12/12/17 12/12/17 Range/Units 19:01 20:18 21:08 WBC (3.98-10.04) K/mm3 RBC (3.98-5.22) M/mm3 Hgb (11.2-15.7) gm/L Hct (34.1-44.9) % MCV (79.4-94.8) fl MCH (25.6-32.2) pg MCHC (32.2-35.5) g/dl RDW Std Deviation (36.4-46.3) fL Plt Count (182-369) K/mm3 MPV (9.4-12.3) fl Neut % (Auto) (34.0-71.1) % Lymph % (Auto) (19.3-51.7) % [place] % (Auto) (4.7-12.5) % Eos % (Auto) (0.7-5.8) Baso % (Auto) (0.1-1.2) % Neut # (Auto) (1.56-6.13) K/mm3 Lymph # (Auto) (1.18-3.74) K/mm3 [place] # (Auto) (0.24-0.36) K/mm3 Eos # (Auto) (0.04-0.36) K/mm3 Baso # (Auto) (0.01-0.08) K/mm3 Manual Slide Review Sodium (136-145) mEq/L Potassium (3.5-5.1) mEq/L Chloride (98-107) mEq/L Carbon Dioxide (21-32) mEq/L Anion Gap (5-15) BUN (7-18) mg/dL Creatinine (0.55-1.02) mg/dL Est Cr Clr Drug Dosing mL/min Estimated GFR (MDRD) (>60) mL/min BUN/Creatinine Ratio (14-18) Glucose (80-115) mg/dL POC Glucose 323 H 236 H 173 H (80-115) mg/dL Lactic Acid (0.4-2.0) mmol/L Calcium (8.5-10.1) mg/dL Magnesium (1.8-2.4) mg/dl TSH 3rd Generation (0.358-3.74) uIU/mL 12/13/17 12/13/17 12/13/17 Range/Units 00:37 03:35 05:39 WBC 9.21 (3.98-10.04) K/mm3 RBC 3.50 L (3.98-5.22) M/mm3 Hgb 10.2 L (11.2-15.7) gm/L Hct 35.6 (34.1-44.9) % MCV 101.7 H (79.4-94.8) fl MCH 29.1 (25.6-32.2) pg MCHC 28.7 L (32.2-35.5) g/dl RDW Std Deviation 58.4 H (36.4-46.3) fL Plt Count 376 H (182-369) K/mm3 MPV 11.2 (9.4-12.3) fl Neut % (Auto) 89.2 H (34.0-71.1) % Lymph % (Auto) 6.3 L (19.3-51.7) % [place] % (Auto) 4.1 L (4.7-12.5) % Eos % (Auto) 0 L (0.7-5.8) Baso % (Auto) 0.0 L (0.1-1.2) % Neut # (Auto) 8.21 H (1.56-6.13) K/mm3 Lymph # (Auto) 0.58 L (1.18-3.74) K/mm3 [place] # (Auto) 0.38 H (0.24-0.36) K/mm3 Eos # (Auto) 0.00 L (0.04-0.36) K/mm3 Baso # (Auto) 0.00 L (0.01-0.08) K/mm3 Manual Slide Review Abnormal smear Sodium (136-145) mEq/L Potassium (3.5-5.1) mEq/L Chloride (98-107) mEq/L Carbon Dioxide (21-32) mEq/L Anion Gap (5-15) BUN (7-18) mg/dL Creatinine (0.55-1.02) mg/dL Est Cr Clr Drug Dosing mL/min Estimated GFR (MDRD) (>60) mL/min BUN/Creatinine Ratio (14-18) Glucose (80-115) mg/dL POC Glucose 172 H 224 H (80-115) mg/dL Lactic Acid (0.4-2.0) mmol/L Calcium (8.5-10.1) mg/dL Magnesium (1.8-2.4) mg/dl TSH 3rd Generation (0.358-3.74) uIU/mL 12/13/17 12/13/17 12/13/17 Range/Units 05:39 05:39 05:39 WBC (3.98-10.04) K/mm3 RBC (3.98-5.22) M/mm3 Hgb (11.2-15.7) gm/L Hct (34.1-44.9) % MCV (79.4-94.8) fl MCH (25.6-32.2) pg MCHC (32.2-35.5) g/dl RDW Std Deviation (36.4-46.3) fL Plt Count (182-369) K/mm3 MPV (9.4-12.3) fl Neut % (Auto) (34.0-71.1) % Lymph % (Auto) (19.3-51.7) % [place] % (Auto) (4.7-12.5) % Eos % (Auto) (0.7-5.8) Baso % (Auto) (0.1-1.2) % Neut # (Auto) (1.56-6.13) K/mm3 Lymph # (Auto) (1.18-3.74) K/mm3 [place] # (Auto) (0.24-0.36) K/mm3 Eos # (Auto) (0.04-0.36) K/mm3 Baso # (Auto) (0.01-0.08) K/mm3 Manual Slide Review Sodium 142 (136-145) mEq/L Potassium 3.8 (3.5-5.1) mEq/L Chloride 100 (98-107) mEq/L Carbon Dioxide 48 H* (21-32) mEq/L Anion Gap -2.2 L (5-15) BUN 29 H (7-18) mg/dL Creatinine 0.9 (0.55-1.02) mg/dL Est Cr Clr Drug Dosing 47.32 mL/min Estimated GFR (MDRD) > 60 (>60) mL/min BUN/Creatinine Ratio 32.2 H (14-18) Glucose 193 H (80-115) mg/dL POC Glucose (80-115) mg/dL Lactic Acid 0.8 (0.4-2.0) mmol/L Calcium 9.4 (8.5-10.1) mg/dL Magnesium 1.8 (1.8-2.4) mg/dl TSH 3rd Generation 24.519 H (0.358-3.74) uIU/mL 12/13/17 Range/Units 08:23 WBC (3.98-10.04) K/mm3 RBC (3.98-5.22) M/mm3 Hgb (11.2-15.7) gm/L Hct (34.1-44.9) % MCV (79.4-94.8) fl MCH (25.6-32.2) pg MCHC (32.2-35.5) g/dl RDW Std Deviation (36.4-46.3) fL Plt Count (182-369) K/mm3 MPV (9.4-12.3) fl Neut % (Auto) (34.0-71.1) % Lymph % (Auto) (19.3-51.7) % [place] % (Auto) (4.7-12.5) % Eos % (Auto) (0.7-5.8) Baso % (Auto) (0.1-1.2) % Neut # (Auto) (1.56-6.13) K/mm3 Lymph # (Auto) (1.18-3.74) K/mm3 [place] # (Auto) (0.24-0.36) K/mm3 Eos # (Auto) (0.04-0.36) K/mm3 Baso # (Auto) (0.01-0.08) K/mm3 Manual Slide Review Sodium (136-145) mEq/L Potassium (3.5-5.1) mEq/L Chloride (98-107) mEq/L Carbon Dioxide (21-32) mEq/L Anion Gap (5-15) BUN (7-18) mg/dL Creatinine (0.55-1.02) mg/dL Est Cr Clr Drug Dosing mL/min Estimated GFR (MDRD) (>60) mL/min BUN/Creatinine Ratio (14-18) Glucose (80-115) mg/dL POC Glucose 314 H (80-115) mg/dL Lactic Acid (0.4-2.0) mmol/L Calcium (8.5-10.1) mg/dL Magnesium (1.8-2.4) mg/dl TSH 3rd Generation (0.358-3.74) uIU/mL Med Orders - Current: Current Medications Acetaminophen (Tylenol) 650 mg PO Q6H PRN PRN Reason: Pain/Fever Last Admin: 12/13/17 06:16 Dose: 650 mg Albuterol (Proventil Neb Soln) 2.5 mg NEB Q4HRRT PRN PRN Reason: Shortness of Breath Last Admin: 12/11/17 14:53 Dose: 2.5 mg Albuterol/Ipratropium (Duoneb 3.0-0.5 Mg/3 Ml) 3 ml NEB QIDRT [facility] Last Admin: 12/13/17 06:18 Dose: 3 ml Aspirin (Aspirin) 81 mg PO DAILY [facility] Last Admin: 12/13/17 08:29 Dose: 81 mg Bisacodyl (Dulcolax) 10 mg RECTAL DAILY PRN PRN Reason: Constipation Budesonide (Pulmicort) 0.25 mg NEB BIDRT [facility] Last Admin: 12/13/17 06:19 Dose: 0.25 mg Bupropion HCl (Wellbutrin Xl) 150 mg PO DAILY [facility] Last Admin: 12/13/17 08:31 Dose: 150 mg Citalopram Hydrobromide (Celexa) 40 mg PO DAILY [facility] Last Admin: 12/13/17 08:30 Dose: 40 mg Dextrose/Water (Dextrose 50% In Water) 50 ml IVPUSH ASDIRECTED PRN PRN Reason: Hypoglycemia Enoxaparin Sodium (Lovenox) 40 mg SUBCUT Q24H [facility] Last Admin: 12/12/17 15:23 Dose: 40 mg Ferrous Sulfate (Ferrous Sulfate) 325 mg PO DAILY [facility] Last Admin: 12/13/17 08:31 Dose: 325 mg Fluconazole (Diflucan) 100 mg PO DAILY [facility] Last Admin: 12/13/17 08:33 Dose: 100 mg Hydralazine HCl (Apresoline) 20 mg IVPUSH Q6H PRN PRN Reason: Hypertension Last Admin: 12/13/17 04:54 Dose: 20 mg Insulin Human Regular 100 unit (/ Sodium Chloride) 100 mls @ 7.5 mls/hr IV TITRATE [facility]; Protocol Last Titration: 12/12/17 21:15 Dose: 0 units/kg/hr, 0 mls/hr Meropenem 500 mg/ Sodium (Chloride) 100 mls @ 200 mls/hr IV Q8H [facility] Last Admin: 12/13/17 06:16 Dose: 200 mls/hr Levofloxacin/Dextrose 750 mg/ (Premix) 150 mls @ 100 mls/hr IV Q48H [facility] Last Admin: 12/12/17 11:24 Dose: 100 mls/hr Insulin Aspart (Novolog) 0 unit SUBCUT Q4H [facility]; Protocol Last Admin: 12/13/17 08:38 Dose: 8 units Levothyroxine Sodium (Synthroid) 50 mcg PO ACBREAKFAST [facility] Last Admin: 12/13/17 06:16 Dose: 50 mcg Losartan Potassium (Cozaar) 25 mg PO DAILY [facility] Last Admin: 12/13/17 08:32 Dose: 25 mg Megestrol Acetate (Megace 40 Mg/Ml Susp) 400 mg PO BID [facility] Last Admin: 12/13/17 08:34 Dose: 400 mg Methylprednisolone Sodium Succinate (Solu-Medrol) 125 mg IVPUSH Q8H [facility] Last Admin: 12/13/17 06:16 Dose: 125 mg Metoclopramide HCl (Reglan) 10 mg PO QID [facility] Last Admin: 12/13/17 08:32 Dose: 10 mg Metoprolol Tartrate (Lopressor) 5 mg IVPUSH Q4H PRN PRN Reason: Tachycardia Morphine Sulfate (Morphine) 0.5 mg IVPUSH Q4H PRN PRN Reason: Shortness of Breath Last Admin: 12/12/17 15:54 Dose: 0.5 mg Multivitamins (Thera) 1 each PO DAILY [facility] Last Admin: 12/13/17 08:30 Dose: 1 each Ondansetron HCl (Zofran) 4 mg IVPUSH Q8H PRN PRN Reason: Nausea/Vomiting Pantoprazole Sodium (Protonix) 40 mg PO DAILY@0700 [facility] Last Admin: 12/13/17 06:16 Dose: 40 mg Polyethylene Glycol (Miralax) 17 gm PO DAILY [facility] Last Admin: 12/13/17 08:35 Dose: Not Given Ropinirole HCl (Requip) 1 mg PO BID [facility] Last Admin: 12/13/17 08:30 Dose: 1 mg Rosuvastatin Calcium (Crestor) 10 mg PO BEDTIME [facility] Last Admin: 12/12/17 21:50 Dose: 10 mg Saccharomyces Boulardii (Florastor) 500 mg PO DAILY [facility] Last Admin: 12/13/17 08:33 Dose: 500 mg Senna/Docusate Sodium (Senna Plus) 2 tab PO BID [facility] Last Admin: 12/13/17 08:34 Dose: Not Given Sodium Chloride (Saline Flush) 10 ml FLUSH ASDIRECTED PRN PRN Reason: Keep Vein Open Last Admin: 12/03/17 07:55 Dose: 10 ml Tramadol HCl (Ultram) 50 mg PO TID PRN PRN Reason: Pain (moderate 4-6) Last Admin: 12/12/17 21:50 Dose: 50 mg Discontinued Medications Acetazolamide (Diamox) 500 mg PO ONETIME ONE Stop: 12/13/17 07:13 Last Admin: 12/13/17 08:29 Dose: 500 mg Albuterol/Ipratropium (Duoneb 3.0-0.5 Mg/3 Ml) 3 ml NEB QID [facility] Last Admin: 12/06/17 20:15 Dose: 3 ml Budesonide (Pulmicort) 0.25 mg NEB BIDRT [facility] Last Admin: 12/12/17 00:13 Dose: 0.25 mg Budesonide (Pulmicort) 0.5 mg NEB Q6H [facility] Last Admin: 12/12/17 18:35 Dose: 0.5 mg Fluconazole (Diflucan) 150 mg PO ONETIME ONE Stop: 12/05/17 09:01 Last Admin: 12/05/17 08:55 Dose: 150 mg Furosemide (Lasix) 40 mg IVPUSH NOW ONE Stop: 12/03/17 07:31 Last Admin: 12/03/17 07:47 Dose: 40 mg Furosemide (Lasix) 40 mg IVPUSH NOW ONE Stop: 12/04/17 18:22 Last Admin: 12/04/17 18:26 Dose: 40 mg Furosemide (Lasix) 40 mg IVPUSH ONETIME ONE Stop: 12/05/17 08:01 Last Admin: 12/05/17 08:54 Dose: 40 mg Furosemide (Lasix) 20 mg IVPUSH NOW ONE Stop: 12/08/17 11:02 Last Admin: 12/08/17 11:41 Dose: 20 mg Furosemide (Lasix) 20 mg IVPUSH ONETIME ONE Stop: 12/08/17 15:39 Last Admin: 12/08/17 15:55 Dose: 20 mg Furosemide (Lasix) 20 mg IVPUSH ONETIME ONE Stop: 12/12/17 14:23 Last Admin: 12/12/17 14:31 Dose: 20 mg Piperacillin Sod/Tazobactam (Sod 4.5 gm/ Sodium Chloride) 100 mls @ 25 mls/hr IV Q8H [facility] Last Admin: 12/07/17 08:05 Dose: 25 mls/hr Vancomycin HCl 1 gm/ Sodium (Chloride) 250 mls @ 250 mls/hr IV Q24H [facility] Last Admin: 12/03/17 15:29 Dose: 250 mls/hr Piperacillin Sod/Tazobactam (Sod 4.5 gm/ Sodium Chloride) 100 mls @ 400 mls/hr IV ONETIME ONE Stop: 12/03/17 16:14 Last Admin: 12/03/17 16:41 Dose: 400 mls/hr Sodium Chloride (Normal Saline) 1,000 mls @ 50 mls/hr IV ASDIRECTED [facility] Last Infusion: 12/03/17 21:30 Dose: Infused Sodium Chloride (Normal Saline) 1,000 mls @ 75 mls/hr IV ASDIRECTED [facility] Last Admin: 12/06/17 02:00 Dose: 50 mls/hr Vancomycin HCl 1 gm/ Sodium (Chloride) 250 mls @ 250 mls/hr IV Q12H [facility] Last Admin: 12/05/17 11:48 Dose: 250 mls/hr Magnesium Sulfate 2 gm/ Premix 50 mls @ 25 mls/hr IV ONETIME ONE Stop: 12/04/17 11:46 Last Admin: 12/04/17 10:39 Dose: 25 mls/hr Vancomycin HCl 1 gm/ Sodium (Chloride) 250 mls @ 250 mls/hr IV Q18H [facility] Last Admin: 12/07/17 04:10 Dose: 250 mls/hr Magnesium Sulfate 2 gm/ Premix 50 mls @ 25 mls/hr IV ONETIME ONE Stop: 12/05/17 15:24 Last Admin: 12/05/17 13:46 Dose: 25 mls/hr Sodium Chloride (Normal Saline) 1,000 mls @ 50 mls/hr IV ASDIRECTED [facility] Last Admin: 12/09/17 11:08 Dose: 50 mls/hr Magnesium Sulfate 2 gm/ Premix 50 mls @ 25 mls/hr IV ONETIME ONE Stop: 12/07/17 11:52 Last Admin: 12/07/17 11:12 Dose: Not Given Magnesium Sulfate 2 gm/ Premix 50 mls @ 25 mls/hr IV ONETIME ONE Stop: 12/07/17 13:59 Last Admin: 12/07/17 12:18 Dose: 25 mls/hr Sodium Bicarbonate 150 meq/ (Dextrose/Water) 1,150 mls @ 100 mls/hr IV ONETIME ONE Stop: 12/09/17 03:08 Last Admin: 12/08/17 15:48 Dose: 100 mls/hr Magnesium Sulfate 2 gm/ Premix 50 mls @ 25 mls/hr IV ONETIME ONE Stop: 12/10/17 16:06 Last Admin: 12/10/17 14:27 Dose: 25 mls/hr Sodium Bicarbonate 150 meq/ (Dextrose/Water) 1,150 mls @ 100 mls/hr IV ONETIME ONE Stop: 12/11/17 23:07 Last Admin: 12/11/17 12:39 Dose: 100 mls/hr Dextrose/Water (Dextrose 5% In Water) Confirm Administered Dose 1,000 mls @ as directed .ROUTE .STK-MED ONE Stop: 12/11/17 12:23 Last Admin: 12/11/17 12:52 Dose: Not Given Piperacillin Sod/Tazobactam (Sod 4.5 gm/ Sodium Chloride) 100 mls @ 25 mls/hr IV Q8H [facility] Last Admin: 12/12/17 11:32 Dose: Not Given Insulin Aspart (Novolog) 0 unit SUBCUT QIDACANDBED [facility]; Protocol Last Admin: 12/03/17 19:06 Dose: Not Given Insulin Aspart (Novolog) 0 unit SUBCUT Q6H [facility]; Protocol Last Admin: 12/05/17 02:00 Dose: 7 units Insulin Aspart (Novolog) 0 unit SUBCUT Q6HR [facility]; Protocol Last Admin: 12/06/17 18:28 Dose: 10 units Insulin Aspart (Novolog) 0 unit SUBCUT QIDACANDBED [facility]; Protocol Last Admin: 12/09/17 22:21 Dose: Not Given Insulin Aspart (Novolog) 0 unit SUBCUT Q6H [facility]; Protocol Last Admin: 12/09/17 20:09 Dose: Not Given Insulin Aspart (Novolog) 0 unit SUBCUT Q6HR [facility]; Protocol Last Admin: 12/10/17 12:35 Dose: 12 units Insulin Aspart (Novolog) 0 unit SUBCUT Q6HR [facility]; Protocol Last Admin: 12/11/17 12:48 Dose: 15 units Insulin Detemir (Levemir) 5 unit SUBCUT BID [facility] Last Admin: 12/10/17 09:12 Dose: 5 units Insulin Detemir (Levemir) 8 unit SUBCUT BID [facility] Last Admin: 12/11/17 08:45 Dose: 8 units Insulin Detemir (Levemir) 8 unit SUBCUT ONETIME ONE Stop: 12/10/17 17:54 Last Admin: 12/10/17 18:07 Dose: 8 units Megestrol Acetate (Megace) 40 mg PO BID [facility] Last Admin: 12/05/17 12:23 Dose: Not Given Methylprednisolone Sodium Succinate (Solu-Medrol) 80 mg IVPUSH DAILY@1800 [facility] Last Admin: 12/08/17 18:19 Dose: 80 mg Potassium Chloride (Klor-Con M20) 40 meq PO BID [facility] Stop: 12/06/17 09:01 Last Admin: 12/06/17 08:56 Dose: 40 meq Racepinephrine (S-2 2.25%) Confirm Administered Dose 0.5 ml .ROUTE .STK-MED ONE Stop: 12/11/17 17:35 Last Admin: 12/11/17 17:42 Dose: Not Given Racepinephrine (S-2 2.25%) 0.5 ml NEB Q6HR [facility] Last Admin: 12/12/17 18:35 Dose: 0.5 ml Sodium Bicarbonate (Sodium Bicarbonate 8.4%) Confirm Administered Dose 100 meq .ROUTE .STK-MED ONE Stop: 12/08/17 15:11 Last Admin: 12/08/17 15:10 Dose: 100 meq Sodium Bicarbonate (Sodium Bicarbonate 8.4%) 100 meq IVPUSH ONETIME ONE Stop: 12/08/17 15:17 Last Admin: 12/08/17 16:09 Dose: Not Given Sodium Bicarbonate (Sodium Bicarbonate 8.4%) Confirm Administered Dose 150 meq .ROUTE .STK-MED ONE Stop: 12/11/17 12:23 Last Admin: 12/11/17 12:52 Dose: Not Given Vancomycin HCl (Pharmacy To Dose - Vancomycin) 0 dose .XX ASDIRECTED PRN PRN Reason: RX TO DOSE VANCOMYCIN - Exam Quality Assessment: Supplemental Oxygen, DVT Prophylaxis General: Alert, Oriented, Cooperative, No Acute Distress HEENT: Pupils Equal, Pupils Reactive, EOMI, Mucous Membr. Moist/[place] Neck: Supple, Trachea Midline, No JVD, Other (No acessory muscles use) Lungs: Normal Respiratory Effort, Rhonchi Cardiovascular: Regular Rate, Regular Rhythm GI/Abdominal Exam: Normal Bowel Sounds, Soft, Non-Tender, No Organomegaly, No Distention, No Abnormal Bruit, No Mass (Female) Exam: Deferred Back Exam: Normal Inspection, Decreased Range of Motion Extremities: Normal Inspection, Normal Range of Motion, Non-Tender, No Pedal Edema, Normal Capillary Refill Peripheral Pulses: 2+: Dorsalis Pedis (L), Dorsalis Pedis (R) Skin: Warm, Dry, Intact Neurological: No New Focal Deficit Psy/Mental Status: Alert, Normal Affect, Depressed - Problem List Review Problem List Initiated/Reviewed/Updated: Yes - My Orders Last 24 Hours: My Active Orders 12/13/17 08:51 T4 FREE [CHEM] Urgent - Plan Plan:: Impression: Acute: COPD Exacerbation - Has an underlying advanced COPD--> was a difficult extubation in [place] requiring tracheostomy - Most CXR--shows no infiltrate but atelectasis and pulmonary congestion--> No pneumonia - Continue IV Bronchodilators, IV Azithromycin 500 mg IV x1 now then oral 250 mg po daily in AM, Magnesium Oxide 400 mg po BID - Taper IV Solumedrol to 80 mg TID from 125 mg - D/c IV Levaquin and Meropenem - Continue PRN BIPAP and RT care - Consider low dose klonopin 0.5 mg po TID PRN for anxiety Hypercapnea - 2/2 COPD - Received NaHCO3 gtt with good results; now d/c'd - Continue treatment above Diabetes Mellitus 2 w/ Hyperglycemia - Poorly controlled - A1C 7.2 12/04/2017 - 2/2 High dose steroid use - Cut down dose IV Steroid - D/c Insulin gtt; Start Levemir 8 units SubQ tonight and 10 units BID starting in AM - Continue accu-check and ISS Severe Hypothyroidism - Has hx/o it on Synthroid 50 mcg po daily - TSH 24.519; FT4 0.69 - She has underlying CAD; will increase dose to 25 mcg--> 75 mcg po daily Resolved: S/p Acute respiratory distress, hypercapnia-->NEW occurence after 4 hours on NC S/P Rapid response--received 2 amps of NaHCO3 during response and subsequently was started on sod bicarb gtt. Hx of prolong intubation, s/p tracheostomy, BIPAP adjust settings with improved VT; solumedrol S/p Decrease responsiveness--ruled out CVA S/p Paroxysmal A fib--<30 minutes in the time frame of Rapid response S/p Hyponatremia--now 142 S/p Hyperkalemia--now 3.8 Chronic: Hx of CKD, II Deconditioned, continue PT/OT Depression--continue Celexa, Wellbutrin Fe deficiency PUD HTN HLD Macular degeneration CAD/WA s/p CABG Plan: She is comfortable and in no acute distress Repeat labs this evening Increase activity level-->up three time daily Klonopin 0.5 mg po TID PRN for anxiety Adjust BiPAP as needed for above ADA diet advance as tolerated Consult Dr. [place] for Depression Resume PT/OT for deconditioning DVT/GI prophylaxis Code status: DNR/DNI Additional orders as above Prognosis is guarded
[2017-12-13] MEDS ORDERED: Levothyroxine 75 MCG Tab PO SCH (10:36)
[2017-12-13] MEDS ORDERED: Bumetanide 1 MG/4 ML MDV IVPUSH ONE ×2 (12:00→12:24)
[2017-12-13] MEDS ORDERED: Azithromycin 500 MG in Sodium Chloride 0.9% 250 ML IV ONE (12:03)
[2017-12-13] MEDS ORDERED: ClonazePAM 0.5 MG Tab PO ONE (12:05)
[2017-12-13] MEDS ORDERED: ClonazePAM 0.5 MG Tab PO PRN (12:05)
[2017-12-13] MEDS ORDERED: methylPREDNISolone Sodium Succinate 125 MG/2 ML SDV IVPUSH SCH (15:00)
[2017-12-13] MEDS: methylPREDNISolone Sodium Succinate 40 MG/1 ML SDV IVPUSH SCH ×2 (15:21→23:14)
[2017-12-13] MEDS: Enoxaparin 40 MG/0.4 ML Syringe SUBCUT SCH (15:21)
[2017-12-13] MEDS ORDERED: Insulin NPH/Insulin Regular,Human 70-30 100 Units/ML 10 ML Vial SUBCUT ONE (16:44)
[2017-12-13] MEDS: Rosuvastatin 10 MG Tab PO SCH (20:34)
[2017-12-13] MEDS: Magnesium Oxide 400 MG Tab PO SCH (20:34)
[2017-12-13] MEDS ORDERED: Insulin Detemir 100 Units/ML 3 ML Pen SUBCUT ONE ×4 (21:00→22:23)
[2017-12-13] MEDS ORDERED: Insulin Detemir 100 Units/ML 3 ML Pen SUBCUT SCH ×2 (21:00)
[2017-12-13] MEDS ORDERED: Insulin Aspart 100 Units/ML 3 ML Pen SUBCUT SCH (21:00)
[2017-12-13] MEDS ORDERED: glipiZIDE 5 MG Tab.ER PO ONE (22:23)
[2017-12-13] MEDS ORDERED: Furosemide 20 MG/2 ML VIAL IVPUSH ONE (22:25)
[2017-12-13] MEDS ORDERED: Insulin Isophane NPH, Human 100 Units/ML 10 ML Vial SUBCUT ONE (22:27)
[2017-12-13] MEDS ORDERED: AMINOPHYLLINE IV ONE (22:34)
[2017-12-13] MEDS ORDERED: SODIUM CHLORIDE 0.9% IV ONE (22:34)
[2017-12-13] MEDS: Sodium Chloride 0.9% 1,000 ML IV SCH (23:15)
[2017-12-13] MEDS ORDERED: Insulin Regular, Human 100 Units/ML 3 ML Vial SUBCUT ONE (23:45)
[2017-12-14] MEDS: Potassium Chloride 10 MEQ in Premix Bag 1 BAG IV SCH ×4 (04:46→07:49)
[2017-12-14] MEDS: Budesonide 0.25 MG/2 ML Neb Susp NEB SCH ×2 (05:04→20:04)
[2017-12-14] MEDS: Albuterol/Ipratropium 3.0-0.5 MG/3 ML Neb Soln NEB SCH ×3 (05:04→20:04)
[2017-12-14] MEDS: Pantoprazole 40 MG Tab.CR PO SCH (06:35)
[2017-12-14] MEDS ORDERED: Insulin Aspart 100 Units/ML 3 ML Pen SUBCUT SCH (07:00)
--- NOTE | 2017-12-14 07:35 | PCM.PN ---
- General Info Date of Service: 12/14/17 Admission Dx/Problem (Free Text): Admission Diagnosis/Problem Admission Diagnosis/Problem Hypoxia Subjective Update: Follow Up Functional Status: Reports: Pain Controlled, Tolerating Diet, Ambulating, Urinating. Denies: New Symptoms - Review of Systems General: Reports: Weakness, Fatigue, Malaise. Denies: Fever, Chills HEENT: Reports: No Symptoms Pulmonary: Reports: Shortness of Breath. Denies: Cough Cardiovascular: Reports: Dyspnea on Exertion. Denies: Chest Pain, Palpitations , Lightheadedness Gastrointestinal: Denies: Abdominal Pain, Nausea, Vomiting Genitourinary: Reports: No Symptoms Musculoskeletal: Reports: No Symptoms Skin: Denies: Mottled, Pallor, Diaphoresis Neurological: Reports: Difficulty Walking, Weakness, Gait Disturbance. Denies: Confusion Psychiatric: Denies: Depression, Anxiety, Agitation, Hallucinations Systems Review Comment:: No acute issues. She slept pretty good and feels better this AM. She seems to have more appetite. Her morning labs are much better except for her glucose. Patient is on tube feeding overnight and still eat meals as scheduled. She has no complaints this morning. We have been adjusting her insulin regimen since yesterday. - Patient Data Vitals - Most Recent: Last Vital Signs Temp 36.3 C 12/14/17 04:00 Pulse 91 12/14/17 04:00 Resp 19 12/14/17 04:00 BP 152/75 H 12/14/17 04:00 Pulse Ox 97 12/14/17 04:00 Weight - Most Recent: 74.752 kg I&O - Last 24 Hours: Intake & Output 12/13/17 12/14/17 12/14/17 22:59 06:59 14:59 Intake Total 525 1214 Output Total 875 975 Balance -350 239 Lab Results Last 24 Hours: Laboratory Results - last 24 hr 12/13/17 12/13/17 12/13/17 Range/Units 05:39 05:39 05:39 WBC (3.98-10.04) K/mm3 RBC (3.98-5.22) M/mm3 Hgb (11.2-15.7) gm/L Hct (34.1-44.9) % MCV (79.4-94.8) fl MCH (25.6-32.2) pg MCHC (32.2-35.5) g/dl RDW Std Deviation (36.4-46.3) fL Plt Count (182-369) K/mm3 MPV (9.4-12.3) fl Neut % (Auto) (34.0-71.1) % Lymph % (Auto) (19.3-51.7) % [place] % (Auto) (4.7-12.5) % Eos % (Auto) (0.7-5.8) Baso % (Auto) (0.1-1.2) % Neut # (Auto) (1.56-6.13) K/mm3 Lymph # (Auto) (1.18-3.74) K/mm3 [place] # (Auto) (0.24-0.36) K/mm3 Eos # (Auto) (0.04-0.36) K/mm3 Baso # (Auto) (0.01-0.08) K/mm3 Manual Slide Review Sodium (136-145) mEq/L Potassium (3.5-5.1) mEq/L Chloride (98-107) mEq/L Carbon Dioxide (21-32) mEq/L Anion Gap (5-15) BUN (7-18) mg/dL Creatinine (0.55-1.02) mg/dL Est Cr Clr Drug Dosing mL/min Estimated GFR (MDRD) (>60) mL/min BUN/Creatinine Ratio (14-18) Glucose (80-115) mg/dL POC Glucose (80-115) mg/dL Calcium (8.5-10.1) mg/dL Magnesium (1.8-2.4) mg/dl NT-Pro-B Natriuret Pep 2570 H (0-125) pg/mL Free T4 0.69 L (0.76-1.46) ng/dL Cortisol 3.0 ug/dL Theophylline (10.0-20.0) ug/mL 12/13/17 12/13/17 12/13/17 Range/Units 08:23 12:15 15:45 WBC (3.98-10.04) K/mm3 RBC (3.98-5.22) M/mm3 Hgb (11.2-15.7) gm/L Hct (34.1-44.9) % MCV (79.4-94.8) fl MCH (25.6-32.2) pg MCHC (32.2-35.5) g/dl RDW Std Deviation (36.4-46.3) fL Plt Count (182-369) K/mm3 MPV (9.4-12.3) fl Neut % (Auto) (34.0-71.1) % Lymph % (Auto) (19.3-51.7) % [place] % (Auto) (4.7-12.5) % Eos % (Auto) (0.7-5.8) Baso % (Auto) (0.1-1.2) % Neut # (Auto) (1.56-6.13) K/mm3 Lymph # (Auto) (1.18-3.74) K/mm3 [place] # (Auto) (0.24-0.36) K/mm3 Eos # (Auto) (0.04-0.36) K/mm3 Baso # (Auto) (0.01-0.08) K/mm3 Manual Slide Review Sodium (136-145) mEq/L Potassium (3.5-5.1) mEq/L Chloride (98-107) mEq/L Carbon Dioxide (21-32) mEq/L Anion Gap (5-15) BUN (7-18) mg/dL Creatinine (0.55-1.02) mg/dL Est Cr Clr Drug Dosing mL/min Estimated GFR (MDRD) (>60) mL/min BUN/Creatinine Ratio (14-18) Glucose 357 H 543 H (80-115) mg/dL POC Glucose 314 H (80-115) mg/dL Calcium (8.5-10.1) mg/dL Magnesium (1.8-2.4) mg/dl NT-Pro-B Natriuret Pep (0-125) pg/mL Free T4 (0.76-1.46) ng/dL Cortisol ug/dL Theophylline (10.0-20.0) ug/mL 12/13/17 12/13/17 12/14/17 Range/Units 18:00 21:40 03:20 WBC 8.36 (3.98-10.04) K/mm3 RBC 3.44 L (3.98-5.22) M/mm3 Hgb 10.3 L (11.2-15.7) gm/L Hct 34.5 (34.1-44.9) % MCV 100.3 H (79.4-94.8) fl MCH 29.9 (25.6-32.2) pg MCHC 29.9 L (32.2-35.5) g/dl RDW Std Deviation 56.6 H (36.4-46.3) fL Plt Count 360 (182-369) K/mm3 MPV 11.4 (9.4-12.3) fl Neut % (Auto) 91.6 H (34.0-71.1) % Lymph % (Auto) 4.1 L (19.3-51.7) % [place] % (Auto) 3.6 L (4.7-12.5) % Eos % (Auto) 0 L (0.7-5.8) Baso % (Auto) 0.1 (0.1-1.2) % Neut # (Auto) 7.66 H (1.56-6.13) K/mm3 Lymph # (Auto) 0.34 L (1.18-3.74) K/mm3 [place] # (Auto) 0.30 (0.24-0.36) K/mm3 Eos # (Auto) 0.00 L (0.04-0.36) K/mm3 Baso # (Auto) 0.01 (0.01-0.08) K/mm3 Manual Slide Review Abnormal smear Sodium 143 (136-145) mEq/L Potassium 3.6 (3.5-5.1) mEq/L Chloride 99 (98-107) mEq/L Carbon Dioxide 43 H* (21-32) mEq/L Anion Gap 4.6 L (5-15) BUN 40 H (7-18) mg/dL Creatinine 1.2 H (0.55-1.02) mg/dL Est Cr Clr Drug Dosing 35.49 mL/min Estimated GFR (MDRD) 45 (>60) mL/min BUN/Creatinine Ratio 33.3 H (14-18) Glucose 557 H 559 H (80-115) mg/dL POC Glucose (80-115) mg/dL Calcium 9.1 (8.5-10.1) mg/dL Magnesium 1.8 (1.8-2.4) mg/dl NT-Pro-B Natriuret Pep (0-125) pg/mL Free T4 (0.76-1.46) ng/dL Cortisol ug/dL Theophylline (10.0-20.0) ug/mL 12/14/17 12/14/17 12/14/17 Range/Units 03:20 03:20 03:20 WBC (3.98-10.04) K/mm3 RBC (3.98-5.22) M/mm3 Hgb (11.2-15.7) gm/L Hct (34.1-44.9) % MCV (79.4-94.8) fl MCH (25.6-32.2) pg MCHC (32.2-35.5) g/dl RDW Std Deviation (36.4-46.3) fL Plt Count (182-369) K/mm3 MPV (9.4-12.3) fl Neut % (Auto) (34.0-71.1) % Lymph % (Auto) (19.3-51.7) % [place] % (Auto) (4.7-12.5) % Eos % (Auto) (0.7-5.8) Baso % (Auto) (0.1-1.2) % Neut # (Auto) (1.56-6.13) K/mm3 Lymph # (Auto) (1.18-3.74) K/mm3 [place] # (Auto) (0.24-0.36) K/mm3 Eos # (Auto) (0.04-0.36) K/mm3 Baso # (Auto) (0.01-0.08) K/mm3 Manual Slide Review Sodium 138 (136-145) mEq/L Potassium 3.3 L (3.5-5.1) mEq/L Chloride 99 (98-107) mEq/L Carbon Dioxide 39 H (21-32) mEq/L Anion Gap 3.3 L (5-15) BUN 43 H (7-18) mg/dL Creatinine 1.2 H (0.55-1.02) mg/dL Est Cr Clr Drug Dosing 35.49 mL/min Estimated GFR (MDRD) 45 (>60) mL/min BUN/Creatinine Ratio 35.8 H (14-18) Glucose 458 H (80-115) mg/dL POC Glucose (80-115) mg/dL Calcium 8.9 (8.5-10.1) mg/dL Magnesium 1.8 (1.8-2.4) mg/dl NT-Pro-B Natriuret Pep (0-125) pg/mL Free T4 (0.76-1.46) ng/dL Cortisol ug/dL Theophylline 3.1 L (10.0-20.0) ug/mL 12/14/17 Range/Units 06:29 WBC (3.98-10.04) K/mm3 RBC (3.98-5.22) M/mm3 Hgb (11.2-15.7) gm/L Hct (34.1-44.9) % MCV (79.4-94.8) fl MCH (25.6-32.2) pg MCHC (32.2-35.5) g/dl RDW Std Deviation (36.4-46.3) fL Plt Count (182-369) K/mm3 MPV (9.4-12.3) fl Neut % (Auto) (34.0-71.1) % Lymph % (Auto) (19.3-51.7) % [place] % (Auto) (4.7-12.5) % Eos % (Auto) (0.7-5.8) Baso % (Auto) (0.1-1.2) % Neut # (Auto) (1.56-6.13) K/mm3 Lymph # (Auto) (1.18-3.74) K/mm3 [place] # (Auto) (0.24-0.36) K/mm3 Eos # (Auto) (0.04-0.36) K/mm3 Baso # (Auto) (0.01-0.08) K/mm3 Manual Slide Review Sodium (136-145) mEq/L Potassium (3.5-5.1) mEq/L Chloride (98-107) mEq/L Carbon Dioxide (21-32) mEq/L Anion Gap (5-15) BUN (7-18) mg/dL Creatinine (0.55-1.02) mg/dL Est Cr Clr Drug Dosing mL/min Estimated GFR (MDRD) (>60) mL/min BUN/Creatinine Ratio (14-18) Glucose (80-115) mg/dL POC Glucose 378 H (80-115) mg/dL Calcium (8.5-10.1) mg/dL Magnesium (1.8-2.4) mg/dl NT-Pro-B Natriuret Pep (0-125) pg/mL Free T4 (0.76-1.46) ng/dL Cortisol ug/dL Theophylline (10.0-20.0) ug/mL Med Orders - Current: Current Medications Acetaminophen (Tylenol) 650 mg PO Q6H PRN PRN Reason: Pain/Fever Last Admin: 12/13/17 06:16 Dose: 650 mg Albuterol (Proventil Neb Soln) 2.5 mg NEB Q4HRRT PRN PRN Reason: Shortness of Breath Last Admin: 12/11/17 14:53 Dose: 2.5 mg Albuterol/Ipratropium (Duoneb 3.0-0.5 Mg/3 Ml) 3 ml NEB TIDRT [facility] Last Admin: 12/14/17 05:04 Dose: 3 ml Aspirin (Aspirin) 81 mg PO DAILY [facility] Last Admin: 12/13/17 08:29 Dose: 81 mg Azithromycin (Zithromax) 250 mg PO DAILY [facility] Bisacodyl (Dulcolax) 10 mg RECTAL DAILY PRN PRN Reason: Constipation Budesonide (Pulmicort) 0.25 mg NEB BIDRT [facility] Last Admin: 12/14/17 05:04 Dose: 0.25 mg Bupropion HCl (Wellbutrin Xl) 150 mg PO DAILY [facility] Last Admin: 12/13/17 08:31 Dose: 150 mg Citalopram Hydrobromide (Celexa) 40 mg PO DAILY [facility] Last Admin: 12/13/17 08:30 Dose: 40 mg Clonazepam (Klonopin) 0.5 mg PO TID PRN PRN Reason: Anxiety Dextrose/Water (Dextrose 50% In Water) 50 ml IVPUSH ASDIRECTED PRN PRN Reason: Hypoglycemia Enoxaparin Sodium (Lovenox) 40 mg SUBCUT Q24H [facility] Last Admin: 12/13/17 15:21 Dose: 40 mg Ferrous Sulfate (Ferrous Sulfate) 325 mg PO DAILY [facility] Last Admin: 12/13/17 08:31 Dose: 325 mg Furosemide (Lasix) 10 mg IVPUSH BID [facility] Stop: 12/15/17 21:01 Glip[facility]) [facility] Hydralazine HCl (Apresoline) 20 mg IVPUSH Q6H PRN PRN Reason: Hypertension Last Admin: 12/13/17 04:54 Dose: 20 mg Sodium Chloride (Normal Saline) 1,000 mls @ 50 mls/hr IV ASDIRECTED [facility] Last Admin: 12/13/17 23:15 Dose: 50 mls/hr Potassium Chloride 10 meq/ (Premix) 100 mls @ 100 mls/hr IV Q1H [facility] Stop: 12/14/17 08:29 Last Admin: 12/14/17 06:48 Dose: 100 mls/hr Insulin Aspart (Novolog) 12 unit SUBCUT TIDMEALS [facility] Insulin Detemir (Levemir) 25 unit SUBCUT BID [facility] Levothyroxine Sodium (Levothyroxine) 75 mcg PO ACBREAKFAST [facility] Last Admin: 12/14/17 06:35 Dose: 75 mcg Losartan Potassium (Cozaar) 25 mg PO DAILY [facility] Last Admin: 12/13/17 08:32 Dose: 25 mg Magnesium Oxide (Magnesium Oxide) 400 mg PO BID [facility] Last Admin: 12/13/17 20:34 Dose: 400 mg Megestrol Acetate (Megace 40 Mg/Ml Susp) 400 mg PO BID [facility] Last Admin: 12/13/17 20:33 Dose: 400 mg Methylprednisolone Sodium Succinate (Solu-Medrol) 80 mg IVPUSH Q8H [facility] Last Admin: 12/13/17 23:14 Dose: 80 mg Metoclopramide HCl (Reglan) 10 mg PO QID [facility] Last Admin: 12/13/17 20:33 Dose: 10 mg Metoprolol Tartrate (Lopressor) 5 mg IVPUSH Q4H PRN PRN Reason: Tachycardia Morphine Sulfate (Morphine) 0.5 mg IVPUSH Q4H PRN PRN Reason: Shortness of Breath Last Admin: 12/12/17 15:54 Dose: 0.5 mg Multivitamins (Thera) 1 each PO DAILY [facility] Last Admin: 12/13/17 08:30 Dose: 1 each Ondansetron HCl (Zofran) 4 mg IVPUSH Q8H PRN PRN Reason: Nausea/Vomiting Pantoprazole Sodium (Protonix) 40 mg PO DAILY@0700 [facility] Last Admin: 12/14/17 06:35 Dose: 40 mg Polyethylene Glycol (Miralax) 17 gm PO DAILY [facility] Last Admin: 12/13/17 08:35 Dose: Not Given Ropinirole HCl (Requip) 1 mg PO BID [facility] Last Admin: 12/13/17 20:34 Dose: 1 mg Rosuvastatin Calcium (Crestor) 10 mg PO BEDTIME [facility] Last Admin: 12/13/17 20:34 Dose: 10 mg Saccharomyces Boulardii (Florastor) 500 mg PO DAILY [facility] Last Admin: 12/13/17 08:33 Dose: 500 mg Senna/Docusate Sodium (Senna Plus) 2 tab PO BID [facility] Last Admin: 12/13/17 20:34 Dose: 2 tab Sodium Chloride (Saline Flush) 10 ml FLUSH ASDIRECTED PRN PRN Reason: Keep Vein Open Last Admin: 12/03/17 07:55 Dose: 10 ml Theophylline (Theophylline Anhydrous) 300 mg PO BID [facility] Tramadol HCl (Ultram) 50 mg PO TID PRN PRN Reason: Pain (moderate 4-6) Last Admin: 12/12/17 21:50 Dose: 50 mg Discontinued Medications Acetazolamide (Diamox) 500 mg PO ONETIME ONE Stop: 12/13/17 07:13 Last Admin: 12/13/17 08:29 Dose: 500 mg Albuterol/Ipratropium (Duoneb 3.0-0.5 Mg/3 Ml) 3 ml NEB QID [facility] Last Admin: 12/06/17 20:15 Dose: 3 ml Albuterol/Ipratropium (Duoneb 3.0-0.5 Mg/3 Ml) 3 ml NEB QIDRT [facility] Last Admin: 12/13/17 09:08 Dose: 3 ml Budesonide (Pulmicort) 0.25 mg NEB BIDRT [facility] Last Admin: 12/12/17 00:13 Dose: 0.25 mg Budesonide (Pulmicort) 0.5 mg NEB Q6H [facility] Last Admin: 12/12/17 18:35 Dose: 0.5 mg Bumetanide (Bumex) 0.5 mg IVPUSH ONETIME ONE Stop: 12/13/17 12:01 Last Admin: 12/13/17 12:45 Dose: Not Given Bumetanide (Bumex) 0.5 mg IVPUSH ONETIME ONE Stop: 12/13/17 12:25 Last Admin: 12/13/17 12:44 Dose: 0.5 mg Clonazepam (Klonopin) 0.5 mg PO ONETIME ONE Stop: 12/13/17 12:06 Last Admin: 12/13/17 12:43 Dose: 0.5 mg Fluconazole (Diflucan) 150 mg PO ONETIME ONE Stop: 12/05/17 09:01 Last Admin: 12/05/17 08:55 Dose: 150 mg Fluconazole (Diflucan) 100 mg PO DAILY [facility] Last Admin: 12/13/17 08:33 Dose: 100 mg Furosemide (Lasix) 40 mg IVPUSH NOW ONE Stop: 12/03/17 07:31 Last Admin: 12/03/17 07:47 Dose: 40 mg Furosemide (Lasix) 40 mg IVPUSH NOW ONE Stop: 12/04/17 18:22 Last Admin: 12/04/17 18:26 Dose: 40 mg Furosemide (Lasix) 40 mg IVPUSH ONETIME ONE Stop: 12/05/17 08:01 Last Admin: 12/05/17 08:54 Dose: 40 mg Furosemide (Lasix) 20 mg IVPUSH NOW ONE Stop: 12/08/17 11:02 Last Admin: 12/08/17 11:41 Dose: 20 mg Furosemide (Lasix) 20 mg IVPUSH ONETIME ONE Stop: 12/08/17 15:39 Last Admin: 12/08/17 15:55 Dose: 20 mg Furosemide (Lasix) 20 mg IVPUSH ONETIME ONE Stop: 12/12/17 14:23 Last Admin: 12/12/17 14:31 Dose: 20 mg Furosemide (Lasix) 10 mg IVPUSH NOW ONE Stop: 12/13/17 22:26 Last Admin: 12/13/17 23:14 Dose: 10 mg Glipizide (Glucotrol Xl) 5 mg PO ONETIME ONE Stop: 12/13/17 22:24 Last Admin: 12/13/17 23:15 Dose: 5 mg Piperacillin Sod/Tazobactam (Sod 4.5 gm/ Sodium Chloride) 100 mls @ 25 mls/hr IV Q8H [facility] Last Admin: 12/07/17 08:05 Dose: 25 mls/hr Vancomycin HCl 1 gm/ Sodium (Chloride) 250 mls @ 250 mls/hr IV Q24H [facility] Last Admin: 12/03/17 15:29 Dose: 250 mls/hr Piperacillin Sod/Tazobactam (Sod 4.5 gm/ Sodium Chloride) 100 mls @ 400 mls/hr IV ONETIME ONE Stop: 12/03/17 16:14 Last Admin: 12/03/17 16:41 Dose: 400 mls/hr Sodium Chloride (Normal Saline) 1,000 mls @ 50 mls/hr IV ASDIRECTED [facility] Last Infusion: 12/03/17 21:30 Dose: Infused Sodium Chloride (Normal Saline) 1,000 mls @ 75 mls/hr IV ASDIRECTED [facility] Last Admin: 12/06/17 02:00 Dose: 50 mls/hr Vancomycin HCl 1 gm/ Sodium (Chloride) 250 mls @ 250 mls/hr IV Q12H [facility] Last Admin: 12/05/17 11:48 Dose: 250 mls/hr Magnesium Sulfate 2 gm/ Premix 50 mls @ 25 mls/hr IV ONETIME ONE Stop: 12/04/17 11:46 Last Admin: 12/04/17 10:39 Dose: 25 mls/hr Vancomycin HCl 1 gm/ Sodium (Chloride) 250 mls @ 250 mls/hr IV Q18H [facility] Last Admin: 12/07/17 04:10 Dose: 250 mls/hr Magnesium Sulfate 2 gm/ Premix 50 mls @ 25 mls/hr IV ONETIME ONE Stop: 12/05/17 15:24 Last Admin: 12/05/17 13:46 Dose: 25 mls/hr Sodium Chloride (Normal Saline) 1,000 mls @ 50 mls/hr IV ASDIRECTED [facility] Last Admin: 12/09/17 11:08 Dose: 50 mls/hr Magnesium Sulfate 2 gm/ Premix 50 mls @ 25 mls/hr IV ONETIME ONE Stop: 12/07/17 11:52 Last Admin: 12/07/17 11:12 Dose: Not Given Magnesium Sulfate 2 gm/ Premix 50 mls @ 25 mls/hr IV ONETIME ONE Stop: 12/07/17 13:59 Last Admin: 12/07/17 12:18 Dose: 25 mls/hr Sodium Bicarbonate 150 meq/ (Dextrose/Water) 1,150 mls @ 100 mls/hr IV ONETIME ONE Stop: 12/09/17 03:08 Last Admin: 12/08/17 15:48 Dose: 100 mls/hr Magnesium Sulfate 2 gm/ Premix 50 mls @ 25 mls/hr IV ONETIME ONE Stop: 12/10/17 16:06 Last Admin: 12/10/17 14:27 Dose: 25 mls/hr Sodium Bicarbonate 150 meq/ (Dextrose/Water) 1,150 mls @ 100 mls/hr IV ONETIME ONE Stop: 12/11/17 23:07 Last Admin: 12/11/17 12:39 Dose: 100 mls/hr Dextrose/Water (Dextrose 5% In Water) Confirm Administered Dose 1,000 mls @ as directed .ROUTE .STK-MED ONE Stop: 12/11/17 12:23 Last Admin: 12/11/17 12:52 Dose: Not Given Insulin Human Regular 100 unit (/ Sodium Chloride) 100 mls @ 7.5 mls/hr IV TITRATE [facility]; Protocol Last Titration: 12/12/17 21:15 Dose: 0 units/kg/hr, 0 mls/hr Piperacillin Sod/Tazobactam (Sod 4.5 gm/ Sodium Chloride) 100 mls @ 25 mls/hr IV Q8H [facility] Last Admin: 12/12/17 11:32 Dose: Not Given Meropenem 500 mg/ Sodium (Chloride) 100 mls @ 200 mls/hr IV Q8H [facility] Last Admin: 12/13/17 06:16 Dose: 200 mls/hr Levofloxacin/Dextrose 750 mg/ (Premix) 150 mls @ 100 mls/hr IV Q48H [facility] Last Admin: 12/12/17 11:24 Dose: 100 mls/hr Azithromycin 500 mg/ Sodium (Chloride) 250 mls @ 250 mls/hr IV ONETIME ONE Stop: 12/13/17 13:02 Last Admin: 12/13/17 12:44 Dose: 250 mls/hr Aminophylline 250 mg/ Sodium (Chloride) 210 mls @ 35 mls/hr IV ONETIME ONE Stop: 12/14/17 04:33 Last Admin: 12/13/17 23:15 Dose: 35 mls/hr Insulin Aspart (Novolog) 0 unit SUBCUT QIDACANDBED [facility]; Protocol Last Admin: 12/03/17 19:06 Dose: Not Given Insulin Aspart (Novolog) 0 unit SUBCUT Q6H [facility]; Protocol Last Admin: 12/05/17 02:00 Dose: 7 units Insulin Aspart (Novolog) 0 unit SUBCUT Q6HR [facility]; Protocol Last Admin: 12/06/17 18:28 Dose: 10 units Insulin Aspart (Novolog) 0 unit SUBCUT QIDACANDBED [facility]; Protocol Last Admin: 12/09/17 22:21 Dose: Not Given Insulin Aspart (Novolog) 0 unit SUBCUT Q6H [facility]; Protocol Last Admin: 12/09/17 20:09 Dose: Not Given Insulin Aspart (Novolog) 0 unit SUBCUT Q6HR [facility]; Protocol Last Admin: 12/10/17 12:35 Dose: 12 units Insulin Aspart (Novolog) 0 unit SUBCUT Q6HR [facility]; Protocol Last Admin: 12/11/17 12:48 Dose: 15 units Insulin Aspart (Novolog) 0 unit SUBCUT Q4H [facility]; Protocol Last Admin: 12/13/17 17:39 Dose: Not Given Insulin Aspart (Novolog) 0 unit SUBCUT Q4HR [facility]; Protocol Last Admin: 12/13/17 23:16 Dose: Not Given Insulin Detemir (Levemir) 5 unit SUBCUT BID [facility] Last Admin: 12/10/17 09:12 Dose: 5 units Insulin Detemir (Levemir) 8 unit SUBCUT BID [facility] Last Admin: 12/11/17 08:45 Dose: 8 units Insulin Detemir (Levemir) 8 unit SUBCUT ONETIME ONE Stop: 12/10/17 17:54 Last Admin: 12/10/17 18:07 Dose: 8 units Insulin Detemir (Levemir) 8 unit SUBCUT BID [facility] Insulin Detemir (Levemir) 10 unit SUBCUT BID [facility] Insulin Detemir (Levemir) 6 unit SUBCUT ONETIME ONE Stop: 12/13/17 21:01 Insulin Detemir (Levemir) 10 unit SUBCUT BID [facility] Insulin Detemir (Levemir) 8 unit SUBCUT ONETIME ONE Stop: 12/13/17 21:01 Insulin Detemir (Levemir) 15 unit SUBCUT ONETIME ONE Stop: 12/13/17 21:01 Last Admin: 12/13/17 20:27 Dose: 15 units Insulin Detemir (Levemir) 15 unit SUBCUT ONETIME ONE Stop: 12/13/17 22:24 Last Admin: 12/13/17 23:16 Dose: 15 units Insulin Human Isoph/Insulin Regular (Novolin 70-30) 10 unit SUBCUT ONETIME ONE Stop: 12/13/17 16:45 Last Admin: 12/13/17 17:03 Dose: 10 units Insulin Human NPH (Novolin N) 25 unit SUBCUT ONETIME ONE Stop: 12/13/17 22:28 Last Admin: 12/13/17 23:41 Dose: Not Given Insulin Human Regular (Humulin R) 25 unit SUBCUT ONETIME ONE Stop: 12/13/17 23:46 Last Admin: 12/14/17 00:08 Dose: 25 units Levothyroxine Sodium (Synthroid) 50 mcg PO ACBREAKFAST [facility] Last Admin: 12/13/17 06:16 Dose: 50 mcg Megestrol Acetate (Megace) 40 mg PO BID [facility] Last Admin: 12/05/17 12:23 Dose: Not Given Methylprednisolone Sodium Succinate (Solu-Medrol) 80 mg IVPUSH DAILY@1800 [facility] Last Admin: 12/08/17 18:19 Dose: 80 mg Methylprednisolone Sodium Succinate (Solu-Medrol) 125 mg IVPUSH Q8H [facility] Last Admin: 12/13/17 06:16 Dose: 125 mg Methylprednisolone Sodium Succinate (Solu-Medrol) 80 mg IVPUSH Q8H [facility] Potassium Chloride (Klor-Con M20) 40 meq PO BID [facility] Stop: 12/06/17 09:01 Last Admin: 12/06/17 08:56 Dose: 40 meq Racepinephrine (S-2 2.25%) Confirm Administered Dose 0.5 ml .ROUTE .STK-MED ONE Stop: 12/11/17 17:35 Last Admin: 12/11/17 17:42 Dose: Not Given Racepinephrine (S-2 2.25%) 0.5 ml NEB Q6HR [facility] Last Admin: 12/12/17 18:35 Dose: 0.5 ml Sodium Bicarbonate (Sodium Bicarbonate 8.4%) Confirm Administered Dose 100 meq .ROUTE .STK-MED ONE Stop: 12/08/17 15:11 Last Admin: 12/08/17 15:10 Dose: 100 meq Sodium Bicarbonate (Sodium Bicarbonate 8.4%) 100 meq IVPUSH ONETIME ONE Stop: 12/08/17 15:17 Last Admin: 12/08/17 16:09 Dose: Not Given Sodium Bicarbonate (Sodium Bicarbonate 8.4%) Confirm Administered Dose 150 meq .ROUTE .STK-MED ONE Stop: 12/11/17 12:23 Last Admin: 12/11/17 12:52 Dose: Not Given Vancomycin HCl (Pharmacy To Dose - Vancomycin) 0 dose .XX ASDIRECTED PRN PRN Reason: RX TO DOSE VANCOMYCIN - Exam Quality Assessment: Supplemental Oxygen General: Alert, Oriented, Cooperative, No Acute Distress HEENT: Pupils Equal, Pupils Reactive, EOMI, Mucous Membr. Moist/[place] Neck: Supple, Trachea Midline, No JVD, No Thyromegaly Lungs: Normal Respiratory Effort, Decreased Breath Sounds, Rales (mild at the bases) Cardiovascular: Regular Rate, Regular Rhythm GI/Abdominal Exam: Normal Bowel Sounds, Soft, Non-Tender, No Organomegaly, No Distention, No Abnormal Bruit, No Mass (Female) Exam: Deferred Back Exam: Normal Inspection, Decreased Range of Motion Extremities: Normal Inspection, Normal Range of Motion, Non-Tender, No Pedal Edema, Normal Capillary Refill Peripheral Pulses: 2+: Dorsalis Pedis (L), Dorsalis Pedis (R) Skin: Warm, Dry, Intact Psy/Mental Status: Alert, Normal Affect, Depressed - Problem List Review Problem List Initiated/Reviewed/Updated: Yes - My Orders Last 24 Hours: My Active Orders 12/13/17 12:01 Consult to Physician [CONS] Routine 12/13/17 12:02 Notify Provider Consults [RC] ASDIRECTED 12/13/17 12:05 ClonazePAM [KlonoPIN] 0.5 mg PO TID PRN 12/13/17 14:00 Albuterol/Ipratropium [DuoNeb 3.0-0.5 MG/3 ML] 3 ml NEB TIDRT 12/13/17 15:17 methylPREDNISolone Sod Succ [Solu-MEDROL] 80 mg IVPUSH Q8H 12/13/17 21:00 Magnesium Oxide 400 mg PO BID 12/13/17 22:30 Sodium Chloride 0.9% [Normal Saline] 1,000 ml IV ASDIRECTED 12/13/17 23:49 Consult to Dietary [Consult to Router Operator Radial] [CONS] Routine 12/14/17 04:30 Potassium Chloride [KCl 10 MEQ in Water 100 ML] 10 meq Premix Bag 1 bag IV Q1H 12/14/17 07:00 Insulin Aspart [NovoLOG] 12 unit SUBCUT TIDMEALS glipiZIDE [Glucotrol XL] 5 mg PO BIDMEALS 12/14/17 09:00 Azithromycin [Zithromax] 250 mg PO DAILY Furosemide [Lasix] 10 mg IVPUSH BID Insulin Detemir [Levemir] 25 unit SUBCUT BID Theophylline [Theophylline Anhydrous] 300 mg PO BID - Plan Plan:: Impression: Acute: COPD Exacerbation, Significantly Improved - Has an underlying advanced COPD--> was a difficult extubation in [place] requiring tracheostomy - Most CXR--shows no infiltrate but atelectasis and pulmonary congestion--> No pneumonia - Continue IV Bronchodilators, IV Azithromycin 500 mg IV x1 now then oral 250 mg po daily in AM, Magnesium Oxide 400 mg po BID - She received Aminophylline drip x1 last night and now on Theophylline 300 mg po BID - Taper IV Solumedrol to 60 mg BID from 80 mg TID - Continue PRN BIPAP and RT care and klonopin 0.5 mg po TID PRN for anxiety Hypercapnea, Improving - 2/2 COPD - Received NaHCO3 gtt with good results; now d/c'd - CO2 48---> now 39 - Continue treatment above Diabetes Mellitus 2 w/ Hyperglycemia - Still poorly controlled--> will elicit dietary help - A1C 7.2 12/04/2017 - 2/2 High dose steroid use - Continue to cut down IV Steroid - Has had multiple insulin SA/LA given to her yesterday and throughout the evening - Continue accu-check at Q6H and ISS - SA insulin 15 units subQ TID Meals, Levemir 30 units SubQ BID plus Glucotrol 5 mg po BID - Dietary will work out a new diet plan to improve her hyperglycemia Severe Hypothyroidism - Has hx/o it on Synthroid 50 mcg po daily - TSH 24.519; FT4 0.69 - Continue 75 mcg po daily; may consider to go up for another 25 mcg in AM Resolved: S/p Acute respiratory distress, hypercapnia-->NEW occurence after 4 hours on NC S/P Rapid response--received 2 amps of NaHCO3 during response and subsequently was started on sod bicarb gtt. Hx of prolong intubation, s/p tracheostomy, BIPAP adjust settings with improved VT; solumedrol S/p Decrease responsiveness--ruled out CVA S/p Paroxysmal A fib--<30 minutes in the time frame of Rapid response S/p Hyponatremia--now 142 S/p Hyperkalemia--now 3.8 Chronic: Hx of CKD, II Deconditioned, continue PT/OT Depression--continue Celexa, Wellbutrin Fe deficiency PUD HTN HLD Macular degeneration CAD/AL S/p CABG Plan: She looks way better clinically Increase activity level-->up three time daily BiPAP as needed for above Continue PT/OT for deconditioning DVT/GI prophylaxis Code status: DNR/DNI Additional orders as above Prognosis remains guarded. Daughter present at bedside was updated about her clinical progress.
[2017-12-14] MEDS: glipiZIDE 5 MG Tab.ER PO SCH ×2 (07:55→17:30)
[2017-12-14] MEDS: methylPREDNISolone Sodium Succinate 40 MG/1 ML SDV IVPUSH SCH ×2 (07:55→20:16)
[2017-12-14] MEDS: Furosemide 20 MG/2 ML VIAL IVPUSH SCH ×2 (08:00→20:17)
[2017-12-14] MEDS: Multivitamins,Therapeutic Tab PO SCH (08:02)
[2017-12-14] MEDS: rOPINIRole 1 MG Tab PO SCH ×2 (08:02→20:16)
[2017-12-14] MEDS: Insulin Detemir 100 Units/ML 3 ML Pen SUBCUT SCH ×2 (08:02→21:43)
[2017-12-14] MEDS: Saccharomyces Boulardii (Probiotic) 250 MG Cap PO SCH (08:02)
[2017-12-14] MEDS: Megestrol Susp 40 MG/ML 10 ML UD Cup PO SCH ×2 (08:03→20:16)
[2017-12-14] MEDS: Citalopram 20 MG Tab PO SCH (08:03)
[2017-12-14] MEDS: buPROPion 150 MG Tab.ER PO SCH (08:03)
[2017-12-14] MEDS: Losartan 25 MG Tab PO SCH (08:03)
[2017-12-14] MEDS: Ferrous Sulfate 325 MG Tab PO SCH (08:03)
[2017-12-14] MEDS: Aspirin 81 MG Tab.Chew PO SCH (08:03)
[2017-12-14] MEDS: Polyethylene Glycol 3350 Powder 17 GM Packet PO SCH ×2 (08:03→08:34)
[2017-12-14] MEDS: Metoclopramide 10 MG Tab PO SCH ×4 (08:03→20:16)
[2017-12-14] MEDS: Magnesium Oxide 400 MG Tab PO SCH ×2 (08:03→20:16)
[2017-12-14] MEDS: Azithromycin 250 MG Tab PO SCH (08:03)
--- NOTE | 2017-12-14 08:04 | CONS ---
CONSULTING PHYSICIAN: Satish Denton MD DATE OF CONSULTATION: 12/13/2017 IDENTIFICATION: The patient is a 67-year-old female who is admitted to the inpatient MICU at [facility]. She is seen for psychiatric consultation. CHIEF COMPLAINT: "I could not breathe." HISTORY OF PRESENT ILLNESS: The patient is a 67-year-old female who has a history of depression, but is being well treated with a combination of Celexa and Wellbutrin XL per her report. She states that prior to her recent medical issues, she generally "has been feeling good. Just tired" from a physical standpoint. The patient feels that her combination of Celexa and Wellbutrin XL has been helping her mood. She states that she could get her COPD exacerbation under control and be less short of breath. Her mood overall will be very good. She denies that she is suicidal or homicidal. She denies any psychotic, delusional, or paranoid symptoms. She reports no illicit substance use or excessive alcohol use complicating the clinical picture. She would like to stay on her antidepressant medications as currently prescribed. MEDICATIONS: At the time of presentation: 1. Celexa 40 mg daily. 2. Wellbutrin XL 150 mg q.a.m. ALLERGIES: 1. Ambien. 2. Macrodantin. 3. Sulfa. 4. Bactrim. 5. Triazolam. PAST MEDICAL HISTORY: 1. Hypoxia secondary to COPD exacerbation. 2. Hypertension. 3. Diabetes. 4. Hypothyroidism. 5. History of renal insufficiency. 6. Status post PEG tube placement. 7. Macular degeneration bilaterally. REVIEW OF SYSTEMS: Aside from pulmonary, cardiovascular, endocrine, renal, GI, and ocular, all other major organ systems are negative at this point in time for acute difficulties or complications. FAMILY PSYCHIATRIC AND CD HISTORY: None reported. PAST PSYCHIATRIC AND CD HISTORY: The patient reports a history of depression that is currently been well treated with Celexa and Wellbutrin. SOCIAL HISTORY: The patient was born and raised in [place], [place]. She was but got . She has 4 children and she remains close with the children. Two of them live in the area and support her. 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 MENTAL STATUS EXAM: The patient is a 67-year-old, soft-spoken white female in no apparent distress. Speech is of increased latency, response, and shortened duration of utterance. Psychomotor activity is within normal limits. There is no abnormal motor movements or tics observed. Gait and station are not observed. This patient is lying in bed for the duration of the consult. Mood is "just tired." Affect is consistent with stated mood. As the interview progresses, the patient appears to be more short of breath. There is no behavioral or stated evidence of acute suicidal or homicidal ideation or acute psychotic, delusional, or paranoid symptoms. Thought processes are organized. There are no acute manic symptoms or loose associations evident. Judgment and insight appear unimpaired at this point in time. Motivation for help is good. VITAL SIGNS: 145/70, 90, 120, and 98.6 degrees. IMPRESSION: [place] I: 1. Major depressive disorder, recurrent, F33. 2. Anxiety disorder, not otherwise specified, 41.9. [place] II: None. [place] III: 1. Hypoxia secondary to chronic obstructive disease exacerbation. 2. History of hypertension. 3. History of diabetes. 4. History of hypothyroidism. 5. History of renal insufficiency. 6. Status post PEG tube placement. 7. Macular degeneration. [place] IV: Severe. [place] V: 60. PLAN: 1. Continue Celexa 40 mg daily as prescribed for symptoms of depression. 2. Continue Wellbutrin XL 150 mg q.a.m. to help also with symptoms of depression as presently prescribed. 3. Other medications as dosed and prescribed by the patient's primary inpatient medical treatment team. 4. We will continue to follow up with the patient on an as-needed basis while she remains on the inpatient MICU. 5. Crisis plan is in place. MMODAL /[id number]
--- NOTE | 2017-12-14 08:37 | CR ---
Chest: Portable view of the chest was obtained. Comparison: Prior chest x-ray of 12/13/17. Heart size is slightly enlarged. Tortuous thoracic aorta is seen. Sternotomy for CABG is seen. Minimal parenchymal density remains within the right cardiophrenic angle which is stable. Pulmonary vessels remain mildly increased. Bony structures are unchanged. Impression: 1. Findings as described above remain stable from prior chest x-ray. No new abnormality is seen. Diagnostic code #3
[2017-12-14] MEDS ORDERED: methylPREDNISolone Sodium Succinate 40 MG/1 ML SDV IVPUSH SCH (09:00)
[2017-12-14] MEDS ORDERED: Insulin Detemir 100 Units/ML 3 ML Pen SUBCUT SCH ×2 (09:00)
[2017-12-14] MEDS: Theophylline 300 MG Tab.ER PO SCH ×2 (09:25→21:16)
[2017-12-14] MEDS: Insulin Aspart 100 Units/ML 3 ML Pen SUBCUT SCH ×2 (12:06→17:59)
[2017-12-14] MEDS: Enoxaparin 40 MG/0.4 ML Syringe SUBCUT SCH (16:46)
[2017-12-14] MEDS: Sodium Chloride 0.9% 1,000 ML IV SCH (19:13)
[2017-12-14] MEDS: Rosuvastatin 10 MG Tab PO SCH (20:16)
[2017-12-14] MEDS ORDERED: Insulin Regular, Human 100 Units/ML 3 ML Vial SUBCUT ONE (23:26)
[2017-12-15] MEDS: Budesonide 0.25 MG/2 ML Neb Susp NEB SCH ×2 (05:04→20:44)
[2017-12-15] MEDS: Albuterol/Ipratropium 3.0-0.5 MG/3 ML Neb Soln NEB SCH ×3 (05:04→20:44)
[2017-12-15] MEDS: Levothyroxine 100 MCG Tab PO SCH (06:19)
[2017-12-15] MEDS: glipiZIDE 5 MG Tab.ER PO SCH ×2 (06:19→17:14)
[2017-12-15] MEDS: Pantoprazole 40 MG Tab.CR PO SCH (06:19)
[2017-12-15] MEDS: Saccharomyces Boulardii (Probiotic) 250 MG Cap PO SCH (08:38)
[2017-12-15] MEDS: Ferrous Sulfate 325 MG Tab PO SCH (08:39)
[2017-12-15] MEDS: Losartan 25 MG Tab PO SCH (08:39)
[2017-12-15] MEDS: Citalopram 20 MG Tab PO SCH (08:39)
[2017-12-15] MEDS: Multivitamins,Therapeutic Tab PO SCH (08:39)
[2017-12-15] MEDS: Theophylline 300 MG Tab.ER PO SCH ×2 (08:39→20:07)
[2017-12-15] MEDS: rOPINIRole 1 MG Tab PO SCH ×2 (08:39→20:07)
[2017-12-15] MEDS: buPROPion 150 MG Tab.ER PO SCH (08:39)
[2017-12-15] MEDS: Magnesium Oxide 400 MG Tab PO SCH ×2 (08:40→20:07)
[2017-12-15] MEDS: Aspirin 81 MG Tab.Chew PO SCH (08:40)
[2017-12-15] MEDS: Megestrol Susp 40 MG/ML 10 ML UD Cup PO SCH (08:40)
[2017-12-15] MEDS: Azithromycin 250 MG Tab PO SCH (08:40)
[2017-12-15] MEDS: Metoclopramide 10 MG Tab PO SCH ×4 (08:40→20:07)
[2017-12-15] MEDS: Furosemide 20 MG/2 ML VIAL IVPUSH SCH ×2 (08:42→17:14)
[2017-12-15] MEDS: Polyethylene Glycol 3350 Powder 17 GM Packet PO SCH (08:43)
[2017-12-15] MEDS: methylPREDNISolone Sodium Succinate 40 MG/1 ML SDV IVPUSH SCH ×2 (08:46→20:07)
[2017-12-15] MEDS: Insulin Aspart 100 Units/ML 3 ML Pen SUBCUT SCH ×3 (08:50→18:00)
[2017-12-15] MEDS: Insulin Detemir 100 Units/ML 3 ML Pen SUBCUT SCH ×2 (08:55→20:16)
[2017-12-15] MEDS: traMADol 50 MG Tab PO PRN (09:05)
--- NOTE | 2017-12-15 09:51 | PCM.PN ---
- General Info Date of Service: 12/15/17 Admission Dx/Problem (Free Text): Admission Diagnosis/Problem Admission Diagnosis/Problem Hypoxia Subjective Update: In to see Ewa. She is sitting in chair at bedside. She appears fatigued and weak but is able to converse appropriately. She states she is starting to feel better. She does report sporadic dyspnea at rest and frequently with exertion. Denies chest pain or palpitations. Endorses improved appetite. She states her UBW prior to her multiple hospitalizations was 180#. Admit weight was 152#; current weight is 165#. She feels she will be able to walk with therapy today, but she states she still feels weak. Denies any /GI complaints. Functional Status: Reports: Pain Controlled, Tolerating Diet, Ambulating (with assistance ), Urinating - Review of Systems General: Reports: Weakness, Fatigue. Denies: Fever HEENT: Reports: No Symptoms Pulmonary: Reports: No Symptoms, Shortness of Breath. Denies: Cough Cardiovascular: Reports: No Symptoms, Dyspnea on Exertion, Edema. Denies: Chest Pain, Palpitations Gastrointestinal: Reports: No Symptoms. Denies: Abdominal Pain, Constipation, Diarrhea, Vomiting Genitourinary: Reports: No Symptoms. Denies: Dysuria, Frequency Musculoskeletal: Reports: No Symptoms Skin: Reports: No Symptoms. Denies: Cyanosis Neurological: Reports: Weakness (generalized with debility ). Denies: Confusion , Dizziness, Headache Psychiatric: Reports: No Symptoms. Denies: Confusion, Depression, Anxiety - Patient Data Vitals - Most Recent: Last Vital Signs Temp 97.8 F 12/15/17 09:00 Pulse 103 H 12/15/17 09:00 Resp 19 12/15/17 09:00 BP 165/65 H 12/15/17 09:00 Pulse Ox 93 L 12/15/17 09:00 Weight - Most Recent: 165 lb I&O - Last 24 Hours: Intake & Output 12/14/17 12/15/17 12/15/17 22:59 06:59 14:59 Intake Total 1728 636 Output Total 435 225 Balance 1293 411 Lab Results Last 24 Hours: Laboratory Results - last 24 hr 12/14/17 12/14/17 12/14/17 Range/Units 11:12 17:25 21:44 WBC (3.98-10.04) K/mm3 RBC (3.98-5.22) M/mm3 Hgb (11.2-15.7) gm/L Hct (34.1-44.9) % MCV (79.4-94.8) fl MCH (25.6-32.2) pg MCHC (32.2-35.5) g/dl RDW Std Deviation (36.4-46.3) fL Plt Count (182-369) K/mm3 MPV (9.4-12.3) fl Neut % (Auto) (34.0-71.1) % Lymph % (Auto) (19.3-51.7) % Charlton % (Auto) (4.7-12.5) % Eos % (Auto) (0.7-5.8) Baso % (Auto) (0.1-1.2) % Neut # (Auto) (1.56-6.13) K/mm3 Lymph # (Auto) (1.18-3.74) K/mm3 Charlton # (Auto) (0.24-0.36) K/mm3 Eos # (Auto) (0.04-0.36) K/mm3 Baso # (Auto) (0.01-0.08) K/mm3 Manual Slide Review Sodium (136-145) mEq/L Potassium (3.5-5.1) mEq/L Chloride (98-107) mEq/L Carbon Dioxide (21-32) mEq/L Anion Gap (5-15) BUN (7-18) mg/dL Creatinine (0.55-1.02) mg/dL Est Cr Clr Drug Dosing mL/min Estimated GFR (MDRD) (>60) mL/min BUN/Creatinine Ratio (14-18) Glucose (80-115) mg/dL POC Glucose 255 H 180 H 225 H (80-115) mg/dL Calcium (8.5-10.1) mg/dL Magnesium (1.8-2.4) mg/dl 12/15/17 12/15/17 12/15/17 Range/Units 00:15 05:03 05:35 WBC 11.85 H (3.98-10.04) K/mm3 RBC 3.61 L (3.98-5.22) M/mm3 Hgb 10.8 L (11.2-15.7) gm/L Hct 36.1 (34.1-44.9) % MCV 100.0 H (79.4-94.8) fl MCH 29.9 (25.6-32.2) pg MCHC 29.9 L (32.2-35.5) g/dl RDW Std Deviation 55.8 H (36.4-46.3) fL Plt Count 365 (182-369) K/mm3 MPV 11.4 (9.4-12.3) fl Neut % (Auto) 89.6 H (34.0-71.1) % Lymph % (Auto) 5.3 L (19.3-51.7) % Charlton % (Auto) 4.2 L (4.7-12.5) % Eos % (Auto) 0 L (0.7-5.8) Baso % (Auto) 0.1 (0.1-1.2) % Neut # (Auto) 10.62 H (1.56-6.13) K/mm3 Lymph # (Auto) 0.63 L (1.18-3.74) K/mm3 Charlton # (Auto) 0.50 H (0.24-0.36) K/mm3 Eos # (Auto) 0.00 L (0.04-0.36) K/mm3 Baso # (Auto) 0.01 (0.01-0.08) K/mm3 Manual Slide Review Abnormal smear Sodium (136-145) mEq/L Potassium (3.5-5.1) mEq/L Chloride (98-107) mEq/L Carbon Dioxide (21-32) mEq/L Anion Gap (5-15) BUN (7-18) mg/dL Creatinine (0.55-1.02) mg/dL Est Cr Clr Drug Dosing mL/min Estimated GFR (MDRD) (>60) mL/min BUN/Creatinine Ratio (14-18) Glucose (80-115) mg/dL POC Glucose 157 H 169 H (80-115) mg/dL Calcium (8.5-10.1) mg/dL Magnesium (1.8-2.4) mg/dl 18 12/15/17 Range/Units 05:35 05:35 WBC (3.98-10.04) K/mm3 RBC (3.98-5.22) M/mm3 Hgb (11.2-15.7) gm/L Hct (34.1-44.9) % MCV (79.4-94.8) fl MCH (25.6-32.2) pg MCHC (32.2-35.5) g/dl RDW Std Deviation (36.4-46.3) fL Plt Count (182-369) K/mm3 MPV (9.4-12.3) fl Neut % (Auto) (34.0-71.1) % Lymph % (Auto) (19.3-51.7) % Charl[place] % (Auto) (4.7-12.5) % Eos % (Auto) (0.7-5.8) Baso % (Auto) (0.1-1.2) % Neut # (Auto) (1.56-6.13) K/mm3 Lymph # (Auto) (1.18-3.74) K/mm3 [place] # (Auto) (0.24-0.36) K/mm3 Eos # (Auto) (0.04-0.36) K/mm3 Baso # (Auto) (0.01-0.08) K/mm3 Manual Slide Review Sodium 138 (136-145) mEq/L Potassium 4.0 (3.5-5.1) mEq/L Chloride 101 (98-107) mEq/L Carbon Dioxide 39 H (21-32) mEq/L Anion Gap 2.0 L (5-15) BUN 37 H (7-18) mg/dL Creatinine 1.0 (0.55-1.02) mg/dL Est Cr Clr Drug Dosing 42.22 mL/min Estimated GFR (MDRD) 55 (>60) mL/min BUN/Creatinine Ratio 37.0 H (14-18) Glucose 157 H (80-115) mg/dL POC Glucose (80-115) mg/dL Calcium 8.9 (8.5-10.1) mg/dL Magnesium 1.9 (1.8-2.4) mg/dl Med Orders - Current: Current Medications Acetaminophen (Tylenol) 650 mg PO Q6H PRN PRN Reason: Pain/Fever Last Admin: 12/13/17 06:16 Dose: 650 mg Albuterol (Proventil Neb Soln) 2.5 mg NEB Q4HRRT PRN PRN Reason: Shortness of Breath Last Admin: 12/11/17 14:53 Dose: 2.5 mg Albuterol/Ipratropium (Duoneb 3.0-0.5 Mg/3 Ml) 3 ml NEB TIDRT [facility] Last Admin: 12/15/17 05:04 Dose: 3 ml Aspirin (Aspirin) 81 mg PO DAILY [facility] Last Admin: 12/15/17 08:40 Dose: 81 mg Azithromycin (Zithromax) 250 mg PO DAILY [facility] Last Admin: 12/15/17 08:40 Dose: 250 mg Bisacodyl (Dulcolax) 10 mg RECTAL DAILY PRN PRN Reason: Constipation Budesonide (Pulmicort) 0.25 mg NEB BIDRT [facility] Last Admin: 12/15/17 05:04 Dose: 0.25 mg Bupropion HCl (Wellbutrin Xl) 150 mg PO DAILY [facility] Last Admin: 12/15/17 08:39 Dose: 150 mg Citalopram Hydrobromide (Celexa) 40 mg PO DAILY [facility] Last Admin: 12/15/17 08:39 Dose: 40 mg Clonazepam (Klonopin) 0.5 mg PO TID PRN PRN Reason: Anxiety Dextrose/Water (Dextrose 50% In Water) 50 ml IVPUSH ASDIRECTED PRN PRN Reason: Hypoglycemia Enoxaparin Sodium (Lovenox) 40 mg SUBCUT Q24H [facility] Last Admin: 12/14/17 16:46 Dose: 40 mg Ferrous Sulfate (Ferrous Sulfate) 325 mg PO DAILY [facility] Last Admin: 12/15/17 08:39 Dose: 325 mg Furosemide (Lasix) 10 mg IVPUSH BID@0900,1700 [facility] Stop: 12/15/17 17:01 Last Admin: 12/15/17 08:42 Dose: 10 mg Glipizide (Glucotrol Xl) 5 mg PO BIDMEALS [facility] Last Admin: 12/15/17 06:19 Dose: 5 mg Hydralazine HCl (Apresoline) 20 mg IVPUSH Q6H PRN PRN Reason: Hypertension Last Admin: 12/13/17 04:54 Dose: 20 mg Sodium Chloride (Normal Saline) 1,000 mls @ 50 mls/hr IV ASDIRECTED [facility] Last Admin: 12/14/17 19:13 Dose: 50 mls/hr Insulin Aspart (Novolog) 15 unit SUBCUT TIDMEALS [facility] Last Admin: 12/15/17 08:50 Dose: 15 units Insulin Detemir (Levemir) 30 unit SUBCUT BID [facility] Last Admin: 12/15/17 08:55 Dose: 30 units Levothyroxine Sodium (Synthroid) 100 mcg PO ACBREAKFAST [facility] Last Admin: 12/15/17 06:19 Dose: 100 mcg Losartan Potassium (Cozaar) 25 mg PO DAILY [facility] Last Admin: 12/15/17 08:39 Dose: 25 mg Magnesium Oxide (Magnesium Oxide) 400 mg PO BID [facility] Last Admin: 12/15/17 08:40 Dose: 400 mg Megestrol Acetate (Megace 40 Mg/Ml Susp) 400 mg PO BID [facility] Last Admin: 12/15/17 08:40 Dose: 400 mg Methylprednisolone Sodium Succinate (Solu-Medrol) 60 mg IVPUSH BID [facility] Last Admin: 12/15/17 08:46 Dose: 60 mg Metoclopramide HCl (Reglan) 10 mg PO QID [facility] Last Admin: 12/15/17 08:40 Dose: 10 mg Metoprolol Tartrate (Lopressor) 5 mg IVPUSH Q4H PRN PRN Reason: Tachycardia Morphine Sulfate (Morphine) 0.5 mg IVPUSH Q4H PRN PRN Reason: Shortness of Breath Last Admin: 12/12/17 15:54 Dose: 0.5 mg Multivitamins (Thera) 1 each PO DAILY [facility] Last Admin: 12/15/17 08:39 Dose: 1 each Ondansetron HCl (Zofran) 4 mg IVPUSH Q8H PRN PRN Reason: Nausea/Vomiting Pantoprazole Sodium (Protonix) 40 mg PO DAILY@0700 [facility] Last Admin: 12/15/17 06:19 Dose: 40 mg Polyethylene Glycol (Miralax) 17 gm PO DAILY [facility] Last Admin: 12/15/17 08:43 Dose: 17 gm Ropinirole HCl (Requip) 1 mg PO BID [facility] Last Admin: 12/15/17 08:39 Dose: 1 mg Rosuvastatin Calcium (Crestor) 10 mg PO BEDTIME [facility] Last Admin: 12/14/17 20:16 Dose: 10 mg Saccharomyces Boulardii (Florastor) 500 mg PO DAILY [facility] Last Admin: 12/15/17 08:38 Dose: 500 mg Senna/Docusate Sodium (Senna Plus) 2 tab PO BID [facility] Last Admin: 12/15/17 08:40 Dose: 2 tab Sodium Chloride (Saline Flush) 10 ml FLUSH ASDIRECTED PRN PRN Reason: Keep Vein Open Last Admin: 12/03/17 07:55 Dose: 10 ml Theophylline (Theophylline Anhydrous) 300 mg PO BID [facility] Last Admin: 12/15/17 08:39 Dose: 300 mg Tramadol HCl (Ultram) 50 mg PO TID PRN PRN Reason: Pain (moderate 4-6) Last Admin: 12/15/17 09:05 Dose: 50 mg Discontinued Medications Acetazolamide (Diamox) 500 mg PO ONETIME ONE Stop: 12/13/17 07:13 Last Admin: 12/13/17 08:29 Dose: 500 mg Albuterol/Ipratropium (Duoneb 3.0-0.5 Mg/3 Ml) 3 ml NEB QID [facility] Last Admin: 12/06/17 20:15 Dose: 3 ml Albuterol/Ipratropium (Duoneb 3.0-0.5 Mg/3 Ml) 3 ml NEB QIDRT [facility] Last Admin: 12/13/17 09:08 Dose: 3 ml Budesonide (Pulmicort) 0.25 mg NEB BIDRT [facility] Last Admin: 12/12/17 00:13 Dose: 0.25 mg Budesonide (Pulmicort) 0.5 mg NEB Q6H [facility] Last Admin: 12/12/17 18:35 Dose: 0.5 mg Bumetanide (Bumex) 0.5 mg IVPUSH ONETIME ONE Stop: 12/13/17 12:01 Last Admin: 12/13/17 12:45 Dose: Not Given Bumetanide (Bumex) 0.5 mg IVPUSH ONETIME ONE Stop: 12/13/17 12:25 Last Admin: 12/13/17 12:44 Dose: 0.5 mg Clonazepam (Klonopin) 0.5 mg PO ONETIME ONE Stop: 12/13/17 12:06 Last Admin: 12/13/17 12:43 Dose: 0.5 mg Fluconazole (Diflucan) 150 mg PO ONETIME ONE Stop: 12/05/17 09:01 Last Admin: 12/05/17 08:55 Dose: 150 mg Fluconazole (Diflucan) 100 mg PO DAILY [facility] Last Admin: 12/13/17 08:33 Dose: 100 mg Furosemide (Lasix) 40 mg IVPUSH NOW ONE Stop: 12/03/17 07:31 Last Admin: 12/03/17 07:47 Dose: 40 mg Furosemide (Lasix) 40 mg IVPUSH NOW ONE Stop: 12/04/17 18:22 Last Admin: 12/04/17 18:26 Dose: 40 mg Furosemide (Lasix) 40 mg IVPUSH ONETIME ONE Stop: 12/05/17 08:01 Last Admin: 12/05/17 08:54 Dose: 40 mg Furosemide (Lasix) 20 mg IVPUSH NOW ONE Stop: 12/08/17 11:02 Last Admin: 12/08/17 11:41 Dose: 20 mg Furosemide (Lasix) 20 mg IVPUSH ONETIME ONE Stop: 12/08/17 15:39 Last Admin: 12/08/17 15:55 Dose: 20 mg Furosemide (Lasix) 20 mg IVPUSH ONETIME ONE Stop: 12/12/17 14:23 Last Admin: 12/12/17 14:31 Dose: 20 mg Furosemide (Lasix) 10 mg IVPUSH NOW ONE Stop: 12/13/17 22:26 Last Admin: 12/13/17 23:14 Dose: 10 mg Furosemide (Lasix) 10 mg IVPUSH BID [facility] Stop: 12/15/17 21:01 Last Admin: 12/14/17 20:17 Dose: 10 mg Glipizide (Glucotrol Xl) 5 mg PO ONETIME ONE Stop: 12/13/17 22:24 Last Admin: 12/13/17 23:15 Dose: 5 mg Piperacillin Sod/Tazobactam (Sod 4.5 gm/ Sodium Chloride) 100 mls @ 25 mls/hr IV Q8H [facility] Last Admin: 12/07/17 08:05 Dose: 25 mls/hr Vancomycin HCl 1 gm/ Sodium (Chloride) 250 mls @ 250 mls/hr IV Q24H [facility] Last Admin: 12/03/17 15:29 Dose: 250 mls/hr Piperacillin Sod/Tazobactam (Sod 4.5 gm/ Sodium Chloride) 100 mls @ 400 mls/hr IV ONETIME ONE Stop: 12/03/17 16:14 Last Admin: 12/03/17 16:41 Dose: 400 mls/hr Sodium Chloride (Normal Saline) 1,000 mls @ 50 mls/hr IV ASDIRECTED [facility] Last Infusion: 12/03/17 21:30 Dose: Infused Sodium Chloride (Normal Saline) 1,000 mls @ 75 mls/hr IV ASDIRECTED [facility] Last Admin: 12/06/17 02:00 Dose: 50 mls/hr Vancomycin HCl 1 gm/ Sodium (Chloride) 250 mls @ 250 mls/hr IV Q12H [facility] Last Admin: 12/05/17 11:48 Dose: 250 mls/hr Magnesium Sulfate 2 gm/ Premix 50 mls @ 25 mls/hr IV ONETIME ONE Stop: 12/04/17 11:46 Last Admin: 12/04/17 10:39 Dose: 25 mls/hr Vancomycin HCl 1 gm/ Sodium (Chloride) 250 mls @ 250 mls/hr IV Q18H [facility] Last Admin: 12/07/17 04:10 Dose: 250 mls/hr Magnesium Sulfate 2 gm/ Premix 50 mls @ 25 mls/hr IV ONETIME ONE Stop: 12/05/17 15:24 Last Admin: 12/05/17 13:46 Dose: 25 mls/hr Sodium Chloride (Normal Saline) 1,000 mls @ 50 mls/hr IV ASDIRECTED [facility] Last Admin: 12/09/17 11:08 Dose: 50 mls/hr Magnesium Sulfate 2 gm/ Premix 50 mls @ 25 mls/hr IV ONETIME ONE Stop: 12/07/17 11:52 Last Admin: 12/07/17 11:12 Dose: Not Given Magnesium Sulfate 2 gm/ Premix 50 mls @ 25 mls/hr IV ONETIME ONE Stop: 12/07/17 13:59 Last Admin: 12/07/17 12:18 Dose: 25 mls/hr Sodium Bicarbonate 150 meq/ (Dextrose/Water) 1,150 mls @ 100 mls/hr IV ONETIME ONE Stop: 12/09/17 03:08 Last Admin: 12/08/17 15:48 Dose: 100 mls/hr Magnesium Sulfate 2 gm/ Premix 50 mls @ 25 mls/hr IV ONETIME ONE Stop: 12/10/17 16:06 Last Admin: 12/10/17 14:27 Dose: 25 mls/hr Sodium Bicarbonate 150 meq/ (Dextrose/Water) 1,150 mls @ 100 mls/hr IV ONETIME ONE Stop: 12/11/17 23:07 Last Admin: 12/11/17 12:39 Dose: 100 mls/hr Dextrose/Water (Dextrose 5% In Water) Confirm Administered Dose 1,000 mls @ as directed .ROUTE .STK-MED ONE Stop: 12/11/17 12:23 Last Admin: 12/11/17 12:52 Dose: Not Given Insulin Human Regular 100 unit (/ Sodium Chloride) 100 mls @ 7.5 mls/hr IV TITRATE LYLA; Protocol Last Titration: 12/12/17 21:15 Dose: 0 units/kg/hr, 0 mls/hr Piperacillin Sod/Tazobactam (Sod 4.5 gm/ Sodium Chloride) 100 mls @ 25 mls/hr IV Q8H [facility] Last Admin: 12/12/17 11:32 Dose: Not Given Meropenem 500 mg/ Sodium (Chloride) 100 mls @ 200 mls/hr IV Q8H [facility] Last Admin: 12/13/17 06:16 Dose: 200 mls/hr Levofloxacin/Dextrose 750 mg/ (Premix) 150 mls @ 100 mls/hr IV Q48H [facility] Last Admin: 12/12/17 11:24 Dose: 100 mls/hr Azithromycin 500 mg/ Sodium (Chloride) 250 mls @ 250 mls/hr IV ONETIME ONE Stop: 12/13/17 13:02 Last Admin: 12/13/17 12:44 Dose: 250 mls/hr Aminophylline 250 mg/ Sodium (Chloride) 210 mls @ 35 mls/hr IV ONETIME ONE Stop: 12/14/17 04:33 Last Admin: 12/13/17 23:15 Dose: 35 mls/hr Potassium Chloride 10 meq/ (Premix) 100 mls @ 100 mls/hr IV Q1H [facility] Stop: 12/14/17 08:29 Last Admin: 12/14/17 07:49 Dose: 100 mls/hr Insulin Aspart (Novolog) 0 unit SUBCUT QIDACANDBED [facility]; Protocol Last Admin: 12/03/17 19:06 Dose: Not Given Insulin Aspart (Novolog) 0 unit SUBCUT Q6H [facility]; Protocol Last Admin: 12/05/17 02:00 Dose: 7 units Insulin Aspart (Novolog) 0 unit SUBCUT Q6HR [facility]; Protocol Last Admin: 12/06/17 18:28 Dose: 10 units Insulin Aspart (Novolog) 0 unit SUBCUT QIDACANDBED [facility]; Protocol Last Admin: 12/09/17 22:21 Dose: Not Given Insulin Aspart (Novolog) 0 unit SUBCUT Q6H [facility]; Protocol Last Admin: 12/09/17 20:09 Dose: Not Given Insulin Aspart (Novolog) 0 unit SUBCUT Q6HR [facility]; Protocol Last Admin: 12/10/17 12:35 Dose: 12 units Insulin Aspart (Novolog) 0 unit SUBCUT Q6HR [facility]; Protocol Last Admin: 12/11/17 12:48 Dose: 15 units Insulin Aspart (Novolog) 0 unit SUBCUT Q4H [facility]; Protocol Last Admin: 12/13/17 17:39 Dose: Not Given Insulin Aspart (Novolog) 0 unit SUBCUT Q4HR [facility]; Protocol Last Admin: 12/13/17 23:16 Dose: Not Given Insulin Aspart (Novolog) 12 unit SUBCUT TIDMEALS [facility] Last Admin: 12/14/17 08:01 Dose: 12 units Insulin Detemir (Levemir) 5 unit SUBCUT BID [facility] Last Admin: 12/10/17 09:12 Dose: 5 units Insulin Detemir (Levemir) 8 unit SUBCUT BID [facility] Last Admin: 12/11/17 08:45 Dose: 8 units Insulin Detemir (Levemir) 8 unit SUBCUT ONETIME ONE Stop: 12/10/17 17:54 Last Admin: 12/10/17 18:07 Dose: 8 units Insulin Detemir (Levemir) 8 unit SUBCUT BID [facility] Insulin Detemir (Levemir) 10 unit SUBCUT BID [facility] Insulin Detemir (Levemir) 6 unit SUBCUT ONETIME ONE Stop: 12/13/17 21:01 Insulin Detemir (Levemir) 10 unit SUBCUT BID [facility] Insulin Detemir (Levemir) 8 unit SUBCUT ONETIME ONE Stop: 12/13/17 21:01 Insulin Detemir (Levemir) 15 unit SUBCUT ONETIME ONE Stop: 12/13/17 21:01 Last Admin: 12/13/17 20:27 Dose: 15 units Insulin Detemir (Levemir) 15 unit SUBCUT ONETIME ONE Stop: 12/13/17 22:24 Last Admin: 12/13/17 23:16 Dose: 15 units Insulin Detemir (Levemir) 25 unit SUBCUT BID [facility] Insulin Human Isoph/Insulin Regular (Novolin 70-30) 10 unit SUBCUT ONETIME ONE Stop: 12/13/17 16:45 Last Admin: 12/13/17 17:03 Dose: 10 units Insulin Human NPH (Novolin N) 25 unit SUBCUT ONETIME ONE Stop: 12/13/17 22:28 Last Admin: 12/13/17 23:41 Dose: Not Given Insulin Human Regular (Humulin R) 25 unit SUBCUT ONETIME ONE Stop: 12/13/17 23:46 Last Admin: 12/14/17 00:08 Dose: 25 units Levothyroxine Sodium (Synthroid) 50 mcg PO ACBREAKFAST [facility] Last Admin: 12/13/17 06:16 Dose: 50 mcg Levothyroxine Sodium (Levothyroxine) 75 mcg PO ACBREAKFAST [facility] Last Admin: 12/14/17 06:35 Dose: 75 mcg Megestrol Acetate (Megace) 40 mg PO BID [facility] Last Admin: 12/05/17 12:23 Dose: Not Given Methylprednisolone Sodium Succinate (Solu-Medrol) 80 mg IVPUSH DAILY@1800 [facility] Last Admin: 12/08/17 18:19 Dose: 80 mg Methylprednisolone Sodium Succinate (Solu-Medrol) 125 mg IVPUSH Q8H [facility] Last Admin: 12/13/17 06:16 Dose: 125 mg Methylprednisolone Sodium Succinate (Solu-Medrol) 80 mg IVPUSH Q8H [facility] Last Admin: 12/14/17 19:36 Dose: Not Given Methylprednisolone Sodium Succinate (Solu-Medrol) 80 mg IVPUSH Q8H [facility] Last Admin: 12/14/17 07:55 Dose: 80 mg Methylprednisolone Sodium Succinate (Solu-Medrol) 60 mg IVPUSH BID [facility] Potassium Chloride (Klor-Con M20) 40 meq PO BID [facility] Stop: 12/06/17 09:01 Last Admin: 12/06/17 08:56 Dose: 40 meq Racepinephrine (S-2 2.25%) Confirm Administered Dose 0.5 ml .ROUTE .STK-MED ONE Stop: 12/11/17 17:35 Last Admin: 12/11/17 17:42 Dose: Not Given Racepinephrine (S-2 2.25%) 0.5 ml NEB Q6HR [facility] Last Admin: 12/12/17 18:35 Dose: 0.5 ml Sodium Bicarbonate (Sodium Bicarbonate 8.4%) Confirm Administered Dose 100 meq .ROUTE .STK-MED ONE Stop: 12/08/17 15:11 Last Admin: 12/08/17 15:10 Dose: 100 meq Sodium Bicarbonate (Sodium Bicarbonate 8.4%) 100 meq IVPUSH ONETIME ONE Stop: 12/08/17 15:17 Last Admin: 12/08/17 16:09 Dose: Not Given Sodium Bicarbonate (Sodium Bicarbonate 8.4%) Confirm Administered Dose 150 meq .ROUTE .STK-MED ONE Stop: 12/11/17 12:23 Last Admin: 12/11/17 12:52 Dose: Not Given Vancomycin HCl (Pharmacy To Dose - Vancomycin) 0 dose .XX ASDIRECTED PRN PRN Reason: RX TO DOSE VANCOMYCIN - Exam Quality Assessment: Supplemental Oxygen, DVT Prophylaxis General: Alert, Oriented, Cooperative, No Acute Distress HEENT: Pupils Equal, Pupils Reactive, EOMI, Mucous Membr. Moist/[place] Neck: Supple. No: Lymphadenopathy Lungs: Rhonchi (b/l anterior and posterior ), Other (mild increase in respiratory effort ) Cardiovascular: Regular Rate, Regular Rhythm, Murmurs (systolic grade III/ ) GI/Abdominal Exam: Normal Bowel Sounds, Soft, Non-Tender, No Distention (Female) Exam: Deferred Back Exam: Normal Inspection, Decreased Range of Motion Extremities: Normal Inspection, Pedal Edema, Limited Range of Motion Peripheral Pulses: 1+: Posterior Tibial (L), Posterior Tibial (R), Dorsalis Pedis (L), Dorsalis Pedis (R), 2+: Radial (L), Radial (R) Skin: Warm, Dry, Intact Neurological: No New Focal Deficit, Strength Equal Bilateral (weak b/l ), Cranial Nerves Intact (grossly) Psy/Mental Status: Alert, Other (slightly flat affect ) - Problem List Review Problem List Initiated/Reviewed/Updated: Yes - Plan Plan:: Impression: Acute: COPD Exacerbation, Significantly Improved - Has an underlying advanced COPD--> was a difficult extubation in [place] requiring tracheostomy - Most recent CXR--shows no infiltrate but atelectasis and pulmonary congestion--> No pneumonia - Continue IV Bronchodilators, IV Azithromycin 500 mg IV x1 now then oral 250 mg po daily in AM, Magnesium Oxide 400 mg po BID - She received Aminophylline drip x1 last night and now on Theophylline 300 mg po BID - Taper IV Solumedrol to 40 mg BID from 60 mg TID - Continue PRN BIPAP and RT care and klonopin 0.5 mg po TID PRN for anxiety - recommend PFTs be assessed as outpatient Hypercapnea, Improving - 2/2 COPD - Received NaHCO3 gtt with good results; now d/c'd - CO2 48---> now 39 - Continue treatment above Diabetes Mellitus 2 w/ Hyperglycemia - Improved blood glucose --> TF on hold; Glucerna QID - A1C 7.2 12/04/2017 - 2/2 High dose steroid use - Continue to cut down IV Steroid - Has had multiple insulin SA/LA given to her yesterday and throughout the evening - Continue accu-check at Q6H and ISS - SA insulin 15 units subQ TID Meals, Levemir 30 units SubQ BID plus Glucotrol 5 mg po BID - Dietary will work out a new diet plan to improve her hyperglycemia Severe Hypothyroidism - Has hx/o being on Synthroid 50 mcg po daily - TSH 24.519 and FT4 0.69 on 12/13/17 - Increase levothyroxine to 100 mcg po daily from 75 mcg po daily Poor appetite - slowly improving -kcal count from 12/14/17 showed intake was 1310 kcal and 59 g protein - d/c Megace and order marinol - diet order per [employer]EMAN is mechanical with nectar thick liquids --> UND[employer] FOREMAN to perform another swallow eval to assess if advancement is possible which would increase palatability and potentially enhance oral intake Hypertension - currently receiving losartan 25 mg daily and lasix 10 mg BID - BP elevations noted - risks/benefits of additional antihypertensive considered; will initiate amlodipine 5 mg daily - monitor Resolved: S/p Acute respiratory distress, hypercapnia-->NEW occurence after 4 hours on NC S/P Rapid response--received 2 amps of NaHCO3 during response and subsequently was started on sod bicarb gtt. Hx of prolong intubation, s/p tracheostomy, BIPAP adjust settings with improved VT; solumedrol S/p Decrease responsiveness--ruled out CVA S/p Paroxysmal A fib--<30 minutes in the time frame of Rapid response S/p Hyponatremia--now 142 S/p Hyperkalemia--now 3.8 Chronic: Hx of CKD, II Deconditioned, continue PT/OT Depression--continue Celexa, Wellbutrin Fe deficiency PUD HTN HLD Macular degeneration CAD/MN S/p CABG Plan: She has clinically improved but prognosis is still guarded MedSurg status Increase activity level--> up three times daily BiPAP as needed for above Continue PT/OT for deconditioning CM/SW for discharge planning --> [facility], [facility], and [facility] are options DVT/GI prophylaxis Code status: DNR/DNI PCP: Dr. Henry Additional orders as above Prognosis remains guarded.
[2017-12-15] MEDS: Albuterol 0.083% 2.5 MG/3 ML Neb Soln NEB PRN (10:51)
[2017-12-15] MEDS: Dronabinol 2.5 MG Cap PO SCH ×2 (12:09→17:14)
[2017-12-15] MEDS ORDERED: amLODIPine 5 MG Tab PO ONE (12:42)
[2017-12-15] MEDS: Metoprolol Tartrate 5 MG/5 ML SDV IVPUSH PRN (13:54)
[2017-12-15] MEDS: Enoxaparin 40 MG/0.4 ML Syringe SUBCUT SCH (17:13)
[2017-12-15] MEDS: Rosuvastatin 10 MG Tab PO SCH (20:07)
[2017-12-16] MEDS: Budesonide 0.25 MG/2 ML Neb Susp NEB SCH ×2 (05:03→20:17)
[2017-12-16] MEDS: Albuterol/Ipratropium 3.0-0.5 MG/3 ML Neb Soln NEB SCH ×3 (05:03→20:17)
[2017-12-16] MEDS: Modafinil 200 MG Tab PO SCH ×2 (06:20→09:45)
[2017-12-16] MEDS: Pantoprazole 40 MG Tab.CR PO SCH (06:21)
[2017-12-16] MEDS: glipiZIDE 5 MG Tab.ER PO SCH ×2 (06:21→17:10)
[2017-12-16] MEDS: Dronabinol 2.5 MG Cap PO SCH ×3 (06:21→17:10)
[2017-12-16] MEDS: Levothyroxine 100 MCG Tab PO SCH (06:22)
[2017-12-16] MEDS ORDERED: Bumetanide 1 MG/4 ML MDV IVPUSH ONE (07:20)
[2017-12-16] MEDS ORDERED: amLODIPine 5 MG Tab PO SCH (09:00)
[2017-12-16] MEDS ORDERED: Caffeine 200 MG Tab PO SCH (09:00)
--- NOTE | 2017-12-16 09:15 | CR ---
Chest: Portable view of the chest was obtained. Comparison: Prior chest x-ray of 12/14/17. Heart size is slightly enlarged. Tortuous thoracic aorta is again noted. Parenchymal density is noted within the right lung base which remains stable. Minimal atelectasis is seen at the left base. Pulmonary vessels are minimally increased which are stable. Sternotomy wires and evidence of prior CABG is noted. Bony structures are osteopenic. Impression: 1. Findings as described above. No significant change is seen from prior chest x-ray. Diagnostic code #2
[2017-12-16] MEDS: Metoclopramide 10 MG Tab PO SCH ×4 (09:28→20:46)
[2017-12-16] MEDS: Losartan 100 MG Tab PO SCH (09:29)
[2017-12-16] MEDS: Azithromycin 250 MG Tab PO SCH (09:30)
[2017-12-16] MEDS: rOPINIRole 1 MG Tab PO SCH (09:39)
[2017-12-16] MEDS: Multivitamins,Therapeutic Tab PO SCH (09:40)
[2017-12-16] MEDS: Polyethylene Glycol 3350 Powder 17 GM Packet PO SCH (09:41)
[2017-12-16] MEDS: Ferrous Sulfate 325 MG Tab PO SCH (09:41)
[2017-12-16] MEDS: Magnesium Oxide 400 MG Tab PO SCH ×2 (09:42→20:46)
[2017-12-16] MEDS: Citalopram 20 MG Tab PO SCH (09:42)
[2017-12-16] MEDS: Aspirin 81 MG Tab.Chew PO SCH (09:43)
[2017-12-16] MEDS: amLODIPine 5 MG Tab PO SCH ×2 (09:44→20:46)
[2017-12-16] MEDS: buPROPion 150 MG Tab.ER PO SCH (09:44)
[2017-12-16] MEDS: Saccharomyces Boulardii (Probiotic) 250 MG Cap PO SCH (09:46)
[2017-12-16] MEDS: Theophylline 300 MG Tab.ER PO SCH (09:47)
[2017-12-16] MEDS: methylPREDNISolone Sodium Succinate 40 MG/1 ML SDV IVPUSH SCH ×2 (09:49→20:47)
[2017-12-16] MEDS: Insulin Aspart 100 Units/ML 3 ML Pen SUBCUT SCH ×3 (09:51→17:14)
[2017-12-16] MEDS: Insulin Detemir 100 Units/ML 3 ML Pen SUBCUT SCH ×2 (09:53→20:44)
--- NOTE | 2017-12-16 10:06 | PCM.PN ---
<Leyla Paige - Last Filed: 12/16/17 18:49> - General Info Date of Service: 12/16/17 Admission Dx/Problem (Free Text): Admission Diagnosis/Problem Admission Diagnosis/Problem Hypoxia Subjective Update: In to see Ewa. She is sitting in chair at bedside. She appears to be more dyspneic and fatigued today. Currently wearing BiPaP. Denies pain or any worsening weakness on one side. Denies any chest pain or GI/ issues. Functional Status: Reports: Pain Controlled, Tolerating Diet, Ambulating, Urinating - Review of Systems General: Reports: Weakness, Fatigue. Denies: Fever HEENT: Reports: No Symptoms Pulmonary: Reports: Shortness of Breath. Denies: Cough Cardiovascular: Reports: Dyspnea on Exertion, Edema. Denies: Chest Pain, Palpitations Gastrointestinal: Reports: No Symptoms. Denies: Abdominal Pain, Constipation, Diarrhea, Nausea, Vomiting Genitourinary: Reports: No Symptoms. Denies: Dysuria, Frequency Musculoskeletal: Reports: No Symptoms, Other (Generalized weakness ) Skin: Reports: No Symptoms. Denies: Cyanosis, Rash Neurological: Reports: No Symptoms. Denies: Confusion, Dizziness, Headache Psychiatric: Reports: No Symptoms. Denies: Confusion, Depression - Patient Data Vitals - Most Recent: Last Vital Signs Temp 98.8 F 12/16/17 09:13 Pulse 99 12/16/17 09:13 Resp 20 12/16/17 09:13 BP 139/66 12/16/17 09:29 Pulse Ox 95 12/16/17 09:13 Weight - Most Recent: 75.206 kg I&O - Last 24 Hours: Intake & Output 12/15/17 12/16/17 12/16/17 22:59 06:59 14:59 Intake Total 1060 120 Output Total 100 Balance 960 120 Lab Results Last 24 Hours: Laboratory Results - last 24 hr 12/15/17 12/15/17 12/15/17 Range/Units 12:09 17:59 20:09 WBC (3.98-10.04) K/mm3 RBC (3.98-5.22) M/mm3 Hgb (11.2-15.7) gm/L Hct (34.1-44.9) % MCV (79.4-94.8) fl MCH (25.6-32.2) pg MCHC (32.2-35.5) g/dl RDW Std Deviation (36.4-46.3) fL Plt Count (182-369) K/mm3 MPV (9.4-12.3) fl Neut % (Auto) (34.0-71.1) % Lymph % (Auto) (19.3-51.7) % [place] % (Auto) (4.7-12.5) % Eos % (Auto) (0.7-5.8) Baso % (Auto) (0.1-1.2) % Neut # (Auto) (1.56-6.13) K/mm3 Lymph # (Auto) (1.18-3.74) K/mm3 [place] # (Auto) (0.24-0.36) K/mm3 Eos # (Auto) (0.04-0.36) K/mm3 Baso # (Auto) (0.01-0.08) K/mm3 Manual Slide Review Sodium (136-145) mEq/L Potassium (3.5-5.1) mEq/L Chloride (98-107) mEq/L Carbon Dioxide (21-32) mEq/L Anion Gap (5-15) BUN (7-18) mg/dL Creatinine (0.55-1.02) mg/dL Est Cr Clr Drug Dosing mL/min Estimated GFR (MDRD) (>60) mL/min BUN/Creatinine Ratio (14-18) Glucose (80-115) mg/dL POC Glucose 177 H 154 H 175 H (80-115) mg/dL Calcium (8.5-10.1) mg/dL Magnesium (1.8-2.4) mg/dl C-Reactive Protein (<1.0) mg/dL Theophylline (10.0-20.0) ug/mL 12/15/17 12/16/17 12/16/17 Range/Units 23:54 06:05 06:47 WBC 13.40 H (3.98-10.04) K/mm3 RBC 3.67 L (3.98-5.22) M/mm3 Hgb 10.8 L (11.2-15.7) gm/L Hct 36.5 (34.1-44.9) % MCV 99.5 H (79.4-94.8) fl MCH 29.4 (25.6-32.2) pg MCHC 29.6 L (32.2-35.5) g/dl RDW Std Deviation 56.5 H (36.4-46.3) fL Plt Count 364 (182-369) K/mm3 MPV 11.3 (9.4-12.3) fl Neut % (Auto) 87.4 H (34.0-71.1) % Lymph % (Auto) 6.2 L (19.3-51.7) % [place] % (Auto) 5.1 (4.7-12.5) % Eos % (Auto) 0 L (0.7-5.8) Baso % (Auto) 0.1 (0.1-1.2) % Neut # (Auto) 11.72 H (1.56-6.13) K/mm3 Lymph # (Auto) 0.83 L (1.18-3.74) K/mm3 [place] # (Auto) 0.68 H (0.24-0.36) K/mm3 Eos # (Auto) 0.00 L (0.04-0.36) K/mm3 Baso # (Auto) 0.01 (0.01-0.08) K/mm3 Manual Slide Review Abnormal smear Sodium (136-145) mEq/L Potassium (3.5-5.1) mEq/L Chloride (98-107) mEq/L Carbon Dioxide (21-32) mEq/L Anion Gap (5-15) BUN (7-18) mg/dL Creatinine (0.55-1.02) mg/dL Est Cr Clr Drug Dosing mL/min Estimated GFR (MDRD) (>60) mL/min BUN/Creatinine Ratio (14-18) Glucose (80-115) mg/dL POC Glucose 154 H 143 H (80-115) mg/dL Calcium (8.5-10.1) mg/dL Magnesium (1.8-2.4) mg/dl C-Reactive Protein (<1.0) mg/dL Theophylline (10.0-20.0) ug/mL 12/16/17 12/16/17 12/16/17 Range/Units 06:47 06:47 06:47 WBC (3.98-10.04) K/mm3 RBC (3.98-5.22) M/mm3 Hgb (11.2-15.7) gm/L Hct (34.1-44.9) % MCV (79.4-94.8) fl MCH (25.6-32.2) pg MCHC (32.2-35.5) g/dl RDW Std Deviation (36.4-46.3) fL Plt Count (182-369) K/mm3 MPV (9.4-12.3) fl Neut % (Auto) (34.0-71.1) % Lymph % (Auto) (19.3-51.7) % [place] % (Auto) (4.7-12.5) % Eos % (Auto) (0.7-5.8) Baso % (Auto) (0.1-1.2) % Neut # (Auto) (1.56-6.13) K/mm3 Lymph # (Auto) (1.18-3.74) K/mm3 [place] # (Auto) (0.24-0.36) K/mm3 Eos # (Auto) (0.04-0.36) K/mm3 Baso # (Auto) (0.01-0.08) K/mm3 Manual Slide Review Sodium 142 (136-145) mEq/L Potassium 4.5 (3.5-5.1) mEq/L Chloride 104 (98-107) mEq/L Carbon Dioxide 39 H (21-32) mEq/L Anion Gap 3.5 L (5-15) BUN 44 H (7-18) mg/dL Creatinine 1.1 H (0.55-1.02) mg/dL Est Cr Clr Drug Dosing 38.38 mL/min Estimated GFR (MDRD) 49 (>60) mL/min BUN/Creatinine Ratio 40.0 H (14-18) Glucose 143 H (80-115) mg/dL POC Glucose (80-115) mg/dL Calcium 9.3 (8.5-10.1) mg/dL Magnesium 2.1 (1.8-2.4) mg/dl C-Reactive Protein < 0.2 (<1.0) mg/dL Theophylline 10.9 (10.0-20.0) ug/mL Med Orders - Current: Current Medications Acetaminophen (Tylenol) 650 mg PO Q6H PRN PRN Reason: Pain/Fever Last Admin: 12/13/17 06:16 Dose: 650 mg Albuterol (Proventil Neb Soln) 2.5 mg NEB Q4HRRT PRN PRN Reason: Shortness of Breath Last Admin: 12/15/17 10:51 Dose: 2.5 mg Albuterol/Ipratropium (Duoneb 3.0-0.5 Mg/3 Ml) 3 ml NEB TIDRT [facility] Last Admin: 12/16/17 05:03 Dose: 3 ml Amlodipine Besylate (Norvasc) 5 mg PO BID [facility] Aspirin (Aspirin) 81 mg PO DAILY [facility] Last Admin: 12/15/17 08:40 Dose: 81 mg Azithromycin (Zithromax) 250 mg PO DAILY [facility] Last Admin: 12/16/17 09:30 Dose: 250 mg Bisacodyl (Dulcolax) 10 mg RECTAL DAILY PRN PRN Reason: Constipation Budesonide (Pulmicort) 0.25 mg NEB BIDRT [facility] Last Admin: 12/16/17 05:03 Dose: 0.25 mg Bupropion HCl (Wellbutrin Xl) 150 mg PO DAILY [facility] Last Admin: 12/15/17 08:39 Dose: 150 mg Citalopram Hydrobromide (Celexa) 40 mg PO DAILY [facility] Last Admin: 12/15/17 08:39 Dose: 40 mg Clonazepam (Klonopin) 0.5 mg PO TID PRN PRN Reason: Anxiety Dextrose/Water (Dextrose 50% In Water) 50 ml IVPUSH ASDIRECTED PRN PRN Reason: Hypoglycemia Dronabinol (Marinol) 2.5 mg PO TIDAC [facility] Last Admin: 12/16/17 06:21 Dose: 2.5 mg Enoxaparin Sodium (Lovenox) 40 mg SUBCUT Q24H [facility] Last Admin: 12/15/17 17:13 Dose: 40 mg Ferrous Sulfate (Ferrous Sulfate) 325 mg PO DAILY [facility] Last Admin: 12/15/17 08:39 Dose: 325 mg Glipizide (Glucotrol Xl) 5 mg PO BIDMEALS [facility] Last Admin: 12/16/17 06:21 Dose: 5 mg Hydralazine HCl (Apresoline) 20 mg IVPUSH Q6H PRN PRN Reason: Hypertension Last Admin: 12/13/17 04:54 Dose: 20 mg Insulin Aspart (Novolog) 15 unit SUBCUT TIDMEALS [facility] Last Admin: 12/15/17 18:00 Dose: 15 units Insulin Detemir (Levemir) 30 unit SUBCUT BID [facility] Last Admin: 12/15/17 20:16 Dose: 30 units Levothyroxine Sodium (Synthroid) 100 mcg PO ACBREAKFAST [facility] Last Admin: 12/16/17 06:22 Dose: 100 mcg Losartan Potassium (Cozaar) 50 mg PO DAILY [facility] Last Admin: 12/16/17 09:29 Dose: 50 mg Magnesium Oxide (Magnesium Oxide) 400 mg PO BID [facility] Last Admin: 12/15/17 20:07 Dose: 400 mg Methylprednisolone Sodium Succinate (Solu-Medrol) 40 mg IVPUSH BID [facility] Last Admin: 12/15/17 20:07 Dose: 40 mg Metoclopramide HCl (Reglan) 10 mg PO QID [facility] Last Admin: 12/16/17 09:28 Dose: 10 mg Metoprolol Tartrate (Lopressor) 5 mg IVPUSH Q4H PRN PRN Reason: Tachycardia Last Admin: 12/15/17 13:54 Dose: 5 mg Modafinil (Provigil) 100 mg PO DAILY [facility] Last Admin: 12/16/17 06:20 Dose: 100 mg Morphine Sulfate (Morphine) 0.5 mg IVPUSH Q4H PRN PRN Reason: Shortness of Breath Last Admin: 12/12/17 15:54 Dose: 0.5 mg Multivitamins (Thera) 1 each PO DAILY [facility] Last Admin: 12/15/17 08:39 Dose: 1 each Ondansetron HCl (Zofran) 4 mg IVPUSH Q8H PRN PRN Reason: Nausea/Vomiting Pantoprazole Sodium (Protonix) 40 mg PO DAILY@0700 [facility] Last Admin: 12/16/17 06:21 Dose: 40 mg Polyethylene Glycol (Miralax) 17 gm PO DAILY [facility] Last Admin: 12/15/17 08:43 Dose: 17 gm Ropinirole HCl (Requip) 1 mg PO BID [facility] Last Admin: 12/15/17 20:07 Dose: 1 mg Rosuvastatin Calcium (Crestor) 10 mg PO BEDTIME [facility] Last Admin: 12/15/17 20:07 Dose: 10 mg Saccharomyces Boulardii (Florastor) 500 mg PO DAILY [facility] Last Admin: 12/15/17 08:38 Dose: 500 mg Senna/Docusate Sodium (Senna Plus) 2 tab PO BID [facility] Last Admin: 12/15/17 20:07 Dose: 2 tab Sodium Chloride (Saline Flush) 10 ml FLUSH ASDIRECTED PRN PRN Reason: Keep Vein Open Last Admin: 12/03/17 07:55 Dose: 10 ml Theophylline (Theophylline Anhydrous) 300 mg PO DAILY [facility] Tramadol HCl (Ultram) 50 mg PO TID PRN PRN Reason: Pain (moderate 4-6) Last Admin: 12/15/17 09:05 Dose: 50 mg Discontinued Medications Acetazolamide (Diamox) 500 mg PO ONETIME ONE Stop: 12/13/17 07:13 Last Admin: 12/13/17 08:29 Dose: 500 mg Albuterol/Ipratropium (Duoneb 3.0-0.5 Mg/3 Ml) 3 ml NEB QID [facility] Last Admin: 12/06/17 20:15 Dose: 3 ml Albuterol/Ipratropium (Duoneb 3.0-0.5 Mg/3 Ml) 3 ml NEB QIDRT [facility] Last Admin: 12/13/17 09:08 Dose: 3 ml Amlodipine Besylate (Norvasc) 5 mg PO DAILY [facility] Amlodipine Besylate (Norvasc) 5 mg PO ONETIME ONE Stop: 12/15/17 12:43 Last Admin: 12/15/17 13:52 Dose: 5 mg Budesonide (Pulmicort) 0.25 mg NEB BIDRT [facility] Last Admin: 12/12/17 00:13 Dose: 0.25 mg Budesonide (Pulmicort) 0.5 mg NEB Q6H [facility] Last Admin: 12/12/17 18:35 Dose: 0.5 mg Bumetanide (Bumex) 0.5 mg IVPUSH ONETIME ONE Stop: 12/13/17 12:01 Last Admin: 12/13/17 12:45 Dose: Not Given Bumetanide (Bumex) 0.5 mg IVPUSH ONETIME ONE Stop: 12/13/17 12:25 Last Admin: 12/13/17 12:44 Dose: 0.5 mg Bumetanide (Bumex) 1 mg IVPUSH ONETIME ONE Stop: 12/16/17 07:21 Last Admin: 12/16/17 09:33 Dose: 1 mg Caffeine (Caffeine) 200 mg PO DAILY [facility] Clonazepam (Klonopin) 0.5 mg PO ONETIME ONE Stop: 12/13/17 12:06 Last Admin: 12/13/17 12:43 Dose: 0.5 mg Fluconazole (Diflucan) 150 mg PO ONETIME ONE Stop: 12/05/17 09:01 Last Admin: 12/05/17 08:55 Dose: 150 mg Fluconazole (Diflucan) 100 mg PO DAILY [facility] Last Admin: 12/13/17 08:33 Dose: 100 mg Furosemide (Lasix) 40 mg IVPUSH NOW ONE Stop: 12/03/17 07:31 Last Admin: 12/03/17 07:47 Dose: 40 mg Furosemide (Lasix) 40 mg IVPUSH NOW ONE Stop: 12/04/17 18:22 Last Admin: 12/04/17 18:26 Dose: 40 mg Furosemide (Lasix) 40 mg IVPUSH ONETIME ONE Stop: 12/05/17 08:01 Last Admin: 12/05/17 08:54 Dose: 40 mg Furosemide (Lasix) 20 mg IVPUSH NOW ONE Stop: 12/08/17 11:02 Last Admin: 12/08/17 11:41 Dose: 20 mg Furosemide (Lasix) 20 mg IVPUSH ONETIME ONE Stop: 12/08/17 15:39 Last Admin: 12/08/17 15:55 Dose: 20 mg Furosemide (Lasix) 20 mg IVPUSH ONETIME ONE Stop: 12/12/17 14:23 Last Admin: 12/12/17 14:31 Dose: 20 mg Furosemide (Lasix) 10 mg IVPUSH NOW ONE Stop: 12/13/17 22:26 Last Admin: 12/13/17 23:14 Dose: 10 mg Furosemide (Lasix) 10 mg IVPUSH BID [facility] Stop: 12/15/17 21:01 Last Admin: 12/14/17 20:17 Dose: 10 mg Furosemide (Lasix) 10 mg IVPUSH BID@0900,1700 [facility] Stop: 12/15/17 17:01 Last Admin: 12/15/17 17:14 Dose: 10 mg Glipizide (Glucotrol Xl) 5 mg PO ONETIME ONE Stop: 12/13/17 22:24 Last Admin: 12/13/17 23:15 Dose: 5 mg Piperacillin Sod/Tazobactam (Sod 4.5 gm/ Sodium Chloride) 100 mls @ 25 mls/hr IV Q8H [facility] Last Admin: 12/07/17 08:05 Dose: 25 mls/hr Vancomycin HCl 1 gm/ Sodium (Chloride) 250 mls @ 250 mls/hr IV Q24H [facility] Last Admin: 12/03/17 15:29 Dose: 250 mls/hr Piperacillin Sod/Tazobactam (Sod 4.5 gm/ Sodium Chloride) 100 mls @ 400 mls/hr IV ONETIME ONE Stop: 12/03/17 16:14 Last Admin: 12/03/17 16:41 Dose: 400 mls/hr Sodium Chloride (Normal Saline) 1,000 mls @ 50 mls/hr IV ASDIRECTED [facility] Last Infusion: 12/03/17 21:30 Dose: Infused Sodium Chloride (Normal Saline) 1,000 mls @ 75 mls/hr IV ASDIRECTED [facility] Last Admin: 12/06/17 02:00 Dose: 50 mls/hr Vancomycin HCl 1 gm/ Sodium (Chloride) 250 mls @ 250 mls/hr IV Q12H [facility] Last Admin: 12/05/17 11:48 Dose: 250 mls/hr Magnesium Sulfate 2 gm/ Premix 50 mls @ 25 mls/hr IV ONETIME ONE Stop: 12/04/17 11:46 Last Admin: 12/04/17 10:39 Dose: 25 mls/hr Vancomycin HCl 1 gm/ Sodium (Chloride) 250 mls @ 250 mls/hr IV Q18H [facility] Last Admin: 12/07/17 04:10 Dose: 250 mls/hr Magnesium Sulfate 2 gm/ Premix 50 mls @ 25 mls/hr IV ONETIME ONE Stop: 12/05/17 15:24 Last Admin: 12/05/17 13:46 Dose: 25 mls/hr Sodium Chloride (Normal Saline) 1,000 mls @ 50 mls/hr IV ASDIRECTED [facility] Last Admin: 12/09/17 11:08 Dose: 50 mls/hr Magnesium Sulfate 2 gm/ Premix 50 mls @ 25 mls/hr IV ONETIME ONE Stop: 12/07/17 11:52 Last Admin: 12/07/17 11:12 Dose: Not Given Magnesium Sulfate 2 gm/ Premix 50 mls @ 25 mls/hr IV ONETIME ONE Stop: 12/07/17 13:59 Last Admin: 12/07/17 12:18 Dose: 25 mls/hr Sodium Bicarbonate 150 meq/ (Dextrose/Water) 1,150 mls @ 100 mls/hr IV ONETIME ONE Stop: 12/09/17 03:08 Last Admin: 12/08/17 15:48 Dose: 100 mls/hr Magnesium Sulfate 2 gm/ Premix 50 mls @ 25 mls/hr IV ONETIME ONE Stop: 12/10/17 16:06 Last Admin: 12/10/17 14:27 Dose: 25 mls/hr Sodium Bicarbonate 150 meq/ (Dextrose/Water) 1,150 mls @ 100 mls/hr IV ONETIME ONE Stop: 12/11/17 23:07 Last Admin: 12/11/17 12:39 Dose: 100 mls/hr Dextrose/Water (Dextrose 5% In Water) Confirm Administered Dose 1,000 mls @ as directed .ROUTE .STK-MED ONE Stop: 12/11/17 12:23 Last Admin: 12/11/17 12:52 Dose: Not Given Insulin Human Regular 100 unit (/ Sodium Chloride) 100 mls @ 7.5 mls/hr IV TITRATE [facility]; Protocol Last Titration: 12/12/17 21:15 Dose: 0 units/kg/hr, 0 mls/hr Piperacillin Sod/Tazobactam (Sod 4.5 gm/ Sodium Chloride) 100 mls @ 25 mls/hr IV Q8H [facility] Last Admin: 12/12/17 11:32 Dose: Not Given Meropenem 500 mg/ Sodium (Chloride) 100 mls @ 200 mls/hr IV Q8H [facility] Last Admin: 12/13/17 06:16 Dose: 200 mls/hr Levofloxacin/Dextrose 750 mg/ (Premix) 150 mls @ 100 mls/hr IV Q48H [facility] Last Admin: 12/12/17 11:24 Dose: 100 mls/hr Azithromycin 500 mg/ Sodium (Chloride) 250 mls @ 250 mls/hr IV ONETIME ONE Stop: 12/13/17 13:02 Last Admin: 12/13/17 12:44 Dose: 250 mls/hr Sodium Chloride (Normal Saline) 1,000 mls @ 50 mls/hr IV ASDIRECTED [facility] Last Admin: 12/14/17 19:13 Dose: 50 mls/hr Aminophylline 250 mg/ Sodium (Chloride) 210 mls @ 35 mls/hr IV ONETIME ONE Stop: 12/14/17 04:33 Last Admin: 12/13/17 23:15 Dose: 35 mls/hr Potassium Chloride 10 meq/ (Premix) 100 mls @ 100 mls/hr IV Q1H [facility] Stop: 12/14/17 08:29 Last Admin: 12/14/17 07:49 Dose: 100 mls/hr Insulin Aspart (Novolog) 0 unit SUBCUT QIDACANDBED [facility]; Protocol Last Admin: 12/03/17 19:06 Dose: Not Given Insulin Aspart (Novolog) 0 unit SUBCUT Q6H [facility]; Protocol Last Admin: 12/05/17 02:00 Dose: 7 units Insulin Aspart (Novolog) 0 unit SUBCUT Q6HR [facility]; Protocol Last Admin: 12/06/17 18:28 Dose: 10 units Insulin Aspart (Novolog) 0 unit SUBCUT QIDACANDBED [facility]; Protocol Last Admin: 12/09/17 22:21 Dose: Not Given Insulin Aspart (Novolog) 0 unit SUBCUT Q6H [facility]; Protocol Last Admin: 12/09/17 20:09 Dose: Not Given Insulin Aspart (Novolog) 0 unit SUBCUT Q6HR [facility]; Protocol Last Admin: 12/10/17 12:35 Dose: 12 units Insulin Aspart (Novolog) 0 unit SUBCUT Q6HR [facility]; Protocol Last Admin: 12/11/17 12:48 Dose: 15 units Insulin Aspart (Novolog) 0 unit SUBCUT Q4H [facility]; Protocol Last Admin: 12/13/17 17:39 Dose: Not Given Insulin Aspart (Novolog) 0 unit SUBCUT Q4HR [facility]; Protocol Last Admin: 12/13/17 23:16 Dose: Not Given Insulin Aspart (Novolog) 12 unit SUBCUT TIDMEALS [facility] Last Admin: 12/14/17 08:01 Dose: 12 units Insulin Detemir (Levemir) 5 unit SUBCUT BID [facility] Last Admin: 12/10/17 09:12 Dose: 5 units Insulin Detemir (Levemir) 8 unit SUBCUT BID [facility] Last Admin: 12/11/17 08:45 Dose: 8 units Insulin Detemir (Levemir) 8 unit SUBCUT ONETIME ONE Stop: 12/10/17 17:54 Last Admin: 12/10/17 18:07 Dose: 8 units Insulin Detemir (Levemir) 8 unit SUBCUT BID [facility] Insulin Detemir (Levemir) 10 unit SUBCUT BID [facility] Insulin Detemir (Levemir) 6 unit SUBCUT ONETIME ONE Stop: 12/13/17 21:01 Insulin Detemir (Levemir) 10 unit SUBCUT BID [facility] Insulin Detemir (Levemir) 8 unit SUBCUT ONETIME ONE Stop: 12/13/17 21:01 Insulin Detemir (Levemir) 15 unit SUBCUT ONETIME ONE Stop: 12/13/17 21:01 Last Admin: 12/13/17 20:27 Dose: 15 units Insulin Detemir (Levemir) 15 unit SUBCUT ONETIME ONE Stop: 12/13/17 22:24 Last Admin: 12/13/17 23:16 Dose: 15 units Insulin Detemir (Levemir) 25 unit SUBCUT BID [facility] Insulin Human Isoph/Insulin Regular (Novolin 70-30) 10 unit SUBCUT ONETIME ONE Stop: 12/13/17 16:45 Last Admin: 12/13/17 17:03 Dose: 10 units Insulin Human NPH (Novolin N) 25 unit SUBCUT ONETIME ONE Stop: 12/13/17 22:28 Last Admin: 12/13/17 23:41 Dose: Not Given Insulin Human Regular (Humulin R) 25 unit SUBCUT ONETIME ONE Stop: 12/13/17 23:46 Last Admin: 12/14/17 00:08 Dose: 25 units Levothyroxine Sodium (Synthroid) 50 mcg PO ACBREAKFAST [facility] Last Admin: 12/13/17 06:16 Dose: 50 mcg Levothyroxine Sodium (Levothyroxine) 75 mcg PO ACBREAKFAST [facility] Last Admin: 12/14/17 06:35 Dose: 75 mcg Losartan Potassium (Cozaar) 25 mg PO DAILY [facility] Last Admin: 12/15/17 08:39 Dose: 25 mg Megestrol Acetate (Megace) 40 mg PO BID [facility] Last Admin: 12/05/17 12:23 Dose: Not Given Megestrol Acetate (Megace 40 Mg/Ml Susp) 400 mg PO BID [facility] Last Admin: 12/15/17 08:40 Dose: 400 mg Methylprednisolone Sodium Succinate (Solu-Medrol) 80 mg IVPUSH DAILY@1800 [facility] Last Admin: 12/08/17 18:19 Dose: 80 mg Methylprednisolone Sodium Succinate (Solu-Medrol) 125 mg IVPUSH Q8H [facility] Last Admin: 12/13/17 06:16 Dose: 125 mg Methylprednisolone Sodium Succinate (Solu-Medrol) 80 mg IVPUSH Q8H [facility] Last Admin: 12/14/17 19:36 Dose: Not Given Methylprednisolone Sodium Succinate (Solu-Medrol) 80 mg IVPUSH Q8H [facility] Last Admin: 12/14/17 07:55 Dose: 80 mg Methylprednisolone Sodium Succinate (Solu-Medrol) 60 mg IVPUSH BID [facility] Methylprednisolone Sodium Succinate (Solu-Medrol) 60 mg IVPUSH BID [facility] Last Admin: 12/15/17 08:46 Dose: 60 mg Potassium Chloride (Klor-Con M20) 40 meq PO BID [facility] Stop: 12/06/17 09:01 Last Admin: 12/06/17 08:56 Dose: 40 meq Racepinephrine (S-2 2.25%) Confirm Administered Dose 0.5 ml .ROUTE .STK-MED ONE Stop: 12/11/17 17:35 Last Admin: 12/11/17 17:42 Dose: Not Given Racepinephrine (S-2 2.25%) 0.5 ml NEB Q6HR [facility] Last Admin: 12/12/17 18:35 Dose: 0.5 ml Sodium Bicarbonate (Sodium Bicarbonate 8.4%) Confirm Administered Dose 100 meq .ROUTE .STK-MED ONE Stop: 12/08/17 15:11 Last Admin: 12/08/17 15:10 Dose: 100 meq Sodium Bicarbonate (Sodium Bicarbonate 8.4%) 100 meq IVPUSH ONETIME ONE Stop: 12/08/17 15:17 Last Admin: 12/08/17 16:09 Dose: Not Given Sodium Bicarbonate (Sodium Bicarbonate 8.4%) Confirm Administered Dose 150 meq .ROUTE .STK-MED ONE Stop: 12/11/17 12:23 Last Admin: 12/11/17 12:52 Dose: Not Given Theophylline (Theophylline Anhydrous) 300 mg PO BID [facility] Last Admin: 12/15/17 20:07 Dose: 300 mg Vancomycin HCl (Pharmacy To Dose - Vancomycin) 0 dose .XX ASDIRECTED PRN PRN Reason: RX TO DOSE VANCOMYCIN - Exam Quality Assessment: Supplemental Oxygen (BiPap ), DVT Prophylaxis General: Alert, Oriented, Cooperative, Mild Distress, Other (Fatigued ) HEENT: Pupils Equal, Pupils Reactive, EOMI, Mucous Membr. Moist/[place] Neck: Supple. No: Lymphadenopathy Lungs: Rhonchi (b/l inspiratory and expiratory ), Other (increased respiratory effort ) Cardiovascular: Regular Rate, Regular Rhythm, Murmurs (systolic grade II/ ) GI/Abdominal Exam: Normal Bowel Sounds, Soft, Non-Tender, No Distention (Female) Exam: Deferred Back Exam: Normal Inspection, Decreased Range of Motion Extremities: Normal Inspection, Pedal Edema, Limited Range of Motion Peripheral Pulses: 1+: Posterior Tibial (L), Posterior Tibial (R), Dorsalis Pedis (L), Dorsalis Pedis (R) Skin: Warm, Dry, Intact, Other (extremities cool but pulses palpable ) Neurological: No New Focal Deficit, Cranial Nerves Intact (grossly ) Psy/Mental Status: Alert, Normal Affect, Normal Mood - Problem List Review Problem List Initiated/Reviewed/Updated: Yes - Plan Plan:: Impression: Acute: COPD Exacerbation, Significantly Improved - Has an underlying advanced COPD--> was a difficult extubation in [place] requiring tracheostomy - Most recent CXR--stable from previous study, shows no infiltrate/pneumonia with stable atelectasis and pulmonary congestion - Continue IV Bronchodilators, IV Azithromycin 500 mg IV x1 now then oral 250 mg po daily in AM, Magnesium Oxide 400 mg po BID - She received Aminophylline drip x1 last night and now on Theophylline 300 mg po BID --> theophylline level 10.9 (10-20) on 12/16/17 - Taper IV Solumedrol to 40 mg BID from 60 mg TID --> will transition to prednisone 20 mg po daily tomorrow - Continue PRN BIPAP and RT care and klonopin 0.5 mg po TID PRN for anxiety - today she has required BiPap at 7L which is increased from her baseline --> improved later in day - ABG ordered and is at patient's baseline - continue to monitor - recommend PFTs be assessed as outpatient Hypercapnea, Improving - 2/2 COPD - Received NaHCO3 gtt with good results; now d/c'd - CO2 48---> now 39 - Continue treatment above Diabetes Mellitus 2 w/ Hyperglycemia - Improved blood glucose --> TF on hold and Glucerna QID per dietitian - A1C 7.2 12/04/2017 - 2/2 High dose steroid use --> Continue to cut down IV Steroid - Continue accu-check at Q6H and ISS - SA insulin 15 units subQ TID Meals, Levemir 30 units SubQ BID plus Glucotrol 5 mg po BID Severe Hypothyroidism - Has hx/o being on Synthroid 50 mcg po daily - TSH 24.519 and FT4 0.69 on 12/13/17 - Increase levothyroxine to 100 mcg po daily from 75 mcg po daily Poor appetite - slowly improving -kcal count: 12/14/17-1310 kcal and 59 g protein, 12/15/17-1304 kcal and 64 grams of protein - marinol for appetite stimulation - diet order per GANG BORE OPERATOR is mechanical with nectar thick liquids --> GANG BORE OPERATOR does not feel comfortable with diet advancement at this time Hypertension - currently receiving losartan 25 mg daily and lasix 10 mg BID - amlodipine 5 mg daily initiated yesterday --> BP improved - monitor Fatigue - Celexa and Wellbutin doses decreased to potentially help with this fatigue - ABG today and was abnormal but at patient's baseline - ordered Provigil 100 mg daily Resolved: S/p Acute respiratory distress, hypercapnia-->NEW occurence after 4 hours on NC S/P Rapid response--received 2 amps of NaHCO3 during response and subsequently was started on sod bicarb gtt. Hx of prolong intubation, s/p tracheostomy, BIPAP adjust settings with improved VT; solumedrol S/p Decrease responsiveness--ruled out CVA S/p Paroxysmal A fib--<30 minutes in the time frame of Rapid response S/p Hyponatremia--now 142 S/p Hyperkalemia--now 3.8 Chronic: Hx of CKD, II Deconditioned, continue PT/OT Depression--continue Celexa, Wellbutrin but at lower doses to help with fatigue Fe deficiency PUD HTN HLD Macular degeneration CAD/HI S/p CABG Plan: She has clinically improved but prognosis is still guarded MedSurg status Increase activity level--> up three times daily BiPAP as needed for above --> today she has required BiPap at 7L which is increased from her baseline, improved later in day Continue PT/OT for deconditioning CM/SW for discharge planning --> [facility], [facility], and [facility] are options DVT/GI prophylaxis Code status: DNR/DNI PCP: Dr. Henry Additional orders as above Prognosis remains guarded. <Kris Jackson T - Last Filed: 12/16/17 19:02> - Patient Data Vitals - Most Recent: Last Vital Signs Temp 36.2 C 12/16/17 16:01 Pulse 71 12/16/17 16:01 Resp 20 12/16/17 16:01 BP 106/48 L 12/16/17 16:02 Pulse Ox 94 L 12/16/17 18:08 I&O - Last 24 Hours: Intake & Output 12/16/17 12/16/17 12/16/17 06:59 14:59 22:59 Intake Total 120 440 Balance 120 440 Lab Results Last 24 Hours: Laboratory Results - last 24 hr 12/15/17 12/15/17 12/16/17 Range/Units 20:09 23:54 06:05 WBC (3.98-10.04) K/mm3 RBC (3.98-5.22) M/mm3 Hgb (11.2-15.7) gm/L Hct (34.1-44.9) % MCV (79.4-94.8) fl MCH (25.6-32.2) pg MCHC (32.2-35.5) g/dl RDW Std Deviation (36.4-46.3) fL Plt Count (182-369) K/mm3 MPV (9.4-12.3) fl Neut % (Auto) (34.0-71.1) % Lymph % (Auto) (19.3-51.7) % [place] % (Auto) (4.7-12.5) % Eos % (Auto) (0.7-5.8) Baso % (Auto) (0.1-1.2) % Neut # (Auto) (1.56-6.13) K/mm3 Lymph # (Auto) (1.18-3.74) K/mm3 [place] # (Auto) (0.24-0.36) K/mm3 Eos # (Auto) (0.04-0.36) K/mm3 Baso # (Auto) (0.01-0.08) K/mm3 Manual Slide Review Puncture Site ABG pH (7.35-7.45) ABG pCO2 (35.0-45.0) mmHg ABG pO2 (80.0-100.0) mmHg ABG HCO3 (22.0-26.0) meq/L ABG O2 Saturation (96.0-97.0) % ABG Base Excess (-2-2.0) Will Test A-a Gradient mmHg O2 Delivery Device Oxygen Flow Rate FiO2 (21.00-100.00) % Sodium (136-145) mEq/L Potassium (3.5-5.1) mEq/L Chloride (98-107) mEq/L Carbon Dioxide (21-32) mEq/L Anion Gap (5-15) BUN (7-18) mg/dL Creatinine (0.55-1.02) mg/dL Est Cr Clr Drug Dosing mL/min Estimated GFR (MDRD) (>60) mL/min BUN/Creatinine Ratio (14-18) Glucose (80-115) mg/dL POC Glucose 175 H 154 H 143 H (80-115) mg/dL Calcium (8.5-10.1) mg/dL Magnesium (1.8-2.4) mg/dl C-Reactive Protein (<1.0) mg/dL Theophylline (10.0-20.0) ug/mL 12/16/17 12/16/17 12/16/17 Range/Units 06:47 06:47 06:47 WBC 13.40 H (3.98-10.04) K/mm3 RBC 3.67 L (3.98-5.22) M/mm3 Hgb 10.8 L (11.2-15.7) gm/L Hct 36.5 (34.1-44.9) % MCV 99.5 H (79.4-94.8) fl MCH 29.4 (25.6-32.2) pg MCHC 29.6 L (32.2-35.5) g/dl RDW Std Deviation 56.5 H (36.4-46.3) fL Plt Count 364 (182-369) K/mm3 MPV 11.3 (9.4-12.3) fl Neut % (Auto) 87.4 H (34.0-71.1) % Lymph % (Auto) 6.2 L (19.3-51.7) % [place] % (Auto) 5.1 (4.7-12.5) % Eos % (Auto) 0 L (0.7-5.8) Baso % (Auto) 0.1 (0.1-1.2) % Neut # (Auto) 11.72 H (1.56-6.13) K/mm3 Lymph # (Auto) 0.83 L (1.18-3.74) K/mm3 [place] # (Auto) 0.68 H (0.24-0.36) K/mm3 Eos # (Auto) 0.00 L (0.04-0.36) K/mm3 Baso # (Auto) 0.01 (0.01-0.08) K/mm3 Manual Slide Review Abnormal smear Puncture Site ABG pH (7.35-7.45) ABG pCO2 (35.0-45.0) mmHg ABG pO2 (80.0-100.0) mmHg ABG HCO3 (22.0-26.0) meq/L ABG O2 Saturation (96.0-97.0) % ABG Base Excess (-2-2.0) Will Test A-a Gradient mmHg O2 Delivery Device Oxygen Flow Rate FiO2 (21.00-100.00) % Sodium 142 (136-145) mEq/L Potassium 4.5 (3.5-5.1) mEq/L Chloride 104 (98-107) mEq/L Carbon Dioxide 39 H (21-32) mEq/L Anion Gap 3.5 L (5-15) BUN 44 H (7-18) mg/dL Creatinine 1.1 H (0.55-1.02) mg/dL Est Cr Clr Drug Dosing 38.38 mL/min Estimated GFR (MDRD) 49 (>60) mL/min BUN/Creatinine Ratio 40.0 H (14-18) Glucose 143 H (80-115) mg/dL POC Glucose (80-115) mg/dL Calcium 9.3 (8.5-10.1) mg/dL Magnesium 2.1 (1.8-2.4) mg/dl C-Reactive Protein (<1.0) mg/dL Theophylline (10.0-20.0) ug/mL 12/16/17 12/16/17 12/16/17 Range/Units 06:47 11:29 11:41 WBC (3.98-10.04) K/mm3 RBC (3.98-5.22) M/mm3 Hgb (11.2-15.7) gm/L Hct (34.1-44.9) % MCV (79.4-94.8) fl MCH (25.6-32.2) pg MCHC (32.2-35.5) g/dl RDW Std Deviation (36.4-46.3) fL Plt Count (182-369) K/mm3 MPV (9.4-12.3) fl Neut % (Auto) (34.0-71.1) % Lymph % (Auto) (19.3-51.7) % [place] % (Auto) (4.7-12.5) % Eos % (Auto) (0.7-5.8) Baso % (Auto) (0.1-1.2) % Neut # (Auto) (1.56-6.13) K/mm3 Lymph # (Auto) (1.18-3.74) K/mm3 [place] # (Auto) (0.24-0.36) K/mm3 Eos # (Auto) (0.04-0.36) K/mm3 Baso # (Auto) (0.01-0.08) K/mm3 Manual Slide Review Puncture Site Lt radial ABG pH 7.35 (7.35-7.45) ABG pCO2 67.1 H (35.0-45.0) mmHg ABG pO2 57.0 L (80.0-100.0) mmHg ABG HCO3 36.3 H (22.0-26.0) meq/L ABG O2 Saturation 88.2 L (96.0-97.0) % ABG Base Excess 9.0 H (-2-2.0) Will Test Positive A-a Gradient 115 mmHg O2 Delivery Device Bipap 16/8 Oxygen Flow Rate 5.0 FiO2 40.00 (21.00-100.00) % Sodium (136-145) mEq/L Potassium (3.5-5.1) mEq/L Chloride (98-107) mEq/L Carbon Dioxide (21-32) mEq/L Anion Gap (5-15) BUN (7-18) mg/dL Creatinine (0.55-1.02) mg/dL Est Cr Clr Drug Dosing mL/min Estimated GFR (MDRD) (>60) mL/min BUN/Creatinine Ratio (14-18) Glucose (80-115) mg/dL POC Glucose 221 H (80-115) mg/dL Calcium (8.5-10.1) mg/dL Magnesium (1.8-2.4) mg/dl C-Reactive Protein < 0.2 (<1.0) mg/dL Theophylline 10.9 (10.0-20.0) ug/mL 12/16/17 Range/Units 16:58 WBC (3.98-10.04) K/mm3 RBC (3.98-5.22) M/mm3 Hgb (11.2-15.7) gm/L Hct (34.1-44.9) % MCV (79.4-94.8) fl MCH (25.6-32.2) pg MCHC (32.2-35.5) g/dl RDW Std Deviation (36.4-46.3) fL Plt Count (182-369) K/mm3 MPV (9.4-12.3) fl Neut % (Auto) (34.0-71.1) % Lymph % (Auto) (19.3-51.7) % [place] % (Auto) (4.7-12.5) % Eos % (Auto) (0.7-5.8) Baso % (Auto) (0.1-1.2) % Neut # (Auto) (1.56-6.13) K/mm3 Lymph # (Auto) (1.18-3.74) K/mm3 [place] # (Auto) (0.24-0.36) K/mm3 Eos # (Auto) (0.04-0.36) K/mm3 Baso # (Auto) (0.01-0.08) K/mm3 Manual Slide Review Puncture Site ABG pH (7.35-7.45) ABG pCO2 (35.0-45.0) mmHg ABG pO2 (80.0-100.0) mmHg ABG HCO3 (22.0-26.0) meq/L ABG O2 Saturation (96.0-97.0) % ABG Base Excess (-2-2.0) Will Test A-a Gradient mmHg O2 Delivery Device Oxygen Flow Rate FiO2 (21.00-100.00) % Sodium (136-145) mEq/L Potassium (3.5-5.1) mEq/L Chloride (98-107) mEq/L Carbon Dioxide (21-32) mEq/L Anion Gap (5-15) BUN (7-18) mg/dL Creatinine (0.55-1.02) mg/dL Est Cr Clr Drug Dosing mL/min Estimated GFR (MDRD) (>60) mL/min BUN/Creatinine Ratio (14-18) Glucose (80-115) mg/dL POC Glucose 133 H (80-115) mg/dL Calcium (8.5-10.1) mg/dL Magnesium (1.8-2.4) mg/dl C-Reactive Protein (<1.0) mg/dL Theophylline (10.0-20.0) ug/mL Med Orders - Current: Current Medications Acetaminophen (Tylenol) 650 mg PO Q6H PRN PRN Reason: Pain/Fever Last Admin: 12/13/17 06:16 Dose: 650 mg Albuterol (Proventil Neb Soln) 2.5 mg NEB Q4HRRT PRN PRN Reason: Shortness of Breath Last Admin: 12/15/17 10:51 Dose: 2.5 mg Albuterol/Ipratropium (Duoneb 3.0-0.5 Mg/3 Ml) 3 ml NEB TIDRT [facility] Last Admin: 12/16/17 13:33 Dose: 3 ml Amlodipine Besylate (Norvasc) 5 mg PO BID [facility] Last Admin: 12/16/17 09:44 Dose: 5 mg Aspirin (Aspirin) 81 mg PO DAILY [facility] Last Admin: 12/16/17 09:43 Dose: 81 mg Azithromycin (Zithromax) 250 mg PO DAILY [facility] Last Admin: 12/16/17 09:30 Dose: 250 mg Bisacodyl (Dulcolax) 10 mg RECTAL DAILY PRN PRN Reason: Constipation Budesonide (Pulmicort) 0.25 mg NEB BIDRT [facility] Last Admin: 12/16/17 05:03 Dose: 0.25 mg Bupropion HCl (Wellbutrin Sr) 100 mg PO DAILY [facility] Citalopram Hydrobromide (Celexa) 40 mg PO DAILY [facility] Clonazepam (Klonopin) 0.5 mg PO TID PRN PRN Reason: Anxiety Dextrose/Water (Dextrose 50% In Water) 50 ml IVPUSH ASDIRECTED PRN PRN Reason: Hypoglycemia Dronabinol (Marinol) 2.5 mg PO TIDAC [facility] Last Admin: 12/16/17 17:10 Dose: 2.5 mg Enoxaparin Sodium (Lovenox) 40 mg SUBCUT Q24H [facility] Last Admin: 12/16/17 17:08 Dose: 40 mg Ferrous Sulfate (Ferrous Sulfate) 325 mg PO DAILY [facility] Last Admin: 12/16/17 09:41 Dose: 325 mg Glipizide (Glucotrol Xl) 5 mg PO BIDMEALS [facility] Last Admin: 12/16/17 17:10 Dose: 5 mg Hydralazine HCl (Apresoline) 20 mg IVPUSH Q6H PRN PRN Reason: Hypertension Last Admin: 12/13/17 04:54 Dose: 20 mg Insulin Aspart (Novolog) 15 unit SUBCUT TIDMEALS [facility] Last Admin: 12/16/17 17:14 Dose: 15 units Insulin Detemir (Levemir) 30 unit SUBCUT BID [facility] Last Admin: 12/16/17 09:53 Dose: 30 units Levothyroxine Sodium (Synthroid) 100 mcg PO ACBREAKFAST [facility] Last Admin: 12/16/17 06:22 Dose: 100 mcg Losartan Potassium (Cozaar) 50 mg PO DAILY [facility] Last Admin: 12/16/17 09:29 Dose: 50 mg Magnesium Oxide (Magnesium Oxide) 400 mg PO BID [facility] Last Admin: 12/16/17 09:42 Dose: 400 mg Methylprednisolone Sodium Succinate (Solu-Medrol) 40 mg IVPUSH BID [facility] Last Admin: 12/16/17 09:49 Dose: 40 mg Metoclopramide HCl (Reglan) 10 mg PO QID [facility] Last Admin: 12/16/17 17:08 Dose: 10 mg Metoprolol Tartrate (Lopressor) 5 mg IVPUSH Q4H PRN PRN Reason: Tachycardia Last Admin: 12/15/17 13:54 Dose: 5 mg Modafinil (Provigil) 100 mg PO DAILY [facility] Last Admin: 12/16/17 09:45 Dose: 100 mg Morphine Sulfate (Morphine) 0.5 mg IVPUSH Q4H PRN PRN Reason: Shortness of Breath Last Admin: 12/12/17 15:54 Dose: 0.5 mg Multivitamins (Thera) 1 each PO DAILY [facility] Last Admin: 12/16/17 09:40 Dose: 1 each Ondansetron HCl (Zofran) 4 mg IVPUSH Q8H PRN PRN Reason: Nausea/Vomiting Pantoprazole Sodium (Protonix) 40 mg PO DAILY@0700 [facility] Last Admin: 12/16/17 06:21 Dose: 40 mg Polyethylene Glycol (Miralax) 17 gm PO DAILY [facility] Last Admin: 12/16/17 09:41 Dose: 17 gm Ropinirole HCl (Requip) 1 mg PO BID [facility] Last Admin: 12/16/17 09:39 Dose: 1 mg Rosuvastatin Calcium (Crestor) 10 mg PO BEDTIME [facility] Last Admin: 12/15/17 20:07 Dose: 10 mg Saccharomyces Boulardii (Florastor) 500 mg PO DAILY [facility] Last Admin: 12/16/17 09:46 Dose: 500 mg Senna/Docusate Sodium (Senna Plus) 2 tab PO BID [facility] Last Admin: 12/16/17 09:41 Dose: 2 tab Sodium Chloride (Saline Flush) 10 ml FLUSH ASDIRECTED PRN PRN Reason: Keep Vein Open Last Admin: 12/03/17 07:55 Dose: 10 ml Theophylline (Theophylline Anhydrous) 300 mg PO DAILY [facility] Last Admin: 12/16/17 09:47 Dose: 300 mg Tramadol HCl (Ultram) 50 mg PO TID PRN PRN Reason: Pain (moderate 4-6) Last Admin: 12/15/17 09:05 Dose: 50 mg Discontinued Medications Acetazolamide (Diamox) 500 mg PO ONETIME ONE Stop: 12/13/17 07:13 Last Admin: 12/13/17 08:29 Dose: 500 mg Albuterol/Ipratropium (Duoneb 3.0-0.5 Mg/3 Ml) 3 ml NEB QID [facility] Last Admin: 12/06/17 20:15 Dose: 3 ml Albuterol/Ipratropium (Duoneb 3.0-0.5 Mg/3 Ml) 3 ml NEB QIDRT [facility] Last Admin: 12/13/17 09:08 Dose: 3 ml Amlodipine Besylate (Norvasc) 5 mg PO DAILY [facility] Amlodipine Besylate (Norvasc) 5 mg PO ONETIME ONE Stop: 12/15/17 12:43 Last Admin: 12/15/17 13:52 Dose: 5 mg Budesonide (Pulmicort) 0.25 mg NEB BIDRT [facility] Last Admin: 12/12/17 00:13 Dose: 0.25 mg Budesonide (Pulmicort) 0.5 mg NEB Q6H [facility] Last Admin: 12/12/17 18:35 Dose: 0.5 mg Bumetanide (Bumex) 0.5 mg IVPUSH ONETIME ONE Stop: 12/13/17 12:01 Last Admin: 12/13/17 12:45 Dose: Not Given Bumetanide (Bumex) 0.5 mg IVPUSH ONETIME ONE Stop: 12/13/17 12:25 Last Admin: 12/13/17 12:44 Dose: 0.5 mg Bumetanide (Bumex) 1 mg IVPUSH ONETIME ONE Stop: 12/16/17 07:21 Last Admin: 12/16/17 09:33 Dose: 1 mg Bupropion HCl (Wellbutrin Xl) 150 mg PO DAILY [facility] Last Admin: 12/16/17 09:44 Dose: 150 mg Caffeine (Caffeine) 200 mg PO DAILY [facility] Citalopram Hydrobromide (Celexa) 40 mg PO DAILY [facility] Last Admin: 12/16/17 09:42 Dose: 40 mg Clonazepam (Klonopin) 0.5 mg PO ONETIME ONE Stop: 12/13/17 12:06 Last Admin: 12/13/17 12:43 Dose: 0.5 mg Fluconazole (Diflucan) 150 mg PO ONETIME ONE Stop: 12/05/17 09:01 Last Admin: 12/05/17 08:55 Dose: 150 mg Fluconazole (Diflucan) 100 mg PO DAILY [facility] Last Admin: 12/13/17 08:33 Dose: 100 mg Furosemide (Lasix) 40 mg IVPUSH NOW ONE Stop: 12/03/17 07:31 Last Admin: 12/03/17 07:47 Dose: 40 mg Furosemide (Lasix) 40 mg IVPUSH NOW ONE Stop: 12/04/17 18:22 Last Admin: 12/04/17 18:26 Dose: 40 mg Furosemide (Lasix) 40 mg IVPUSH ONETIME ONE Stop: 12/05/17 08:01 Last Admin: 12/05/17 08:54 Dose: 40 mg Furosemide (Lasix) 20 mg IVPUSH NOW ONE Stop: 12/08/17 11:02 Last Admin: 12/08/17 11:41 Dose: 20 mg Furosemide (Lasix) 20 mg IVPUSH ONETIME ONE Stop: 12/08/17 15:39 Last Admin: 12/08/17 15:55 Dose: 20 mg Furosemide (Lasix) 20 mg IVPUSH ONETIME ONE Stop: 12/12/17 14:23 Last Admin: 12/12/17 14:31 Dose: 20 mg Furosemide (Lasix) 10 mg IVPUSH NOW ONE Stop: 12/13/17 22:26 Last Admin: 12/13/17 23:14 Dose: 10 mg Furosemide (Lasix) 10 mg IVPUSH BID [facility] Stop: 12/15/17 21:01 Last Admin: 12/14/17 20:17 Dose: 10 mg Furosemide (Lasix) 10 mg IVPUSH BID@0900,1700 [facility] Stop: 12/15/17 17:01 Last Admin: 12/15/17 17:14 Dose: 10 mg Glipizide (Glucotrol Xl) 5 mg PO ONETIME ONE Stop: 12/13/17 22:24 Last Admin: 12/13/17 23:15 Dose: 5 mg Piperacillin Sod/Tazobactam (Sod 4.5 gm/ Sodium Chloride) 100 mls @ 25 mls/hr IV Q8H [facility] Last Admin: 12/07/17 08:05 Dose: 25 mls/hr Vancomycin HCl 1 gm/ Sodium (Chloride) 250 mls @ 250 mls/hr IV Q24H [facility] Last Admin: 12/03/17 15:29 Dose: 250 mls/hr Piperacillin Sod/Tazobactam (Sod 4.5 gm/ Sodium Chloride) 100 mls @ 400 mls/hr IV ONETIME ONE Stop: 12/03/17 16:14 Last Admin: 12/03/17 16:41 Dose: 400 mls/hr Sodium Chloride (Normal Saline) 1,000 mls @ 50 mls/hr IV ASDIRECTED [facility] Last Infusion: 12/03/17 21:30 Dose: Infused Sodium Chloride (Normal Saline) 1,000 mls @ 75 mls/hr IV ASDIRECTED [facility] Last Admin: 12/06/17 02:00 Dose: 50 mls/hr Vancomycin HCl 1 gm/ Sodium (Chloride) 250 mls @ 250 mls/hr IV Q12H [facility] Last Admin: 12/05/17 11:48 Dose: 250 mls/hr Magnesium Sulfate 2 gm/ Premix 50 mls @ 25 mls/hr IV ONETIME ONE Stop: 12/04/17 11:46 Last Admin: 12/04/17 10:39 Dose: 25 mls/hr Vancomycin HCl 1 gm/ Sodium (Chloride) 250 mls @ 250 mls/hr IV Q18H [facility] Last Admin: 12/07/17 04:10 Dose: 250 mls/hr Magnesium Sulfate 2 gm/ Premix 50 mls @ 25 mls/hr IV ONETIME ONE Stop: 12/05/17 15:24 Last Admin: 12/05/17 13:46 Dose: 25 mls/hr Sodium Chloride (Normal Saline) 1,000 mls @ 50 mls/hr IV ASDIRECTED [facility] Last Admin: 12/09/17 11:08 Dose: 50 mls/hr Magnesium Sulfate 2 gm/ Premix 50 mls @ 25 mls/hr IV ONETIME ONE Stop: 12/07/17 11:52 Last Admin: 12/07/17 11:12 Dose: Not Given Magnesium Sulfate 2 gm/ Premix 50 mls @ 25 mls/hr IV ONETIME ONE Stop: 12/07/17 13:59 Last Admin: 12/07/17 12:18 Dose: 25 mls/hr Sodium Bicarbonate 150 meq/ (Dextrose/Water) 1,150 mls @ 100 mls/hr IV ONETIME ONE Stop: 12/09/17 03:08 Last Admin: 12/08/17 15:48 Dose: 100 mls/hr Magnesium Sulfate 2 gm/ Premix 50 mls @ 25 mls/hr IV ONETIME ONE Stop: 12/10/17 16:06 Last Admin: 12/10/17 14:27 Dose: 25 mls/hr Sodium Bicarbonate 150 meq/ (Dextrose/Water) 1,150 mls @ 100 mls/hr IV ONETIME ONE Stop: 12/11/17 23:07 Last Admin: 12/11/17 12:39 Dose: 100 mls/hr Dextrose/Water (Dextrose 5% In Water) Confirm Administered Dose 1,000 mls @ as directed .ROUTE .STK-MED ONE Stop: 12/11/17 12:23 Last Admin: 12/11/17 12:52 Dose: Not Given Insulin Human Regular 100 unit (/ Sodium Chloride) 100 mls @ 7.5 mls/hr IV TITRATE [facility]; Protocol Last Titration: 12/12/17 21:15 Dose: 0 units/kg/hr, 0 mls/hr Piperacillin Sod/Tazobactam (Sod 4.5 gm/ Sodium Chloride) 100 mls @ 25 mls/hr IV Q8H [facility] Last Admin: 12/12/17 11:32 Dose: Not Given Meropenem 500 mg/ Sodium (Chloride) 100 mls @ 200 mls/hr IV Q8H [facility] Last Admin: 12/13/17 06:16 Dose: 200 mls/hr Levofloxacin/Dextrose 750 mg/ (Premix) 150 mls @ 100 mls/hr IV Q48H [facility] Last Admin: 12/12/17 11:24 Dose: 100 mls/hr Azithromycin 500 mg/ Sodium (Chloride) 250 mls @ 250 mls/hr IV ONETIME ONE Stop: 12/13/17 13:02 Last Admin: 12/13/17 12:44 Dose: 250 mls/hr Sodium Chloride (Normal Saline) 1,000 mls @ 50 mls/hr IV ASDIRECTED [facility] Last Admin: 12/14/17 19:13 Dose: 50 mls/hr Aminophylline 250 mg/ Sodium (Chloride) 210 mls @ 35 mls/hr IV ONETIME ONE Stop: 12/14/17 04:33 Last Admin: 12/13/17 23:15 Dose: 35 mls/hr Potassium Chloride 10 meq/ (Premix) 100 mls @ 100 mls/hr IV Q1H [facility] Stop: 12/14/17 08:29 Last Admin: 12/14/17 07:49 Dose: 100 mls/hr Insulin Aspart (Novolog) 0 unit SUBCUT QIDACANDBED [facility]; Protocol Last Admin: 12/03/17 19:06 Dose: Not Given Insulin Aspart (Novolog) 0 unit SUBCUT Q6H [facility]; Protocol Last Admin: 12/05/17 02:00 Dose: 7 units Insulin Aspart (Novolog) 0 unit SUBCUT Q6HR [facility]; Protocol Last Admin: 12/06/17 18:28 Dose: 10 units Insulin Aspart (Novolog) 0 unit SUBCUT QIDACANDBED [facility]; Protocol Last Admin: 12/09/17 22:21 Dose: Not Given Insulin Aspart (Novolog) 0 unit SUBCUT Q6H [facility]; Protocol Last Admin: 12/09/17 20:09 Dose: Not Given Insulin Aspart (Novolog) 0 unit SUBCUT Q6HR [facility]; Protocol Last Admin: 12/10/17 12:35 Dose: 12 units Insulin Aspart (Novolog) 0 unit SUBCUT Q6HR [facility]; Protocol Last Admin: 12/11/17 12:48 Dose: 15 units Insulin Aspart (Novolog) 0 unit SUBCUT Q4H [facility]; Protocol Last Admin: 12/13/17 17:39 Dose: Not Given Insulin Aspart (Novolog) 0 unit SUBCUT Q4HR [facility]; Protocol Last Admin: 12/13/17 23:16 Dose: Not Given Insulin Aspart (Novolog) 12 unit SUBCUT TIDMEALS [facility] Last Admin: 12/14/17 08:01 Dose: 12 units Insulin Detemir (Levemir) 5 unit SUBCUT BID [facility] Last Admin: 12/10/17 09:12 Dose: 5 units Insulin Detemir (Levemir) 8 unit SUBCUT BID [facility] Last Admin: 12/11/17 08:45 Dose: 8 units Insulin Detemir (Levemir) 8 unit SUBCUT ONETIME ONE Stop: 12/10/17 17:54 Last Admin: 12/10/17 18:07 Dose: 8 units Insulin Detemir (Levemir) 8 unit SUBCUT BID [facility] Insulin Detemir (Levemir) 10 unit SUBCUT BID [facility] Insulin Detemir (Levemir) 6 unit SUBCUT ONETIME ONE Stop: 12/13/17 21:01 Insulin Detemir (Levemir) 10 unit SUBCUT BID [facility] Insulin Detemir (Levemir) 8 unit SUBCUT ONETIME ONE Stop: 12/13/17 21:01 Insulin Detemir (Levemir) 15 unit SUBCUT ONETIME ONE Stop: 12/13/17 21:01 Last Admin: 12/13/17 20:27 Dose: 15 units Insulin Detemir (Levemir) 15 unit SUBCUT ONETIME ONE Stop: 12/13/17 22:24 Last Admin: 12/13/17 23:16 Dose: 15 units Insulin Detemir (Levemir) 25 unit SUBCUT BID [facility] Insulin Human Isoph/Insulin Regular (Novolin 70-30) 10 unit SUBCUT ONETIME ONE Stop: 12/13/17 16:45 Last Admin: 12/13/17 17:03 Dose: 10 units Insulin Human NPH (Novolin N) 25 unit SUBCUT ONETIME ONE Stop: 12/13/17 22:28 Last Admin: 12/13/17 23:41 Dose: Not Given Insulin Human Regular (Humulin R) 25 unit SUBCUT ONETIME ONE Stop: 12/13/17 23:46 Last Admin: 12/14/17 00:08 Dose: 25 units Levothyroxine Sodium (Synthroid) 50 mcg PO ACBREAKFAST [facility] Last Admin: 12/13/17 06:16 Dose: 50 mcg Levothyroxine Sodium (Levothyroxine) 75 mcg PO ACBREAKFAST [facility] Last Admin: 12/14/17 06:35 Dose: 75 mcg Losartan Potassium (Cozaar) 25 mg PO DAILY [facility] Last Admin: 12/15/17 08:39 Dose: 25 mg Megestrol Acetate (Megace) 40 mg PO BID [facility] Last Admin: 12/05/17 12:23 Dose: Not Given Megestrol Acetate (Megace 40 Mg/Ml Susp) 400 mg PO BID [facility] Last Admin: 12/15/17 08:40 Dose: 400 mg Methylprednisolone Sodium Succinate (Solu-Medrol) 80 mg IVPUSH DAILY@1800 [facility] Last Admin: 12/08/17 18:19 Dose: 80 mg Methylprednisolone Sodium Succinate (Solu-Medrol) 125 mg IVPUSH Q8H [facility] Last Admin: 12/13/17 06:16 Dose: 125 mg Methylprednisolone Sodium Succinate (Solu-Medrol) 80 mg IVPUSH Q8H [facility] Last Admin: 12/14/17 19:36 Dose: Not Given Methylprednisolone Sodium Succinate (Solu-Medrol) 80 mg IVPUSH Q8H [facility] Last Admin: 12/14/17 07:55 Dose: 80 mg Methylprednisolone Sodium Succinate (Solu-Medrol) 60 mg IVPUSH BID [facility] Methylprednisolone Sodium Succinate (Solu-Medrol) 60 mg IVPUSH BID [facility] Last Admin: 12/15/17 08:46 Dose: 60 mg Potassium Chloride (Klor-Con M20) 40 meq PO BID [facility] Stop: 12/06/17 09:01 Last Admin: 12/06/17 08:56 Dose: 40 meq Racepinephrine (S-2 2.25%) Confirm Administered Dose 0.5 ml .ROUTE .STK-MED ONE Stop: 12/11/17 17:35 Last Admin: 12/11/17 17:42 Dose: Not Given Racepinephrine (S-2 2.25%) 0.5 ml NEB Q6HR [facility] Last Admin: 12/12/17 18:35 Dose: 0.5 ml Sodium Bicarbonate (Sodium Bicarbonate 8.4%) Confirm Administered Dose 100 meq .ROUTE .STK-MED ONE Stop: 12/08/17 15:11 Last Admin: 12/08/17 15:10 Dose: 100 meq Sodium Bicarbonate (Sodium Bicarbonate 8.4%) 100 meq IVPUSH ONETIME ONE Stop: 12/08/17 15:17 Last Admin: 12/08/17 16:09 Dose: Not Given Sodium Bicarbonate (Sodium Bicarbonate 8.4%) Confirm Administered Dose 150 meq .ROUTE .STK-MED ONE Stop: 12/11/17 12:23 Last Admin: 12/11/17 12:52 Dose: Not Given Theophylline (Theophylline Anhydrous) 300 mg PO BID [facility] Last Admin: 12/15/17 20:07 Dose: 300 mg Vancomycin HCl (Pharmacy To Dose - Vancomycin) 0 dose .XX ASDIRECTED PRN PRN Reason: RX TO DOSE VANCOMYCIN - My Orders Last 24 Hours: My Active Orders 12/15/17 21:00 methylPREDNISolone Sod Succ [Solu-MEDROL] 40 mg IVPUSH BID 12/16/17 07:00 Modafinil [Provigil] 100 mg PO DAILY 12/16/17 07:06 LORIN Hose [Antiembolic Hose] [OM.PC] Routine 12/16/17 07:10 Antiembolic Devices [RC] .Routine VTE/DVT Education [RC] PER UNIT ROUTINE 12/16/17 09:00 Losartan [Cozaar] 50 mg PO DAILY Theophylline [Theophylline Anhydrous] 300 mg PO DAILY amLODIPine [Norvasc] 5 mg PO BID 12/17/17 09:00 buPROPion [Wellbutrin SR] 100 mg PO DAILY - Plan Plan:: Updated children at bedside regarding her clinical progress and discharge care plan. She is pending d/c to [facility] come Tuesday.
[2017-12-16] MEDS: Enoxaparin 40 MG/0.4 ML Syringe SUBCUT SCH (17:08)
[2017-12-16] MEDS: Rosuvastatin 10 MG Tab PO SCH (20:44)
[2017-12-17] MEDS: Levothyroxine 100 MCG Tab PO SCH (05:58)
[2017-12-17] MEDS: glipiZIDE 5 MG Tab.ER PO SCH (06:01)
[2017-12-17] MEDS: Pantoprazole 40 MG Tab.CR PO SCH (06:02)
[2017-12-17] MEDS: Dronabinol 2.5 MG Cap PO SCH ×3 (06:02→17:20)
[2017-12-17] MEDS: Budesonide 0.25 MG/2 ML Neb Susp NEB SCH ×2 (06:12→20:07)
[2017-12-17] MEDS: Albuterol/Ipratropium 3.0-0.5 MG/3 ML Neb Soln NEB SCH ×3 (06:12→20:07)
--- NOTE | 2017-12-17 07:29 | PCM.PN ---
- General Info Date of Service: 12/17/17 Admission Dx/Problem (Free Text): Admission Diagnosis/Problem Admission Diagnosis/Problem Hypoxia Subjective Update: Follow up Functional Status: Reports: Pain Controlled, Tolerating Diet, Urinating. Denies : New Symptoms - Review of Systems General: Reports: Weakness, Fatigue, Malaise. Denies: Fever, Chills HEENT: Reports: No Symptoms Pulmonary: Reports: Shortness of Breath, Cough. Denies: Sputum Cardiovascular: Denies: Chest Pain, Palpitations, Dyspnea on Exertion, Lightheadedness Gastrointestinal: Denies: Abdominal Pain, Decreased Appetite, Nausea, Vomiting Genitourinary: Reports: No Symptoms Musculoskeletal: Reports: No Symptoms Skin: Reports: Bruising. Denies: Cyanosis, Mottled, Pallor, Diaphoresis Neurological: Reports: Confusion, Difficulty Walking, Weakness, Gait Disturbance Psychiatric: Denies: Depression, Anxiety, Agitation, Hallucinations Systems Review Comment:: She slept pretty good and no complaints this morning. She looks totally different this morning. She was not able to come off BIPAP yesterday but now she is on NC holding up real well. She is eating/drinking good and able to converse with daughter at bedside. However overnight she had a one time episode of hypoglycemia with a glucose level of as low as 41. No other acute issues reported. - Patient Data Vitals - Most Recent: Last Vital Signs Temp 36.8 C 12/17/17 03:00 Pulse 97 12/17/17 03:00 Resp 18 12/17/17 03:00 BP 153/78 H 12/17/17 03:00 Pulse Ox 92 L 12/17/17 06:50 Weight - Most Recent: 74.797 kg I&O - Last 24 Hours: Intake & Output 12/16/17 12/17/17 12/17/17 22:59 06:59 14:59 Intake Total 540 200 Balance 540 200 Lab Results Last 24 Hours: Laboratory Results - last 24 hr 12/16/17 12/16/17 12/16/17 Range/Units 06:47 06:47 06:47 WBC (3.98-10.04) K/mm3 RBC (3.98-5.22) M/mm3 Hgb (11.2-15.7) gm/L Hct (34.1-44.9) % MCV (79.4-94.8) fl MCH (25.6-32.2) pg MCHC (32.2-35.5) g/dl RDW Std Deviation (36.4-46.3) fL Plt Count (182-369) K/mm3 MPV (9.4-12.3) fl Neut % (Auto) (34.0-71.1) % Lymph % (Auto) (19.3-51.7) % [place] % (Auto) (4.7-12.5) % Eos % (Auto) (0.7-5.8) Baso % (Auto) (0.1-1.2) % Neut # (Auto) (1.56-6.13) K/mm3 Lymph # (Auto) (1.18-3.74) K/mm3 [place] # (Auto) (0.24-0.36) K/mm3 Eos # (Auto) (0.04-0.36) K/mm3 Baso # (Auto) (0.01-0.08) K/mm3 Puncture Site ABG pH (7.35-7.45) ABG pCO2 (35.0-45.0) mmHg ABG pO2 (80.0-100.0) mmHg ABG HCO3 (22.0-26.0) meq/L ABG O2 Saturation (96.0-97.0) % ABG Base Excess (-2-2.0) Will Test A-a Gradient mmHg O2 Delivery Device Oxygen Flow Rate FiO2 (21.00-100.00) % Sodium 142 (136-145) mEq/L Potassium 4.5 (3.5-5.1) mEq/L Chloride 104 (98-107) mEq/L Carbon Dioxide 39 H (21-32) mEq/L Anion Gap 3.5 L (5-15) BUN 44 H (7-18) mg/dL Creatinine 1.1 H (0.55-1.02) mg/dL Est Cr Clr Drug Dosing 38.38 mL/min Estimated GFR (MDRD) 49 (>60) mL/min BUN/Creatinine Ratio 40.0 H (14-18) Glucose 143 H (80-115) mg/dL POC Glucose (80-115) mg/dL Calcium 9.3 (8.5-10.1) mg/dL Magnesium 2.1 (1.8-2.4) mg/dl C-Reactive Protein < 0.2 (<1.0) mg/dL Theophylline 10.9 (10.0-20.0) ug/mL 12/16/17 12/16/17 12/16/17 Range/Units 11:29 11:41 16:58 WBC (3.98-10.04) K/mm3 RBC (3.98-5.22) M/mm3 Hgb (11.2-15.7) gm/L Hct (34.1-44.9) % MCV (79.4-94.8) fl MCH (25.6-32.2) pg MCHC (32.2-35.5) g/dl RDW Std Deviation (36.4-46.3) fL Plt Count (182-369) K/mm3 MPV (9.4-12.3) fl Neut % (Auto) (34.0-71.1) % Lymph % (Auto) (19.3-51.7) % [place] % (Auto) (4.7-12.5) % Eos % (Auto) (0.7-5.8) Baso % (Auto) (0.1-1.2) % Neut # (Auto) (1.56-6.13) K/mm3 Lymph # (Auto) (1.18-3.74) K/mm3 [place] # (Auto) (0.24-0.36) K/mm3 Eos # (Auto) (0.04-0.36) K/mm3 Baso # (Auto) (0.01-0.08) K/mm3 Puncture Site Lt radial ABG pH 7.35 (7.35-7.45) ABG pCO2 67.1 H (35.0-45.0) mmHg ABG pO2 57.0 L (80.0-100.0) mmHg ABG HCO3 36.3 H (22.0-26.0) meq/L ABG O2 Saturation 88.2 L (96.0-97.0) % ABG Base Excess 9.0 H (-2-2.0) Will Test Positive A-a Gradient 115 mmHg O2 Delivery Device Bipap 16/8 Oxygen Flow Rate 5.0 FiO2 40.00 (21.00-100.00) % Sodium (136-145) mEq/L Potassium (3.5-5.1) mEq/L Chloride (98-107) mEq/L Carbon Dioxide (21-32) mEq/L Anion Gap (5-15) BUN (7-18) mg/dL Creatinine (0.55-1.02) mg/dL Est Cr Clr Drug Dosing mL/min Estimated GFR (MDRD) (>60) mL/min BUN/Creatinine Ratio (14-18) Glucose (80-115) mg/dL POC Glucose 221 H 133 H (80-115) mg/dL Calcium (8.5-10.1) mg/dL Magnesium (1.8-2.4) mg/dl C-Reactive Protein (<1.0) mg/dL Theophylline (10.0-20.0) ug/mL 12/17/17 12/17/17 12/17/17 Range/Units 00:46 01:15 06:00 WBC (3.98-10.04) K/mm3 RBC (3.98-5.22) M/mm3 Hgb (11.2-15.7) gm/L Hct (34.1-44.9) % MCV (79.4-94.8) fl MCH (25.6-32.2) pg MCHC (32.2-35.5) g/dl RDW Std Deviation (36.4-46.3) fL Plt Count (182-369) K/mm3 MPV (9.4-12.3) fl Neut % (Auto) (34.0-71.1) % Lymph % (Auto) (19.3-51.7) % [place] % (Auto) (4.7-12.5) % Eos % (Auto) (0.7-5.8) Baso % (Auto) (0.1-1.2) % Neut # (Auto) (1.56-6.13) K/mm3 Lymph # (Auto) (1.18-3.74) K/mm3 [place] # (Auto) (0.24-0.36) K/mm3 Eos # (Auto) (0.04-0.36) K/mm3 Baso # (Auto) (0.01-0.08) K/mm3 Puncture Site ABG pH (7.35-7.45) ABG pCO2 (35.0-45.0) mmHg ABG pO2 (80.0-100.0) mmHg ABG HCO3 (22.0-26.0) meq/L ABG O2 Saturation (96.0-97.0) % ABG Base Excess (-2-2.0) Will Test A-a Gradient mmHg O2 Delivery Device Oxygen Flow Rate FiO2 (21.00-100.00) % Sodium (136-145) mEq/L Potassium (3.5-5.1) mEq/L Chloride (98-107) mEq/L Carbon Dioxide (21-32) mEq/L Anion Gap (5-15) BUN (7-18) mg/dL Creatinine (0.55-1.02) mg/dL Est Cr Clr Drug Dosing mL/min Estimated GFR (MDRD) (>60) mL/min BUN/Creatinine Ratio (14-18) Glucose (80-115) mg/dL POC Glucose 41 L 147 H 140 H (80-115) mg/dL Calcium (8.5-10.1) mg/dL Magnesium (1.8-2.4) mg/dl C-Reactive Protein (<1.0) mg/dL Theophylline (10.0-20.0) ug/mL 12/17/17 Range/Units 06:30 WBC 14.28 H (3.98-10.04) K/mm3 RBC 3.80 L (3.98-5.22) M/mm3 Hgb 11.4 (11.2-15.7) gm/L Hct 37.5 (34.1-44.9) % MCV 98.7 H (79.4-94.8) fl MCH 30.0 (25.6-32.2) pg MCHC 30.4 L (32.2-35.5) g/dl RDW Std Deviation 56.1 H (36.4-46.3) fL Plt Count 371 H (182-369) K/mm3 MPV 11.4 (9.4-12.3) fl Neut % (Auto) 90.8 H (34.0-71.1) % Lymph % (Auto) 4.4 L (19.3-51.7) % [place] % (Auto) 3.9 L (4.7-12.5) % Eos % (Auto) 0 L (0.7-5.8) Baso % (Auto) 0.1 (0.1-1.2) % Neut # (Auto) 12.96 H (1.56-6.13) K/mm3 Lymph # (Auto) 0.63 L (1.18-3.74) K/mm3 [place] # (Auto) 0.56 H (0.24-0.36) K/mm3 Eos # (Auto) 0.00 L (0.04-0.36) K/mm3 Baso # (Auto) 0.01 (0.01-0.08) K/mm3 Puncture Site ABG pH (7.35-7.45) ABG pCO2 (35.0-45.0) mmHg ABG pO2 (80.0-100.0) mmHg ABG HCO3 (22.0-26.0) meq/L ABG O2 Saturation (96.0-97.0) % ABG Base Excess (-2-2.0) Will Test A-a Gradient mmHg O2 Delivery Device Oxygen Flow Rate FiO2 (21.00-100.00) % Sodium (136-145) mEq/L Potassium (3.5-5.1) mEq/L Chloride (98-107) mEq/L Carbon Dioxide (21-32) mEq/L Anion Gap (5-15) BUN (7-18) mg/dL Creatinine (0.55-1.02) mg/dL Est Cr Clr Drug Dosing mL/min Estimated GFR (MDRD) (>60) mL/min BUN/Creatinine Ratio (14-18) Glucose (80-115) mg/dL POC Glucose (80-115) mg/dL Calcium (8.5-10.1) mg/dL Magnesium (1.8-2.4) mg/dl C-Reactive Protein (<1.0) mg/dL Theophylline (10.0-20.0) ug/mL Med Orders - Current: Current Medications Acetaminophen (Tylenol) 650 mg PO Q6H PRN PRN Reason: Pain/Fever Last Admin: 12/13/17 06:16 Dose: 650 mg Albuterol (Proventil Neb Soln) 2.5 mg NEB Q4HRRT PRN PRN Reason: Shortness of Breath Last Admin: 12/15/17 10:51 Dose: 2.5 mg Albuterol/Ipratropium (Duoneb 3.0-0.5 Mg/3 Ml) 3 ml NEB TIDRT [facility] Last Admin: 12/17/17 06:12 Dose: 3 ml Amlodipine Besylate (Norvasc) 5 mg PO BID [facility] Last Admin: 12/16/17 20:46 Dose: 5 mg Aspirin (Aspirin) 81 mg PO DAILY [facility] Last Admin: 12/16/17 09:43 Dose: 81 mg Azithromycin (Zithromax) 250 mg PO DAILY [facility] Last Admin: 12/16/17 09:30 Dose: 250 mg Bisacodyl (Dulcolax) 10 mg RECTAL DAILY PRN PRN Reason: Constipation Budesonide (Pulmicort) 0.25 mg NEB BIDRT [facility] Last Admin: 12/17/17 06:12 Dose: 0.25 mg Bupropion HCl (Wellbutrin Sr) 100 mg PO DAILY [facility] Citalopram Hydrobromide (Celexa) 40 mg PO DAILY [facility] Clonazepam (Klonopin) 0.5 mg PO TID PRN PRN Reason: Anxiety Dextrose/Water (Dextrose 50% In Water) 50 ml IVPUSH ASDIRECTED PRN PRN Reason: Hypoglycemia Last Admin: 12/17/17 00:52 Dose: 50 ml Dronabinol (Marinol) 2.5 mg PO TIDAC [facility] Last Admin: 12/17/17 06:02 Dose: 2.5 mg Enoxaparin Sodium (Lovenox) 40 mg SUBCUT Q24H [facility] Last Admin: 12/16/17 17:08 Dose: 40 mg Ferrous Sulfate (Ferrous Sulfate) 325 mg PO DAILY [facility] Last Admin: 12/16/17 09:41 Dose: 325 mg Glipizide (Glucotrol Xl) 5 mg PO BIDMEALS [facility] Last Admin: 12/17/17 06:01 Dose: 5 mg Hydralazine HCl (Apresoline) 20 mg IVPUSH Q6H PRN PRN Reason: Hypertension Last Admin: 12/13/17 04:54 Dose: 20 mg Insulin Aspart (Novolog) 15 unit SUBCUT TIDMEALS [facility] Last Admin: 12/16/17 17:14 Dose: 15 units Insulin Detemir (Levemir) 30 unit SUBCUT BID [facility] Last Admin: 12/16/17 20:44 Dose: 30 units Levothyroxine Sodium (Synthroid) 100 mcg PO ACBREAKFAST [facility] Last Admin: 12/17/17 05:58 Dose: 100 mcg Losartan Potassium (Cozaar) 50 mg PO DAILY [facility] Last Admin: 12/16/17 09:29 Dose: 50 mg Magnesium Oxide (Magnesium Oxide) 400 mg PO BID [facility] Last Admin: 12/16/17 20:46 Dose: 400 mg Methylprednisolone Sodium Succinate (Solu-Medrol) 40 mg IVPUSH BID [facility] Last Admin: 12/16/17 20:47 Dose: 40 mg Metoclopramide HCl (Reglan) 10 mg PO QID [facility] Last Admin: 12/16/17 20:46 Dose: 10 mg Metoprolol Tartrate (Lopressor) 5 mg IVPUSH Q4H PRN PRN Reason: Tachycardia Last Admin: 12/15/17 13:54 Dose: 5 mg Modafinil (Provigil) 100 mg PO DAILY [facility] Last Admin: 12/16/17 09:45 Dose: 100 mg Morphine Sulfate (Morphine) 0.5 mg IVPUSH Q4H PRN PRN Reason: Shortness of Breath Last Admin: 12/12/17 15:54 Dose: 0.5 mg Multivitamins (Thera) 1 each PO DAILY [facility] Last Admin: 12/16/17 09:40 Dose: 1 each Ondansetron HCl (Zofran) 4 mg IVPUSH Q8H PRN PRN Reason: Nausea/Vomiting Pantoprazole Sodium (Protonix) 40 mg PO DAILY@0700 [facility] Last Admin: 12/17/17 06:02 Dose: 40 mg Polyethylene Glycol (Miralax) 17 gm PO DAILY [facility] Last Admin: 12/16/17 09:41 Dose: 17 gm Ropinirole HCl (Requip) 1 mg PO BID [facility] Last Admin: 12/16/17 09:39 Dose: 1 mg Rosuvastatin Calcium (Crestor) 10 mg PO BEDTIME [facility] Last Admin: 12/16/17 20:44 Dose: 10 mg Saccharomyces Boulardii (Florastor) 500 mg PO DAILY [facility] Last Admin: 12/16/17 09:46 Dose: 500 mg Senna/Docusate Sodium (Senna Plus) 2 tab PO BID [facility] Last Admin: 12/16/17 20:47 Dose: 2 tab Sodium Chloride (Saline Flush) 10 ml FLUSH ASDIRECTED PRN PRN Reason: Keep Vein Open Last Admin: 12/03/17 07:55 Dose: 10 ml Theophylline (Theophylline Anhydrous) 300 mg PO DAILY [facility] Last Admin: 12/16/17 09:47 Dose: 300 mg Tramadol HCl (Ultram) 50 mg PO TID PRN PRN Reason: Pain (moderate 4-6) Last Admin: 12/15/17 09:05 Dose: 50 mg Discontinued Medications Acetazolamide (Diamox) 500 mg PO ONETIME ONE Stop: 12/13/17 07:13 Last Admin: 12/13/17 08:29 Dose: 500 mg Albuterol/Ipratropium (Duoneb 3.0-0.5 Mg/3 Ml) 3 ml NEB QID [facility] Last Admin: 12/06/17 20:15 Dose: 3 ml Albuterol/Ipratropium (Duoneb 3.0-0.5 Mg/3 Ml) 3 ml NEB QIDRT [facility] Last Admin: 12/13/17 09:08 Dose: 3 ml Amlodipine Besylate (Norvasc) 5 mg PO DAILY [facility] Amlodipine Besylate (Norvasc) 5 mg PO ONETIME ONE Stop: 12/15/17 12:43 Last Admin: 12/15/17 13:52 Dose: 5 mg Budesonide (Pulmicort) 0.25 mg NEB BIDRT [facility] Last Admin: 12/12/17 00:13 Dose: 0.25 mg Budesonide (Pulmicort) 0.5 mg NEB Q6H [facility] Last Admin: 12/12/17 18:35 Dose: 0.5 mg Bumetanide (Bumex) 0.5 mg IVPUSH ONETIME ONE Stop: 12/13/17 12:01 Last Admin: 12/13/17 12:45 Dose: Not Given Bumetanide (Bumex) 0.5 mg IVPUSH ONETIME ONE Stop: 12/13/17 12:25 Last Admin: 12/13/17 12:44 Dose: 0.5 mg Bumetanide (Bumex) 1 mg IVPUSH ONETIME ONE Stop: 12/16/17 07:21 Last Admin: 12/16/17 09:33 Dose: 1 mg Bupropion HCl (Wellbutrin Xl) 150 mg PO DAILY [facility] Last Admin: 12/16/17 09:44 Dose: 150 mg Caffeine (Caffeine) 200 mg PO DAILY [facility] Citalopram Hydrobromide (Celexa) 40 mg PO DAILY [facility] Last Admin: 12/16/17 09:42 Dose: 40 mg Clonazepam (Klonopin) 0.5 mg PO ONETIME ONE Stop: 12/13/17 12:06 Last Admin: 12/13/17 12:43 Dose: 0.5 mg Fluconazole (Diflucan) 150 mg PO ONETIME ONE Stop: 12/05/17 09:01 Last Admin: 12/05/17 08:55 Dose: 150 mg Fluconazole (Diflucan) 100 mg PO DAILY [facility] Last Admin: 12/13/17 08:33 Dose: 100 mg Furosemide (Lasix) 40 mg IVPUSH NOW ONE Stop: 12/03/17 07:31 Last Admin: 12/03/17 07:47 Dose: 40 mg Furosemide (Lasix) 40 mg IVPUSH NOW ONE Stop: 12/04/17 18:22 Last Admin: 12/04/17 18:26 Dose: 40 mg Furosemide (Lasix) 40 mg IVPUSH ONETIME ONE Stop: 12/05/17 08:01 Last Admin: 12/05/17 08:54 Dose: 40 mg Furosemide (Lasix) 20 mg IVPUSH NOW ONE Stop: 12/08/17 11:02 Last Admin: 12/08/17 11:41 Dose: 20 mg Furosemide (Lasix) 20 mg IVPUSH ONETIME ONE Stop: 12/08/17 15:39 Last Admin: 12/08/17 15:55 Dose: 20 mg Furosemide (Lasix) 20 mg IVPUSH ONETIME ONE Stop: 12/12/17 14:23 Last Admin: 12/12/17 14:31 Dose: 20 mg Furosemide (Lasix) 10 mg IVPUSH NOW ONE Stop: 12/13/17 22:26 Last Admin: 12/13/17 23:14 Dose: 10 mg Furosemide (Lasix) 10 mg IVPUSH BID [facility] Stop: 12/15/17 21:01 Last Admin: 12/14/17 20:17 Dose: 10 mg Furosemide (Lasix) 10 mg IVPUSH BID@0900,1700 [facility] Stop: 12/15/17 17:01 Last Admin: 12/15/17 17:14 Dose: 10 mg Glipizide (Glucotrol Xl) 5 mg PO ONETIME ONE Stop: 12/13/17 22:24 Last Admin: 12/13/17 23:15 Dose: 5 mg Piperacillin Sod/Tazobactam (Sod 4.5 gm/ Sodium Chloride) 100 mls @ 25 mls/hr IV Q8H [facility] Last Admin: 12/07/17 08:05 Dose: 25 mls/hr Vancomycin HCl 1 gm/ Sodium (Chloride) 250 mls @ 250 mls/hr IV Q24H [facility] Last Admin: 12/03/17 15:29 Dose: 250 mls/hr Piperacillin Sod/Tazobactam (Sod 4.5 gm/ Sodium Chloride) 100 mls @ 400 mls/hr IV ONETIME ONE Stop: 12/03/17 16:14 Last Admin: 12/03/17 16:41 Dose: 400 mls/hr Sodium Chloride (Normal Saline) 1,000 mls @ 50 mls/hr IV ASDIRECTED [facility] Last Infusion: 12/03/17 21:30 Dose: Infused Sodium Chloride (Normal Saline) 1,000 mls @ 75 mls/hr IV ASDIRECTED [facility] Last Admin: 12/06/17 02:00 Dose: 50 mls/hr Vancomycin HCl 1 gm/ Sodium (Chloride) 250 mls @ 250 mls/hr IV Q12H [facility] Last Admin: 12/05/17 11:48 Dose: 250 mls/hr Magnesium Sulfate 2 gm/ Premix 50 mls @ 25 mls/hr IV ONETIME ONE Stop: 12/04/17 11:46 Last Admin: 12/04/17 10:39 Dose: 25 mls/hr Vancomycin HCl 1 gm/ Sodium (Chloride) 250 mls @ 250 mls/hr IV Q18H [facility] Last Admin: 12/07/17 04:10 Dose: 250 mls/hr Magnesium Sulfate 2 gm/ Premix 50 mls @ 25 mls/hr IV ONETIME ONE Stop: 12/05/17 15:24 Last Admin: 12/05/17 13:46 Dose: 25 mls/hr Sodium Chloride (Normal Saline) 1,000 mls @ 50 mls/hr IV ASDIRECTED [facility] Last Admin: 12/09/17 11:08 Dose: 50 mls/hr Magnesium Sulfate 2 gm/ Premix 50 mls @ 25 mls/hr IV ONETIME ONE Stop: 12/07/17 11:52 Last Admin: 12/07/17 11:12 Dose: Not Given Magnesium Sulfate 2 gm/ Premix 50 mls @ 25 mls/hr IV ONETIME ONE Stop: 12/07/17 13:59 Last Admin: 12/07/17 12:18 Dose: 25 mls/hr Sodium Bicarbonate 150 meq/ (Dextrose/Water) 1,150 mls @ 100 mls/hr IV ONETIME ONE Stop: 12/09/17 03:08 Last Admin: 12/08/17 15:48 Dose: 100 mls/hr Magnesium Sulfate 2 gm/ Premix 50 mls @ 25 mls/hr IV ONETIME ONE Stop: 12/10/17 16:06 Last Admin: 12/10/17 14:27 Dose: 25 mls/hr Sodium Bicarbonate 150 meq/ (Dextrose/Water) 1,150 mls @ 100 mls/hr IV ONETIME ONE Stop: 12/11/17 23:07 Last Admin: 12/11/17 12:39 Dose: 100 mls/hr Dextrose/Water (Dextrose 5% In Water) Confirm Administered Dose 1,000 mls @ as directed .ROUTE .STK-MED ONE Stop: 12/11/17 12:23 Last Admin: 12/11/17 12:52 Dose: Not Given Insulin Human Regular 100 unit (/ Sodium Chloride) 100 mls @ 7.5 mls/hr IV TITRATE [facility]; Protocol Last Titration: 12/12/17 21:15 Dose: 0 units/kg/hr, 0 mls/hr Piperacillin Sod/Tazobactam (Sod 4.5 gm/ Sodium Chloride) 100 mls @ 25 mls/hr IV Q8H [facility] Last Admin: 12/12/17 11:32 Dose: Not Given Meropenem 500 mg/ Sodium (Chloride) 100 mls @ 200 mls/hr IV Q8H [facility] Last Admin: 12/13/17 06:16 Dose: 200 mls/hr Levofloxacin/Dextrose 750 mg/ (Premix) 150 mls @ 100 mls/hr IV Q48H [facility] Last Admin: 12/12/17 11:24 Dose: 100 mls/hr Azithromycin 500 mg/ Sodium (Chloride) 250 mls @ 250 mls/hr IV ONETIME ONE Stop: 12/13/17 13:02 Last Admin: 12/13/17 12:44 Dose: 250 mls/hr Sodium Chloride (Normal Saline) 1,000 mls @ 50 mls/hr IV ASDIRECTED [facility] Last Admin: 12/14/17 19:13 Dose: 50 mls/hr Aminophylline 250 mg/ Sodium (Chloride) 210 mls @ 35 mls/hr IV ONETIME ONE Stop: 12/14/17 04:33 Last Admin: 12/13/17 23:15 Dose: 35 mls/hr Potassium Chloride 10 meq/ (Premix) 100 mls @ 100 mls/hr IV Q1H [facility] Stop: 12/14/17 08:29 Last Admin: 12/14/17 07:49 Dose: 100 mls/hr Insulin Aspart (Novolog) 0 unit SUBCUT QIDACANDBED [facility]; Protocol Last Admin: 12/03/17 19:06 Dose: Not Given Insulin Aspart (Novolog) 0 unit SUBCUT Q6H [facility]; Protocol Last Admin: 12/05/17 02:00 Dose: 7 units Insulin Aspart (Novolog) 0 unit SUBCUT Q6HR [facility]; Protocol Last Admin: 12/06/17 18:28 Dose: 10 units Insulin Aspart (Novolog) 0 unit SUBCUT QIDACANDBED [facility]; Protocol Last Admin: 12/09/17 22:21 Dose: Not Given Insulin Aspart (Novolog) 0 unit SUBCUT Q6H [facility]; Protocol Last Admin: 12/09/17 20:09 Dose: Not Given Insulin Aspart (Novolog) 0 unit SUBCUT Q6HR [facility]; Protocol Last Admin: 12/10/17 12:35 Dose: 12 units Insulin Aspart (Novolog) 0 unit SUBCUT Q6HR [facility]; Protocol Last Admin: 12/11/17 12:48 Dose: 15 units Insulin Aspart (Novolog) 0 unit SUBCUT Q4H [facility]; Protocol Last Admin: 12/13/17 17:39 Dose: Not Given Insulin Aspart (Novolog) 0 unit SUBCUT Q4HR [facility]; Protocol Last Admin: 12/13/17 23:16 Dose: Not Given Insulin Aspart (Novolog) 12 unit SUBCUT TIDMEALS [facility] Last Admin: 12/14/17 08:01 Dose: 12 units Insulin Detemir (Levemir) 5 unit SUBCUT BID [facility] Last Admin: 12/10/17 09:12 Dose: 5 units Insulin Detemir (Levemir) 8 unit SUBCUT BID [facility] Last Admin: 12/11/17 08:45 Dose: 8 units Insulin Detemir (Levemir) 8 unit SUBCUT ONETIME ONE Stop: 12/10/17 17:54 Last Admin: 12/10/17 18:07 Dose: 8 units Insulin Detemir (Levemir) 8 unit SUBCUT BID [facility] Insulin Detemir (Levemir) 10 unit SUBCUT BID [facility] Insulin Detemir (Levemir) 6 unit SUBCUT ONETIME ONE Stop: 12/13/17 21:01 Insulin Detemir (Levemir) 10 unit SUBCUT BID [facility] Insulin Detemir (Levemir) 8 unit SUBCUT ONETIME ONE Stop: 12/13/17 21:01 Insulin Detemir (Levemir) 15 unit SUBCUT ONETIME ONE Stop: 12/13/17 21:01 Last Admin: 12/13/17 20:27 Dose: 15 units Insulin Detemir (Levemir) 15 unit SUBCUT ONETIME ONE Stop: 12/13/17 22:24 Last Admin: 12/13/17 23:16 Dose: 15 units Insulin Detemir (Levemir) 25 unit SUBCUT BID [facility] Insulin Human Isoph/Insulin Regular (Novolin 70-30) 10 unit SUBCUT ONETIME ONE Stop: 12/13/17 16:45 Last Admin: 12/13/17 17:03 Dose: 10 units Insulin Human NPH (Novolin N) 25 unit SUBCUT ONETIME ONE Stop: 12/13/17 22:28 Last Admin: 12/13/17 23:41 Dose: Not Given Insulin Human Regular (Humulin R) 25 unit SUBCUT ONETIME ONE Stop: 12/13/17 23:46 Last Admin: 12/14/17 00:08 Dose: 25 units Levothyroxine Sodium (Synthroid) 50 mcg PO ACBREAKFAST [facility] Last Admin: 12/13/17 06:16 Dose: 50 mcg Levothyroxine Sodium (Levothyroxine) 75 mcg PO ACBREAKFAST [facility] Last Admin: 12/14/17 06:35 Dose: 75 mcg Losartan Potassium (Cozaar) 25 mg PO DAILY [facility] Last Admin: 12/15/17 08:39 Dose: 25 mg Megestrol Acetate (Megace) 40 mg PO BID [facility] Last Admin: 12/05/17 12:23 Dose: Not Given Megestrol Acetate (Megace 40 Mg/Ml Susp) 400 mg PO BID [facility] Last Admin: 12/15/17 08:40 Dose: 400 mg Methylprednisolone Sodium Succinate (Solu-Medrol) 80 mg IVPUSH DAILY@1800 [facility] Last Admin: 12/08/17 18:19 Dose: 80 mg Methylprednisolone Sodium Succinate (Solu-Medrol) 125 mg IVPUSH Q8H [facility] Last Admin: 12/13/17 06:16 Dose: 125 mg Methylprednisolone Sodium Succinate (Solu-Medrol) 80 mg IVPUSH Q8H [facility] Last Admin: 12/14/17 19:36 Dose: Not Given Methylprednisolone Sodium Succinate (Solu-Medrol) 80 mg IVPUSH Q8H [facility] Last Admin: 12/14/17 07:55 Dose: 80 mg Methylprednisolone Sodium Succinate (Solu-Medrol) 60 mg IVPUSH BID [facility] Methylprednisolone Sodium Succinate (Solu-Medrol) 60 mg IVPUSH BID [facility] Last Admin: 12/15/17 08:46 Dose: 60 mg Potassium Chloride (Klor-Con M20) 40 meq PO BID [facility] Stop: 12/06/17 09:01 Last Admin: 12/06/17 08:56 Dose: 40 meq Racepinephrine (S-2 2.25%) Confirm Administered Dose 0.5 ml .ROUTE .STK-MED ONE Stop: 12/11/17 17:35 Last Admin: 12/11/17 17:42 Dose: Not Given Racepinephrine (S-2 2.25%) 0.5 ml NEB Q6HR [facility] Last Admin: 12/12/17 18:35 Dose: 0.5 ml Sodium Bicarbonate (Sodium Bicarbonate 8.4%) Confirm Administered Dose 100 meq .ROUTE .STK-MED ONE Stop: 12/08/17 15:11 Last Admin: 12/08/17 15:10 Dose: 100 meq Sodium Bicarbonate (Sodium Bicarbonate 8.4%) 100 meq IVPUSH ONETIME ONE Stop: 12/08/17 15:17 Last Admin: 12/08/17 16:09 Dose: Not Given Sodium Bicarbonate (Sodium Bicarbonate 8.4%) Confirm Administered Dose 150 meq .ROUTE .STK-MED ONE Stop: 12/11/17 12:23 Last Admin: 12/11/17 12:52 Dose: Not Given Theophylline (Theophylline Anhydrous) 300 mg PO BID [facility] Last Admin: 12/15/17 20:07 Dose: 300 mg Vancomycin HCl (Pharmacy To Dose - Vancomycin) 0 dose .XX ASDIRECTED PRN PRN Reason: RX TO DOSE VANCOMYCIN - Exam Quality Assessment: Supplemental Oxygen General: Alert, Cooperative, No Acute Distress HEENT: Pupils Equal, Pupils Reactive, EOMI, Mucous Membr. Moist/[place] Neck: Supple, Trachea Midline, No JVD, No Thyromegaly Lungs: Normal Respiratory Effort, Decreased Breath Sounds Cardiovascular: Irregular Rhythm GI/Abdominal Exam: Normal Bowel Sounds, Soft, Non-Tender, No Organomegaly, No Distention, No Abnormal Bruit (Female) Exam: Deferred Back Exam: Normal Inspection, Decreased Range of Motion Extremities: Normal Inspection, Normal Range of Motion, Non-Tender, No Pedal Edema, Normal Capillary Refill Peripheral Pulses: 2+: Dorsalis Pedis (L), Dorsalis Pedis (R) Skin: Warm, Dry, Intact Neurological: No New Focal Deficit Psy/Mental Status: Alert, Depressed. No: Normal Affect, Agitated, Suicidal Ideation, Hallucinations - Problem List Review Problem List Initiated/Reviewed/Updated: Yes - My Orders Last 24 Hours: My Active Orders 12/16/17 07:00 Modafinil [Provigil] 100 mg PO DAILY 12/16/17 07:06 LORIN Hose [Antiembolic Hose] [OM.PC] Routine 12/16/17 07:10 Antiembolic Devices [RC] .Routine VTE/DVT Education [RC] PER UNIT ROUTINE 12/16/17 09:00 Losartan [Cozaar] 50 mg PO DAILY Theophylline [Theophylline Anhydrous] 300 mg PO DAILY amLODIPine [Norvasc] 5 mg PO BID 12/17/17 09:00 buPROPion [Wellbutrin SR] 100 mg PO DAILY - Plan Plan:: Impression: Acute: S/p COPD Exacerbation - She appears to be at baseline - Has an underlying advanced COPD--> was a difficult extubation in [place] requiring tracheostomy - Most recent CXR--stable from previous study, shows no infiltrate/pneumonia with stable atelectasis and pulmonary congestion - Continue IV Bronchodilators, IV Azithromycin 500 mg IV x1 now then oral 250 mg po daily in AM, Magnesium Oxide 400 mg po BID - She received Aminophylline drip x1 last night and now on Theophylline 300 mg po BID --> theophylline level 10.9 (10-20) on 12/16/17 - Taper IV Solumedrol to 40 mg BID from 60 mg TID --> will transition to prednisone 20 mg po daily tomorrow - Continue PRN BIPAP and RT care and klonopin 0.5 mg po TID PRN for anxiety - today she has required BiPap at 7L which is increased from her baseline --> improved later in day - ABG ordered and is at patient's baseline - continue to monitor - recommend PFTs be assessed as outpatient Hypercapnea, Continues to Improve - 2/2 COPD - Received NaHCO3 gtt with good results; now d/c'd - CO2 48---> 39--> 37 - Continue treatment above Diabetes Mellitus 2 w/ Hyperglycemia, Significantly Improved - Improved blood glucose --> TF on hold and Glucerna QID per dietitian - A1C 7.2 12/04/2017 - 2/2 High dose steroid use --> Continue to cut down IV Steroid - Continue accu-check at Q6H and ISS - Continue SA insulin 15 units subQ TID Meals and Glucotrol 5 mg po BID - Change Nightime LA insulin from 30 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 and continue 30 units in AM Severe Hypothyroidism - Has hx/o being on Synthroid 50 mcg po daily - TSH 24.519 and FT4 0.69 on 12/13/17 - Continue levothyroxine 100 mcg po daily Poor Appetite - Slowly improving -kcal count: 12/14/17-1310 kcal and 59 g protein, 12/15/17-1304 kcal and 64 grams of protein - Continue Marinol for appetite stimulation - Diet order per ELECTRICAL SYSTEMS DESIGNER is mechanical with nectar thick liquids --> ELECTRICAL SYSTEMS DESIGNER does not feel comfortable with diet advancement at this time Hypertension, Labile - Currently receiving losartan 50 mg daily, lasix 40 mg po daily and Amlodipine 5 mg po BID - Add Clonodine 0.3 mg patch x1 Fatigue/Less Attention - Cut Wellbutrin dose down to 100 mg [id number] and held Celexa as well Requip - Increased Provigil to 200 from 100 mg daily Resolved: S/p Acute respiratory distress, hypercapnia-->NEW occurence after 4 hours on NC S/P Rapid response--received 2 amps of NaHCO3 during response and subsequently was started on sod bicarb gtt. Hx of prolong intubation, s/p tracheostomy, BIPAP adjust settings with improved VT; solumedrol S/p Decrease responsiveness--ruled out CVA S/p Paroxysmal A fib--<30 minutes in the time frame of Rapid response S/p Hyponatremia--now 142 S/p Hyperkalemia--now 3.8 Chronic: Hx of CKD, II Deconditioned, continue PT/OT Depression--continue Celexa, Wellbutrin but at lower doses to help with fatigue Fe deficiency PUD HTN HLD Macular degeneration CAD/GA S/p CABG Plan: She is much better clinically today than yesterday Increase activity level--> up three times daily BiPAP as needed for above --> today she has required BiPap at 7L which is increased from her baseline, improved later in day Continue PT/OT for deconditioning CM/SW for discharge planning --> [place] come Tuesday DVT/GI prophylaxis Code status: DNR/DNI Encourage to use IS/FV as much as she can Additional orders as above Prognosis good-guarded
[2017-12-17] MEDS ORDERED: methylPREDNISolone Sodium Succinate 40 MG/1 ML SDV IVPUSH ONE (09:00)
[2017-12-17] MEDS ORDERED: Insulin Detemir 100 Units/ML 3 ML Pen SUBCUT SCH ×2 (09:00→21:00)
[2017-12-17] MEDS: Azithromycin 250 MG Tab PO SCH (09:38)
[2017-12-17] MEDS: Multivitamins,Therapeutic Tab PO SCH (09:39)
[2017-12-17] MEDS: Losartan 100 MG Tab PO SCH (09:42)
[2017-12-17] MEDS: buPROPion 100 MG Tab.SR PO SCH (09:42)
[2017-12-17] MEDS: Magnesium Oxide 400 MG Tab PO SCH ×2 (09:44→20:29)
[2017-12-17] MEDS: predniSONE 20 MG Tab PO SCH (09:45)
[2017-12-17] MEDS: Metoclopramide 10 MG Tab PO SCH ×4 (09:45→20:29)
[2017-12-17] MEDS: amLODIPine 5 MG Tab PO SCH ×2 (09:47→20:29)
[2017-12-17] MEDS: Aspirin 81 MG Tab.Chew PO SCH (09:47)
[2017-12-17] MEDS: Ferrous Sulfate 325 MG Tab PO SCH (09:48)
[2017-12-17] MEDS: Modafinil 200 MG Tab PO SCH (09:54)
[2017-12-17] MEDS: Saccharomyces Boulardii (Probiotic) 250 MG Cap PO SCH (09:55)
[2017-12-17] MEDS: Polyethylene Glycol 3350 Powder 17 GM Packet PO SCH (09:59)
[2017-12-17] MEDS: Theophylline 300 MG Tab.ER PO SCH (10:00)
[2017-12-17] MEDS ORDERED: Modafinil 200 MG Tab PO STA ×2 (10:00→15:28)
[2017-12-17] MEDS: Insulin Aspart 100 Units/ML 3 ML Pen SUBCUT SCH ×3 (10:06→17:26)
[2017-12-17] MEDS ORDERED: Modafinil 200 MG Tab PO SCH (13:00)
[2017-12-17] MEDS: Enoxaparin 40 MG/0.4 ML Syringe SUBCUT SCH (15:37)
[2017-12-17] MEDS: hydrALAZINE 20 MG/ML SDV IVPUSH PRN (16:37)
[2017-12-17] MEDS ORDERED: glipiZIDE 2.5 MG Tab.ER PO SCH (17:00)
[2017-12-17] MEDS ORDERED: cloNIDine 0.3 MG/Day Transdermal Patch TRDERM ONE (18:30)
[2017-12-17] MEDS ORDERED: Aluminum Hydroxide/Magnesium Hydroxide/Simethicone Susp 30 ML Cup PO PRN (20:03)
[2017-12-17] MEDS: Rosuvastatin 10 MG Tab PO SCH (20:29)
[2017-12-17] MEDS: Acetaminophen 325 MG Tab PO PRN (22:16)
[2017-12-18] MEDS: Budesonide 0.25 MG/2 ML Neb Susp NEB SCH ×2 (06:13→20:25)
[2017-12-18] MEDS: Albuterol/Ipratropium 3.0-0.5 MG/3 ML Neb Soln NEB SCH ×3 (06:13→20:25)
[2017-12-18] MEDS: Dronabinol 2.5 MG Cap PO SCH ×3 (06:23→16:33)
[2017-12-18] MEDS: Levothyroxine 100 MCG Tab PO SCH (06:24)
[2017-12-18] MEDS: predniSONE 20 MG Tab PO SCH (06:24)
[2017-12-18] MEDS: Pantoprazole 40 MG Tab.CR PO SCH (06:24)
[2017-12-18] MEDS: glipiZIDE 5 MG Tab.ER PO SCH ×2 (06:32→16:33)
--- NOTE | 2017-12-18 06:47 | PCM.PN ---
- General Info Date of Service: 12/18/17 Admission Dx/Problem (Free Text): Admission Diagnosis/Problem Admission Diagnosis/Problem Hypoxia Subjective Update: Follow up Functional Status: Reports: Pain Controlled, Tolerating Diet, Urinating. Denies : New Symptoms - Review of Systems General: Reports: Weakness. Denies: Fever, Fatigue, Malaise HEENT: Reports: No Symptoms Pulmonary: Denies: Shortness of Breath, Cough, Sputum Cardiovascular: Denies: Palpitations, Dyspnea on Exertion Gastrointestinal: Denies: Abdominal Pain, Nausea, Vomiting Genitourinary: Reports: No Symptoms Musculoskeletal: Reports: No Symptoms Skin: Denies: Cyanosis, Mottled, Pallor, Diaphoresis Neurological: Reports: Difficulty Walking, Weakness, Gait Disturbance. Denies: Confusion Psychiatric: Denies: Depression, Anxiety, Agitation, Hallucinations Systems Review Comment:: No significant overnight or acute issues. She slept good and reports no trouble with breathing. No hypoglycemic episode overnight. She has no complaints this morning. - Patient Data Vitals - Most Recent: Last Vital Signs Temp 36.5 C 12/18/17 03:54 Pulse 100 12/18/17 03:54 Resp 18 12/17/17 19:57 BP 131/56 L 12/18/17 03:54 Pulse Ox 93 L 12/18/17 06:13 Weight - Most Recent: 75.07 kg I&O - Last 24 Hours: Intake & Output 12/17/17 12/17/17 12/18/17 14:59 22:59 06:59 Intake Total 600 300 100 Balance 600 300 100 Lab Results Last 24 Hours: Laboratory Results - last 24 hr 12/17/17 12/17/17 12/17/17 Range/Units 06:30 06:30 06:30 WBC 14.28 H (3.98-10.04) K/mm3 RBC 3.80 L (3.98-5.22) M/mm3 Hgb 11.4 (11.2-15.7) gm/L Hct 37.5 (34.1-44.9) % MCV 98.7 H (79.4-94.8) fl MCH 30.0 (25.6-32.2) pg MCHC 30.4 L (32.2-35.5) g/dl RDW Std Deviation 56.1 H (36.4-46.3) fL Plt Count 371 H (182-369) K/mm3 MPV 11.4 (9.4-12.3) fl Neut % (Auto) 90.8 H (34.0-71.1) % Lymph % (Auto) 4.4 L (19.3-51.7) % Republic % (Auto) 3.9 L (4.7-12.5) % Eos % (Auto) 0 L (0.7-5.8) Baso % (Auto) 0.1 (0.1-1.2) % Neut # (Auto) 12.96 H (1.56-6.13) K/mm3 Lymph # (Auto) 0.63 L (1.18-3.74) K/mm3 Republic # (Auto) 0.56 H (0.24-0.36) K/mm3 Eos # (Auto) 0.00 L (0.04-0.36) K/mm3 Baso # (Auto) 0.01 (0.01-0.08) K/mm3 Manual Slide Review Abnormal smear Sodium 140 (136-145) mEq/L Potassium 4.8 (3.5-5.1) mEq/L Chloride 101 (98-107) mEq/L Carbon Dioxide 37 H (21-32) mEq/L Anion Gap 6.8 (5-15) BUN 48 H (7-18) mg/dL Creatinine 1.0 (0.55-1.02) mg/dL Est Cr Clr Drug Dosing 42.22 mL/min Estimated GFR (MDRD) 55 (>60) mL/min BUN/Creatinine Ratio 48.0 H (14-18) Glucose 147 H (80-115) mg/dL POC Glucose (80-115) mg/dL Calcium 9.3 (8.5-10.1) mg/dL Magnesium 2.2 (1.8-2.4) mg/dl 12/17/17 12/17/17 12/17/17 Range/Units 11:42 17:25 20:20 WBC (3.98-10.04) K/mm3 RBC (3.98-5.22) M/mm3 Hgb (11.2-15.7) gm/L Hct (34.1-44.9) % MCV (79.4-94.8) fl MCH (25.6-32.2) pg MCHC (32.2-35.5) g/dl RDW Std Deviation (36.4-46.3) fL Plt Count (182-369) K/mm3 MPV (9.4-12.3) fl Neut % (Auto) (34.0-71.1) % Lymph % (Auto) (19.3-51.7) % Republic % (Auto) (4.7-12.5) % Eos % (Auto) (0.7-5.8) Baso % (Auto) (0.1-1.2) % Neut # (Auto) (1.56-6.13) K/mm3 Lymph # (Auto) (1.18-3.74) K/mm3 Republic # (Auto) (0.24-0.36) K/mm3 Eos # (Auto) (0.04-0.36) K/mm3 Baso # (Auto) (0.01-0.08) K/mm3 Manual Slide Review Sodium (136-145) mEq/L Potassium (3.5-5.1) mEq/L Chloride (98-107) mEq/L Carbon Dioxide (21-32) mEq/L Anion Gap (5-15) BUN (7-18) mg/dL Creatinine (0.55-1.02) mg/dL Est Cr Clr Drug Dosing mL/min Estimated GFR (MDRD) (>60) mL/min BUN/Creatinine Ratio (14-18) Glucose (80-115) mg/dL POC Glucose 320 H 268 H 244 H (80-115) mg/dL Calcium (8.5-10.1) mg/dL Magnesium (1.8-2.4) mg/dl 12/18/17 Range/Units 05:18 WBC (3.98-10.04) K/mm3 RBC (3.98-5.22) M/mm3 Hgb (11.2-15.7) gm/L Hct (34.1-44.9) % MCV (79.4-94.8) fl MCH (25.6-32.2) pg MCHC (32.2-35.5) g/dl RDW Std Deviation (36.4-46.3) fL Plt Count (182-369) K/mm3 MPV (9.4-12.3) fl Neut % (Auto) (34.0-71.1) % Lymph % (Auto) (19.3-51.7) % Republic % (Auto) (4.7-12.5) % Eos % (Auto) (0.7-5.8) Baso % (Auto) (0.1-1.2) % Neut # (Auto) (1.56-6.13) K/mm3 Lymph # (Auto) (1.18-3.74) K/mm3 Republic # (Auto) (0.24-0.36) K/mm3 Eos # (Auto) (0.04-0.36) K/mm3 Baso # (Auto) (0.01-0.08) K/mm3 Manual Slide Review Sodium (136-145) mEq/L Potassium (3.5-5.1) mEq/L Chloride (98-107) mEq/L Carbon Dioxide (21-32) mEq/L Anion Gap (5-15) BUN (7-18) mg/dL Creatinine (0.55-1.02) mg/dL Est Cr Clr Drug Dosing mL/min Estimated GFR (MDRD) (>60) mL/min BUN/Creatinine Ratio (14-18) Glucose (80-115) mg/dL POC Glucose 177 H (80-115) mg/dL Calcium (8.5-10.1) mg/dL Magnesium (1.8-2.4) mg/dl Med Orders - Current: Current Medications Acetaminophen (Tylenol) 650 mg PO Q6H PRN PRN Reason: Pain/Fever Last Admin: 12/17/17 22:16 Dose: 650 mg Al Hydroxide/Mg Hydroxide (Mag-Al Plus) 30 ml PO Q4H PRN PRN Reason: Heartburn Last Admin: 12/17/17 20:30 Dose: 30 ml Albuterol (Proventil Neb Soln) 2.5 mg NEB Q4HRRT PRN PRN Reason: Shortness of Breath Last Admin: 12/15/17 10:51 Dose: 2.5 mg Albuterol/Ipratropium (Duoneb 3.0-0.5 Mg/3 Ml) 3 ml NEB TIDRT [facility] Last Admin: 12/18/17 06:13 Dose: 3 ml Amlodipine Besylate (Norvasc) 5 mg PO BID [facility] Last Admin: 12/17/17 20:29 Dose: 5 mg Aspirin (Aspirin) 81 mg PO DAILY [facility] Last Admin: 12/17/17 09:47 Dose: 81 mg Azithromycin (Zithromax) 250 mg PO DAILY [facility] Last Admin: 12/17/17 09:38 Dose: 250 mg Bisacodyl (Dulcolax) 10 mg RECTAL DAILY PRN PRN Reason: Constipation Budesonide (Pulmicort) 0.25 mg NEB BIDRT [facility] Last Admin: 12/18/17 06:13 Dose: 0.25 mg Bupropion HCl (Wellbutrin Sr) 100 mg PO DAILY [facility] Last Admin: 12/17/17 09:42 Dose: 100 mg Citalopram Hydrobromide (Celexa) 40 mg PO DAILY [facility] Clonazepam (Klonopin) 0.5 mg PO TID PRN PRN Reason: Anxiety Dextrose/Water (Dextrose 50% In Water) 50 ml IVPUSH ASDIRECTED PRN PRN Reason: Hypoglycemia Last Admin: 12/17/17 00:52 Dose: 50 ml Dronabinol (Marinol) 2.5 mg PO TIDAC [facility] Last Admin: 12/18/17 06:23 Dose: 2.5 mg Enoxaparin Sodium (Lovenox) 40 mg SUBCUT Q24H [facility] Last Admin: 12/17/17 15:37 Dose: 40 mg Ferrous Sulfate (Ferrous Sulfate) 325 mg PO DAILY [facility] Last Admin: 12/17/17 09:48 Dose: 325 mg Furosemide (Lasix) 40 mg PO DAILY [facility] Glipizide (Glucotrol Xl) 5 mg PO BIDMEALS [facility] Last Admin: 12/18/17 06:32 Dose: 5 mg Hydralazine HCl (Apresoline) 20 mg IVPUSH Q6H PRN PRN Reason: Hypertension Last Admin: 12/17/17 16:37 Dose: 20 mg Insulin Aspart (Novolog) 15 unit SUBCUT TIDMEALS [facility] Last Admin: 12/17/17 17:26 Dose: 15 units Insulin Detemir (Levemir) 30 unit SUBCUT DAILY [facility] Insulin Detemir (Levemir) 25 unit SUBCUT BEDTIME [facility] Last Admin: 12/17/17 20:37 Dose: 25 units Levothyroxine Sodium (Synthroid) 100 mcg PO ACBREAKFAST [facility] Last Admin: 12/18/17 06:24 Dose: 100 mcg Losartan Potassium (Cozaar) 50 mg PO DAILY [facility] Last Admin: 12/17/17 09:42 Dose: 50 mg Magnesium Oxide (Magnesium Oxide) 400 mg PO BID [facility] Last Admin: 12/17/17 20:29 Dose: 400 mg Metoclopramide HCl (Reglan) 10 mg PO QID [facility] Last Admin: 12/17/17 20:29 Dose: 10 mg Metoprolol Tartrate (Lopressor) 5 mg IVPUSH Q4H PRN PRN Reason: Tachycardia Last Admin: 12/15/17 13:54 Dose: 5 mg Miscellaneous Information (Remove Patch) 1 ea TRDERM Q72H [facility] Modafinil (Provigil) 200 mg PO DAILY [facility] Morphine Sulfate (Morphine) 0.5 mg IVPUSH Q4H PRN PRN Reason: Shortness of Breath Last Admin: 12/12/17 15:54 Dose: 0.5 mg Multivitamins (Thera) 1 each PO DAILY [facility] Last Admin: 12/17/17 09:39 Dose: 1 each Ondansetron HCl (Zofran) 4 mg IVPUSH Q8H PRN PRN Reason: Nausea/Vomiting Pantoprazole Sodium (Protonix) 40 mg PO DAILY@0700 [facility] Last Admin: 12/18/17 06:24 Dose: 40 mg Polyethylene Glycol (Miralax) 17 gm PO DAILY [facility] Last Admin: 12/17/17 09:59 Dose: 17 gm Prednisone (Prednisone) 20 mg PO WITHBREAKFAST [facility] Last Admin: 12/18/17 06:24 Dose: 20 mg Ropinirole HCl (Requip) 1 mg PO BID [facility] Last Admin: 12/16/17 09:39 Dose: 1 mg Rosuvastatin Calcium (Crestor) 10 mg PO BEDTIME [facility] Last Admin: 12/17/17 20:29 Dose: 10 mg Saccharomyces Boulardii (Florastor) 500 mg PO DAILY [facility] Last Admin: 12/17/17 09:55 Dose: 500 mg Senna/Docusate Sodium (Senna Plus) 2 tab PO BID [facility] Last Admin: 12/17/17 20:29 Dose: 2 tab Sodium Chloride (Saline Flush) 10 ml FLUSH ASDIRECTED PRN PRN Reason: Keep Vein Open Last Admin: 12/03/17 07:55 Dose: 10 ml Theophylline (Theophylline Anhydrous) 300 mg PO DAILY [facility] Last Admin: 12/17/17 10:00 Dose: 300 mg Tramadol HCl (Ultram) 50 mg PO TID PRN PRN Reason: Pain (moderate 4-6) Last Admin: 12/15/17 09:05 Dose: 50 mg Discontinued Medications Acetazolamide (Diamox) 500 mg PO ONETIME ONE Stop: 12/13/17 07:13 Last Admin: 12/13/17 08:29 Dose: 500 mg Albuterol/Ipratropium (Duoneb 3.0-0.5 Mg/3 Ml) 3 ml NEB QID [facility] Last Admin: 12/06/17 20:15 Dose: 3 ml Albuterol/Ipratropium (Duoneb 3.0-0.5 Mg/3 Ml) 3 ml NEB QIDRT [facility] Last Admin: 12/13/17 09:08 Dose: 3 ml Amlodipine Besylate (Norvasc) 5 mg PO DAILY [facility] Amlodipine Besylate (Norvasc) 5 mg PO ONETIME ONE Stop: 12/15/17 12:43 Last Admin: 12/15/17 13:52 Dose: 5 mg Budesonide (Pulmicort) 0.25 mg NEB BIDRT [facility] Last Admin: 12/12/17 00:13 Dose: 0.25 mg Budesonide (Pulmicort) 0.5 mg NEB Q6H [facility] Last Admin: 12/12/17 18:35 Dose: 0.5 mg Bumetanide (Bumex) 0.5 mg IVPUSH ONETIME ONE Stop: 12/13/17 12:01 Last Admin: 12/13/17 12:45 Dose: Not Given Bumetanide (Bumex) 0.5 mg IVPUSH ONETIME ONE Stop: 12/13/17 12:25 Last Admin: 12/13/17 12:44 Dose: 0.5 mg Bumetanide (Bumex) 1 mg IVPUSH ONETIME ONE Stop: 12/16/17 07:21 Last Admin: 12/16/17 09:33 Dose: 1 mg Bupropion HCl (Wellbutrin Xl) 150 mg PO DAILY [facility] Last Admin: 12/16/17 09:44 Dose: 150 mg Caffeine (Caffeine) 200 mg PO DAILY [facility] Citalopram Hydrobromide (Celexa) 40 mg PO DAILY [facility] Last Admin: 12/16/17 09:42 Dose: 40 mg Clonazepam (Klonopin) 0.5 mg PO ONETIME ONE Stop: 12/13/17 12:06 Last Admin: 12/13/17 12:43 Dose: 0.5 mg Clonidine HCl (Catapres-Tts 3) 0.3 mg TRDERM Q7D ONE Stop: 12/17/17 18:31 Last Admin: 12/17/17 18:42 Dose: 0.3 mg Fluconazole (Diflucan) 150 mg PO ONETIME ONE Stop: 12/05/17 09:01 Last Admin: 12/05/17 08:55 Dose: 150 mg Fluconazole (Diflucan) 100 mg PO DAILY [facility] Last Admin: 12/13/17 08:33 Dose: 100 mg Furosemide (Lasix) 40 mg IVPUSH NOW ONE Stop: 12/03/17 07:31 Last Admin: 12/03/17 07:47 Dose: 40 mg Furosemide (Lasix) 40 mg IVPUSH NOW ONE Stop: 12/04/17 18:22 Last Admin: 12/04/17 18:26 Dose: 40 mg Furosemide (Lasix) 40 mg IVPUSH ONETIME ONE Stop: 12/05/17 08:01 Last Admin: 12/05/17 08:54 Dose: 40 mg Furosemide (Lasix) 20 mg IVPUSH NOW ONE Stop: 12/08/17 11:02 Last Admin: 12/08/17 11:41 Dose: 20 mg Furosemide (Lasix) 20 mg IVPUSH ONETIME ONE Stop: 12/08/17 15:39 Last Admin: 12/08/17 15:55 Dose: 20 mg Furosemide (Lasix) 20 mg IVPUSH ONETIME ONE Stop: 12/12/17 14:23 Last Admin: 12/12/17 14:31 Dose: 20 mg Furosemide (Lasix) 10 mg IVPUSH NOW ONE Stop: 12/13/17 22:26 Last Admin: 12/13/17 23:14 Dose: 10 mg Furosemide (Lasix) 10 mg IVPUSH BID [facility] Stop: 12/15/17 21:01 Last Admin: 12/14/17 20:17 Dose: 10 mg Furosemide (Lasix) 10 mg IVPUSH BID@0900,1700 [facility] Stop: 12/15/17 17:01 Last Admin: 12/15/17 17:14 Dose: 10 mg Glipizide (Glucotrol Xl) 5 mg PO BIDMEALS [facility] Last Admin: 12/17/17 06:01 Dose: 5 mg Glipizide (Glucotrol Xl) 5 mg PO ONETIME ONE Stop: 12/13/17 22:24 Last Admin: 12/13/17 23:15 Dose: 5 mg Glipizide (Glucotrol Xl) 2.5 mg PO BIDMEALS [facility] Last Admin: 12/17/17 17:21 Dose: 2.5 mg Piperacillin Sod/Tazobactam (Sod 4.5 gm/ Sodium Chloride) 100 mls @ 25 mls/hr IV Q8H [facility] Last Admin: 12/07/17 08:05 Dose: 25 mls/hr Vancomycin HCl 1 gm/ Sodium (Chloride) 250 mls @ 250 mls/hr IV Q24H [facility] Last Admin: 12/03/17 15:29 Dose: 250 mls/hr Piperacillin Sod/Tazobactam (Sod 4.5 gm/ Sodium Chloride) 100 mls @ 400 mls/hr IV ONETIME ONE Stop: 12/03/17 16:14 Last Admin: 12/03/17 16:41 Dose: 400 mls/hr Sodium Chloride (Normal Saline) 1,000 mls @ 50 mls/hr IV ASDIRECTED [facility] Last Infusion: 12/03/17 21:30 Dose: Infused Sodium Chloride (Normal Saline) 1,000 mls @ 75 mls/hr IV ASDIRECTED [facility] Last Admin: 12/06/17 02:00 Dose: 50 mls/hr Vancomycin HCl 1 gm/ Sodium (Chloride) 250 mls @ 250 mls/hr IV Q12H [facility] Last Admin: 12/05/17 11:48 Dose: 250 mls/hr Magnesium Sulfate 2 gm/ Premix 50 mls @ 25 mls/hr IV ONETIME ONE Stop: 12/04/17 11:46 Last Admin: 12/04/17 10:39 Dose: 25 mls/hr Vancomycin HCl 1 gm/ Sodium (Chloride) 250 mls @ 250 mls/hr IV Q18H [facility] Last Admin: 12/07/17 04:10 Dose: 250 mls/hr Magnesium Sulfate 2 gm/ Premix 50 mls @ 25 mls/hr IV ONETIME ONE Stop: 12/05/17 15:24 Last Admin: 12/05/17 13:46 Dose: 25 mls/hr Sodium Chloride (Normal Saline) 1,000 mls @ 50 mls/hr IV ASDIRECTED [facility] Last Admin: 12/09/17 11:08 Dose: 50 mls/hr Magnesium Sulfate 2 gm/ Premix 50 mls @ 25 mls/hr IV ONETIME ONE Stop: 12/07/17 11:52 Last Admin: 12/07/17 11:12 Dose: Not Given Magnesium Sulfate 2 gm/ Premix 50 mls @ 25 mls/hr IV ONETIME ONE Stop: 12/07/17 13:59 Last Admin: 12/07/17 12:18 Dose: 25 mls/hr Sodium Bicarbonate 150 meq/ (Dextrose/Water) 1,150 mls @ 100 mls/hr IV ONETIME ONE Stop: 12/09/17 03:08 Last Admin: 12/08/17 15:48 Dose: 100 mls/hr Magnesium Sulfate 2 gm/ Premix 50 mls @ 25 mls/hr IV ONETIME ONE Stop: 12/10/17 16:06 Last Admin: 12/10/17 14:27 Dose: 25 mls/hr Sodium Bicarbonate 150 meq/ (Dextrose/Water) 1,150 mls @ 100 mls/hr IV ONETIME ONE Stop: 12/11/17 23:07 Last Admin: 12/11/17 12:39 Dose: 100 mls/hr Dextrose/Water (Dextrose 5% In Water) Confirm Administered Dose 1,000 mls @ as directed .ROUTE .STK-MED ONE Stop: 12/11/17 12:23 Last Admin: 12/11/17 12:52 Dose: Not Given Insulin Human Regular 100 unit (/ Sodium Chloride) 100 mls @ 7.5 mls/hr IV TITRATE [facility]; Protocol Last Titration: 12/12/17 21:15 Dose: 0 units/kg/hr, 0 mls/hr Piperacillin Sod/Tazobactam (Sod 4.5 gm/ Sodium Chloride) 100 mls @ 25 mls/hr IV Q8H [facility] Last Admin: 12/12/17 11:32 Dose: Not Given Meropenem 500 mg/ Sodium (Chloride) 100 mls @ 200 mls/hr IV Q8H [facility] Last Admin: 12/13/17 06:16 Dose: 200 mls/hr Levofloxacin/Dextrose 750 mg/ (Premix) 150 mls @ 100 mls/hr IV Q48H [facility] Last Admin: 12/12/17 11:24 Dose: 100 mls/hr Azithromycin 500 mg/ Sodium (Chloride) 250 mls @ 250 mls/hr IV ONETIME ONE Stop: 12/13/17 13:02 Last Admin: 12/13/17 12:44 Dose: 250 mls/hr Sodium Chloride (Normal Saline) 1,000 mls @ 50 mls/hr IV ASDIRECTED [facility] Last Admin: 12/14/17 19:13 Dose: 50 mls/hr Aminophylline 250 mg/ Sodium (Chloride) 210 mls @ 35 mls/hr IV ONETIME ONE Stop: 12/14/17 04:33 Last Admin: 12/13/17 23:15 Dose: 35 mls/hr Potassium Chloride 10 meq/ (Premix) 100 mls @ 100 mls/hr IV Q1H [facility] Stop: 12/14/17 08:29 Last Admin: 12/14/17 07:49 Dose: 100 mls/hr Insulin Aspart (Novolog) 0 unit SUBCUT QIDACANDBED [facility]; Protocol Last Admin: 12/03/17 19:06 Dose: Not Given Insulin Aspart (Novolog) 0 unit SUBCUT Q6H [facility]; Protocol Last Admin: 12/05/17 02:00 Dose: 7 units Insulin Aspart (Novolog) 0 unit SUBCUT Q6HR [facility]; Protocol Last Admin: 12/06/17 18:28 Dose: 10 units Insulin Aspart (Novolog) 0 unit SUBCUT QIDACANDBED [facility]; Protocol Last Admin: 12/09/17 22:21 Dose: Not Given Insulin Aspart (Novolog) 0 unit SUBCUT Q6H [facility]; Protocol Last Admin: 12/09/17 20:09 Dose: Not Given Insulin Aspart (Novolog) 0 unit SUBCUT Q6HR [facility]; Protocol Last Admin: 12/10/17 12:35 Dose: 12 units Insulin Aspart (Novolog) 0 unit SUBCUT Q6HR [facility]; Protocol Last Admin: 12/11/17 12:48 Dose: 15 units Insulin Aspart (Novolog) 0 unit SUBCUT Q4H [facility]; Protocol Last Admin: 12/13/17 17:39 Dose: Not Given Insulin Aspart (Novolog) 0 unit SUBCUT Q4HR [facility]; Protocol Last Admin: 12/13/17 23:16 Dose: Not Given Insulin Aspart (Novolog) 12 unit SUBCUT TIDMEALS [facility] Last Admin: 12/14/17 08:01 Dose: 12 units Insulin Detemir (Levemir) 5 unit SUBCUT BID [facility] Last Admin: 12/10/17 09:12 Dose: 5 units Insulin Detemir (Levemir) 8 unit SUBCUT BID [facility] Last Admin: 12/11/17 08:45 Dose: 8 units Insulin Detemir (Levemir) 8 unit SUBCUT ONETIME ONE Stop: 12/10/17 17:54 Last Admin: 12/10/17 18:07 Dose: 8 units Insulin Detemir (Levemir) 8 unit SUBCUT BID [facility] Insulin Detemir (Levemir) 10 unit SUBCUT BID [facility] Insulin Detemir (Levemir) 6 unit SUBCUT ONETIME ONE Stop: 12/13/17 21:01 Insulin Detemir (Levemir) 10 unit SUBCUT BID [facility] Insulin Detemir (Levemir) 8 unit SUBCUT ONETIME ONE Stop: 12/13/17 21:01 Insulin Detemir (Levemir) 15 unit SUBCUT ONETIME ONE Stop: 12/13/17 21:01 Last Admin: 12/13/17 20:27 Dose: 15 units Insulin Detemir (Levemir) 15 unit SUBCUT ONETIME ONE Stop: 12/13/17 22:24 Last Admin: 12/13/17 23:16 Dose: 15 units Insulin Detemir (Levemir) 25 unit SUBCUT BID [facility] Insulin Detemir (Levemir) 30 unit SUBCUT BID [facility] Last Admin: 12/16/17 20:44 Dose: 30 units Insulin Detemir (Levemir) 25 unit SUBCUT BID [facility] Last Admin: 12/17/17 10:04 Dose: 25 units Insulin Human Isoph/Insulin Regular (Novolin 70-30) 10 unit SUBCUT ONETIME ONE Stop: 12/13/17 16:45 Last Admin: 12/13/17 17:03 Dose: 10 units Insulin Human NPH (Novolin N) 25 unit SUBCUT ONETIME ONE Stop: 12/13/17 22:28 Last Admin: 12/13/17 23:41 Dose: Not Given Insulin Human Regular (Humulin R) 25 unit SUBCUT ONETIME ONE Stop: 12/13/17 23:46 Last Admin: 12/14/17 00:08 Dose: 25 units Levothyroxine Sodium (Synthroid) 50 mcg PO ACBREAKFAST [facility] Last Admin: 12/13/17 06:16 Dose: 50 mcg Levothyroxine Sodium (Levothyroxine) 75 mcg PO ACBREAKFAST [facility] Last Admin: 12/14/17 06:35 Dose: 75 mcg Losartan Potassium (Cozaar) 25 mg PO DAILY [facility] Last Admin: 12/15/17 08:39 Dose: 25 mg Megestrol Acetate (Megace) 40 mg PO BID [facility] Last Admin: 12/05/17 12:23 Dose: Not Given Megestrol Acetate (Megace 40 Mg/Ml Susp) 400 mg PO BID [facility] Last Admin: 12/15/17 08:40 Dose: 400 mg Methylprednisolone Sodium Succinate (Solu-Medrol) 80 mg IVPUSH DAILY@1800 [facility] Last Admin: 12/08/17 18:19 Dose: 80 mg Methylprednisolone Sodium Succinate (Solu-Medrol) 125 mg IVPUSH Q8H [facility] Last Admin: 12/13/17 06:16 Dose: 125 mg Methylprednisolone Sodium Succinate (Solu-Medrol) 80 mg IVPUSH Q8H [facility] Last Admin: 12/14/17 19:36 Dose: Not Given Methylprednisolone Sodium Succinate (Solu-Medrol) 80 mg IVPUSH Q8H [facility] Last Admin: 12/14/17 07:55 Dose: 80 mg Methylprednisolone Sodium Succinate (Solu-Medrol) 60 mg IVPUSH BID [facility] Methylprednisolone Sodium Succinate (Solu-Medrol) 60 mg IVPUSH BID [facility] Last Admin: 12/15/17 08:46 Dose: 60 mg Methylprednisolone Sodium Succinate (Solu-Medrol) 40 mg IVPUSH BID [facility] Last Admin: 12/16/17 20:47 Dose: 40 mg Methylprednisolone Sodium Succinate (Solu-Medrol) 40 mg IVPUSH DAILY ONE Stop: 12/17/17 09:01 Modafinil (Provigil) 100 mg PO DAILY [facility] Last Admin: 12/17/17 09:54 Dose: 100 mg Modafinil (Provigil) 50 mg PO DAILY [facility] Modafinil (Provigil) 150 mg PO DAILY [facility] Modafinil (Provigil) 50 mg PO NOW STA Stop: 12/17/17 10:01 Last Admin: 12/17/17 15:29 Dose: Not Given Modafinil (Provigil) 100 mg PO NOW STA Stop: 12/17/17 15:29 Last Admin: 12/17/17 15:38 Dose: 100 mg Potassium Chloride (Klor-Con M20) 40 meq PO BID [facility] Stop: 12/06/17 09:01 Last Admin: 12/06/17 08:56 Dose: 40 meq Prednisone (Prednisone) 20 mg PO WITHBREAKFAST [facility] Racepinephrine (S-2 2.25%) Confirm Administered Dose 0.5 ml .ROUTE .STK-MED ONE Stop: 12/11/17 17:35 Last Admin: 12/11/17 17:42 Dose: Not Given Racepinephrine (S-2 2.25%) 0.5 ml NEB Q6HR [facility] Last Admin: 12/12/17 18:35 Dose: 0.5 ml Sodium Bicarbonate (Sodium Bicarbonate 8.4%) Confirm Administered Dose 100 meq .ROUTE .STK-MED ONE Stop: 12/08/17 15:11 Last Admin: 12/08/17 15:10 Dose: 100 meq Sodium Bicarbonate (Sodium Bicarbonate 8.4%) 100 meq IVPUSH ONETIME ONE Stop: 12/08/17 15:17 Last Admin: 12/08/17 16:09 Dose: Not Given Sodium Bicarbonate (Sodium Bicarbonate 8.4%) Confirm Administered Dose 150 meq .ROUTE .STK-MED ONE Stop: 12/11/17 12:23 Last Admin: 12/11/17 12:52 Dose: Not Given Theophylline (Theophylline Anhydrous) 300 mg PO BID [facility] Last Admin: 12/15/17 20:07 Dose: 300 mg Vancomycin HCl (Pharmacy To Dose - Vancomycin) 0 dose .XX ASDIRECTED PRN PRN Reason: RX TO DOSE VANCOMYCIN - Exam Quality Assessment: Supplemental Oxygen General: Alert, Cooperative, No Acute Distress HEENT: Pupils Equal, Pupils Reactive, EOMI, Mucous Membr. Moist/[place] Neck: Supple, Trachea Midline, No JVD Lungs: Normal Respiratory Effort, Decreased Breath Sounds Cardiovascular: Regular Rate, Regular Rhythm GI/Abdominal Exam: Normal Bowel Sounds, Soft, Non-Tender, No Organomegaly, No Distention, No Abnormal Bruit (Female) Exam: Deferred Back Exam: Normal Inspection, Decreased Range of Motion Extremities: Normal Inspection, Normal Range of Motion, Non-Tender, No Pedal Edema, Normal Capillary Refill Peripheral Pulses: 2+: Dorsalis Pedis (L), Dorsalis Pedis (R) Skin: Warm, Dry, Intact Neurological: No New Focal Deficit Psy/Mental Status: Alert, Normal Affect, Depressed - Problem List Review Problem List Initiated/Reviewed/Updated: Yes - My Orders Last 24 Hours: My Active Orders 12/17/17 07:35 Blood Glucose Check, Bedside [RC] QIDACANDBED 12/17/17 07:38 predniSONE 20 mg PO WITHBREAKFAST 12/17/17 09:00 buPROPion [Wellbutrin SR] 100 mg PO DAILY 12/17/17 20:03 Alum Hydrox/Mag Hydrox/Simeth [Mag-Al Plus] 30 ml PO Q4H PRN 12/17/17 21:00 Insulin Detemir [Levemir] 25 unit SUBCUT BEDTIME 12/18/17 07:00 glipiZIDE [Glucotrol XL] 5 mg PO BIDMEALS 12/18/17 09:00 Furosemide [Lasix] 40 mg PO DAILY Insulin Detemir [Levemir] 30 unit SUBCUT DAILY Modafinil [Provigil] 200 mg PO DAILY 12/20/17 18:30 Remove Patch 1 ea TRDERM Q72H - Plan Plan:: Impression: Acute: Hypercapneic Respiratory Failure - Likely 2/2 Advanced COPD - CO2 is now in the upper 30s - PRN BIPAP for hypoxia - Supplemental O2 continuous use COPD - She appears to be at baseline - Has an underlying advanced COPD--> was a difficult extubation in [place] requiring tracheostomy - Most recent CXR--stable from previous study, shows no infiltrate/pneumonia with stable atelectasis and pulmonary congestion - Continue IV Bronchodilators, Magnesium Oxide 400 mg po BID, Theophylline 300 mg po Daily, and Prednisone 20 mg po daily - Discontinue oral azithromycin - Continue PRN BIPAP and RT care and klonopin 0.5 mg po TID PRN for anxiety - PFTs outpatient Diabetes Mellitus 2 w/ Hyperglycemia, Stable - A1C 7.2 12/04/2017 - She is now on oral Prednisone 20 mg po daily - Continue accu-check at Q6H and ISS - Continue SA insulin 15 units subQ TID Meals, LA insulin 25 units QHS and 30 units AM and Glucotrol 5 mg po BID Severe Hypothyroidism - Has hx/o being on Synthroid 50 mcg po daily - TSH 24.519 and FT4 0.69 on 12/13/17 - Continue levothyroxine 100 mcg po daily Poor Appetite, Improved - Continue Marinol for appetite stimulation - Diet order per [facility] is mechanical with nectar thick liquids --> [facility] does not feel comfortable with diet advancement at this time Hypertension, Labile - Currently receiving Losartan 50 mg daily, Lasix 40 mg po daily and Amlodipine 5 mg po BID - Clonodine 0.3 mg patch x1 - Continue to Monitor Fatigue/Less Attention, Improved - Cut Wellbutrin dose down to 100 mg [id number] and held Celexa as well Requip - Continue Provigil to 200 from 100 mg daily Resolved: S/p Acute respiratory distress, hypercapnia-->NEW occurence after 4 hours on NC S/P Rapid response--received 2 amps of NaHCO3 during response and subsequently was started on sod bicarb gtt. Hx of prolong intubation, s/p tracheostomy, BIPAP adjust settings with improved VT; solumedrol S/p Decrease responsiveness--ruled out CVA S/p Paroxysmal A fib--<30 minutes in the time frame of Rapid response S/p Hyponatremia--now 142 S/p Hyperkalemia--now 3.8 S/p COPD Exacerbation - She appears to be at baseline - Has an underlying advanced COPD--> was a difficult extubation in [place] requiring tracheostomy - Most recent CXR--stable from previous study, shows no infiltrate/pneumonia with stable atelectasis and pulmonary congestion - Continue IV Bronchodilators, IV Azithromycin 500 mg IV x1 now then oral 250 mg po daily in AM, Magnesium Oxide 400 mg po BID - She received Aminophylline drip x1 last night and now on Theophylline 300 mg po BID --> theophylline level 10.9 (10-20) on 12/16/17 - Taper IV Solumedrol to 40 mg BID from 60 mg TID --> will transition to prednisone 20 mg po daily tomorrow - Continue PRN BIPAP and RT care and klonopin 0.5 mg po TID PRN for anxiety - today she has required BiPap at 7L which is increased from her baseline --> improved later in day - ABG ordered and is at patient's baseline - continue to monitor - Recommend PFTs be assessed as outpatient Chronic: Hx of CKD, II Deconditioned, continue PT/OT Depression Fe deficiency PUD HTN HLD Macular degeneration CAD/SC S/p CABG Plan: She is essentially the same as yesterday Continue current treatment Routine AM Lab BiPAP as needed 2D Echo in AM Continue PT/OT for deconditioning CM/SW for discharge planning --> [place] come Tuesday DVT/GI prophylaxis: Lovenox SubQ and H2B Encourage to use IS/FV as much as she can Increase activity level--> up three times daily Additional orders as above Code status: DNR/DNI Prognosis remains good-guarded
[2017-12-18] MEDS ORDERED: predniSONE 20 MG Tab PO SCH (07:00)
[2017-12-18] MEDS: Saccharomyces Boulardii (Probiotic) 250 MG Cap PO SCH (08:33)
[2017-12-18] MEDS: Polyethylene Glycol 3350 Powder 17 GM Packet PO SCH (08:34)
[2017-12-18] MEDS: Theophylline 300 MG Tab.ER PO SCH (08:34)
[2017-12-18] MEDS: Insulin Aspart 100 Units/ML 3 ML Pen SUBCUT SCH ×3 (08:35→16:46)
[2017-12-18] MEDS: Metoclopramide 10 MG Tab PO SCH ×4 (08:36→16:33)
[2017-12-18] MEDS: Multivitamins,Therapeutic Tab PO SCH (08:36)
[2017-12-18] MEDS: Magnesium Oxide 400 MG Tab PO SCH (08:37)
[2017-12-18] MEDS: amLODIPine 5 MG Tab PO SCH (08:37)
[2017-12-18] MEDS: Losartan 100 MG Tab PO SCH (08:37)
[2017-12-18] MEDS: Aspirin 81 MG Tab.Chew PO SCH (08:37)
[2017-12-18] MEDS: Ferrous Sulfate 325 MG Tab PO SCH (08:37)
[2017-12-18] MEDS: buPROPion 100 MG Tab.SR PO SCH (08:37)
[2017-12-18] MEDS: Azithromycin 250 MG Tab PO SCH (08:37)
[2017-12-18] MEDS ORDERED: Insulin Detemir 100 Units/ML 3 ML Pen SUBCUT SCH (09:00)
[2017-12-18] MEDS ORDERED: Furosemide 40 MG Tab PO SCH (09:00)
[2017-12-18] MEDS ORDERED: Modafinil 200 MG Tab PO SCH ×2 (09:00)
[2017-12-18] MEDS: Enoxaparin 40 MG/0.4 ML Syringe SUBCUT SCH (15:33)
[2017-12-18] MEDS: Metoprolol Tartrate 5 MG/5 ML SDV IVPUSH PRN (18:15)
[2017-12-18 19:42] VITALS: BP 103/35
--- NOTE | 2017-12-18 20:59 | PCM.SN ---
- Free Text/Narrative Note: I was informed about the sudden turn of event on Ewa's condition. Night RT walked-in her room at about 2029 to give her breathing treatment when she was found desaturating in the 70s (77%) with BiPAP on and was already in agonal breathing. Charge nurse was immediately notified and her family was called to let them know about the sad and unfortunate quick turn of event. They were told to come in immediately to be with her at bedside. Her daughter and son did make to hospital but she was already gone by the time they entered her room. Patient was in asystole at about 2039 via Telemetry. She was pronounced at 2040 by the night charge-nurse present at bedside.
--- NOTE | 2017-12-18 22:08 | PCM.DCSUM1 ---
Discharge Summary - Hospital Course Brief History: 67 year old female recently discharged from [place], [place] where she had a prolonged intubation for pneumonia. The patient had a tracheostomy and PEG tube placement. At discharge, she went to [facility] and subsequently went to a SNF in [place]. On the day of admission, the patient had been having episodes of SOB. She has required home O2 since her discharge. The patient was hypoxic, and could not maintain her saturation on her baseline of 2/min. EMS treatment of neb albuterol improved her oxygenation, she arrived in the ED on a simple mask. The patient has required BIPAP for improved air exchange, she will be admitted to [facility] with a presumptive diagnosis of PNA. Code status has been clarified, she is DNR/DNI. - Discharge Data Discharge Date: 12/18/17 Discharge Disposition: 20 Preliminary Cause of *Q: Respiratory Failure Condition: Undetermined - Discharge Diagnosis/Problem(s) (1) Respiratory failure SNOMED Code(s): 452185808 ICD Code: J96.90 - RESPIRATORY FAILURE, UNSP, UNSP W HYPOXIA OR HYPERCAPNIA Status: Acute Current Visit: Yes Qualifiers: Respiratory failure complication: hypoxia and hypercapnia (2) COPD exacerbation SNOMED Code(s): 149272357 ICD Code: J44.1 - CHRONIC OBSTRUCTIVE PULMONARY DISEASE W (ACUTE) EXACERBATION Status: Chronic Current Visit: Yes Problem Details: Advanced COPD (3) MELISSA treated with BiPAP SNOMED Code(s): 27270619 ICD Code: G47.33 - OBSTRUCTIVE SLEEP APNEA (ADULT) (PEDIATRIC) Status: Chronic Current Visit: Yes (4) CHF (congestive heart failure) SNOMED Code(s): 62910910 ICD Code: I50.9 - HEART FAILURE, UNSPECIFIED Status: Acute Current Visit : Yes Problem Details: Probable pending 2D echo to be completed tomorrow Qualifiers: Heart failure type: diastolic Heart failure chronicity: acute Qualified Code(s): I50.31 - Acute diastolic (congestive) heart failure (5) Diabetes mellitus with hyperglycemia, with long-term current use of insulin SNOMED Code(s): 20187273, 863232063, 393501703, 087705431 ICD Code: E11.65 - TYPE 2 DIABETES MELLITUS WITH HYPERGLYCEMIA; Z79.4 - LINEN GRADER (CURRENT) USE OF INSULIN Status: Resolved Current Visit: Yes Qualifiers: Diabetes mellitus type: due to underlying condition Qualified Code(s): E08.65 - Diabetes mellitus due to underlying condition with hyperglycemia; Z79.4 - alf (current) use of insulin (6) Depression SNOMED Code(s): 36125215 ICD Code: F32.9 - MAJOR DEPRESSIVE DISORDER, SINGLE EPISODE, UNSPECIFIED Status: Chronic Current Visit: Yes Qualifiers: Depression Type: major depressive disorder Major depression recurrence: unspecified whether recurrent Active/Remission status: remission status unspecified Qualified Code(s): F32.9 - Major depressive disorder, single episode, unspecified (7) Malaise and fatigue SNOMED Code(s): 617435296 ICD Code: R53.81 - OTHER MALAISE; R53.83 - OTHER FATIGUE Status: Acute Current Visit: No (8) Severe hypothyroidism SNOMED Code(s): 18377227 ICD Code: E03.8 - OTHER SPECIFIED HYPOTHYROIDISM Status: Acute Current Visit: Yes (9) Poor appetite SNOMED Code(s): 88675727 ICD Code: R63.0 - ANOREXIA Status: Acute Current Visit: Yes (10) Hypertension SNOMED Code(s): 54509312 ICD Code: I10 - ESSENTIAL (PRIMARY) HYPERTENSION Status: Chronic Current Visit: Yes Qualifiers: Hypertension type: essential hypertension Qualified Code(s): I10 - Essential (primary) hypertension (11) Respiratory distress, acute SNOMED Code(s): 364134690 ICD Code: R06.03 - ACUTE RESPIRATORY DISTRESS Status: Resolved Current Visit: Yes (12) Paroxysmal A-fib SNOMED Code(s): 330969089 ICD Code: I48.0 - PAROXYSMAL ATRIAL FIBRILLATION Status: Resolved Current Visit: Yes (13) Mental status alteration SNOMED Code(s): 701888377 ICD Code: R41.82 - ALTERED MENTAL STATUS, UNSPECIFIED Status: Resolved Current Visit: Yes Qualifiers: Altered mental status type: transient alteration of awareness Qualified Code(s): R40.4 - Transient alteration of awareness (14) Hyponatremia SNOMED Code(s): 15283412 ICD Code: E87.1 - HYPO-OSMOLALITY AND HYPONATREMIA Status: Resolved Current Visit: Yes (15) Hyperkalemia SNOMED Code(s): 64981489 ICD Code: E87.5 - HYPERKALEMIA Status: Resolved Current Visit: Yes - Patient Summary/Data Operative Procedure(s) Performed: None Complications: Consults: Consultations 12/06/17 09:45 Consult to Physical Therapy [PT Evaluation and Treatment] [CONS] Routine 12/06/17 09:46 Consult to Occupational Therapy [OT Evaluation and Treatment] [CONS] Routine 12/07/17 20:17 Consult to Dietary [Consult to Stove Polisher] [CONS] Routine 12/08/17 11:01 Consult to Diabetic Nurse Specialist [CONS] Routine 12/08/17 14:07 Consult to Speech Language Pathology [BUTTON SEWER Evaluation and Treatment] [CONS] Routine 12/13/17 12:01 Consult to Physician [CONS] Routine 12/13/17 23:49 Consult to Dietary [Consult to Stove Polisher] [CONS] Routine 12/18/17 09:35 BUTTON SEWER Eval and Treat [BUTTON SEWER Evaluation and Treatment] [CONS] Routine Labs Pending at D/C: None Recommended Follow-up Testing/Procedures: None Planned Operative Procedure(s) after DC: None - Patient Instructions Other/Special Instructions: Patient this evening. Her body will be released to [facility] for processing. - Discharge Plan Home Medications: Home Meds traMADol [Ultram] 50 mg PO TID PRN 12/10/13 [History] Citalopram Hydrobromide [Celexa] 40 mg PO DAILY 09/05/17 [History] Ferrous Sulfate [Iron] 325 mg PO DAILY 09/05/17 [History] Insulin Aspart [Novolog Flexpen] 3 - 18 units SQ QIDACANDBED 09/05/17 [History] Levothyroxine [Synthroid] 50 mcg PO ACBREAKFAST 09/05/17 [History] Rosuvastatin [Crestor] 10 mg PO BEDTIME 09/05/17 [History] Acetaminophen 650 mg PO Q6HR PRN 11/15/17 [History] Bisacodyl 10 mg RECTAL DAILY PRN 11/15/17 [History] Budesonide [Pulmicort] 1 vial INH BID 11/15/17 [History] Insulin Detemir [Levemir Flextouch] 25 units SQ DAILY 11/15/17 [History] Ipratropium/Albuterol Sulfate [Iprat-Albut 0.5-3(2.5) mg/3 ml] 1 applic INH BID PRN 11/15/17 [History] Melatonin 3 mg PO BEDTIME 11/15/17 [History] Multivitamin with Minerals [Multiple Vitamin] 1 tab PO DAILY 11/15/17 [History] Pantoprazole Sodium [Protonix] 40 mg PO DAILY 11/15/17 [History] rOPINIRole [Requip] 1 mg PO BID 11/15/17 [History] Acetaminophen [Tylenol] 650 mg PO TID 12/03/17 [History] Aspirin [Gabriel Chewable Aspirin] 81 mg PO DAILY 12/03/17 [History] Furosemide 20 mg PO DAILY 12/03/17 [History] Insulin Detemir [Levemir Flextouch] 10 units SQ BEDTIME 12/03/17 [History] Magnesium Citrate [Citrate of Magnesia] 1 bottle PO Q5D PRN 12/03/17 [History] Methyl Salicylate/Menthol [Salonpas Patch] 1 patch TOP DAILY 12/03/17 [History] Metoclopramide HCl 10 mg PO QID 12/03/17 [History] Polyethylene Glycol 3350 [MiraLAX] 17 gram PO DAILY 12/03/17 [History] Sennosides/Docusate Sodium [Senna Plus Tablet] 2 tab PO BID 12/03/17 [History] buPROPion HCl [Wellbutrin Xl] 150 mg PO DAILY 12/03/17 [History] Referrals: Kike Henry MD [Primary Care Provider] - - Discharge Summary/Plan Comment DC Time >30 min.: No Discharge Summary/Plan Comment: Patient primarily due to respiratory failure. Her body will be released to [facility] for processing. - General Info Date of Service: 12/18/17 Admission Dx/Problem (Free Text: Admission Diagnosis/Problem Admission Diagnosis/Problem Hypoxia Subjective Update: Follow up - Review of Systems Systems Review Comment: Unable to obtain, patient . - Patient Data Vitals - Most Recent: Last Vital Signs Temp 36.7 C 12/18/17 19:17 Pulse 89 12/18/17 19:16 Resp 18 12/18/17 19:17 BP 103/35 L 12/18/17 19:16 Pulse Ox 77 L 12/18/17 20:25 Weight - Most Recent: 75.07 kg I&O - Last 24 hours: Intake & Output 06/10/18 06/10/18 06/10/18 06:59 14:59 22:59 Intake Total 100 60 780 Balance 100 60 780 Lab Results - Last 24 hrs: Laboratory Results - last 24 hr 12/18/17 12/18/17 12/18/17 Range/Units 05:18 11:20 16:45 POC Glucose 177 H 111 102 (80-115) mg/dL Med Orders - Current: Current Medications Acetaminophen (Tylenol) 650 mg PO Q6H PRN PRN Reason: Pain/Fever Last Admin: 12/17/17 22:16 Dose: 650 mg Al Hydroxide/Mg Hydroxide (Mag-Al Plus) 30 ml PO Q4H PRN PRN Reason: Heartburn Last Admin: 12/17/17 20:30 Dose: 30 ml Albuterol (Proventil Neb Soln) 2.5 mg NEB Q4HRRT PRN PRN Reason: Shortness of Breath Last Admin: 12/15/17 10:51 Dose: 2.5 mg Albuterol/Ipratropium (Duoneb 3.0-0.5 Mg/3 Ml) 3 ml NEB TIDRT [facility] Last Admin: 12/18/17 20:25 Dose: 3 ml Amlodipine Besylate (Norvasc) 5 mg PO BID [facility] Last Admin: 12/18/17 08:37 Dose: 5 mg Aspirin (Aspirin) 81 mg PO DAILY [facility] Last Admin: 12/18/17 08:37 Dose: 81 mg Bisacodyl (Dulcolax) 10 mg RECTAL DAILY PRN PRN Reason: Constipation Budesonide (Pulmicort) 0.25 mg NEB BIDRT [facility] Last Admin: 12/18/17 20:25 Dose: 0.25 mg Bupropion HCl (Wellbutrin Sr) 100 mg PO DAILY [facility] Last Admin: 12/18/17 08:37 Dose: 100 mg Citalopram Hydrobromide (Celexa) 40 mg PO DAILY [facility] Clonazepam (Klonopin) 0.5 mg PO TID PRN PRN Reason: Anxiety Dextrose/Water (Dextrose 50% In Water) 50 ml IVPUSH ASDIRECTED PRN PRN Reason: Hypoglycemia Last Admin: 12/17/17 00:52 Dose: 50 ml Dronabinol (Marinol) 2.5 mg PO TIDAC [facility] Last Admin: 12/18/17 16:33 Dose: 2.5 mg Enoxaparin Sodium (Lovenox) 40 mg SUBCUT Q24H [facility] Last Admin: 12/18/17 15:33 Dose: 40 mg Ferrous Sulfate (Ferrous Sulfate) 325 mg PO DAILY [facility] Last Admin: 12/18/17 08:37 Dose: 325 mg Furosemide (Lasix) 40 mg PO DAILY [facility] Last Admin: 12/18/17 08:37 Dose: 40 mg Glipizide (Glucotrol Xl) 5 mg PO BIDMEALS [facility] Last Admin: 12/18/17 16:33 Dose: 5 mg Hydralazine HCl (Apresoline) 20 mg IVPUSH Q6H PRN PRN Reason: Hypertension Last Admin: 12/17/17 16:37 Dose: 20 mg Insulin Aspart (Novolog) 15 unit SUBCUT TIDMEALS [facility] Last Admin: 12/18/17 16:46 Dose: 15 units Insulin Detemir (Levemir) 30 unit SUBCUT DAILY [facility] Last Admin: 12/18/17 08:35 Dose: 30 units Insulin Detemir (Levemir) 25 unit SUBCUT BEDTIME [facility] Last Admin: 12/17/17 20:37 Dose: 25 units Levothyroxine Sodium (Synthroid) 100 mcg PO ACBREAKFAST [facility] Last Admin: 12/18/17 06:24 Dose: 100 mcg Losartan Potassium (Cozaar) 50 mg PO DAILY [facility] Last Admin: 12/18/17 08:37 Dose: 50 mg Magnesium Oxide (Magnesium Oxide) 400 mg PO BID [facility] Last Admin: 12/18/17 08:37 Dose: 400 mg Metoclopramide HCl (Reglan) 10 mg PO QID [facility] Last Admin: 12/18/17 16:33 Dose: 10 mg Metoprolol Tartrate (Lopressor) 5 mg IVPUSH Q4H PRN PRN Reason: Tachycardia Last Admin: 12/18/17 18:15 Dose: 5 mg Miscellaneous Information (Remove Patch) 1 ea TRDERM Q72H [facility] Modafinil (Provigil) 200 mg PO DAILY [facility] Last Admin: 12/18/17 08:36 Dose: 200 mg Morphine Sulfate (Morphine) 0.5 mg IVPUSH Q4H PRN PRN Reason: Shortness of Breath Last Admin: 12/12/17 15:54 Dose: 0.5 mg Multivitamins (Thera) 1 each PO DAILY [facility] Last Admin: 12/18/17 08:36 Dose: 1 each Ondansetron HCl (Zofran) 4 mg IVPUSH Q8H PRN PRN Reason: Nausea/Vomiting Pantoprazole Sodium (Protonix) 40 mg PO DAILY@0700 [facility] Last Admin: 12/18/17 06:24 Dose: 40 mg Polyethylene Glycol (Miralax) 17 gm PO DAILY [facility] Last Admin: 12/18/17 08:34 Dose: 17 gm Prednisone (Prednisone) 20 mg PO WITHBREAKFAST [facility] Last Admin: 12/18/17 06:24 Dose: 20 mg Ropinirole HCl (Requip) 1 mg PO BID [facility] Last Admin: 12/16/17 09:39 Dose: 1 mg Rosuvastatin Calcium (Crestor) 10 mg PO BEDTIME [facility] Last Admin: 12/17/17 20:29 Dose: 10 mg Saccharomyces Boulardii (Florastor) 500 mg PO DAILY [facility] Last Admin: 12/18/17 08:33 Dose: 500 mg Senna/Docusate Sodium (Senna Plus) 2 tab PO BID [facility] Last Admin: 12/18/17 08:36 Dose: 2 tab Sodium Chloride (Saline Flush) 10 ml FLUSH ASDIRECTED PRN PRN Reason: Keep Vein Open Last Admin: 12/03/17 07:55 Dose: 10 ml Theophylline (Theophylline Anhydrous) 300 mg PO DAILY [facility] Last Admin: 12/18/17 08:34 Dose: 300 mg Tramadol HCl (Ultram) 50 mg PO TID PRN PRN Reason: Pain (moderate 4-6) Last Admin: 12/15/17 09:05 Dose: 50 mg Discontinued Medications Acetazolamide (Diamox) 500 mg PO ONETIME ONE Stop: 12/13/17 07:13 Last Admin: 12/13/17 08:29 Dose: 500 mg Albuterol/Ipratropium (Duoneb 3.0-0.5 Mg/3 Ml) 3 ml NEB QID [facility] Last Admin: 12/06/17 20:15 Dose: 3 ml Albuterol/Ipratropium (Duoneb 3.0-0.5 Mg/3 Ml) 3 ml NEB QIDRT [facility] Last Admin: 12/13/17 09:08 Dose: 3 ml Amlodipine Besylate (Norvasc) 5 mg PO DAILY [facility] Amlodipine Besylate (Norvasc) 5 mg PO ONETIME ONE Stop: 12/15/17 12:43 Last Admin: 12/15/17 13:52 Dose: 5 mg Azithromycin (Zithromax) 250 mg PO DAILY [facility] Last Admin: 12/18/17 08:37 Dose: 250 mg Budesonide (Pulmicort) 0.25 mg NEB BIDRT [facility] Last Admin: 12/12/17 00:13 Dose: 0.25 mg Budesonide (Pulmicort) 0.5 mg NEB Q6H [facility] Last Admin: 12/12/17 18:35 Dose: 0.5 mg Bumetanide (Bumex) 0.5 mg IVPUSH ONETIME ONE Stop: 12/13/17 12:01 Last Admin: 12/13/17 12:45 Dose: Not Given Bumetanide (Bumex) 0.5 mg IVPUSH ONETIME ONE Stop: 12/13/17 12:25 Last Admin: 12/13/17 12:44 Dose: 0.5 mg Bumetanide (Bumex) 1 mg IVPUSH ONETIME ONE Stop: 12/16/17 07:21 Last Admin: 12/16/17 09:33 Dose: 1 mg Bupropion HCl (Wellbutrin Xl) 150 mg PO DAILY [facility] Last Admin: 12/16/17 09:44 Dose: 150 mg Caffeine (Caffeine) 200 mg PO DAILY [facility] Citalopram Hydrobromide (Celexa) 40 mg PO DAILY [facility] Last Admin: 12/16/17 09:42 Dose: 40 mg Clonazepam (Klonopin) 0.5 mg PO ONETIME ONE Stop: 12/13/17 12:06 Last Admin: 12/13/17 12:43 Dose: 0.5 mg Clonidine HCl (Catapres-Tts 3) 0.3 mg TRDERM Q7D ONE Stop: 12/17/17 18:31 Last Admin: 12/17/17 18:42 Dose: 0.3 mg Fluconazole (Diflucan) 150 mg PO ONETIME ONE Stop: 12/05/17 09:01 Last Admin: 12/05/17 08:55 Dose: 150 mg Fluconazole (Diflucan) 100 mg PO DAILY [facility] Last Admin: 12/13/17 08:33 Dose: 100 mg Furosemide (Lasix) 40 mg IVPUSH NOW ONE Stop: 12/03/17 07:31 Last Admin: 12/03/17 07:47 Dose: 40 mg Furosemide (Lasix) 40 mg IVPUSH NOW ONE Stop: 12/04/17 18:22 Last Admin: 12/04/17 18:26 Dose: 40 mg Furosemide (Lasix) 40 mg IVPUSH ONETIME ONE Stop: 12/05/17 08:01 Last Admin: 12/05/17 08:54 Dose: 40 mg Furosemide (Lasix) 20 mg IVPUSH NOW ONE Stop: 12/08/17 11:02 Last Admin: 12/08/17 11:41 Dose: 20 mg Furosemide (Lasix) 20 mg IVPUSH ONETIME ONE Stop: 12/08/17 15:39 Last Admin: 12/08/17 15:55 Dose: 20 mg Furosemide (Lasix) 20 mg IVPUSH ONETIME ONE Stop: 12/12/17 14:23 Last Admin: 12/12/17 14:31 Dose: 20 mg Furosemide (Lasix) 10 mg IVPUSH NOW ONE Stop: 12/13/17 22:26 Last Admin: 12/13/17 23:14 Dose: 10 mg Furosemide (Lasix) 10 mg IVPUSH BID [facility] Stop: 12/15/17 21:01 Last Admin: 12/14/17 20:17 Dose: 10 mg Furosemide (Lasix) 10 mg IVPUSH BID@0900,1700 [facility] Stop: 12/15/17 17:01 Last Admin: 12/15/17 17:14 Dose: 10 mg Glipizide (Glucotrol Xl) 5 mg PO BIDMEALS [facility] Last Admin: 12/17/17 06:01 Dose: 5 mg Glipizide (Glucotrol Xl) 5 mg PO ONETIME ONE Stop: 12/13/17 22:24 Last Admin: 12/13/17 23:15 Dose: 5 mg Glipizide (Glucotrol Xl) 2.5 mg PO BIDMEALS [facility] Last Admin: 12/17/17 17:21 Dose: 2.5 mg Piperacillin Sod/Tazobactam (Sod 4.5 gm/ Sodium Chloride) 100 mls @ 25 mls/hr IV Q8H [facility] Last Admin: 12/07/17 08:05 Dose: 25 mls/hr Vancomycin HCl 1 gm/ Sodium (Chloride) 250 mls @ 250 mls/hr IV Q24H [facility] Last Admin: 12/03/17 15:29 Dose: 250 mls/hr Piperacillin Sod/Tazobactam (Sod 4.5 gm/ Sodium Chloride) 100 mls @ 400 mls/hr IV ONETIME ONE Stop: 12/03/17 16:14 Last Admin: 12/03/17 16:41 Dose: 400 mls/hr Sodium Chloride (Normal Saline) 1,000 mls @ 50 mls/hr IV ASDIRECTED [facility] Last Infusion: 12/03/17 21:30 Dose: Infused Sodium Chloride (Normal Saline) 1,000 mls @ 75 mls/hr IV ASDIRECTED [facility] Last Admin: 12/06/17 02:00 Dose: 50 mls/hr Vancomycin HCl 1 gm/ Sodium (Chloride) 250 mls @ 250 mls/hr IV Q12H [facility] Last Admin: 12/05/17 11:48 Dose: 250 mls/hr Magnesium Sulfate 2 gm/ Premix 50 mls @ 25 mls/hr IV ONETIME ONE Stop: 12/04/17 11:46 Last Admin: 12/04/17 10:39 Dose: 25 mls/hr Vancomycin HCl 1 gm/ Sodium (Chloride) 250 mls @ 250 mls/hr IV Q18H [facility] Last Admin: 12/07/17 04:10 Dose: 250 mls/hr Magnesium Sulfate 2 gm/ Premix 50 mls @ 25 mls/hr IV ONETIME ONE Stop: 12/05/17 15:24 Last Admin: 12/05/17 13:46 Dose: 25 mls/hr Sodium Chloride (Normal Saline) 1,000 mls @ 50 mls/hr IV ASDIRECTED [facility] Last Admin: 12/09/17 11:08 Dose: 50 mls/hr Magnesium Sulfate 2 gm/ Premix 50 mls @ 25 mls/hr IV ONETIME ONE Stop: 12/07/17 11:52 Last Admin: 12/07/17 11:12 Dose: Not Given Magnesium Sulfate 2 gm/ Premix 50 mls @ 25 mls/hr IV ONETIME ONE Stop: 12/07/17 13:59 Last Admin: 12/07/17 12:18 Dose: 25 mls/hr Sodium Bicarbonate 150 meq/ (Dextrose/Water) 1,150 mls @ 100 mls/hr IV ONETIME ONE Stop: 12/09/17 03:08 Last Admin: 12/08/17 15:48 Dose: 100 mls/hr Magnesium Sulfate 2 gm/ Premix 50 mls @ 25 mls/hr IV ONETIME ONE Stop: 12/10/17 16:06 Last Admin: 12/10/17 14:27 Dose: 25 mls/hr Sodium Bicarbonate 150 meq/ (Dextrose/Water) 1,150 mls @ 100 mls/hr IV ONETIME ONE Stop: 12/11/17 23:07 Last Admin: 12/11/17 12:39 Dose: 100 mls/hr Dextrose/Water (Dextrose 5% In Water) Confirm Administered Dose 1,000 mls @ as directed .ROUTE .STK-MED ONE Stop: 12/11/17 12:23 Last Admin: 12/11/17 12:52 Dose: Not Given Insulin Human Regular 100 unit (/ Sodium Chloride) 100 mls @ 7.5 mls/hr IV TITRATE [facility]; Protocol Last Titration: 12/12/17 21:15 Dose: 0 units/kg/hr, 0 mls/hr Piperacillin Sod/Tazobactam (Sod 4.5 gm/ Sodium Chloride) 100 mls @ 25 mls/hr IV Q8H [facility] Last Admin: 12/12/17 11:32 Dose: Not Given Meropenem 500 mg/ Sodium (Chloride) 100 mls @ 200 mls/hr IV Q8H [facility] Last Admin: 12/13/17 06:16 Dose: 200 mls/hr Levofloxacin/Dextrose 750 mg/ (Premix) 150 mls @ 100 mls/hr IV Q48H [facility] Last Admin: 12/12/17 11:24 Dose: 100 mls/hr Azithromycin 500 mg/ Sodium (Chloride) 250 mls @ 250 mls/hr IV ONETIME ONE Stop: 12/13/17 13:02 Last Admin: 12/13/17 12:44 Dose: 250 mls/hr Sodium Chloride (Normal Saline) 1,000 mls @ 50 mls/hr IV ASDIRECTED [facility] Last Admin: 12/14/17 19:13 Dose: 50 mls/hr Aminophylline 250 mg/ Sodium (Chloride) 210 mls @ 35 mls/hr IV ONETIME ONE Stop: 12/14/17 04:33 Last Admin: 12/13/17 23:15 Dose: 35 mls/hr Potassium Chloride 10 meq/ (Premix) 100 mls @ 100 mls/hr IV Q1H [facility] Stop: 12/14/17 08:29 Last Admin: 12/14/17 07:49 Dose: 100 mls/hr Insulin Aspart (Novolog) 0 unit SUBCUT QIDACANDBED [facility]; Protocol Last Admin: 12/03/17 19:06 Dose: Not Given Insulin Aspart (Novolog) 0 unit SUBCUT Q6H [facility]; Protocol Last Admin: 12/05/17 02:00 Dose: 7 units Insulin Aspart (Novolog) 0 unit SUBCUT Q6HR [facility]; Protocol Last Admin: 12/06/17 18:28 Dose: 10 units Insulin Aspart (Novolog) 0 unit SUBCUT QIDACANDBED [facility]; Protocol Last Admin: 12/09/17 22:21 Dose: Not Given Insulin Aspart (Novolog) 0 unit SUBCUT Q6H [facility]; Protocol Last Admin: 12/09/17 20:09 Dose: Not Given Insulin Aspart (Novolog) 0 unit SUBCUT Q6HR [facility]; Protocol Last Admin: 12/10/17 12:35 Dose: 12 units Insulin Aspart (Novolog) 0 unit SUBCUT Q6HR [facility]; Protocol Last Admin: 12/11/17 12:48 Dose: 15 units Insulin Aspart (Novolog) 0 unit SUBCUT Q4H [facility]; Protocol Last Admin: 12/13/17 17:39 Dose: Not Given Insulin Aspart (Novolog) 0 unit SUBCUT Q4HR [facility]; Protocol Last Admin: 12/13/17 23:16 Dose: Not Given Insulin Aspart (Novolog) 12 unit SUBCUT TIDMEALS [facility] Last Admin: 12/14/17 08:01 Dose: 12 units Insulin Detemir (Levemir) 5 unit SUBCUT BID [facility] Last Admin: 12/10/17 09:12 Dose: 5 units Insulin Detemir (Levemir) 8 unit SUBCUT BID [facility] Last Admin: 12/11/17 08:45 Dose: 8 units Insulin Detemir (Levemir) 8 unit SUBCUT ONETIME ONE Stop: 12/10/17 17:54 Last Admin: 12/10/17 18:07 Dose: 8 units Insulin Detemir (Levemir) 8 unit SUBCUT BID [facility] Insulin Detemir (Levemir) 10 unit SUBCUT BID [facility] Insulin Detemir (Levemir) 6 unit SUBCUT ONETIME ONE Stop: 12/13/17 21:01 Insulin Detemir (Levemir) 10 unit SUBCUT BID [facility] Insulin Detemir (Levemir) 8 unit SUBCUT ONETIME ONE Stop: 12/13/17 21:01 Insulin Detemir (Levemir) 15 unit SUBCUT ONETIME ONE Stop: 12/13/17 21:01 Last Admin: 12/13/17 20:27 Dose: 15 units Insulin Detemir (Levemir) 15 unit SUBCUT ONETIME ONE Stop: 12/13/17 22:24 Last Admin: 12/13/17 23:16 Dose: 15 units Insulin Detemir (Levemir) 25 unit SUBCUT BID [facility] Insulin Detemir (Levemir) 30 unit SUBCUT BID [facility] Last Admin: 12/16/17 20:44 Dose: 30 units Insulin Detemir (Levemir) 25 unit SUBCUT BID [facility] Last Admin: 12/17/17 10:04 Dose: 25 units Insulin Human Isoph/Insulin Regular (Novolin 70-30) 10 unit SUBCUT ONETIME ONE Stop: 12/13/17 16:45 Last Admin: 12/13/17 17:03 Dose: 10 units Insulin Human NPH (Novolin N) 25 unit SUBCUT ONETIME ONE Stop: 12/13/17 22:28 Last Admin: 12/13/17 23:41 Dose: Not Given Insulin Human Regular (Humulin R) 25 unit SUBCUT ONETIME ONE Stop: 12/13/17 23:46 Last Admin: 12/14/17 00:08 Dose: 25 units Levothyroxine Sodium (Synthroid) 50 mcg PO ACBREAKFAST [facility] Last Admin: 12/13/17 06:16 Dose: 50 mcg Levothyroxine Sodium (Levothyroxine) 75 mcg PO ACBREAKFAST [facility] Last Admin: 12/14/17 06:35 Dose: 75 mcg Losartan Potassium (Cozaar) 25 mg PO DAILY [facility] Last Admin: 12/15/17 08:39 Dose: 25 mg Megestrol Acetate (Megace) 40 mg PO BID [facility] Last Admin: 12/05/17 12:23 Dose: Not Given Megestrol Acetate (Megace 40 Mg/Ml Susp) 400 mg PO BID [facility] Last Admin: 12/15/17 08:40 Dose: 400 mg Methylprednisolone Sodium Succinate (Solu-Medrol) 80 mg IVPUSH DAILY@1800 [facility] Last Admin: 12/08/17 18:19 Dose: 80 mg Methylprednisolone Sodium Succinate (Solu-Medrol) 125 mg IVPUSH Q8H [facility] Last Admin: 12/13/17 06:16 Dose: 125 mg Methylprednisolone Sodium Succinate (Solu-Medrol) 80 mg IVPUSH Q8H [facility] Last Admin: 12/14/17 19:36 Dose: Not Given Methylprednisolone Sodium Succinate (Solu-Medrol) 80 mg IVPUSH Q8H [facility] Last Admin: 12/14/17 07:55 Dose: 80 mg Methylprednisolone Sodium Succinate (Solu-Medrol) 60 mg IVPUSH BID [facility] Methylprednisolone Sodium Succinate (Solu-Medrol) 60 mg IVPUSH BID [facility] Last Admin: 12/15/17 08:46 Dose: 60 mg Methylprednisolone Sodium Succinate (Solu-Medrol) 40 mg IVPUSH BID [facility] Last Admin: 12/16/17 20:47 Dose: 40 mg Methylprednisolone Sodium Succinate (Solu-Medrol) 40 mg IVPUSH DAILY ONE Stop: 12/17/17 09:01 Modafinil (Provigil) 100 mg PO DAILY [facility] Last Admin: 12/17/17 09:54 Dose: 100 mg Modafinil (Provigil) 50 mg PO DAILY [facility] Modafinil (Provigil) 150 mg PO DAILY [facility] Modafinil (Provigil) 50 mg PO NOW STA Stop: 12/17/17 10:01 Last Admin: 12/17/17 15:29 Dose: Not Given Modafinil (Provigil) 100 mg PO NOW STA Stop: 12/17/17 15:29 Last Admin: 12/17/17 15:38 Dose: 100 mg Potassium Chloride (Klor-Con M20) 40 meq PO BID [facility] Stop: 12/06/17 09:01 Last Admin: 12/06/17 08:56 Dose: 40 meq Prednisone (Prednisone) 20 mg PO WITHBREAKFAST [facility] Racepinephrine (S-2 2.25%) Confirm Administered Dose 0.5 ml .ROUTE .STK-MED ONE Stop: 12/11/17 17:35 Last Admin: 12/11/17 17:42 Dose: Not Given Racepinephrine (S-2 2.25%) 0.5 ml NEB Q6HR [facility] Last Admin: 12/12/17 18:35 Dose: 0.5 ml Sodium Bicarbonate (Sodium Bicarbonate 8.4%) Confirm Administered Dose 100 meq .ROUTE .STK-MED ONE Stop: 12/08/17 15:11 Last Admin: 12/08/17 15:10 Dose: 100 meq Sodium Bicarbonate (Sodium Bicarbonate 8.4%) 100 meq IVPUSH ONETIME ONE Stop: 12/08/17 15:17 Last Admin: 12/08/17 16:09 Dose: Not Given Sodium Bicarbonate (Sodium Bicarbonate 8.4%) Confirm Administered Dose 150 meq .ROUTE .STK-MED ONE Stop: 12/11/17 12:23 Last Admin: 12/11/17 12:52 Dose: Not Given Theophylline (Theophylline Anhydrous) 300 mg PO BID [facility] Last Admin: 12/15/17 20:07 Dose: 300 mg Vancomycin HCl (Pharmacy To Dose - Vancomycin) 0 dose .XX ASDIRECTED PRN PRN Reason: RX TO DOSE VANCOMYCIN - Exam Physical Findings Comments:: Unable to perform, patient .
[2017-12-20] MEDS ORDERED: REMOVE CLONIDINE TRDERM SCH (18:30)
[2017-12-22] MEDS ORDERED: Citalopram 20 MG Tab PO SCH (09:00)
== END 2017-12-18 20:41 | disposition expired | DRG 189 ==
LOC: JD.ED 07:19 → UNDOADMIN 14:07 → JD.MS 14:07 → JD.ICU 12-08 15:26 → JD.MS 12-15 20:58
PROVIDERS: ADMIT Internal Medicine Cardiovascular Disease; ATTEND Internal Medicine Cardiovascular Disease
PROC: 5A09557 Assistance with Respiratory Ventilation, Greater than 96 Consecutive Hours, Continuous Positive Airway Pressure (ICD-10-PCS; principal; 2017-12-03)
PROC: 039Y3ZZ Drainage of Upper Artery, Percutaneous Approach (ICD-10-PCS; 2017-12-03)
PROC: 3E0G76Z Introduction of Nutritional Substance into Upper GI, Via Natural or Artificial Opening (ICD-10-PCS; 2017-12-08)
DX: J96.91 Respiratory failure, unspecified with hypoxia (principal); I50.31 Acute diastolic (congestive) heart failure; J44.1 Chronic obstructive pulmonary disease with (acute) exacerbation; E87.1 Hypo-osmolality and hyponatremia; I13.0 Hypertensive heart and chronic kidney disease with heart failure and stage 1 through stage 4 chronic kidney disease, or unspecified chronic kidney disease; F33.9 Major depressive disorder, recurrent, unspecified; J96.92 Respiratory failure, unspecified with hypercapnia; Z66 Do not resuscitate; G47.33 Obstructive sleep apnea (adult) (pediatric); E11.65 Type 2 diabetes mellitus with hyperglycemia; E03.9 Hypothyroidism, unspecified; I48.0 Paroxysmal atrial fibrillation; E87.5 Hyperkalemia; H35.30 Unspecified macular degeneration; I25.10 Atherosclerotic heart disease of native coronary artery without angina pectoris; E78.00 Pure hypercholesterolemia, unspecified; K27.9 Peptic ulcer, site unspecified, unspecified as acute or chronic, without hemorrhage or perforation; E11.22 Type 2 diabetes mellitus with diabetic chronic kidney disease; G89.29 Other chronic pain; M48.00 Spinal stenosis, site unspecified; G43.909 Migraine, unspecified, not intractable, without status migrainosus; E61.1 Iron deficiency; N18.3 Chronic kidney disease, stage 3 (moderate); E78.5 Hyperlipidemia, unspecified; F41.9 Anxiety disorder, unspecified; R53.1 Weakness; F03.90 Unspecified dementia, unspecified severity, without behavioral disturbance, psychotic disturbance, mood disturbance, and anxiety; F17.210 Nicotine dependence, cigarettes, uncomplicated; I46.9 Cardiac arrest, cause unspecified; Z79.82 Long term (current) use of aspirin; I25.2 Old myocardial infarction; Z79.899 Other long term (current) drug therapy; Z79.4 Long term (current) use of insulin; Z99.81 Dependence on supplemental oxygen; Z93.0 Tracheostomy status; Z95.1 Presence of aortocoronary bypass graft; Z88.1 Allergy status to other antibiotic agents; Z88.2 Allergy status to sulfonamides; Z88.8 Allergy status to other drugs, medicaments and biological substances; Z93.1 Gastrostomy status
CPT/HCPCS: 36415; 36600; 51702; 70450; 70450-26; 71045; 71045-26; 71046; 71046-26; 80048; 80053; 80198; 80202; 81001; 82533; 82803; 82947; 82962; 83036; 83605; 83735; 83880; 84439; 84443; 84484; 85018; 85025; 85379; 86140; 86738; 87086; 87486; 87581; 87633; 87641; 87798; 87804; 87899; 92526-GN; 92610-GN; 93005; 93010; 94640; 94660; 94667; 94668; 94761; 96374; 97110-GO; 97110-GP; 97116-GP; 97161-GP; 97162-GP; 97165-GO; 97530-GO; 97530-GP; 99285-25; A9270-GY; J0280; J0360; J0456; J1650; J1815; J1815-GY; J1940; J1956; J2185; J2270; J2543; J2920; J2930; J3370; J3475; J3480; J3490; J7030; J7040; J7050; J7060; Q0167